=== PATIENT | female | born 1945 | race Caucasian/White ===

== ENCOUNTER 2017-05-29 13:41 | Emergency (ER) | payer MEDICARE ==
--- NOTE | 2017-05-29 13:59 | ER Document Report ---
ED Respiratory Problem - General Stated Complaint: SHORTNESS OF BREATH Time Seen by Provider: 05/29/17 13:48 Mode of Arrival: Medic Information source: Patient, Emergency Med Personnel TRAVEL OUTSIDE OF THE [place] IN LAST 30 DAYS: No - HPI Patient complains to provider of: COPD, Cough, Short of breath Onset: Last week Duration: Worse/persistent - GRADUALLY WORSENING Quality of pain: Other - SORENESS Severity: Moderate Context: Hx COPD Short of Breath: Moderate Cough: Productive Sputum amount: Moderate Sputum color: Yellow Sputum consistency: Mucoid At home treatment: Bronchodilators EMS treatments: Bronchodilators Associated symptoms: Chills, Cough, Fever Similar symptoms previously: Yes - NOT RECENT Recently seen / treated by doctor: No - Related Data Allergies/Adverse Reactions: azithromycin [Azithromycin] Allergy (Verified 05/29/17 17:11) moxifloxacin [From Avelox] Allergy (Verified 05/29/17 17:11) procaine HCl [From Novocain] Allergy (Verified 05/29/17 17:11) Home Medications: Current Home Medications Multivitamin [Multivitamins] 1 each PO DAILY 05/29/17 [History] Past Medical History - General Information source: Patient - Social History Smoking Status: Current Every Day Smoker Cigarette use (# per day): Yes Chew tobacco use (# tins/day): No Smoking Education Provided: No Frequency of alcohol use: Rare Drug Abuse: None Lives with: Alone Family History: Malignancy - Lung cancer Patient has suicidal ideation: No Patient has homicidal ideation: No - Past Medical History Cardiac Medical History: Reports: Hx Heart Attack - 2014 but cath negative, Hx Hypercholesterolemia Pulmonary Medical History: Reports: Hx COPD - 2014 fev1=43, Hx Pneumonia - 2014 EENT Medical History: Reports: None Neurological Medical History: Reports: None Endocrine Medical History: Reports: None Renal/ Medical History: Reports: None Malignancy Medical History: Reports: Hx Lung Cancer - 2006 RUL surgery chemo radiation GI Medical History: Reports: None Musculoskeltal Medical History: Reports None Psychiatric Medical History: Reports: None Denies: Hx Depression Past Surgical History: Reports: Hx Hysterectomy - Immunizations Immunizations up to date: Yes Hx Diphtheria, Pertussis, Tetanus Vaccination: Yes Hx Pneumococcal Vaccination: 07/16/15 Review of Systems - Review of Systems Constitutional: No symptoms reported EENT: No symptoms reported Cardiovascular: See HPI Respiratory: See HPI Gastrointestinal: No symptoms reported Genitourinary: Incontinence - STRESS, WORSENING Female Genitourinary: Post menopausal Musculoskeletal: No symptoms reported Skin: No symptoms reported Neurological/Psychological: No symptoms reported Physical Exam - Vital signs Vitals: Temp Resp BP Pulse Ox 97.6 F 24 H 113/70 90 L 05/29/17 13:53 05/29/17 13:53 05/29/17 13:53 05/29/17 13:53 Interpretation: Hypoxic, Tachypneic. No: Tachycardic, Febrile - General General appearance: Appears well, Alert In distress: None - HEENT Head: Normocephalic Eyes: Normal Conjunctiva: Normal Ears: Normal Nasal: Normal Mouth/Lips: Normal Mucous membranes: Normal Pharynx: Normal - Respiratory Respiratory status: No respiratory distress Chest status: Nontender Breath sounds: Decreased air movement - RIGHT UPPER, Productive cough, Wheezing - EXPIRATORY, ALL [place] - Cardiovascular Rhythm: Regular Heart sounds: Normal auscultation Murmur: No - Abdominal Inspection: Normal Distension: No distension Bowel sounds: Hypoactive - Extremities General upper extremity: Normal inspection General lower extremity: Normal inspection. No: Edema - Neurological Neuro grossly intact: Yes Cognition: Normal Orientation: AAOx4 - Psychological Associated symptoms: Normal affect, Normal mood - Skin Skin Temperature: Warm Skin Moisture: Dry Skin Color: Normal Skin Turgor: Elastic Course - Re-evaluation Re-evalutation: 05/29/17 17:27 Patient states she is much more comfortable. Lung sounds are improved. Treatment plan discussed. - Vital Signs Vital signs: Temp Pulse Resp BP Pulse Ox 97.6 F 16 119/57 L 94 05/29/17 13:53 05/29/17 17:02 05/29/17 17:02 05/29/17 17:02 - Laboratory Result Diagrams: 05/29/17 13:57 05/29/17 13:57 Laboratory results interpreted by me: 05/29/17 05/29/17 05/29/17 13:57 13:57 17:00 RDW 14.2 H Direct Bilirubin 0.5 H Urine Protein 30 H Urine Ketones TRACE H Ur Leukocyte Esterase MODERATE H - Diagnostic Test Radiology reviewed: Image reviewed, Reports reviewed - EKG Interpretation by Me EKG shows normal: Sinus rhythm, [place], Intervals, ST-T Waves. abnormal: QRS Complexes - ? OLD INF. ME Rate: Normal Rhythm: NSR P Waves: NAZIA - Consults DR. WATERS Time consulted: 16:34 Consulted provider: follow-up in office Discharge - Discharge Clinical Impression: Chronic obstructive pulmonary disease with acute exacerbation, Cough Condition: Stable Disposition: HOME, SELF-CARE Additional Instructions: STOP SMOKING!! REST, DRINK PLENTY OF FLUIDS. MEDS DIRECTED. FOLLOW UP WITH DR. WATERS IN OFFICE TOMORROW AT 2:20 PM. RETURN PROMPTLY TO E.R. IF YOU GET WORSE, ANY TIME. Prescriptions: Levofloxacin [Levaquin 500 mg Tablet] 500 mg PO DAILY #7 tablet Referrals: LENNY WATERS MD [Primary Care Provider] - Follow up tomorrow
[2017-05-29] MEDS ORDERED: METHYLPREDNISOLONE INJ 125 MG/2 ML SDV IV ONE (14:06)
[2017-05-29] MEDS ORDERED: IPRATROPIUM/ALBUTEROL 0.5-2.5 MG/3 ML AMPUL NEB ONE ×2 (14:06→16:36)
[2017-05-29 14:25] LABS: ABSOLUTE EOSINOPHILS # (AUTO) 0.2 10^3/uL (0.0-0.6); ABSOLUTE LYMPHOCYTES (AUTO) 1.3 10^3/uL (0.5-4.7); ABSOLUTE MONOCYTES (AUTO) 0.6 10^3/uL (0.1-1.4); ABSOLUTE NEUT (AUTO) 4.6 10^3/uL (1.7-8.2); BASOPHILS % (AUTO) 0.6 % (0-2); HEMATOCRIT 38.5 % (36.0-47.0); HEMOGLOBIN 12.9 g/dL (12.0-15.5); HGB HCT DIFFERENCE 0.2; LYMPHOCYTES % (AUTO) 19.9 % (13-45); MEAN CORPUSCULAR HEMOGLOBIN 29.2 pg (27.0-33.4); MEAN CORPUSCULAR HGB CONC 33.4 g/dL (32.0-36.0); MEAN CORPUSCULAR VOLUME 87 fl (80-97); RED BLOOD COUNT 4.41 10^6/uL (3.72-5.28); RED CELL DISTRIBUTION WIDTH 14.2 % (11.5-14.0); SEGMENTED NEUTROPHILS % (AUTO) 67.5 % (42-78); WHITE BLOOD COUNT 6.7 10^3/uL (4.0-10.5)
[2017-05-29 14:38] LABS: ALANINE AMINOTRANSFERASE 24 U/L (9-52); ALBUMIN 3.9 g/dL (3.5-5.0); ALKALINE PHOSPHATASE 76 U/L (38-126); ANION GAP 11 (5-19); ASPARTATE AMINO TRANSFERASE 24 U/L (14-36); BILIRUBIN,DIRECT 0.5 mg/dL (0.0-0.4); BILIRUBIN,TOTAL 0.7 mg/dL (0.2-1.3); BLOOD UREA NITROGEN 11 mg/dL (7-20); CALCIUM 9.4 mg/dL (8.4-10.2); CARBON DIOXIDE 23 mmol/L (22-30); CHLORIDE 106 mmol/L (98-107); CREATINE KINASE 56 U/L (30-135); CREATININE RESULT 0.68 mg/dL (0.52-1.25); GLUCOSE 96 mg/dL (75-110); POTASSIUM 4.3 mmol/L (3.6-5.0); SODIUM 139.7 mmol/L (137-145); TOTAL PROTEIN 6.8 g/dL (6.3-8.2)
[2017-05-29 14:44] LABS: VENOUS BLOOD BASE EXCESS 0.5 mmol/L; VENOUS BLOOD HCO3 25.7 mmol/L (20-32); VENOUS BLOOD PCO2 43.7 mmHg (35-63); VENOUS BLOOD PH 7.39 (7.30-7.42)
--- NOTE | 2017-05-29 15:08 | RADIOLOGY REPORT (SQ) ---
EXAM DESCRIPTION: CHEST SINGLE VIEW COMPLETED DATE/TIME: 05/29/2017 2:49 pm REASON FOR STUDY: COUGH, FEVER COMPARISON: 06/27/2016 EXAM PARAMETERS: NUMBER OF VIEWS: One view. TECHNIQUE: Single frontal radiographic view of the chest acquired. RADIATION DOSE: NA LIMITATIONS: None. FINDINGS: LUNGS AND PLEURA: Chronic postsurgical changes in the upper right hemithorax. COPD. Lung s appear free of active infiltrates. No effusions. MEDIASTINUM AND HILAR STRUCTURES: No masses. Contour normal. HEART AND VASCULAR STRUCTURES: Heart normal in size. Normal vasculature. BONES: No acute findings. HARDWARE: None in the chest. OTHER: No other significant finding. IMPRESSION: Chronic changes without evidence of acute cardiopulmonary disease. TECHNICAL DOCUMENTATION: JOB ID: [id number]
[2017-05-29 15:10] LABS: CREATINE KINASE MB 0.62 ng/mL (<4.55)
[2017-05-29 15:11] LABS: TROPONIN I < 0.012 ng/mL
[2017-05-29] MEDS ORDERED: LEVOFLOXACIN 750 MG TABLET PO ONE (16:36)
[2017-05-29 17:23] LABS: AMORPHOUS SEDIMENT,URINE TRACE /HPF; APPEARANCE,URINE CLOUDY; BILIRUBIN,URINE NEGATIVE (NEGATIVE); GLUCOSE, URINE NEGATIVE (NEGATIVE); KETONES,URINE TRACE mg/dL (NEGATIVE); LEUKOCYTE ESTERASE,URINE MODERATE (NEGATIVE); NITRITE,URINE NEGATIVE (NEGATIVE); PROTEIN,URINE 30 mg/dL (NEGATIVE); URINE SPECIFIC GRAVITY 1.018; UROBILINOGEN,URINE NEGATIVE mg/dL (<2.0)
[2017-05-29 18:19] VITALS: BP 132/78
--- NOTE | 2017-05-29 19:14 | EKG REPORT ---
SEVERITY:- ABNORMAL ECG - SINUS RHYTHM RIGHT ATRIAL ABNORMALITY PROBABLE INFERIOR INFARCT, OLD PROBABLE ANTEROLATERAL INFARCT, OLD : Confirmed by: Cristhian Brink MD 29-May-2017 19:12:37
== END 2017-05-29 18:19 | disposition home or self-care (01) ==
LOC: ER 13:41
DX: J44.1 Chronic obstructive pulmonary disease with (acute) exacerbation (principal); R05 Cough; R06.02 Shortness of breath; F17.210 Nicotine dependence, cigarettes, uncomplicated
CPT/HCPCS: 93005; 94640 ×2; 99285; 96374; 36415; 87040; 87070; 87086; 87205; 82553; 82550; 85025; 87088; 80053; 81001; 84484; 87186; 82803; 71010; 93010; J2930; A9270 ×2; J7620

== ENCOUNTER 2017-07-06 12:00 | Inpatient (IN) | payer MEDICARE ==
[2017-07-06 12:29] LABS: ABSOLUTE BASOPHILS # (AUTO) 0.1 10^3/uL (0.0-0.2); ABSOLUTE EOSINOPHILS # (AUTO) 0.1 10^3/uL (0.0-0.6); ABSOLUTE LYMPHOCYTES (AUTO) 1.3 10^3/uL (0.5-4.7); ABSOLUTE MONOCYTES (AUTO) 0.8 10^3/uL (0.1-1.4); ABSOLUTE NEUT (AUTO) 8.7 10^3/uL (1.7-8.2); BASOPHILS % (AUTO) 1.1 % (0-2); EOSINOPHILS % (AUTO) 0.5 % (0-6); HEMATOCRIT 39.4 % (36.0-47.0); HEMOGLOBIN 13.4 g/dL (12.0-15.5); HGB HCT DIFFERENCE 0.8; LYMPHOCYTES % (AUTO) 11.6 % (13-45); MEAN CORPUSCULAR HEMOGLOBIN 29.9 pg (27.0-33.4); MEAN CORPUSCULAR VOLUME 88 fl (80-97); MONOCYTES % (AUTO) 7.5 % (3-13); RED BLOOD COUNT 4.48 10^6/uL (3.72-5.28); RED CELL DISTRIBUTION WIDTH 14.8 % (11.5-14.0); SEGMENTED NEUTROPHILS % (AUTO) 79.3 % (42-78); WHITE BLOOD COUNT 10.9 10^3/uL (4.0-10.5)
--- NOTE | 2017-07-06 12:36 | ER Document Report ---
ED Respiratory Problem - General Information source: Patient TRAVEL OUTSIDE OF THE [place] IN LAST 30 DAYS: No <TAYLOR DELAROSA - Last Filed: 07/06/17 14:37> <JACKSON MONTGOMERY - Last Filed: 07/06/17 17:41> <FADI WANG - Last Filed: 07/06/17 22:26> - General Chief Complaint: Breathing Difficulty Stated Complaint: DIFFICULTY BREATHING Time Seen by Provider: 07/06/17 12:31 Notes: Patient is a 72-year-old female who presents to the emergency department today with complaints of a cough of one-week duration. Patient states initially the mucus she was bringing up with the cough was clear and it has transitioned to a yellow color. EMS states on arrival, the patient had an oxygen saturation of 88%, she received 2 albuterol treatments and one Atrovent in route. Patient denies any recent steroid or antibiotic usage. Patient states she uses Spiriva at home but her prescription recently ran out and she has not gotten it refilled. Patient did pick smoking back up recently. Patient states she has had associated chills, generalized weakness, and sweats. (TAYLOR DELAROSA) - HPI Notes: Staff attempting to get ABG with difficulty. (JACKSON MONTGOMERY) - Related Data Allergies/Adverse Reactions: azithromycin [Azithromycin] Allergy (Verified 05/29/17 17:11) moxifloxacin [From Avelox] Allergy (Verified 05/29/17 17:11) procaine HCl [From Novocain] Allergy (Verified 05/29/17 17:11) Past Medical History - General Information source: Patient - Social History Smoking Status: Current Every Day Smoker Cigarette use (# per day): Yes Frequency of alcohol use: None Drug Abuse: None Lives with: Family Family History: Malignancy - Lung cancer - Past Medical History Cardiac Medical History: Reports: Hx Heart Attack - 2014 but cath negative, Hx Hypercholesterolemia Pulmonary Medical History: Reports: Hx COPD - 2014 fev1=43, Hx Pneumonia - 2014 Malignancy Medical History: Reports: Hx Lung Cancer - 2006 RUL surgery chemo radiation Past Surgical History: Reports: Hx Hysterectomy - Immunizations Immunizations up to date: Yes Hx Diphtheria, Pertussis, Tetanus Vaccination: Yes Hx Pneumococcal Vaccination: 07/16/15 <TAYLOR DELAROSA - Last Filed: 07/06/17 14:37> Review of Systems - Review of Systems Constitutional: See HPI, Chills, Diaphoresis, Weakness EENT: No symptoms reported Cardiovascular: No symptoms reported Respiratory: See HPI, Cough Gastrointestinal: No symptoms reported Genitourinary: No symptoms reported Female Genitourinary: No symptoms reported Musculoskeletal: No symptoms reported Skin: No symptoms reported Hematologic/Lymphatic: No symptoms reported Neurological/Psychological: No symptoms reported -: Yes All other systems reviewed and negative <TAYLOR DELAROSA - Last Filed: 07/06/17 14:37> Physical Exam <TAYLOR DELAROSA - Last Filed: 07/06/17 14:37> <JACKSON MONTGOMERY - Last Filed: 07/06/17 17:41> <FADI WANG - Last Filed: 07/06/17 22:26> - Vital signs Vitals: Resp Pulse Ox 29 H 95 07/06/17 12:11 07/06/17 12:11 - Notes Notes: Physical Exam: General: Alert, appears in moderate distress secondary to shortness of breath. HEENT: Normocephalic. Atraumatic. PERRL. Extraocular movements intact. Oropharynx clear. Neck: Supple. Non-tender. Respiratory: Moderate respiratory distress. Diffuse rhonchi bilaterally, prolonged expiratory phase. Cardiovascular: Tachycardic, regular rhythm. Abdominal: Normal Inspection. Non-tender. No distension. Normal Bowel Sounds. Back: Non-tender. No deformity or step off. Extremities: Moves all four extremities. Upper extremities: Normal inspection. Normal ROM. Lower extremities: Trace edema bilaterally. Normal ROM. Neurological: Normal cognition. AAOx4. Normal speech. Psychological: Normal affect. Normal Mood. Skin: Warm. Dry. Normal color. (TAYLOR DELAROSA) Course - Laboratory Result Diagrams: 07/06/17 12:08 07/06/17 12:08 <TAYLOR DELAROSA - Last Filed: 07/06/17 14:37> - Laboratory Result Diagrams: 07/06/17 12:08 07/06/17 12:08 - Diagnostic Test Radiology reviewed: Image reviewed, Reports reviewed - Probable left lower lobe infiltrate - EKG Interpretation by Me Rate: Tachycardia - Sinus tachycardia rate 105. No obvious ischemia, QRS normal duration. <JACKSON MONTGOMERY - Last Filed: 07/06/17 17:41> - Laboratory Result Diagrams: 07/06/17 12:08 07/06/17 12:08 <FADI WANG - Last Filed: 07/06/17 22:26> - Re-evaluation Re-evalutation: 07/06/17 13:47 BiPAP ordered as saturations decreasing to as much as 79%. Patient does not use home oxygen. Zosyn ordered as appears to have a left basilar infiltrate. ABG previously ordered is still pending. 07/06/17 13:47 07/06/17 13:51 I discussed CODE STATUS with the patient. She does not want CPR but will be intubated if needed. She states she had not discussed this in the past. 07/06/17 16:[address] Banks for admission of the patient. ABG reviewed pH 7.31 , PO2 in the 60s with 50% oxygen. (JACKSON MONTGOMERY) - Vital Signs Vital signs: Temp Pulse Resp BP Pulse Ox 98.4 F 19 143/112 H 97 07/06/17 18:49 07/06/17 19:16 07/06/17 19:16 07/06/17 19:16 - Laboratory Laboratory results interpreted by me: 07/06/17 07/06/17 07/06/17 12:08 12:08 15:27 WBC 10.9 H RDW 14.8 H Seg Neutrophils % 79.3 H Lymphocytes % 11.6 L Absolute Neutrophils 8.7 H Carbonic Acid 1.65 H ABG pH 7.31 L ABG pCO2 54.7 H ABG pO2 62.4 L ABG HCO3 26.7 H ABG Total CO2 28.4 H ABG O2 Saturation 89.4 L Glucose 119 H Urine Protein Ur Leukocyte Esterase 07/06/17 20:15 WBC RDW Seg Neutrophils % Lymphocytes % Absolute Neutrophils Carbonic Acid ABG pH ABG pCO2 ABG pO2 ABG HCO3 ABG Total CO2 ABG O2 Saturation Glucose Urine Protein 30 H Ur Leukocyte Esterase MODERATE H Discharge <TAYLOR DELAROSA - Last Filed: 07/06/17 14:37> - Discharge Unit Admitted: [facility] <JACKSON MONTGOMERY - Last Filed: 07/06/17 17:41> - Discharge Admitting Provider: Darren Unit Admitted: [facility] <FADI WANG - Last Filed: 07/06/17 22:26> - Discharge Clinical Impression: Pneumonia, COPD with exacerbation, Acute respiratory failure Condition: Fair Disposition: ADMITTED INPATIENT Referrals: LENNY BANKS MD [Primary Care Provider] - Follow up as needed Scribe Attestation: 07/06/17 17:42 I personally performed the services described in the documentation, reviewed and edited the documentation which was dictated to the scribe in my presence, and it accurately records my words and actions. (JACKSON MONTGOMERY) Scribe Documentation - Scribe Written by Kyrie:: Kyrie Castro, 07/06/2017 1452 acting as scribe for :: Seble <TAYLOR DELAROSA - Last Filed: 07/06/17 14:37>
[2017-07-06] MEDS ORDERED: IPRATROPIUM/ALBUTEROL 0.5-2.5 MG/3 ML AMPUL NEB ONE ×2 (12:38→16:09)
--- NOTE | 2017-07-06 12:40 | EKG REPORT ---
SEVERITY:- ABNORMAL ECG - SINUS TACHYCARDIA INFERIOR INFARCT, OLD LATERAL INFARCT, OLD ANTERIOR INFARCT, AGE INDETERMINATE : Confirmed by: Cristhian Brink MD 06-Jul-2017 12:40:05
[2017-07-06 12:45] LABS: ALANINE AMINOTRANSFERASE 17 U/L (9-52); ALKALINE PHOSPHATASE 80 U/L (38-126); ANION GAP 10 (5-19); ASPARTATE AMINO TRANSFERASE 17 U/L (14-36); BILIRUBIN,DIRECT 0.4 mg/dL (0.0-0.4); BILIRUBIN,TOTAL 0.8 mg/dL (0.2-1.3); BLOOD UREA NITROGEN 9 mg/dL (7-20); CALCIUM 10.1 mg/dL (8.4-10.2); CARBON DIOXIDE 27 mmol/L (22-30); CHLORIDE 104 mmol/L (98-107); CREATININE RESULT 0.68 mg/dL (0.52-1.25); GLUCOSE 119 mg/dL (75-110); SODIUM 140.7 mmol/L (137-145)
--- NOTE | 2017-07-06 13:33 | RADIOLOGY REPORT (SQ) ---
EXAM DESCRIPTION: CHEST SINGLE VIEW COMPLETED DATE/TIME: 07/06/2017 12:47 pm REASON FOR STUDY: SOB COMPARISON: 05/29/2017 EXAM PARAMETERS: NUMBER OF VIEWS: One view. TECHNIQUE: Single frontal radiographic view of the chest acquired. RADIATION DOSE: NA LIMITATIONS: None. FINDINGS: LUNGS AND PLEURA: Surgical changes in the right upper lobe that are stable. There is slig htly increased opacification in the left base. MEDIASTINUM AND HILAR STRUCTURES: No masses. Contour normal. HEART AND VASCULAR STRUCTURES: Heart normal in size. Normal vasculature. BONES: No acute findings. HARDWARE: None in the chest. OTHER: No other significant finding. IMPRESSION: Surgical changes. A limited infiltrate cannot be ruled out in the left base. TECHNICAL DOCUMENTATION: JOB ID: [id number]
[2017-07-06] MEDS ORDERED: PIPERACILLIN/TAZOBACTAM 3.375 GM VIAL IV ONE (13:44)
[2017-07-06 14:14] LABS: PROTHROMBIN TIME 13.6 SEC (11.4-15.4)
[2017-07-06 15:51] LABS: ARTERIAL BLOOD BASE EXCESS -0.5 mmol/L; ARTERIAL BLOOD O2 SATURATION 89.4 % (94-98)
[2017-07-06 20:37] LABS: APPEARANCE,URINE CLOUDY; BILIRUBIN,URINE NEGATIVE (NEGATIVE); GLUCOSE, URINE NEGATIVE (NEGATIVE); KETONES,URINE NEGATIVE (NEGATIVE); LEUKOCYTE ESTERASE,URINE MODERATE (NEGATIVE); NITRITE,URINE NEGATIVE (NEGATIVE); PROTEIN,URINE 30 mg/dL (NEGATIVE); URINE SPECIFIC GRAVITY 1.021; UROBILINOGEN,URINE NEGATIVE mg/dL (<2.0)
--- NOTE | 2017-07-07 07:13 | PDOC H&P ---
History of Present Illness Admission Date/PCP: 07/06/17 22:32 LENNY WATERS MD Patient complains of: dyspnea History of Present Illness: SADA ROLAND is a 72 year old female with a RU lobectomy in 2006 for cancer and emphysema since then. Now she has had 6d productive cough and wheeze. She ran out of spiriva. Past Medical History Cardiac Medical History: Reports: Myocardial Infarction - 2014 but cath negative , Hyperlipidema Pulmonary Medical History: Reports: Chronic Obstructive Pulmonary Disease (COPD ) - 2014 fev1=43, Pneumonia - 2014 EENT Medical History: Reports: Nose - allergic rhinitis Neurological Medical History: Reports: None Endocrine Medical History: Reports: None Renal/ Medical History: Reports: None Malignancy Medical History: Reports: Lung Cancer - 2006 RUL surgery chemo radiation GI Medical History: Reports: None Musculoskeltal Medical History: Reports: None Skin Medical History: Reports: None Psychiatric Medical History: Reports: None Denies: Depression Traumatic Medical History: Reports: None Hematology: Reports: Anemia - b12 since 1955 Infectious Medical History: Reports: None Past Surgical History Past Surgical History: Reports: Hysterectomy, Other - RU lobectomy Social History Information Source: Dr. Castañeda Lives with: Family Smoking Status: Current Every Day Smoker Cigarettes Packs Per Day: 1 Number of Years Smokin Last Time Smoked: 07/06/17 Frequency of Alcohol Use: None Hx Recreational Drug Use: No Drugs: None Hx Prescription Drug Abuse: No - Advance Directive Resuscitation Status: Full Code Family History Family History: Malignancy - Lung cancer Parental Family History Reviewed: Yes Children Family History Reviewed: Yes Sibling(s) Family History Reviewed.: Yes Medication/Allergy Allergies/Adverse Reactions: azithromycin [Azithromycin] Allergy (Verified 05/29/17 17:11) moxifloxacin [From Avelox] Allergy (Verified 05/29/17 17:11) procaine HCl [From Novocain] Allergy (Verified 05/29/17 17:11) Review of Systems Constitutional: PRESENT: chills. ABSENT: weight loss Nose, Mouth, and Throat: PRESENT: sore throat Cardiovascular: PRESENT: chest pain - pleuritic, orthropnea Respiratory: PRESENT: cough, dyspnea, sputum Gastrointestinal: ABSENT: abdominal pain, constipation, diarrhea, hematochezia, melena, vomiting Genitourinary: ABSENT: dysuria, hematuria Physical Exam Vital Signs: Temp Pulse Resp BP Pulse Ox 97.6 F 83 24 H 125/51 L 100 07/07/17 03:09 07/07/17 03:09 07/07/17 04:06 07/07/17 03:09 07/07/17 03:09 Intake & Output 07/05/17 07/06/17 07/07/17 07:59 07:59 07:59 Intake Total 103 Balance 103 Weight 141 lb 12.116 oz General appearance: PRESENT: no acute distress Mouth exam: PRESENT: moist Neck exam: ABSENT: lymphadenopathy, tenderness, thyromegaly, tracheal deviation Respiratory exam: PRESENT: prolonged expiratory phas, wheezes Cardiovascular exam: ABSENT: diastolic murmur, irregular rhythm, systolic murmur GI/Abdominal exam: ABSENT: mass, organolmegaly, tenderness Extremities exam: ABSENT: pedal edema Neurological exam: PRESENT: oriented to situation Psychiatric exam: PRESENT: appropriate affect Results Laboratory Results: Abnormal - 24 hr 07/06/17 07/06/17 07/06/17 12:08 12:08 15:27 WBC 10.9 H RDW 14.8 H Seg Neutrophils % 79.3 H Lymphocytes % 11.6 L Absolute Neutrophils 8.7 H Carbonic Acid 1.65 H ABG pH 7.31 L ABG pCO2 54.7 H ABG pO2 62.4 L ABG HCO3 26.7 H ABG Total CO2 28.4 H ABG O2 Saturation 89.4 L Glucose 119 H Urine Protein Ur Leukocyte Esterase 07/06/17 20:15 WBC RDW Seg Neutrophils % Lymphocytes % Absolute Neutrophils Carbonic Acid ABG pH ABG pCO2 ABG pO2 ABG HCO3 ABG Total CO2 ABG O2 Saturation Glucose Urine Protein 30 H Ur Leukocyte Esterase MODERATE H Impressions: Chest X-Ray 07/06/17 12:16 IMPRESSION: Surgical changes. A limited infiltrate cannot be ruled out in the left base. Assessment & Plan - Diagnosis (1) PNA (pneumonia) Qualifiers: Pneumonia type: due to unspecified organism Laterality: left Lung location: lower lobe of lung Qualified Code(s): J18.1 - Lobar pneumonia, unspecified organism Is this a current diagnosis for this admission?: Yes Plan: unasyn (2) Acute respiratory failure Qualifiers: Respiratory failure complication: hypoxia and hypercapnia Qualified Code(s) : J96.01 - Acute respiratory failure with hypoxia; J96.02 - Acute respiratory failure with hypercapnia Is this a current diagnosis for this admission?: Yes Plan: duonebs prednisone. Wants bipap off. - Inpatient Certification Based on my medical assessment, after consideration of the patient's comorbidities, presenting symptoms, or acuity I expect that the services needed warrant INPATIENT care.: Yes Medical Necessity: Significant Comorbidiites Make Outpatient Treatment Too Risky , Need Close Monitoring Due to Risk of Patient Decompensation, Need For Continuous Telemetry Monitoring, Need for Nebulizer Therapy and Monitoring of Response, Need for IV Antibiotics, Risk of Complication if Not Cared For in Hospital, Risk of Diagnosis Which Will Require Inpatient Eval/Care/Monitoring
[2017-07-07] MEDS: IPRATROPIUM/ALBUTEROL 0.5-2.5 MG/3 ML AMPUL NEB SCH ×5 (08:33→23:49)
[2017-07-07] MEDS ORDERED: AMPICILLIN SODIUM/SULBACTAM NA 3 GM in NORMAL SALINE 100 ML IV SCH (12:00)
[2017-07-07] MEDS: ENOXAPARIN SODIUM INJ 40 MG/0.4 ML DISP.SYRIN SUBCUT SCH (12:19)
[2017-07-07] MEDS: PREDNISONE 20 MG TABLET PO SCH ×2 (12:20→21:59)
[2017-07-07] MEDS: FAMOTIDINE 20 MG TABLET PO SCH ×2 (12:20→22:00)
[2017-07-07] MEDS: AMPICILLIN SODIUM/SULBACTAM NA 3 GM in NORMAL SALINE 100 ML IV SCH ×2 (16:25→22:00)
[2017-07-08] MEDS: AMPICILLIN SODIUM/SULBACTAM NA 3 GM in NORMAL SALINE 100 ML IV SCH ×4 (02:30→21:07)
[2017-07-08] MEDS: IPRATROPIUM/ALBUTEROL 0.5-2.5 MG/3 ML AMPUL NEB SCH ×6 (03:37→23:28)
--- NOTE | 2017-07-08 06:13 | PDOC PROGRESS REPORT ---
Subjective Progress Note for:: 07/08/17 Subjective:: better. Wants home soon. Physical Exam Vital Signs: Temp Pulse Resp BP Pulse Ox 97.7 F 87 16 116/52 L 99 07/08/17 04:42 07/08/17 04:42 07/08/17 04:42 07/08/17 04:42 07/08/17 04:42 Intake & Output 07/06/17 07/07/17 07/08/17 07:59 07:59 07:59 Intake Total 103 894 Balance 103 894 Weight 141 lb 12.116 oz 141 lb 12.116 oz General appearance: PRESENT: no acute distress Respiratory exam: PRESENT: prolonged expiratory phas, rhonchi, wheezes Cardiovascular exam: ABSENT: diastolic murmur, irregular rhythm, systolic murmur GI/Abdominal exam: ABSENT: mass, organolmegaly, tenderness Extremities exam: ABSENT: pedal edema Results Impressions: Chest X-Ray 07/06/17 12:16 IMPRESSION: Surgical changes. A limited infiltrate cannot be ruled out in the left base. Assessment & Plan - Diagnosis (1) PNA (pneumonia) Qualifiers: Pneumonia type: due to unspecified organism Laterality: left Lung location: lower lobe of lung Qualified Code(s): J18.1 - Lobar pneumonia, unspecified organism Is this a current diagnosis for this admission?: Yes Plan: continue unasyn (2) Acute respiratory failure Qualifiers: Respiratory failure complication: hypoxia and hypercapnia Qualified Code(s) : J96.01 - Acute respiratory failure with hypoxia; J96.02 - Acute respiratory failure with hypercapnia Is this a current diagnosis for this admission?: Yes Plan: no bipap last night - Inpatient Certification Medical Necessity: Need Close Monitoring Due to Risk of Patient Decompensation, Need For Continuous Telemetry Monitoring, Need for IV Antibiotics, Risk of Complication if Not Cared For in Hospital, Risk of Diagnosis Which Will Require Inpatient Eval/Care/Monitoring
[2017-07-08] MEDS: PREDNISONE 20 MG TABLET PO SCH ×2 (09:34→21:06)
[2017-07-08] MEDS: FAMOTIDINE 20 MG TABLET PO SCH ×2 (09:34→21:06)
[2017-07-08] MEDS: ENOXAPARIN SODIUM INJ 40 MG/0.4 ML DISP.SYRIN SUBCUT SCH (09:34)
[2017-07-09] MEDS: AMPICILLIN SODIUM/SULBACTAM NA 3 GM in NORMAL SALINE 100 ML IV SCH ×4 (03:24→21:03)
[2017-07-09] MEDS: IPRATROPIUM/ALBUTEROL 0.5-2.5 MG/3 ML AMPUL NEB SCH ×5 (03:47→19:54)
--- NOTE | 2017-07-09 05:33 | PDOC PROGRESS REPORT ---
Subjective Progress Note for:: 07/09/17 Subjective:: better. Chokes when swallow. Physical Exam Vital Signs: Temp Pulse Resp BP Pulse Ox 97.7 F 92 16 108/49 L 100 07/09/17 04:27 07/09/17 04:27 07/09/17 04:27 07/09/17 04:27 07/09/17 04:27 Intake & Output 07/07/17 07/08/17 07/09/17 07:59 07:59 07:59 Intake Total 103 1132 2146 Balance 103 1132 2146 Weight 141 lb 12.116 oz 144 lb 6.444 oz General appearance: PRESENT: no acute distress Respiratory exam: PRESENT: rhonchi, wheezes Cardiovascular exam: ABSENT: diastolic murmur, irregular rhythm, systolic murmur GI/Abdominal exam: ABSENT: mass, organolmegaly, tenderness Extremities exam: ABSENT: pedal edema Neurological exam: PRESENT: oriented to situation Psychiatric exam: PRESENT: appropriate affect Results Impressions: Chest X-Ray 07/06/17 12:16 IMPRESSION: Surgical changes. A limited infiltrate cannot be ruled out in the left base. Assessment & Plan - Diagnosis (1) PNA (pneumonia) Qualifiers: Pneumonia type: due to unspecified organism Laterality: left Lung location: lower lobe of lung Qualified Code(s): J18.1 - Lobar pneumonia, unspecified organism Is this a current diagnosis for this admission?: Yes Plan: continue unasyn (2) Acute respiratory failure Qualifiers: Respiratory failure complication: hypoxia and hypercapnia Qualified Code(s) : J96.01 - Acute respiratory failure with hypoxia; J96.02 - Acute respiratory failure with hypercapnia Is this a current diagnosis for this admission?: Yes (3) Dysphagia Qualifiers: Dysphagia type: oropharyngeal phase Qualified Code(s): R13.12 - Dysphagia, oropharyngeal phase Is this a current diagnosis for this admission?: Yes Plan: modified barium swallow - Inpatient Certification Medical Necessity: Failure to Improve With Outpatient Therapy, Significant Comorbidiites Make Outpatient Treatment Too Risky, Need for Nebulizer Therapy and Monitoring of Response, Need for IV Antibiotics, Risk of Complication if Not Cared For in Hospital, Risk of Diagnosis Which Will Require Inpatient Eval/ Care/Monitoring
[2017-07-09] MEDS: FAMOTIDINE 20 MG TABLET PO SCH ×2 (09:02→21:02)
[2017-07-09] MEDS: PREDNISONE 20 MG TABLET PO SCH ×2 (09:02→21:02)
[2017-07-09] MEDS: ENOXAPARIN SODIUM INJ 40 MG/0.4 ML DISP.SYRIN SUBCUT SCH (09:03)
[2017-07-10] MEDS: IPRATROPIUM/ALBUTEROL 0.5-2.5 MG/3 ML AMPUL NEB SCH ×7 (01:02→23:57)
[2017-07-10] MEDS: AMPICILLIN SODIUM/SULBACTAM NA 3 GM in NORMAL SALINE 100 ML IV SCH ×4 (03:40→20:10)
--- NOTE | 2017-07-10 06:45 | PDOC PROGRESS REPORT ---
Subjective Progress Note for:: 07/10/17 Subjective:: slowly better Physical Exam Vital Signs: Temp Pulse Resp BP Pulse Ox 97.4 F 96 20 130/67 H 98 07/10/17 04:03 07/10/17 04:15 07/10/17 04:15 07/10/17 04:03 07/10/17 04:03 Intake & Output 07/08/17 07/09/17 07/10/17 07:59 07:59 07:59 Intake Total 1132 2146 1875 Balance 1132 2146 1875 Weight 144 lb 6.444 oz 148 lb 12.992 oz 153 lb 0.013 oz General appearance: PRESENT: no acute distress Respiratory exam: PRESENT: rhonchi, wheezes Cardiovascular exam: ABSENT: diastolic murmur, irregular rhythm, systolic murmur GI/Abdominal exam: ABSENT: mass, organolmegaly, tenderness Extremities exam: ABSENT: pedal edema Neurological exam: PRESENT: oriented to situation Psychiatric exam: PRESENT: appropriate affect Results Impressions: Chest X-Ray 07/06/17 12:16 IMPRESSION: Surgical changes. A limited infiltrate cannot be ruled out in the left base. Assessment & Plan - Diagnosis (1) PNA (pneumonia) Qualifiers: Pneumonia type: due to unspecified organism Laterality: left Lung location: lower lobe of lung Qualified Code(s): J18.1 - Lobar pneumonia, unspecified organism Is this a current diagnosis for this admission?: Yes Plan: gram positive in 1of2 blood culture. Had [id number] and [id number]. Follow id sensitivities (2) Acute respiratory failure Qualifiers: Respiratory failure complication: hypoxia and hypercapnia Qualified Code(s) : J96.01 - Acute respiratory failure with hypoxia; J96.02 - Acute respiratory failure with hypercapnia Is this a current diagnosis for this admission?: Yes (3) Dysphagia Qualifiers: Dysphagia type: oropharyngeal phase Qualified Code(s): R13.12 - Dysphagia, oropharyngeal phase Is this a current diagnosis for this admission?: Yes Plan: modified barium swallow
[2017-07-10] MEDS: FAMOTIDINE 20 MG TABLET PO SCH ×2 (10:29→21:25)
[2017-07-10] MEDS: PREDNISONE 20 MG TABLET PO SCH ×2 (10:29→21:25)
[2017-07-10] MEDS: ENOXAPARIN SODIUM INJ 40 MG/0.4 ML DISP.SYRIN SUBCUT SCH (10:30)
[2017-07-10 11:27] LABS: ABSOLUTE LYMPHOCYTES (AUTO) 0.5 10^3/uL (0.5-4.7); ABSOLUTE MONOCYTES (AUTO) 0.8 10^3/uL (0.1-1.4); ABSOLUTE NEUT (AUTO) 7.8 10^3/uL (1.7-8.2); BASOPHILS % (AUTO) 0.5 % (0-2); HEMATOCRIT 34.6 % (36.0-47.0); HEMOGLOBIN 11.9 g/dL (12.0-15.5); HGB HCT DIFFERENCE 1.1; LYMPHOCYTES % (AUTO) 5.4 % (13-45); MEAN CORPUSCULAR HEMOGLOBIN 30.4 pg (27.0-33.4); MEAN CORPUSCULAR HGB CONC 34.5 g/dL (32.0-36.0); MEAN CORPUSCULAR VOLUME 88 fl (80-97); MONOCYTES % (AUTO) 8.5 % (3-13); RED BLOOD COUNT 3.93 10^6/uL (3.72-5.28); RED CELL DISTRIBUTION WIDTH 14.7 % (11.5-14.0); SEGMENTED NEUTROPHILS % (AUTO) 85.6 % (42-78); WHITE BLOOD COUNT 9.1 10^3/uL (4.0-10.5)
[2017-07-11] MEDS: AMPICILLIN SODIUM/SULBACTAM NA 3 GM in NORMAL SALINE 100 ML IV SCH ×4 (02:32→21:39)
[2017-07-11] MEDS: IPRATROPIUM/ALBUTEROL 0.5-2.5 MG/3 ML AMPUL NEB SCH ×6 (03:21→23:53)
--- NOTE | 2017-07-11 06:44 | PDOC PROGRESS REPORT ---
Subjective Progress Note for:: 07/11/17 Subjective:: slowly better Physical Exam Vital Signs: Temp Pulse Resp BP Pulse Ox 98.4 F 94 18 136/61 H 98 07/11/17 03:18 07/11/17 03:21 07/11/17 03:21 07/11/17 03:18 07/11/17 03:21 Intake & Output 07/09/17 07/10/17 07/11/17 07:59 07:59 07:59 Intake Total 21455 851 Balance 2145 2074 851 Weight 148 lb 12.992 oz 153 lb 0.013 oz 156 lb 15.506 oz General appearance: PRESENT: no acute distress Respiratory exam: PRESENT: rhonchi - L>R, wheezes Cardiovascular exam: ABSENT: diastolic murmur, irregular rhythm, systolic murmur GI/Abdominal exam: ABSENT: mass, organolmegaly, tenderness Extremities exam: ABSENT: pedal edema Neurological exam: PRESENT: oriented to situation Psychiatric exam: PRESENT: appropriate affect Results Laboratory Results: 07/10/17 11:17 07/10/17 11:17 WBC 9.1 RBC 3.93 Hgb 11.9 L Hct 34.6 L MCV 88 MCH 30.4 MCHC 34.5 RDW 14.7 H Plt Count 242 Seg Neutrophils % 85.6 H Lymphocytes % 5.4 L Monocytes % 8.5 Eosinophils % 0.0 Basophils % 0.5 Absolute Neutrophils 7.8 Absolute Lymphocytes 0.5 Absolute Monocytes 0.8 Absolute Eosinophils 0.0 Absolute Basophils 0.0 Impressions: Chest X-Ray 07/06/17 12:16 IMPRESSION: Surgical changes. A limited infiltrate cannot be ruled out in the left base. Assessment & Plan - Diagnosis (1) PNA (pneumonia) Qualifiers: Pneumonia type: due to unspecified organism Laterality: left Lung location: lower lobe of lung Qualified Code(s): J18.1 - Lobar pneumonia, unspecified organism Is this a current diagnosis for this admission?: Yes Plan: Blood culture ID still pending. Continue unasyn. (2) Acute respiratory failure Qualifiers: Respiratory failure complication: hypoxia and hypercapnia Qualified Code(s) : J96.01 - Acute respiratory failure with hypoxia; J96.02 - Acute respiratory failure with hypercapnia Is this a current diagnosis for this admission?: Yes (3) Dysphagia Qualifiers: Dysphagia type: oropharyngeal phase Qualified Code(s): R13.12 - Dysphagia, oropharyngeal phase Is this a current diagnosis for this admission?: Yes Plan: Ba swallow postponed to today - Inpatient Certification Medical Necessity: Significant Comorbidiites Make Outpatient Treatment Too Risky , Need Close Monitoring Due to Risk of Patient Decompensation, Need for IV Antibiotics, Risk of Complication if Not Cared For in Hospital, Risk of Diagnosis Which Will Require Inpatient Eval/Care/Monitoring
[2017-07-11] MEDS: PREDNISONE 20 MG TABLET PO SCH ×2 (09:29→21:38)
[2017-07-11] MEDS: FAMOTIDINE 20 MG TABLET PO SCH ×2 (09:29→21:38)
[2017-07-11] MEDS: ENOXAPARIN SODIUM INJ 40 MG/0.4 ML DISP.SYRIN SUBCUT SCH (09:32)
--- NOTE | 2017-07-11 09:37 | RADIOLOGY REPORT (SQ) ---
EXAM DESCRIPTION: JENNIFERIE SWALLOW COMPLETED DATE/TIME: 07/11/2017 9:23 am REASON FOR STUDY: dysphagia COMPARISON: None. TECHNIQUE: Videofluoroscopic swallowing examination was performed in conjunction with speech patholo gy. Videofluoroscopic imaging was obtained and reviewed and these are the findings: RADIATION DOSE: Fluoro time 1.35 minutes 1 images saved to PACS. LIMITATIONS: None FINDINGS: The patient was brought into the fluoro room and placed upright on a modified barium swall ow chair. The patient was then given multiple consistencies mixed with barium to swallow under live fluoroscopic video guidance. According to the Speech Pathologist there was laryngeal penetration wit h thin barium, without aspiration identified. All other consistencies were swallowed without inciden t. Please refer to the speech pathology report for further details. IMPRESSION: LARYNGEAL PENETRATION WITHOUT ASPIRATION SEEN WITH THIN BARIUM.PLEASE SEE SPEECH PATHOLO GIST REPORT FOR OTHER FINDINGS AND RECOMMENDATIONS. COMMENT: NONE Quality ID [id number]: Final reports for procedures using fluoroscopy that document radiation exposure pavan lamonte, or exposure time and number of fluorographic images (if radiation exposure indices are not avail able) TECHNICAL DOCUMENTATION: JOB ID: [id number] [email or web address]- All Rights Reserved
--- NOTE | 2017-07-11 11:32 | ST Inp Modified Barium Swallow ---
Medical Diagnosis - Medical Diagnoses Medical Diagnosis Description & ICD-10 Code(s): pneumonia ST Inpatient [facility] [place] - General Date: 07/11/17 - History History Obtained From: Patient, Other - EMR -: Medical - per EMR: myocardial infarct, COPD, lung cancer 2007, RU lobectomy, anemia, hyperlipidemia. Medications: Medications Reviewed Allergies: Refer to medical record - Subjective Current Nutritional Means: PO Current PO Diet: Regular Current Symptoms: Coughing, Pneumonia Pain: Patient reports, 0/5 - Objective Assessment: Upright, Left Lateral - Food Trials Food Trials Used: Thin liquids, Pureed, Regular The Patient: Was Able to Self Feed - Assessment Labial Function: Within Normal Limits Lingual Function: Within Normal Limits Mandibular Function: Within Normal Limits Laryngeal Function: Volitional Cough - patient already coughing prior to assessment due to repiratory difficulties. Volitional cough triggered additional coughing. - Pharyngeal Stage Initiation of Pharyngeal Stage: Normal Decreased Laryngeal Elevation: Yes - mild Reduced Velo-Pharyngeal Closure: no Reduced Pressure Generation: No Reduced Tongue Base Retraction: No Pre-Swallowing Pooling in Valleculae: None Pre-Swallowing Pooling in Pyriforms: None Reduced Thyro-Hyiod Approximation: No Reduced Epiglottic Excursion: No Reduced Pharyngeal Peristalsis: No Multiple Swallows With: Cleared w/ Dry Swallow Post Swallow Residuals in Valleculae: Mild Post Swallow Residuals in Pyriforms: None - Impression/Summary Laryngeal Penetration: Yes, Flash, during swallow - for thin liquid trials Tracheal Aspiration: no Effective Compensatory Strategies: chin tuck Patient Presents With: Pharyngeal stage dysph., Mild-Moderate Risk of Aspiration: Mild Risk of Nutritional Compromise: WNL - Recommendations Solid Diet Recommendations: Regular Liquid Diet Recommendations: Thin Strict Aspitarion Precautions: Yes Dysphagia Therapy with INSOLVENCY CONSULTANT: No Recommended Techniques: Fully Upright During Meal, Small Bites and Sips, Chin Tuck to Swallow Other Recommendations: Recommended small straw sips of liquid rather than tilting head back to drink from cup. - Time Total Time: 20 Total Timed Minutes: 20
[2017-07-12] MEDS: AMPICILLIN SODIUM/SULBACTAM NA 3 GM in NORMAL SALINE 100 ML IV SCH (03:40)
[2017-07-12] MEDS: IPRATROPIUM/ALBUTEROL 0.5-2.5 MG/3 ML AMPUL NEB SCH ×2 (04:05→07:59)
--- NOTE | 2017-07-12 06:43 | PDOC DISCHARGE SUMMARY ---
General - Admit/Disc Date/PCP Admission Date/Primary Care Provider: 07/07/17 04:38 LENNY WATERS MD Discharge Date: 07/12/17 - Discharge Diagnosis (1) PNA (pneumonia) Is this a current diagnosis for this admission?: Yes (2) Acute respiratory failure Is this a current diagnosis for this admission?: Yes (3) Dysphagia Is this a current diagnosis for this admission?: Yes - Additional Information Resuscitation Status: Full Code Discharge Diet: As Tolerated Discharge Activity: Activity As Tolerated Home Medications: Albuterol Sulfate [Proair HFA] 2 puff IH Q4 PRN 07/07/17 Estradiol [Estrace] 1 applic TOP DAILY 07/07/17 Montelukast Sodium [Singulair 10 mg Tablet] 10 mg PO QHS 07/07/17 Tiotropium [place] [Spiriva Respimat] 2 puff IH QHS 07/07/17 Amox Tr/Potassium Clavulanate [Augmentin 875-125 mg Tablet] 1 tab PO Q12H #10 tablet 07/12/17 Prednisone [Deltasone 20 mg Tablet] 20 mg PO Q12 #4 tablet 07/12/17 History of Present Illness Patient complains of: dyspnea History of Present Illness: SADA ROLAND is a 72 year old female with a RU lobectomy in 2006 for cancer and emphysema since then. Now she has had 6d productive cough and wheeze. She ran out of spiriva. Hospital Course Hospital Course: Cough and dyspnea slowly improved on 5d prednisone and unasyn. 1of2 blood cultures grew micrococcus which I thought a contaminant. She complained of choking on food. Modified barium swallow showed flash penetration of thin liquids. ST suggested straw and chin tuck. Room air sat91. Physical Exam Vital Signs: Temp Pulse Resp BP Pulse Ox 98.2 F 85 18 136/64 H 93 07/11/17 23:34 07/12/17 04:05 07/12/17 04:05 07/11/17 23:34 07/11/17 23:34 Intake & Output 07/10/17 07/11/17 07/12/17 07:59 07:59 07:59 Intake Total 5 1061 2154 Balance 2074 1061 2154 Weight 153 lb 0.013 oz 156 lb 15.506 oz General appearance: PRESENT: no acute distress Respiratory exam: PRESENT: rhonchi, wheezes Cardiovascular exam: ABSENT: diastolic murmur, irregular rhythm, systolic murmur Extremities exam: ABSENT: pedal edema Neurological exam: PRESENT: oriented to situation Psychiatric exam: PRESENT: appropriate affect Results Laboratory Results: 07/10/17 11:17 Labs- Last Values WBC 9.1 10^3/uL (4.0-10.5) 07/10/17 11:17 RBC 3.93 10^6/uL (3.72-5.28) 07/10/17 11:17 Hgb 11.9 g/dL (12.0-15.5) L 07/10/17 11:17 Hct 34.6 % (36.0-47.0) L 07/10/17 11:17 MCV 88 fl (80-97) 07/10/17 11:17 MCH 30.4 pg (27.0-33.4) 07/10/17 11:17 MCHC 34.5 g/dL (32.0-36.0) 07/10/17 11:17 RDW 14.7 % (11.5-14.0) H 07/10/17 11:17 Plt Count 242 10^3/uL (150-450) 07/10/17 11:17 Seg Neutrophils % 85.6 % (42-78) H 07/10/17 11:17 Lymphocytes % 5.4 % (13-45) L 07/10/17 11:17 Monocytes % 8.5 % (3-13) 07/10/17 11:17 Eosinophils % 0.0 % (0-6) 07/10/17 11:17 Basophils % 0.5 % (0-2) 07/10/17 11:17 Absolute Neutrophils 7.8 10^3/uL (1.7-8.2) 07/10/17 11:17 Absolute Lymphocytes 0.5 10^3/uL (0.5-4.7) 07/10/17 11:17 Absolute Monocytes 0.8 10^3/uL (0.1-1.4) 07/10/17 11:17 Absolute Eosinophils 0.0 10^3/uL (0.0-0.6) 07/10/17 11:17 Absolute Basophils 0.0 10^3/uL (0.0-0.2) 07/10/17 11:17 PT 13.6 SEC (11.4-15.4) 07/06/17 12:08 INR 0.97 07/06/17 12:08 Carbonic Acid 1.65 mmol/L (1.05-1.35) H 07/06/17 15:27 HCO3/H2CO3 Ratio 16:1 07/06/17 15:27 ABG pH 7.31 (7.35-7.45) L 07/06/17 15:27 ABG pCO2 54.7 mmHg (35-45) H 07/06/17 15:27 ABG pO2 62.4 mmHg (80-100) L 07/06/17 15:27 ABG HCO3 26.7 mmol/L (20-26) H 07/06/17 15:27 ABG Total CO2 28.4 mmol/L (21-25) H 07/06/17 15:27 ABG O2 Saturation 89.4 % (94-98) L 07/06/17 15:27 ABG Base Excess -0.5 mmol/L 07/06/17 15:27 FiO2 50% 07/06/17 15:27 Sodium 140.7 mmol/L (137-145) 07/06/17 12:08 Potassium 4.0 mmol/L (3.6-5.0) 07/06/17 12:08 Chloride 104 mmol/L (98-107) 07/06/17 12:08 Carbon Dioxide 27 mmol/L (22-30) 07/06/17 12:08 Anion Gap 10 (5-19) 07/06/17 12:08 BUN 9 mg/dL (7-20) 07/06/17 12:08 Creatinine 0.68 mg/dL (0.52-1.25) 07/06/17 12:08 Est GFR ( Amer) > 60 (>60) 07/06/17 12:08 Est GFR (Non-Af Amer) > 60 (>60) 07/06/17 12:08 Glucose 119 mg/dL (75-110) H 07/06/17 12:08 Lactic Acid 0.9 mmol/L (0.7-2.1) 07/06/17 12:08 Calcium 10.1 mg/dL (8.4-10.2) 07/06/17 12:08 Total Bilirubin 0.8 mg/dL (0.2-1.3) 07/06/17 12:08 Direct Bilirubin 0.4 mg/dL (0.0-0.4) 07/06/17 12:08 Indirect Bilirubin Not Reportable 07/06/17 12:08 Neonat Total Bilirubin Not Reportable 07/06/17 12:08 AST 17 U/L (14-36) 07/06/17 12:08 ALT 17 U/L (9-52) 07/06/17 12:08 Alkaline Phosphatase 80 U/L (38-126) 07/06/17 12:08 Total Protein 7.0 g/dL (6.3-8.2) 07/06/17 12:08 Albumin 4.0 g/dL (3.5-5.0) 07/06/17 12:08 Urine Color YELLOW 07/06/17 20:15 Urine Appearance CLOUDY 07/06/17 20:15 Urine pH 5.0 (5.0-9.0) 07/06/17 20:15 Ur Specific [place] 1.021 07/06/17 20:15 Urine Protein 30 mg/dL (NEGATIVE) H 07/06/17 20:15 Urine Glucose (UA) NEGATIVE mg/dL (NEGATIVE) 07/06/17 20:15 Urine Ketones NEGATIVE mg/dL (NEGATIVE) 07/06/17 20:15 Urine Blood NEGATIVE (NEGATIVE) 07/06/17 20:15 Urine Nitrite NEGATIVE (NEGATIVE) 07/06/17 20:15 Urine Bilirubin NEGATIVE (NEGATIVE) 07/06/17 20:15 Urine Urobilinogen NEGATIVE mg/dL (<2.0) 07/06/17 20:15 Ur Leukocyte Esterase MODERATE (NEGATIVE) H 07/06/17 20:15 Urine WBC (Auto) 22 /HPF 07/06/17 20:15 Urine RBC (Auto) 6 /HPF 07/06/17 20:15 U Hyaline Cast (Auto) 1 /LPF 07/06/17 20:15 Urine Bacteria (Auto) TRACE /HPF 07/06/17 20:15 Squamous Epi Cells Auto 4 /HPF 07/06/17 20:15 Urine Mucus (Auto) RARE /LPF 07/06/17 20:15 Urine Ascorbic Acid NEGATIVE (NEGATIVE) 07/06/17 20:15 Impressions: Chest X-Ray 07/06/17 12:16 IMPRESSION: Surgical changes. A limited infiltrate cannot be ruled out in the left base. Modified Barium Swallow 07/11/17 00:00 IMPRESSION: LARYNGEAL PENETRATION WITHOUT ASPIRATION SEEN WITH THIN BARIUM.PLEASE SEE SPEECH PATHOLOGIST REPORT FOR OTHER FINDINGS AND RECOMMENDATIONS. Plan Discharge Plan: home. OV 8d
[2017-07-12 08:35] VITALS: BP 150/67
== END 2017-07-12 10:01 | disposition home or self-care (01) | DRG 189 ==
LOC: ER 12:00 → UNDOADMIN 22:32 → EH 22:32 → 3N 07-07 03:23 → EH 07-07 03:23 → 3N 07-07 04:38
PROVIDERS: ADMIT Family Medicine; ATTEND Family Medicine
DX: J96.01 Acute respiratory failure with hypoxia (principal); J18.9 Pneumonia, unspecified organism; J44.0 Chronic obstructive pulmonary disease with (acute) lower respiratory infection; R13.10 Dysphagia, unspecified; D51.9 Vitamin B12 deficiency anemia, unspecified; E78.5 Hyperlipidemia, unspecified; Z79.899 Other long term (current) drug therapy; I25.2 Old myocardial infarction; Z85.118 Personal history of other malignant neoplasm of bronchus and lung; Z90.2 Acquired absence of lung [part of]; Z90.710 Acquired absence of both cervix and uterus; F17.210 Nicotine dependence, cigarettes, uncomplicated; Z88.1 Allergy status to other antibiotic agents
CPT/HCPCS: 36415; 36600; 71010; 74230; 80053; 81001; 82803; 83605; 85025; 85610; 87040; 87077; 93005; 93010; 94640; 94660; 96365; 99285; G8996-GN; G8997-GN; G8998-GN; J0295; J1650; J2543; J7512; J7620

== ENCOUNTER 2017-09-09 11:30 | Emergency (ER) | payer MEDICARE ==
[2017-09-09] MEDS ORDERED: METHYLPREDNISOLONE INJ 125 MG/2 ML SDV IV ONE (12:03)
[2017-09-09] MEDS ORDERED: ALBUTEROL SULFATE 0.083% NEB 2.5 MG/3 ML AMPUL NEB ONE (12:03)
[2017-09-09] MEDS ORDERED: IPRATROPIUM/ALBUTEROL 0.5-2.5 MG/3 ML AMPUL NEB ONE (12:03)
[2017-09-09] MEDS ORDERED: NORMAL SALINE 1000 ML 1,000 ML IV ONE (12:03)
--- NOTE | 2017-09-09 12:04 | ER Document Report ---
ED Medical Screen (RME) - General Chief Complaint: Shortness Of Breath Stated Complaint: SHORTNESS OF BREATH Time Seen by Provider: 09/09/17 12:02 TRAVEL OUTSIDE OF THE [place] IN LAST 30 DAYS: No - HPI Notes: 09/09/17 12:03 History of lung CA with right upper lobe removed with cough chills last 3 days complaining of shortness of breath - Related Data Allergies/Adverse Reactions: azithromycin [Azithromycin] Allergy (Verified 09/09/17 11:37) moxifloxacin [From Avelox] Allergy (Verified 09/09/17 11:37) procaine HCl [From Novocain] Allergy (Verified 09/09/17 11:37) Past Medical History - Past Medical History Cardiac Medical History: Reports: Hx Heart Attack - 2014 but cath negative, Hx Hypercholesterolemia Pulmonary Medical History: Reports: Hx COPD - 2014 fev1=43, Hx Pneumonia - 2014 Malignancy Medical History: Reports: Hx Lung Cancer - 2006 RUL surgery chemo radiation Psychiatric Medical History: Denies: Hx Depression Past Surgical History: Reports: Hx Hysterectomy, Other - RU lobectomy - Immunizations Immunizations up to date: Yes Hx Diphtheria, Pertussis, Tetanus Vaccination: Yes History of Influenza Vaccine for 07/2017 - 12/2017 Season: No Review of Systems - Review of Systems Respiratory: Cough Physical Exam - Vital signs Vitals: Temp Pulse Resp BP Pulse Ox 97.8 F 114 H 16 104/43 L 93 09/09/17 11:32 09/09/17 11:32 09/09/17 11:32 09/09/17 11:32 09/09/17 11:32 Interpretation: Tachycardic - General General appearance: Appears well, Alert - HEENT Head: Normocephalic, Atraumatic Eyes: Normal Pupils: PERRL - Cardiovascular Rhythm: Tachycardia Heart sounds: Normal auscultation Murmur: No - Abdominal Inspection: Normal Distension: No distension Bowel sounds: Normal Tenderness: Nontender Organomegaly: No organomegaly - Back Back: Normal, Nontender - Extremities General upper extremity: Normal inspection, Nontender, Normal color, Normal ROM , Normal temperature General lower extremity: Normal inspection, Nontender, Normal color, Normal ROM , Normal temperature, Normal weight bearing. No: Shavonne's sign - Neurological Neuro grossly intact: Yes Cognition: Normal Orientation: AAOx4 [place] Coma Scale Eye Opening: Spontaneous [place] Coma Scale Verbal: Oriented [place] Coma Scale Motor: Obeys Commands [place] Coma Scale Total: 15 Speech: Normal Motor strength normal: LUE, RUE, LLE, RLE Sensory: Normal - Psychological Associated symptoms: Normal affect, Normal mood - Skin Skin Temperature: Warm Skin Moisture: Dry Skin Color: Normal Course - Vital Signs Vital signs: Temp Pulse Resp BP Pulse Ox 97.8 F 114 H 16 104/43 L 93 09/09/17 11:32 09/09/17 11:32 09/09/17 11:32 09/09/17 11:32 09/09/17 11:32
--- NOTE | 2017-09-09 13:00 | ER Document Report ---
ED Respiratory Problem - General Chief Complaint: Shortness Of Breath Stated Complaint: SHORTNESS OF BREATH Time Seen by Provider: 09/09/17 12:02 Notes: The patient is a 72-year-old female, past medical history COPD, Hx of lung cancer s/p lobectomy, presents with 3 days of cough, shortness of breath, subjective fevers and chills. She denies chest pain, leg swelling, hemoptysis, recent travel, sputum, nausea, vomiting, back pain, abdominal pain or headache. TRAVEL OUTSIDE OF THE [place] IN LAST 30 DAYS: No - Related Data Allergies/Adverse Reactions: azithromycin [Azithromycin] Allergy (Verified 09/09/17 11:37) moxifloxacin [From Avelox] Allergy (Verified 09/09/17 11:37) procaine HCl [From Novocain] Allergy (Verified 09/09/17 11:37) Past Medical History - General Information source: Patient - Social History Smoking Status: Current Every Day Smoker Chew tobacco use (# tins/day): No Frequency of alcohol use: None Drug Abuse: None Family History: Malignancy - Lung cancer Patient has suicidal ideation: No Patient has homicidal ideation: No - Past Medical History Cardiac Medical History: Reports: Hx Heart Attack - 2014 but cath negative, Hx Hypercholesterolemia Pulmonary Medical History: Reports: Hx COPD - 2014 fev1=43, Hx Pneumonia - 2014 Renal/ Medical History: Denies: Hx Peritoneal Dialysis Malignancy Medical History: Reports: Hx Lung Cancer - 2006 RUL surgery chemo radiation Psychiatric Medical History: Denies: Hx Depression Past Surgical History: Reports: Hx Hysterectomy, Other - RU lobectomy - Immunizations Immunizations up to date: Yes Hx Diphtheria, Pertussis, Tetanus Vaccination: Yes Hx Pneumococcal Vaccination: 10/16/16 Review of Systems - Review of Systems Notes: REVIEW OF SYSTEMS: CONSTITUTIONAL: +fevers, +chills EENT: -eye pain, -difficulty swallowing, -nasal congestion CARDIOVASCULAR: -chest pain, -syncope. RESPIRATORY: +cough, +SOB GASTROINTESTINAL: -abdominal pain, -nausea, -vomiting, -diarrhea GENITOURINARY: -dysuria, -hematuria MUSCULOSKELETAL: -back pain, -neck pain SKIN: -rash or skin lesions. HEMATOLOGIC: -easy bruising or bleeding. LYMPHATIC: -swollen, enlarged glands. NEUROLOGICAL: -altered mental status or loss of consciousness, -headache, - neurologic symptoms PSYCHIATRIC: -anxiety, -depression. ALL OTHER SYSTEMS REVIEWED AND NEGATIVE. Physical Exam - Vital signs Vitals: Temp Pulse Resp BP Pulse Ox 97.8 F 114 H 16 104/43 L 93 09/09/17 11:32 09/09/17 11:32 09/09/17 11:32 09/09/17 11:32 09/09/17 11:32 - Notes Notes: PHYSICAL EXAMINATION: GENERAL: Well-appearing, well-nourished and in no acute distress. HEAD: Atraumatic, normocephalic. EYES: Pupils equal round and reactive to light, extraocular movements intact, sclera anicteric, conjunctiva are normal. ENT: nares patent, oropharynx clear without exudates. Moist mucous membranes. NECK: Normal range of motion, supple without lymphadenopathy LUNGS: No respiratory distress. Speaking in full sentences. Diffuse wheezing, worse on right. HEART: Tachycardia. ABDOMEN: Soft, nontender, normoactive bowel sounds. No guarding, no rebound. No masses appreciated. EXTREMITIES: Normal range of motion, no pitting or edema. No cyanosis. NEUROLOGICAL: Cranial nerves grossly intact. Normal speech, normal gait. Normal sensory and motor exams. PSYCH: Normal mood, normal affect. SKIN: Warm, Dry, normal turgor, no rashes or lesions noted. Course - Re-evaluation Re-evalutation: Patient presents with wheezing and cough and temperature of 100.5. After duonebs and steroids, she feels much better. D-dimer sent due to the tachycardia and tachypnea, but this result was negative and pulmonary embolism is very unlikely at this time. She had no chest pain and no pneumonia present on chest x-ray. Tachycardia resolved upon discharge. Instructed patient to continue 4 more days of prednisone and use her home albuterol as needed with follow-up at her primary care physician. - Vital Signs Vital signs: Temp Pulse Resp BP Pulse Ox 97.8 F 114 H 16 104/43 L 93 09/09/17 11:32 09/09/17 11:32 09/09/17 11:32 09/09/17 11:32 09/09/17 11:32 - Laboratory Result Diagrams: 09/09/17 13:02 09/09/17 13:02 Laboratory results interpreted by me: 11/25/17 11/25/17 11/25/17 13:02 13:02 14:00 RDW 14.4 H Glucose 115 H POC Glucose 131 H Direct Bilirubin 0.5 H - Diagnostic Test Radiology reviewed: Image reviewed, Reports reviewed Radiology results interpreted by me: CXR: NAD Discharge - Discharge Clinical Impression: COPD exacerbation Condition: Stable Disposition: HOME, SELF-CARE Additional Instructions: BRONCHITIS WITH BRONCHOSPASM (WHEEZING): You have bronchitis with bronchospasm (wheezing). Sometimes people develop wheezing with a chest cold. This occurs either because of an underlying tendency toward asthma or because the virus itself irritates the bronchial tubes. This irritation causes cough, shortness of breath, and wheezing. Emergency treatment of bronchospasm may include adrenaline shots or bronchodilator aerosol. You may feel lightheaded and have a rapid pulse for an hour or two. Rest and get plenty of fluids. At home, we'll treat you with a bronchodilator inhaler. Corticosteroids may be required for some patients. Until you recover, avoid chemical fumes, dusts, pollens, and exercising in very cold or dry air. If you smoke, stop now! Most cases of bronchitis get better without antibiotics. We prescribe antibiotics when we believe bacteria are damaging your airways, or if there's high risk the bronchitis will worsen into pneumonia. Increase your fluid intake. A cool mist humidifier may make your lungs more comfortable. An expectorant (cough medicine that loosens phlegm) can help. Repeated episodes of bronchitis and bronchospasm may result in lung damage -- for example, chronic bronchitis, recurrent pneumonias, or emphysema. If you develop a fever, increased wheezing, chest pain, or severe shortness of breath, you should contact the doctor immediately. INHALED BRONCHODILATORS: You have received a treatment of and/or prescription for an inhaled bronchodilator -- a medication which stimulates the airways in the lung to dilate. This improves the flow of air in asthma, bronchitis, and emphysema. These medicines have some similarity to adrenaline, and can cause similar side effects: shakiness, racing heart, and a sense of nervousness. These side effects decrease with time. Contact your doctor if these side effects are severe. Do not over-use the medicine. Too-frequent use of the inhaler may make it ineffective. Call your doctor if the inhaler is not controlling your symptoms at the prescribed doses. STEROID MEDICATION: You have been given an injection of or oral medicine of the cortisone/ steroid class. This medication is used to control inflammation or allergy. Hank t is usually only given for a short period of time, until the acute process subsides. There are usually no side effects from short-term use of cortisone-like medications. Some persons feel an increased sense of well-being and are not sleepy at bedtime. Long-term use of cortisone medications is best avoided, unless required for a severe condition. If your condition does not remit, or relapses after the course of corticosteroid medication, you should consult your physician. USE OF ACETAMINOPHEN (Tylenol): Acetaminophen may be taken for pain relief or fever control. It's much safer than aspirin, offering a wider range of "safe" dosages. It is safe during . Some brand names are Tylenol, Panadol, Datril, Anacin 3, Tempra, and Liquiprin. Acetaminophen can be repeated every four hours. The following are maximum recommended dosages: >89 pounds or adults 650 mg to 900 mg Acetaminophen can be repeated every four hours. Maximum dose not to exceed 4000 mg a day. SMOKING: If you smoke, you should stop smoking. The tar and chemicals in cigarette smoke are harmful. Smoking has been shown to cause: emphysema chronic bronchitis lung cancer mouth and throat cancer stomach and pancreas cancer premature aging defects In addition, smoking increases ear and lung infections in children of smokers. FOLLOW-UP CARE: If you have been referred to a physician for follow-up care, call the physician s office for an appointment as you were instructed or within the next two days. If you experience worsening or a significant change in your symptoms, notify the physician immediately or return to the Emergency Department at any time for re-evaluation. Prescriptions: Prednisone [Deltasone 20 mg Tablet] 3 tab PO DAILY 4 Days tablet Referrals: LENNY WATERS MD [Primary Care Provider] - Follow up as needed
[2017-09-09 13:19] LABS: VENOUS BLOOD BASE EXCESS 1.9 mmol/L; VENOUS BLOOD PH 7.36 (7.30-7.42)
[2017-09-09 13:20] LABS: ABSOLUTE BASOPHILS # (AUTO) 0.1 10^3/uL (0.0-0.2); ABSOLUTE EOSINOPHILS # (AUTO) 0.1 10^3/uL (0.0-0.6); ABSOLUTE LYMPHOCYTES (AUTO) 1.4 10^3/uL (0.5-4.7); ABSOLUTE MONOCYTES (AUTO) 0.6 10^3/uL (0.1-1.4); ABSOLUTE NEUT (AUTO) 5.4 10^3/uL (1.7-8.2); BASOPHILS % (AUTO) 0.7 % (0-2); EOSINOPHILS % (AUTO) 1.2 % (0-6); HEMATOCRIT 37.6 % (36.0-47.0); HEMOGLOBIN 12.7 g/dL (12.0-15.5); HGB HCT DIFFERENCE 0.5; LYMPHOCYTES % (AUTO) 18.5 % (13-45); MEAN CORPUSCULAR HEMOGLOBIN 29.6 pg (27.0-33.4); MEAN CORPUSCULAR HGB CONC 33.9 g/dL (32.0-36.0); MEAN CORPUSCULAR VOLUME 87 fl (80-97); MONOCYTES % (AUTO) 8.4 % (3-13); RED CELL DISTRIBUTION WIDTH 14.4 % (11.5-14.0); SEGMENTED NEUTROPHILS % (AUTO) 71.2 % (42-78); WHITE BLOOD COUNT 7.7 10^3/uL (4.0-10.5)
[2017-09-09 13:39] LABS: ALANINE AMINOTRANSFERASE 28 U/L (9-52); ALKALINE PHOSPHATASE 87 U/L (38-126); ANION GAP 12 (5-19); ASPARTATE AMINO TRANSFERASE 18 U/L (14-36); BILIRUBIN,DIRECT 0.5 mg/dL (0.0-0.4); BLOOD UREA NITROGEN 12 mg/dL (7-20); CALCIUM 9.5 mg/dL (8.4-10.2); CARBON DIOXIDE 28 mmol/L (22-30); CHLORIDE 103 mmol/L (98-107); CREATININE RESULT 0.87 mg/dL (0.52-1.25); GLUCOSE 115 mg/dL (75-110); POTASSIUM 3.6 mmol/L (3.6-5.0); SODIUM 143.2 mmol/L (137-145); TOTAL PROTEIN 6.7 g/dL (6.3-8.2)
--- NOTE | 2017-09-09 13:45 | RADIOLOGY REPORT (SQ) ---
EXAM DESCRIPTION: CHEST PA/LAT COMPLETED DATE/TIME: 09/09/2017 1:14 pm REASON FOR STUDY: sob COMPARISON: 06/27/2016 TECHNIQUE: Frontal and lateral radiographic views of the chest acquired. NUMBER OF VIEWS: Two view. LIMITATIONS: None. FINDINGS: LUNGS AND PLEURA: Chronic post pneumonectomy changes right upper lobe with associated dist ortion and opacity which is nonprogressive. Chronic interstitial changes and hyperinflation diffusel y throughout the lungs otherwise. MEDIASTINUM AND HILAR STRUCTURES: Stable contours. HEART AND VASCULAR STRUCTURES: Normal heart size without failure. BONES: Osteopenic. HARDWARE: None in the chest. OTHER: No other significant finding. IMPRESSION: Chronic lung changes. No acute cardiopulmonary disease superimposed. Stable chest. TECHNICAL DOCUMENTATION: JOB ID: [id number] [employer]- All Rights Reserved
--- NOTE | 2017-09-09 14:04 | EKG REPORT ---
SEVERITY:- ABNORMAL ECG - SINUS RHYTHM ATRIAL PREMATURE COMPLEX RIGHT ATRIAL ABNORMALITY PROBABLE INFEROLATERAL INFARCT, AGE INDETERM : Confirmed by: Estephania Louis MD 09-Sep-2017 14:03:13
[2017-09-09 14:36] LABS: D-DIMER 0.45 ug/mL (0.00-0.50)
[2017-09-09 16:02] VITALS: BP 125/58
== END 2017-09-09 16:02 | disposition home or self-care (01) ==
LOC: ER 11:30
DX: J44.1 Chronic obstructive pulmonary disease with (acute) exacerbation (principal); R50.9 Fever, unspecified; F17.200 Nicotine dependence, unspecified, uncomplicated; Z85.118 Personal history of other malignant neoplasm of bronchus and lung; I25.2 Old myocardial infarction; Z90.710 Acquired absence of both cervix and uterus; Z88.3 Allergy status to other anti-infective agents
CPT/HCPCS: 93005; 94640 ×2; 99285; 96361; 96374; 36415; 87040; 82962; 85025; 85610; 80053; 85379; 82803; 83605; 83880; 71020; 93010; J2930; J7030; A9270 ×2; J7620

== ENCOUNTER 2018-01-07 21:23 | Inpatient (IN) | payer MEDICARE ==
[2018-01-07] MEDS ORDERED: IPRATROPIUM/ALBUTEROL 0.5-2.5 MG/3 ML AMPUL NEB ONE ×2 (23:22→23:29)
--- NOTE | 2018-01-07 23:27 | RADIOLOGY REPORT (SQ) ---
EXAM DESCRIPTION: CHEST PA/LAT COMPLETED DATE/TIME: 01/07/2018 11:16 pm REASON FOR STUDY: sob COMPARISON: 06/07/2015, 06/27/2016, 07/06/2017, 09/09/2017 chest films EXAM PARAMETERS: NUMBER OF VIEWS: two views TECHNIQUE: Digital Frontal and Lateral radiographic views of the chest acquired. RADIATION DOSE: NA LIMITATIONS: none FINDINGS: LUNGS AND PLEURA: Old right upper lobectomy. Remainder of the lungs are hyperinflated and hyperlucent but clear. No pleural effusion. No pneumothorax. MEDIASTINUM AND HILAR STRUCTURES: Postsurgical changes right hilum HEART AND VASCULAR STRUCTURES: Heart normal size. No evidence for failure. BONES: Osteoporotic without acute fracture HARDWARE: None in the chest. OTHER: No other significant finding. IMPRESSION: Old right upper lobectomy. Obstructive lung disease. No acute findings TECHNICAL DOCUMENTATION: JOB ID: [id number] [employer]- All Rights Reserved Reading location - IP/workstation name: [email or web address]
[2018-01-07] MEDS ORDERED: METHYLPREDNISOLONE INJ 125 MG/2 ML SDV IV ONE (23:29)
--- NOTE | 2018-01-07 23:32 | ER Document Report ---
ED General - General Chief Complaint: Shortness Of Breath Stated Complaint: SHORTNESS OF BREATH Time Seen by Provider: 01/07/18 23:13 Notes: Patient is a 72 year old female with past medical history of COPD, currently continuing to smoke, hypertension, a remote history of lung cancer who presents in respiratory distress. Patient reports over the past 2 days she has had progressively worsening shortness of breath that has become much more severe the last several hours. The patient reports that she has been trying her home nebulizers with minimal to no improvement of her symptoms. She states that she has had similar issues with COPD exacerbations in the past some have required hospitalization. She has not required intubation for COPD. She has not seen her primary care doctor regarding today's concerns. She notes exertion worsens her shortness of breath. She denies any fever or constitutional symptoms. She has however had a productive cough. TRAVEL OUTSIDE OF THE [place] IN LAST 30 DAYS: No - Related Data Allergies/Adverse Reactions: azithromycin [Azithromycin] Allergy (Verified 01/07/18 21:35) moxifloxacin [From Avelox] Allergy (Verified 01/07/18 21:35) procaine HCl [From Novocain] Allergy (Verified 01/07/18 21:35) Past Medical History - General Information source: Patient - Social History Smoking Status: Current Every Day Smoker Frequency of alcohol use: None Drug Abuse: None Lives with: Alone Family History: Reviewed & Not Pertinent, Malignancy - Lung cancer Patient has suicidal ideation: No Patient has homicidal ideation: No - Past Medical History Cardiac Medical History: Reports: Hx Heart Attack - 2014 but cath negative, Hx Hypercholesterolemia Pulmonary Medical History: Reports: Hx COPD - 2014 fev1=43, Hx Pneumonia - 2014 Renal/ Medical History: Denies: Hx Peritoneal Dialysis Malignancy Medical History: Reports: Hx Lung Cancer - 2006 RUL surgery chemo radiation Psychiatric Medical History: Denies: Hx Depression Past Surgical History: Reports: Hx Hysterectomy, Other - RU lobectomy - Immunizations Immunizations up to date: Yes Hx Diphtheria, Pertussis, Tetanus Vaccination: Yes Hx Pneumococcal Vaccination: 10/16/16 Review of Systems - Review of Systems Notes: Constitutional: Negative for fever. HENT: Negative for sore throat. Eyes: Negative for visual changes. Cardiovascular: Negative for chest pain. Respiratory: Positive for shortness of breath. Gastrointestinal: Negative for abdominal pain, vomiting or diarrhea. Genitourinary: Negative for dysuria. Musculoskeletal: Negative for back pain. Skin: Negative for rash. Neurological: Negative for headaches, weakness or numbness. 10 point ROS negative except as marked above and in HPI. Physical Exam - Vital signs Vitals: Temp Pulse Resp BP Pulse Ox 97.8 F 102 H 20 137/66 H 88 L 01/07/18 22:19 01/07/18 22:19 01/07/18 22:19 01/07/18 22:19 01/07/18 22:19 Interpretation: Hypoxic Notes: PHYSICAL EXAMINATION: GENERAL: In moderate respiratory distress, appears unwell HEAD: Atraumatic, normocephalic. EYES: Pupils equal round and reactive to light, extraocular movements intact, sclera anicteric, conjunctiva are normal. ENT: nares patent, oropharynx clear without exudates. Moderately dry mucous membranes. NECK: Normal range of motion, supple without lymphadenopathy LUNGS: Diminished air movement in all lung mahmood. Expiratory wheezing throughout with a prolonged expiratory phase. HEART: Regular tachycardia without murmurs ABDOMEN: Soft, nontender, normoactive bowel sounds. No guarding, no rebound. No masses appreciated. EXTREMITIES: Normal range of motion, no pitting or edema. No cyanosis. NEUROLOGICAL: No focal neurological deficits. Moves all extremities spontaneously and on command. PSYCH: Mildly anxious, pleasant on contact SKIN: Warm, Dry, normal turgor, no rashes or lesions noted. Course - Re-evaluation Re-evalutation: 01/07/18 23:30 Patient presents with respiratory distress, breathing approximately 26-30 times per minute to my initial assessment, unable to speak more than 3 words without gasping for breath. Saturating 91% on a Ventimask with a continuous nebulizer running. After 2-3 minutes on a nebulizer her saturations did improve up to 94 % with a Ventimask running at 6 L of oxygen. She has declined BiPAP. Lung examination is worrisome with diffuse wheezing in all lung mahmood, poor air movement throughout. Will place patient on continuous nebulizer therapy, obtain IV access, begin Solu-Medrol, magnesium, IV fluids, and continue to reassess frequently. The patient is in critical condition will require frequent reassessments. 01/08/18 00:06 The patient continues to deteriorate, requiring a nonrebreather at 10 L to maintain her saturations above 90%. I have again insisted with the patient to please accept BiPAP therapy. She continues to decline stating that she had a bad experience in the past and is not willing to try this therapy. I have offered to provide anxiolysis while she is on the BiPAP. She has declined. Will continue ongoing continuous nebulizers. 01/08/18 00:53 Patient continues to saturate in the low 90s on Ventimask with continuous nebulizer. I discussed this case with the hospitalist and have informed her that the patient has continued to refuse BiPAP although I continue to believe the patient needs positive pressure ventilation. The remainder of the patient' s laboratory is otherwise unremarkable. She continues to be in guarded condition as a result of her increased work of breathing and tenuous vitals as well as her refusal to tolerate BiPAP therapy. 01/08/18 01:03 I have gone to the bedside and again expressed my severe concern with the patient that she is deteriorating clinically, the BiPAP therapy is effectively mandatory at this time as the only alternative would be to proceed with intubation. I have offered to provide her anxiolysis while on BiPAP to allow her to better tolerate the therapy. After approximately 10 additional minutes the bedside the patient did agree to trial BiPAP therapy. I have ordered 3 mg of IV haloperidol and will adjust medications as necessary to allow her to tolerate the BiPAP without over sedating her. 01/08/18 01:40 Patient's work of breathing continues to deteriorate she is now breathing between 36 and 40 times a minute, become increasingly agitated and confused. She was unable to tolerate BiPAP or even 1 minute despite giving her haloperidol prior to placing the BiPAP. At this point I do not believe continuing to monitor the patient on nonrebreather is appropriate and I will proceed with intubation. The patient is in agreement with this and understands there is a very high risk that I will have difficulty weaning her off the ventilator. 01/08/18 02:10 Intubation successful on first pass. No complications. Patient has been placed on ketamine infusion for sedation and bronchodilation. I have updated the accepting hospitalist Dr. Redmond on the deterioration of this patient's condition and her change in status. - Vital Signs Vital signs: Temp Pulse Resp BP Pulse Ox 97.8 F 102 H 20 137/66 H 88 L 01/07/18 22:19 01/07/18 22:19 01/07/18 22:19 01/07/18 22:19 01/07/18 22:19 - Laboratory Result Diagrams: 01/07/18 23:00 01/07/18 23:00 Laboratory results interpreted by me: 01/07/18 01/08/18 23:00 01:30 RDW 14.7 H Seg Neutrophils % 81.5 H Lymphocytes % 9.7 L Carbonic Acid 1.57 H ABG pH 7.32 L ABG pCO2 52.0 H ABG pO2 71.6 L ABG Total CO2 27.5 H ABG O2 Saturation 92.9 L - Diagnostic Test Radiology reviewed: Image reviewed, Reports reviewed Radiology results interpreted by me: 01/08/18 00:54 Chest x-ray: No acute infiltrate or pneumothorax - EKG Interpretation by Me Additional EKG results interpreted by me: 01/08/18 02:35 Normal sinus rhythm. Rate 97. No ST elevations or depressions. First-degree AV block. QTc 432. Procedures - Intubation Orotracheal Time of Intubation: 02:00 Airway evaluation: Normal anatomy, Neck immobility Mallampati Classification: Class 2 Medications: Ketamine, Other - Rocuronium Intubation method: Orotracheal Blade type: Mary Blade size: 4 Equipment used: Glidescope ETT size: 7.0 ETT secured at: Teeth ETT secured at (cm): 21 Breath Sounds after Intubation: Equal End tidal CO2 confirmed: Yes Ventilator settings: SIMV Tidal volume: 400 FiO2: 60 Respirations: 16 PEEP: 5 Post Intubation Xray: Yes Intubation Complications: No complications Critical Care Note - Critical Care Note Total time excluding time spent on procedures (mins): 95 Comments: Critical care time spent obtaining history from patient or surrogate, discussions with consultants, development of treatment plan with patient or surrogate, evaluation of patient's response to treatment, examination of patient , ordering and performing treatments and interventions, ordering and review of laboratory studies, re-evaluation of patient's condition, ordering and review of radiographic studies and review of old charts Discharge - Discharge Clinical Impression: COPD with exacerbation, Respiratory distress, Hypoxia Acute respiratory failure Qualifiers: Respiratory failure complication: hypoxia and hypercapnia Qualified Code(s): J96.01 - Acute respiratory failure with hypoxia Condition: Critical Disposition: ADMITTED INPATIENT Admitting Provider: Hospitalist - [facility] Unit Admitted: ICU
[2018-01-07 23:46] LABS: ABSOLUTE BASOPHILS # (AUTO) 0.1 10^3/uL (0.0-0.2); ABSOLUTE EOSINOPHILS # (AUTO) 0.1 10^3/uL (0.0-0.6); ABSOLUTE MONOCYTES (AUTO) 0.6 10^3/uL (0.1-1.4); BASOPHILS % (AUTO) 0.8 % (0-2); EOSINOPHILS % (AUTO) 1.4 % (0-6); HEMATOCRIT 39.8 % (36.0-47.0); HEMOGLOBIN 13.4 g/dL (12.0-15.5); LYMPHOCYTES % (AUTO) 9.7 % (13-45); MEAN CORPUSCULAR HEMOGLOBIN 29.2 pg (27.0-33.4); MEAN CORPUSCULAR HGB CONC 33.7 g/dL (32.0-36.0); MEAN CORPUSCULAR VOLUME 87 fl (80-97); MONOCYTES % (AUTO) 6.6 % (3-13); PLATELET COUNT 256 10^3/uL (150-450); RED BLOOD COUNT 4.59 10^6/uL (3.72-5.28); RED CELL DISTRIBUTION WIDTH 14.7 % (11.5-14.0); SEGMENTED NEUTROPHILS % (AUTO) 81.5 % (42-78); TOTAL CELLS COUNTED % (AUTO) 100 %; WHITE BLOOD COUNT 9.9 10^3/uL (4.0-10.5)
[2018-01-07 23:51] LABS: ANION GAP 9 (5-19); BLOOD UREA NITROGEN 15 mg/dL (7-20); CALCIUM 10.2 mg/dL (8.4-10.2); CARBON DIOXIDE 30 mmol/L (22-30); CHLORIDE 102 mmol/L (98-107); GLUCOSE 109 mg/dL (75-110); POTASSIUM 4.1 mmol/L (3.6-5.0); SODIUM 140.7 mmol/L (137-145)
[2018-01-07] MEDS: MAGNESIUM SULFATE/D5W 1 GM/100 ML RTUPB IV SCH (23:53)
[2018-01-08 00:03] LABS: NT PRO BNP 155 pg/mL (5-900)
[2018-01-08] MEDS ORDERED: ALBUTEROL SULFATE 0.083% NEB 2.5 MG/3 ML AMPUL NEB ONE (00:09)
[2018-01-08 00:14] LABS: TROPONIN I < 0.012 ng/mL
[2018-01-08] MEDS: MAGNESIUM SULFATE/D5W 1 GM/100 ML RTUPB IV SCH (00:26)
[2018-01-08] MEDS ORDERED: CEFTRIAXONE INJ 1000 MG VIAL IV ONE (00:52)
[2018-01-08] MEDS ORDERED: HALOPERIDOL LACTATE INJ 5 MG/1 ML VIAL IV ONE (01:02)
[2018-01-08] MEDS ORDERED: PROMETHAZINE HCL INJ 25 MG/1 ML VIAL IV PRN (01:36)
[2018-01-08] MEDS ORDERED: ACETAMINOPHEN 325 MG TABLET PO PRN (01:36)
[2018-01-08] MEDS ORDERED: ALBUTEROL SULFATE 0.083% NEB 2.5 MG/3 ML AMPUL NEB PRN (01:36)
[2018-01-08] MEDS ORDERED: ROCURONIUM BROMIDE INJ 50 MG/5 ML VIAL IV ONE ×2 (01:40→10:11)
[2018-01-08] MEDS ORDERED: KETAMINE HCL INJ 500 MG/10 ML VIAL IV ONE ×2 (01:41→02:09)
[2018-01-08] MEDS ORDERED: GUAIFENESIN/D-METHORPHAN (200-20 MG) SYRUP 10 ML PO PRN (01:51)
[2018-01-08 01:52] LABS: ARTERIAL BLOOD FIO2 100%; ARTERIAL BLOOD H2CO3 1.57 mmol/L (1.05-1.35); ARTERIAL BLOOD HCO3 25.9 mmol/L (20-26); ARTERIAL BLOOD O2 SATURATION 92.9 % (94-98); ARTERIAL BLOOD PH 7.32 (7.35-7.45); ARTERIAL BLOOD PO2 71.6 mmHg (80-100); ARTERIAL BLOOD TOTAL CO2 27.5 mmol/L (21-25)
[2018-01-08] MEDS ORDERED: GUAIFENESIN 600 MG TABLET.SA PO ONE (02:00)
[2018-01-08] MEDS ORDERED: DOXYCYCLINE HYCLATE 100 MG TABLET PO ONE (02:00)
[2018-01-08] MEDS ORDERED: NICOTINE 14 MG/24 HR PATCH.TD24 TD SCH (02:00)
[2018-01-08] MEDS: IPRATROPIUM/ALBUTEROL 0.5-2.5 MG/3 ML AMPUL NEB SCH ×5 (02:31→20:44)
[2018-01-08] MEDS ORDERED: NORMAL SALINE 1000 ML 1,000 ML IV ONE (02:33)
--- NOTE | 2018-01-08 02:54 | RADIOLOGY REPORT (SQ) ---
EXAM DESCRIPTION: CHEST SINGLE VIEW CLINICAL HISTORY: post-intubation COMPARISON: 01/07/2018 FINDINGS: Single frontal view of the chest. Endotracheal tube with tip 5 cm above the kary. NG tube with tip below the diaphragm. Side-port appears to be at the level of the gastroesophageal junction. Leads overlie the chest. Heart is not enlarged. Right upper lobectomy. Hyperinflated lungs again identified. No pneumothorax or pleural effusion. No displaced rib fractures identified. Upper abdominal soft tissues are unremarkable. IMPRESSION: 1. Endotracheal tube in appropriate radiographic position. 2. NG tube with side-port at the level of gastroesophageal junction. Recommend advancing 5 to 7 cm. 3. No other significant interval change.
[2018-01-08] MEDS ORDERED: PROPOFOL 100 ML IV ONE (04:49)
--- NOTE | 2018-01-08 04:49 | PDOC H&P ---
History of Present Illness Admission Date/PCP: DENISE GARVEY MD Patient complains of: Worsening shortness of breath for one week or so. History of Present Illness: SADA ROLAND is a 72 year old female smoker with history of COPD (on 2 L home oxygen at night) and lung cancer (post right upper lobectomy/ chemoradiation in 2006) was admitted with above-mentioned complaint. the patient denied any fever or sick contact but she complained of chills and chronic cough with some yellowish sputum. She also complained of pleuritic chest pain. She said that she uses her nebulizer intermittently and she only used it once today. But since her symptoms did not improve, she decided to come to the hospital for further management and treatment. She apparntly lives by herself and able to ambulate very short distances because of her shortness of breath. She does not get flu vaccine since she is allergic to eggs. She continues to smoke. The patient also complained of lower abdominal pain but no diarrhea, constipation or any urinary symptoms except stress incontinence. In the ED, her temperature was 97.8, heart rate 102, respiratory rate 20, blood pressure 137/66 with oxygen saturation of 88% on room air. Her WBC was 9.9 and her hemoglobin was 13.4. Her troponin and DDimer were negative and her proBNP was 155. A CXR was done which showed old right upper lobectomy and COPD with no acute changes. She received 15 mg albuterol 1, 3 mg and 9 mg DuoNeb 1, 3 mg IV Haldol 1 and 1 g Rocephin x1 with minimal improvement in her symptoms. She was speaking in very short sentences. She was placed on a nonrebreather mask since she was unable to tolerate BiPAP. Past Medical History Medical History: Other - According to the patient and based on previous records. Cardiac Medical History: Reports: Myocardial Infarction - in 2014 but cath negative., Hyperlipidema Pulmonary Medical History: Reports: Chronic Obstructive Pulmonary Disease (COPD ) - 2014 fev1=43, Pneumonia - 2015 Malignancy Medical History: Reports: Lung Cancer - 2006 RUL surgery chemo radiation Psychiatric Medical History: Denies: Depression Hematology: Reports: Anemia - b12 since 89 Past Surgical History Past Surgical History: Reports: Hysterectomy, Other - RUL lobectomy; port-a-cath , lung biopsies and bronchoscopies. Social History Smoking Status: Current Every Day Smoker Cigarettes Packs Per Day: 0.5 - For more than 40 years. Frequency of Alcohol Use: None Hx Recreational Drug Use: No Drugs: None Hx Prescription Drug Abuse: No - Advance Directive Resuscitation Status: Full Code Family History Family History: Malignancy - Lung cancer Parental Family History Reviewed: Yes - No cardiac or diabetic history in the family. Children Family History Reviewed: No Sibling(s) Family History Reviewed.: Yes Medication/Allergy Home Medications: Albuterol Sulfate [Proair HFA] 2 puff IH Q4 PRN 07/07/17 Estradiol [Estrace] 1 applic TOP DAILY 07/07/17 Montelukast Sodium [Singulair 10 mg Tablet] 10 mg PO QHS 07/07/17 Tiotropium Ophelia [Spiriva Respimat] 2 puff IH QHS 07/07/17 Amox Tr/Potassium Clavulanate [Augmentin 875-125 mg Tablet] 1 tab PO Q12H #10 tablet 07/12/17 Prednisone [Deltasone 20 mg Tablet] 20 mg PO Q12 #4 tablet 07/12/17 Prednisone [Deltasone 20 mg Tablet] 3 tab PO DAILY 4 Days tablet 09/09/17 Allergies/Adverse Reactions: moxifloxacin [From Avelox] Allergy (Severe, Verified 01/08/18 04:25) Shortness of Breath procaine HCl [From Novocain] Allergy (Severe, Verified 01/08/18 04:25) Hives azithromycin [Azithromycin] Allergy (Intermediate, Verified 01/08/18 04:25) Vomiting Review of Systems ROS unobtainable: Other - Pertinent positives and negatives as detailed in the HPI. Physical Exam Vital Signs: Temp Pulse Resp BP Pulse Ox 97.8 F 102 H 20 137/66 H 88 L 01/07/18 22:19 01/07/18 22:19 01/07/18 22:19 01/07/18 22:19 01/07/18 22:19 Intake & Output 01/06/18 01/07/18 01/08/18 06:59 06:59 06:59 Weight 63.503 kg General appearance: PRESENT: well-developed, well-nourished, other - moderate respiratory distress Head exam: PRESENT: atraumatic, normocephalic Eye exam: PRESENT: conjunctiva pink, PERRLA. ABSENT: scleral icterus Mouth exam: PRESENT: neck supple. ABSENT: moist Neck exam: PRESENT: full ROM. ABSENT: JVD Respiratory exam: PRESENT: decreased breath sounds - markedly decreased., rhonchi. ABSENT: rales, wheezes Cardiovascular exam: PRESENT: +S1, +S2, tachycardia Pulses: PRESENT: normal dorsalis pedis pul GI/Abdominal exam: PRESENT: normal bowel sounds, soft. ABSENT: distended, rebound, tenderness Rectal exam: PRESENT: deferred Extremities exam: PRESENT: full ROM Musculoskeletal exam: PRESENT: full ROM Neurological exam: PRESENT: alert, altered, awake, oriented to person, oriented to place, oriented to time. ABSENT: motor sensory deficit - grossly. Skin exam: PRESENT: dry, intact, warm. ABSENT: erythema, rash Results Laboratory Results: 01/07/18 23:00 01/07/18 23:00 01/07/18 01/07/18 23:00 23:00 WBC 9.9 RBC 4.59 Hgb 13.4 Hct 39.8 MCV 87 MCH 29.2 MCHC 33.7 RDW 14.7 H Plt Count 256 Seg Neutrophils % 81.5 H Lymphocytes % 9.7 L Monocytes % 6.6 Eosinophils % 1.4 Basophils % 0.8 Absolute Neutrophils 8.0 Absolute Lymphocytes 1.0 Absolute Monocytes 0.6 Absolute Eosinophils 0.1 Absolute Basophils 0.1 Sodium 140.7 Potassium 4.1 Chloride 102 Carbon Dioxide 30 Anion Gap 9 BUN 15 Creatinine 0.66 Est GFR ( Amer) > 60 Est GFR (Non-Af Amer) > 60 Glucose 109 Calcium 10.2 01/07/18 23:00 Troponin I < 0.012 NT-Pro-B Natriuret Pep 155 EKG Comments: EKG, sinus rhythm, ventricular rate 95, axis +70, bilateral atrial enlargement, no acute changes. Similar when compared to previous twelve-lead EKG done on . Impressions: Chest X-Ray 01/07/18 00:00 IMPRESSION: Old right upper lobectomy. Obstructive lung disease. No acute findings Assessment & Plan - Diagnosis (1) Chronic respiratory failure, unspecified whether with hypoxia or hypercapnia Qualifiers: Respiratory failure complication: hypoxia and hypercapnia Qualified Code(s) : J96.11 - Chronic respiratory failure with hypoxia; J96.12 - Chronic respiratory failure with hypercapnia; J96.12 - Chronic respiratory failure with hypercapnia; J96.12 - Chronic respiratory failure with hypercapnia Is this a current diagnosis for this admission?: Yes Plan: Secondary to COPD exacerbation most likely. CXR reviewed, DDimer negative. According to the patient, she had a chest CAT scan done last month which was reportedly negative. She was due for a PET scan on 01/07/2018 but had to miss her appointment because of her breathing. Will continue scheduled duonebs, IV Solu-Medrol and doxycycline. She was strongly advised to stop smoking. (2) Lower abdominal pain Is this a current diagnosis for this admission?: Yes Plan: Will check UA and treat as indicated. (3) Smoker Is this a current diagnosis for this admission?: Yes Plan: 1/2 pack a day for many years. She seems to be motivated to quit. Nicotine patch. (4) History of lung cancer Is this a current diagnosis for this admission?: No Plan: The patient is following as outpatient. (5) History of VT (myocardial infarction) Is this a current diagnosis for this admission?: No Plan: On reviewing previous records with negative cardiac cath in 2014. The patient denies any cardiac disease. - Time Time Spent: Greater than 70 Minutes - Inpatient Certification Based on my medical assessment, after consideration of the patient's comorbidities, presenting symptoms, or acuity I expect that the services needed warrant INPATIENT care.: Yes I certify that my determination is in accordance with my understanding of Medicare's requirements for reasonable and necessary INPATIENT services [42 CFR 412.3e].: Yes
[2018-01-08 04:57] LABS: HEMATOCRIT 37.2 % (36.0-47.0); HEMOGLOBIN 12.4 g/dL (12.0-15.5); MEAN CORPUSCULAR HGB CONC 33.3 g/dL (32.0-36.0); MEAN CORPUSCULAR VOLUME 87 fl (80-97); PLATELET COUNT 259 10^3/uL (150-450); RED BLOOD COUNT 4.27 10^6/uL (3.72-5.28); RED CELL DISTRIBUTION WIDTH 14.9 % (11.5-14.0); WHITE BLOOD COUNT 12.6 10^3/uL (4.0-10.5)
[2018-01-08 05:12] LABS: ANION GAP 10 (5-19); BLOOD UREA NITROGEN 14 mg/dL (7-20); CALCIUM 8.4 mg/dL (8.4-10.2); CARBON DIOXIDE 25 mmol/L (22-30); CHLORIDE 104 mmol/L (98-107); GLUCOSE 235 mg/dL (75-110); POTASSIUM 3.7 mmol/L (3.6-5.0); SODIUM 139.2 mmol/L (137-145)
[2018-01-08 05:29] LABS: ARTERIAL BLOOD BASE EXCESS -5.8 mmol/L; ARTERIAL BLOOD H2CO3 2.01 mmol/L (1.05-1.35); ARTERIAL BLOOD HCO3 23.9 mmol/L (20-26); ARTERIAL BLOOD O2 SATURATION 99.2 % (94-98); ARTERIAL BLOOD PCO2 66.9 mmHg (35-45); ARTERIAL BLOOD PO2 225.4 mmHg (80-100); ARTERIAL BLOOD TOTAL CO2 25.9 mmol/L (21-25)
[2018-01-08 05:29] LABS: APPEARANCE,URINE CLEAR; BILIRUBIN,URINE NEGATIVE (NEGATIVE); COLOR,URINE YELLOW; GLUCOSE, URINE >=500 mg/dL (NEGATIVE); KETONES,URINE NEGATIVE (NEGATIVE); LEUKOCYTE ESTERASE,URINE NEGATIVE (NEGATIVE); NITRITE,URINE POSITIVE (NEGATIVE); PROTEIN,URINE 30 mg/dL (NEGATIVE); UROBILINOGEN,URINE NEGATIVE mg/dL (<2.0)
[2018-01-08 05:30] LABS: ARTERIAL BLOOD FIO2 60%; ARTERIAL BLOOD PH 7.17 (7.35-7.45)
[2018-01-08] MEDS: HEPARIN SOD (PORCINE) 5,000 UNIT/ML 1 ML SYRINGE SUBCUT SCH ×3 (05:41→22:30)
[2018-01-08] MEDS ORDERED: INFLUENZA ADLT QUAD (36MOS+) 2017-18 VAC 0.5 ML SYR IM PRN (06:09)
--- NOTE | 2018-01-08 07:11 | EKG REPORT ---
SEVERITY:- ABNORMAL ECG - SINUS RHYTHM FIRST DEGREE AV BLOCK RIGHT ATRIAL ABNORMALITY - HIMALYAN P WAVES, ETIOLOGY UNKNOWN PROBABLE INFERIOR INFARCT, OLD ANTEROLATERAL INFARCT, OLD : Confirmed by: Cristhian Brink MD 08-Jan-2018 07:11:20
[2018-01-08 07:14] LABS: ARTERIAL BLOOD BASE EXCESS -5.7 mmol/L; ARTERIAL BLOOD H2CO3 1.32 mmol/L (1.05-1.35); ARTERIAL BLOOD HCO3 20.6 mmol/L (20-26); ARTERIAL BLOOD O2 SATURATION 96.1 % (94-98); ARTERIAL BLOOD PH 7.29 (7.35-7.45)
[2018-01-08 07:15] LABS: ARTERIAL BLOOD FIO2 40%
[2018-01-08] MEDS: NICOTINE 14 MG/24 HR PATCH.TD24 TD SCH (09:28)
[2018-01-08] MEDS: DOXYCYCLINE HYCLATE 100 MG TABLET PO SCH ×2 (09:30→22:30)
[2018-01-08] MEDS: GUAIFENESIN 600 MG TABLET.SA PO SCH ×2 (09:56→22:32)
[2018-01-08] MEDS ORDERED: GUAIFENESIN 600 MG TABLET.SA PO SCH (10:00)
[2018-01-08] MEDS ORDERED: METHYLPREDNISOLONE INJ 40 MG/1 ML SDV IV SCH (10:00)
[2018-01-08] MEDS: LORAZEPAM 0.5 MG TABLET PO PRN (10:33)
[2018-01-08] MEDS: PROPOFOL 100 ML IV PRN ×3 (10:33→23:08)
[2018-01-08 17:20] LABS: ARTERIAL BLOOD BASE EXCESS -1.5 mmol/L; ARTERIAL BLOOD FIO2 30%; ARTERIAL BLOOD HCO3 22.7 mmol/L (20-26); ARTERIAL BLOOD O2 SATURATION 92.7 % (94-98); ARTERIAL BLOOD PCO2 36.6 mmHg (35-45); ARTERIAL BLOOD PH 7.41 (7.35-7.45); ARTERIAL BLOOD PO2 63.7 mmHg (80-100); ARTERIAL BLOOD TOTAL CO2 23.9 mmol/L (21-25)
[2018-01-08] MEDS: NORMAL SALINE 1000 ML 1,000 ML IV PRN (17:26)
[2018-01-08] MEDS: METHYLPREDNISOLONE INJ 125 MG/2 ML SDV IV SCH (17:26)
[2018-01-08 18:00] LABS: APPEARANCE,URINE CLEAR; BILIRUBIN,URINE NEGATIVE (NEGATIVE); COLOR,URINE YELLOW; GLUCOSE, URINE NEGATIVE (NEGATIVE); KETONES,URINE TRACE mg/dL (NEGATIVE); LEUKOCYTE ESTERASE,URINE NEGATIVE (NEGATIVE); NITRITE,URINE NEGATIVE (NEGATIVE); PROTEIN,URINE NEGATIVE (NEGATIVE); URINE SPECIFIC GRAVITY 1.011; UROBILINOGEN,URINE NEGATIVE mg/dL (<2.0)
[2018-01-08] MEDS ORDERED: MIDAZOLAM HCL 50 MG/100 ML RTUINJ IV ONE (18:45)
[2018-01-08] MEDS ORDERED: LEVALBUTEROL HCL NEB 1.25 MG/3 ML AMPUL NEB PRN (18:46)
[2018-01-08] MEDS ORDERED: GLUCAGON,HUMAN RECOMB 1 MG INJ IM PRN (19:21)
[2018-01-08] MEDS ORDERED: DEXTROSE 40% GEL 15 GM TUBE PO PRN (19:21)
[2018-01-08] MEDS ORDERED: DEXTROSE 40% GEL 15 GM TUBE X 2 PO PRN (19:21)
[2018-01-08] MEDS ORDERED: DEXTROSE 50%-WATER SYRINGE 25 GM/50 ML DOSE IV PRN (19:21)
[2018-01-08] MEDS ORDERED: INSULIN LISPRO 100 UNIT/ML 3 ML VIAL SUBCUT PRN (19:21)
[2018-01-08] MEDS ORDERED: DEXTROSE 50%-WATER SYRINGE 12.5 GM/25 ML DOSE IV PRN (19:21)
[2018-01-08] MEDS: CEFEPIME 1 GM/D5W RTU 1 GM/50 ML RTUPB IV SCH (22:29)
[2018-01-09] MEDS: IPRATROPIUM/ALBUTEROL 0.5-2.5 MG/3 ML AMPUL NEB SCH ×5 (01:22→19:47)
[2018-01-09] MEDS: METHYLPREDNISOLONE INJ 125 MG/2 ML SDV IV SCH ×3 (02:29→17:59)
[2018-01-09] MEDS: NORMAL SALINE 1000 ML 1,000 ML IV PRN ×3 (02:30→21:50)
[2018-01-09] MEDS: PROPOFOL 100 ML IV PRN ×4 (02:48→23:58)
[2018-01-09 04:07] LABS: HEMATOCRIT 35.3 % (36.0-47.0); HEMOGLOBIN 11.6 g/dL (12.0-15.5); MEAN CORPUSCULAR HEMOGLOBIN 28.6 pg (27.0-33.4); MEAN CORPUSCULAR HGB CONC 32.8 g/dL (32.0-36.0); MEAN CORPUSCULAR VOLUME 87 fl (80-97); PLATELET COUNT 205 10^3/uL (150-450); RED BLOOD COUNT 4.05 10^6/uL (3.72-5.28); RED CELL DISTRIBUTION WIDTH 14.9 % (11.5-14.0); WHITE BLOOD COUNT 17.8 10^3/uL (4.0-10.5)
[2018-01-09 04:27] LABS: ALANINE AMINOTRANSFERASE 22 U/L (9-52); ALBUMIN 3.4 g/dL (3.5-5.0); ALKALINE PHOSPHATASE 71 U/L (38-126); ANION GAP 9 (5-19); ASPARTATE AMINO TRANSFERASE 35 U/L (14-36); BILIRUBIN,DIRECT 0.4 mg/dL (0.0-0.4); BILIRUBIN,TOTAL 0.4 mg/dL (0.2-1.3); BLOOD UREA NITROGEN 17 mg/dL (7-20); CALCIUM 8.4 mg/dL (8.4-10.2); CARBON DIOXIDE 22 mmol/L (22-30); CHLORIDE 109 mmol/L (98-107); GLUCOSE 127 mg/dL (75-110); POTASSIUM 3.5 mmol/L (3.6-5.0); SODIUM 139.6 mmol/L (137-145); TOTAL PROTEIN 5.8 g/dL (6.3-8.2)
[2018-01-09 05:37] LABS: ARTERIAL BLOOD BASE EXCESS -3.5 mmol/L; ARTERIAL BLOOD HCO3 21.1 mmol/L (20-26); ARTERIAL BLOOD O2 SATURATION 95.3 % (94-98); ARTERIAL BLOOD PCO2 36.7 mmHg (35-45); ARTERIAL BLOOD PH 7.38 (7.35-7.45); ARTERIAL BLOOD PO2 77.7 mmHg (80-100); ARTERIAL BLOOD TOTAL CO2 22.3 mmol/L (21-25)
[2018-01-09 05:40] LABS: ARTERIAL BLOOD FIO2 30%
[2018-01-09] MEDS: HEPARIN SOD (PORCINE) 5,000 UNIT/ML 1 ML SYRINGE SUBCUT SCH ×3 (05:56→21:51)
[2018-01-09] MEDS: MIDAZOLAM HCL 50 MG/100 ML RTUINJ IV PRN (05:59)
--- NOTE | 2018-01-09 08:34 | RADIOLOGY REPORT (SQ) ---
EXAM DESCRIPTION: CHEST SINGLE VIEW COMPLETED DATE/TIME: 01/09/2018 6:45 am REASON FOR STUDY: Mechanical ventilation; respiratory failure COMPARISON: Previous day. NUMBER OF VIEWS: One view. TECHNIQUE: Single frontal radiographic image of the chest acquired. LIMITATIONS: None. FINDINGS: LUNGS AND PLEURA: Postsurgical changes right upper lung. No pneumothorax. MEDIASTINUM AND HEART: Stable heart size and mediastinal structures. SUPPORT DEVICES: Stable position of nasogastric and endotracheal tubes. There is a right subclavian central line with tip oriented cephalad overlying SVC. BONY STRUCTURES: No acute findings. HARDWARE: None. OTHER: No other significant finding. IMPRESSION: Right-sided central line tip position as described. No pneumothorax. Reading location - IP/workstation name: [email or web address]
[2018-01-09] MEDS: CEFEPIME 1 GM/D5W RTU 1 GM/50 ML RTUPB IV SCH ×2 (11:21→21:51)
[2018-01-09] MEDS: NICOTINE 14 MG/24 HR PATCH.TD24 TD SCH (11:22)
[2018-01-09] MEDS: DOXYCYCLINE HYCLATE 100 MG TABLET PO SCH ×2 (11:23→21:50)
[2018-01-09] MEDS: GUAIFENESIN 600 MG TABLET.SA PO SCH (11:25)
--- NOTE | 2018-01-09 15:08 | PDOC PROGRESS REPORT ---
Subjective Progress Note for:: 01/09/18 Subjective:: Patient admitted with difficulty breathing and shortness of breath. She was intubated in the emergency room after failing to tolerate noninvasive positive pressure ventilation. She remains intubated. Reason For Visit: ACUTE ON CHRONIC RESPIRATORY FAILURE Physical Exam Vital Signs: Temp Pulse Resp BP Pulse Ox 98.8 F 116 H 7 L 130/55 H 97 01/09/18 14:00 01/09/18 14:00 01/09/18 14:00 01/09/18 14:00 01/09/18 14:00 Intake & Output 01/08/18 01/09/18 01/10/18 06:59 06:59 06:59 Intake Total 260 2378 Output Total 285 780 707 Balance -25 1598 -707 Weight 65.1 kg 68.6 kg General appearance: PRESENT: no acute distress, other - Intubated Head exam: PRESENT: atraumatic Eye exam: PRESENT: PERRLA Ear exam: PRESENT: normal external ear exam Neck exam: ABSENT: carotid bruit, JVD, lymphadenopathy, thyromegaly Respiratory exam: PRESENT: other - On mechanical ventilation Cardiovascular exam: PRESENT: RRR. ABSENT: diastolic murmur, rubs, systolic murmur Pulses: PRESENT: normal dorsalis pedis pul GI/Abdominal exam: PRESENT: normal bowel sounds, soft. ABSENT: distended, guarding, mass, organolmegaly, rebound, tenderness Rectal exam: PRESENT: deferred Neurological exam: PRESENT: other - Sedated Results Laboratory Results: 01/09/18 03:54 01/09/18 03:54 01/08/18 01/08/18 01/09/18 17:09 17:35 03:54 WBC 17.8 H RBC 4.05 Hgb 11.6 L Hct 35.3 L MCV 87 MCH 28.6 MCHC 32.8 RDW 14.9 H Plt Count 205 Carbonic Acid 1.10 HCO3/H2CO3 Ratio 20:1 ABG pH 7.41 ABG pCO2 36.6 ABG pO2 63.7 L ABG HCO3 22.7 ABG O2 Saturation 92.7 L ABG Base Excess -1.5 FiO2 30% Sodium Potassium Chloride Carbon Dioxide Anion Gap BUN Creatinine Est GFR ( Amer) Est GFR (Non-Af Amer) Glucose Calcium Magnesium Total Bilirubin AST ALT Alkaline Phosphatase Total Protein Albumin Urine Color YELLOW Urine Appearance CLEAR Urine pH 5.0 Ur Specific [place] 1.011 Urine Protein NEGATIVE Urine Glucose (UA) NEGATIVE Urine Ketones TRACE H Urine Blood NEGATIVE Urine Nitrite NEGATIVE Ur Leukocyte Esterase NEGATIVE Urine WBC (Auto) 5 Urine RBC (Auto) 2 01/09/18 01/09/18 03:54 05:25 WBC RBC Hgb Hct MCV MCH MCHC RDW Plt Count Carbonic Acid 1.10 HCO3/H2CO3 Ratio 19:1 ABG pH 7.38 ABG pCO2 36.7 ABG pO2 77.7 L ABG HCO3 21.1 ABG O2 Saturation 95.3 ABG Base Excess -3.5 FiO2 30% Sodium 139.6 Potassium 3.5 L Chloride 109 H Carbon Dioxide 22 Anion Gap 9 BUN 17 Creatinine 0.57 Est GFR ( Amer) > 60 Est GFR (Non-Af Amer) > 60 Glucose 127 H Calcium 8.4 Magnesium 2.3 Total Bilirubin 0.4 AST 35 ALT 22 Alkaline Phosphatase 71 Total Protein 5.8 L Albumin 3.4 L Urine Color Urine Appearance Urine pH Ur Specific [place] Urine Protein Urine Glucose (UA) Urine Ketones Urine Blood Urine Nitrite Ur Leukocyte Esterase Urine WBC (Auto) Urine RBC (Auto) Impressions: Chest X-Ray 01/09/18 06:00 IMPRESSION: Right-sided central line tip position as described. No pneumothorax. Assessment & Plan - Time Time Spent with patient: 15-24 minutes Medications reviewed and adjusted accordingly: Yes Anticipated discharge: Home Within: within 72 hours - Inpatient Certification Based on my medical assessment, after consideration of the patient's comorbidities, presenting symptoms, or acuity I expect that the services needed warrant INPATIENT care.: Yes Medical Necessity: Other - Patient on mechanical ventilation - Plan Summary Plan Summary: 1. Chronic respiratory failure with superimposed acute hypoxemic and hypercapnicrespiratory failure secondary to COPD exacerbation. We will continue with mechanical ventilation. Pulmonology consult has been sought. We will continue with bronchodilators as well as steroids. 2. History of lung cancer status post lobectomy 3. Coronary artery disease with no evidence of acute coronary syndrome 4. History of tobacco abuse
[2018-01-09] MEDS: ACETYLCYSTEINE 20% SOLN 800 MG/4 ML VIAL.NEB NEB SCH (19:47)
[2018-01-10] MEDS: IPRATROPIUM/ALBUTEROL 0.5-2.5 MG/3 ML AMPUL NEB SCH ×4 (01:47→21:29)
[2018-01-10] MEDS: METHYLPREDNISOLONE INJ 125 MG/2 ML SDV IV SCH ×2 (02:26→10:51)
[2018-01-10 04:16] LABS: HEMATOCRIT 34.9 % (36.0-47.0); HEMOGLOBIN 11.5 g/dL (12.0-15.5); MEAN CORPUSCULAR HEMOGLOBIN 28.8 pg (27.0-33.4); MEAN CORPUSCULAR HGB CONC 32.9 g/dL (32.0-36.0); MEAN CORPUSCULAR VOLUME 88 fl (80-97); PLATELET COUNT 207 10^3/uL (150-450); RED BLOOD COUNT 3.98 10^6/uL (3.72-5.28); RED CELL DISTRIBUTION WIDTH 15.2 % (11.5-14.0); WHITE BLOOD COUNT 16.9 10^3/uL (4.0-10.5)
[2018-01-10] MEDS: PROPOFOL 100 ML IV PRN ×2 (04:25→21:49)
[2018-01-10 04:55] LABS: ALANINE AMINOTRANSFERASE 31 U/L (9-52); ALBUMIN 3.1 g/dL (3.5-5.0); ALKALINE PHOSPHATASE 62 U/L (38-126); ANION GAP 8 (5-19); ASPARTATE AMINO TRANSFERASE 27 U/L (14-36); BILIRUBIN,DIRECT 0.3 mg/dL (0.0-0.4); BILIRUBIN,TOTAL 0.3 mg/dL (0.2-1.3); BLOOD UREA NITROGEN 18 mg/dL (7-20); CALCIUM 8.5 mg/dL (8.4-10.2); CARBON DIOXIDE 21 mmol/L (22-30); CHLORIDE 113 mmol/L (98-107); GLUCOSE 113 mg/dL (75-110); POTASSIUM 3.1 mmol/L (3.6-5.0); SODIUM 142.3 mmol/L (137-145); TOTAL PROTEIN 5.1 g/dL (6.3-8.2)
[2018-01-10] MEDS: NORMAL SALINE 1000 ML 1,000 ML IV PRN ×2 (05:38→23:17)
[2018-01-10] MEDS: HEPARIN SOD (PORCINE) 5,000 UNIT/ML 1 ML SYRINGE SUBCUT SCH ×3 (05:38→21:24)
[2018-01-10 05:43] LABS: ARTERIAL BLOOD BASE EXCESS -4.8 mmol/L; ARTERIAL BLOOD H2CO3 0.96 mmol/L (1.05-1.35); ARTERIAL BLOOD HCO3 19.1 mmol/L (20-26); ARTERIAL BLOOD O2 SATURATION 97.3 % (94-98); ARTERIAL BLOOD PCO2 31.9 mmHg (35-45); ARTERIAL BLOOD PO2 95.4 mmHg (80-100); ARTERIAL BLOOD TOTAL CO2 20.1 mmol/L (21-25)
[2018-01-10 05:46] LABS: ARTERIAL BLOOD FIO2 30%
--- NOTE | 2018-01-10 07:45 | RADIOLOGY REPORT (SQ) ---
EXAM DESCRIPTION: CHEST SINGLE VIEW CLINICAL HISTORY: 72 years Female, Mechanical ventilation; respiratory failure COMPARISON: 01/09/18. NUMBER OF VIEWS/TECHNIQUE: 1/AP LIMITATIONS: None. FINDINGS: 40% opacification of the right upper hemithorax with sutures/clips, mild right-sided tracheal shift, adequate appearing endotracheal tube tip is 3.5 cm from the kary, likely adequate enteric tube obscured at its tip, normal cardiac silhouette. No pneumothorax. No acute bone defect. IMPRESSION: No significant change.
[2018-01-10] MEDS: ACETYLCYSTEINE 20% SOLN 800 MG/4 ML VIAL.NEB NEB SCH ×2 (08:24→21:29)
[2018-01-10] MEDS: NICOTINE 14 MG/24 HR PATCH.TD24 TD SCH (10:50)
[2018-01-10] MEDS: DOXYCYCLINE HYCLATE 100 MG TABLET PO SCH ×2 (10:51→21:22)
[2018-01-10] MEDS: CEFEPIME 1 GM/D5W RTU 1 GM/50 ML RTUPB IV SCH ×2 (10:51→21:24)
[2018-01-10] MEDS: POTASSI CL 20 MEQ/50 ML RIDER 20 MEQ/50 ML RTUPB IV SCH ×2 (10:51→12:45)
[2018-01-10] MEDS: MIDAZOLAM HCL 50 MG/100 ML RTUINJ IV PRN (12:44)
[2018-01-10] MEDS ORDERED: DIPHENHYDRAMINE HCL 25 MG CAPSULE NG PRN (14:50)
[2018-01-10] MEDS ORDERED: HYDROCORTISONE 1% CREAM 28.35 GM TP PRN (14:50)
--- NOTE | 2018-01-10 14:53 | PDOC PROGRESS REPORT ---
Subjective Progress Note for:: 01/10/18 Subjective:: Patient admitted with difficulty breathing and shortness of breath. She was intubated in the emergency room after failing to tolerate noninvasive positive pressure ventilation. She remains intubated. She however appears to be stable and hopefully she can start weaning trials soon Chest x-ray shows 40% opacification of the right upper hemithorax with mild right tracheal shift Reason For Visit: ACUTE ON CHRONIC RESPIRATORY FAILURE Physical Exam Vital Signs: Temp Pulse Resp BP Pulse Ox 97.5 F 92 17 139/59 H 99 01/10/18 14:00 01/10/18 08:24 01/10/18 14:00 01/10/18 13:31 01/10/18 14:00 Intake & Output 01/09/18 01/10/18 01/11/18 06:59 06:59 06:59 Intake Total 2378 2781 Output Total 780 1347 450 Balance 1598 1434 -450 Weight 68.6 kg 69.7 kg General appearance: PRESENT: no acute distress, other Head exam: PRESENT: atraumatic Ear exam: PRESENT: normal external ear exam Neck exam: ABSENT: carotid bruit, JVD, lymphadenopathy, thyromegaly Respiratory exam: PRESENT: decreased breath sounds, other Cardiovascular exam: PRESENT: RRR. ABSENT: diastolic murmur, rubs, systolic murmur GI/Abdominal exam: PRESENT: normal bowel sounds, soft. ABSENT: distended, guarding, mass, organolmegaly, rebound, tenderness Rectal exam: PRESENT: deferred Extremities exam: PRESENT: full ROM. ABSENT: calf tenderness, clubbing, pedal edema Neurological exam: PRESENT: other - sedated Skin exam: PRESENT: erythema, urticaria Results Laboratory Results: 01/10/18 03:49 01/10/18 03:49 01/10/18 01/10/18 01/10/18 03:49 03:49 05:25 WBC 16.9 H RBC 3.98 Hgb 11.5 L Hct 34.9 L MCV 88 MCH 28.8 MCHC 32.9 RDW 15.2 H Plt Count 207 Carbonic Acid 0.96 L HCO3/H2CO3 Ratio 19:1 ABG pH 7.40 ABG pCO2 31.9 L ABG pO2 95.4 ABG HCO3 19.1 L ABG O2 Saturation 97.3 ABG Base Excess -4.8 FiO2 30% Sodium 142.3 Potassium 3.1 L Chloride 113 H Carbon Dioxide 21 L Anion Gap 8 BUN 18 Creatinine 0.54 Est GFR ( Amer) > 60 Est GFR (Non-Af Amer) > 60 Glucose 113 H Calcium 8.5 Magnesium 2.4 H Total Bilirubin 0.3 AST 27 ALT 31 Alkaline Phosphatase 62 Total Protein 5.1 L Albumin 3.1 L 01/08/18 17:35 Valenzuela Catheter Urine Culture - Final NO GROWTH 2 DAYS 01/08/18 17:35 Tracheal Aspirate Gram Stain - Final 01/08/18 17:35 Tracheal Aspirate Sputum Culture - Final NORMAL ERIC Impressions: Chest X-Ray 01/10/18 06:00 IMPRESSION: No significant change. Assessment & Plan - Time Time Spent with patient: 15-24 minutes Medications reviewed and adjusted accordingly: Yes Anticipated discharge: Home - Plan Summary Plan Summary: 1. Acute hypoxemic and hypercapnic respiratory failure secondary to COPD exacerbation superimposed on chronic respiratory failure - continue with mechanical ventilation. Pulmonology consult appreciated. We will continue with bronchodilators as well as steroids and taper as per response. 2. History of lung cancer status post lobectomy 3. Coronary artery disease with no evidence of acute coronary syndrome 4. History of tobacco abuse 5. Hypokalemia- replace
[2018-01-10] MEDS: METHYLPREDNISOLONE INJ 40 MG/1 ML SDV IV SCH (21:22)
[2018-01-10] MEDS ORDERED: METHYLPREDNISOLONE INJ 125 MG/2 ML SDV IV SCH (22:00)
[2018-01-11] MEDS: IPRATROPIUM/ALBUTEROL 0.5-2.5 MG/3 ML AMPUL NEB SCH ×4 (02:35→20:13)
[2018-01-11 04:07] LABS: HEMATOCRIT 34.4 % (36.0-47.0); HEMOGLOBIN 11.5 g/dL (12.0-15.5); MEAN CORPUSCULAR HEMOGLOBIN 29.3 pg (27.0-33.4); MEAN CORPUSCULAR HGB CONC 33.5 g/dL (32.0-36.0); MEAN CORPUSCULAR VOLUME 88 fl (80-97); PLATELET COUNT 195 10^3/uL (150-450); RED BLOOD COUNT 3.94 10^6/uL (3.72-5.28); RED CELL DISTRIBUTION WIDTH 15.1 % (11.5-14.0)
[2018-01-11 04:26] LABS: ALANINE AMINOTRANSFERASE 28 U/L (9-52); ALBUMIN 2.9 g/dL (3.5-5.0); ALKALINE PHOSPHATASE 54 U/L (38-126); ANION GAP 7 (5-19); ASPARTATE AMINO TRANSFERASE 24 U/L (14-36); BILIRUBIN,DIRECT 0.3 mg/dL (0.0-0.4); BILIRUBIN,TOTAL 0.3 mg/dL (0.2-1.3); BLOOD UREA NITROGEN 22 mg/dL (7-20); CALCIUM 8.4 mg/dL (8.4-10.2); CARBON DIOXIDE 19 mmol/L (22-30); CHLORIDE 117 mmol/L (98-107); GLUCOSE 102 mg/dL (75-110); POTASSIUM 3.9 mmol/L (3.6-5.0); SODIUM 143.2 mmol/L (137-145); TOTAL PROTEIN 4.9 g/dL (6.3-8.2)
[2018-01-11 04:33] LABS: ARTERIAL BLOOD H2CO3 0.97 mmol/L (1.05-1.35); ARTERIAL BLOOD HCO3 19.2 mmol/L (20-26); ARTERIAL BLOOD PCO2 32.3 mmHg (35-45); ARTERIAL BLOOD PH 7.39 (7.35-7.45); ARTERIAL BLOOD PO2 81.1 mmHg (80-100); ARTERIAL BLOOD TOTAL CO2 20.1 mmol/L (21-25)
[2018-01-11 04:34] LABS: ARTERIAL BLOOD FIO2 30%
[2018-01-11] MEDS: PROPOFOL 100 ML IV PRN (05:05)
[2018-01-11] MEDS: HEPARIN SOD (PORCINE) 5,000 UNIT/ML 1 ML SYRINGE SUBCUT SCH ×3 (05:05→21:56)
[2018-01-11] MEDS: ACETYLCYSTEINE 20% SOLN 800 MG/4 ML VIAL.NEB NEB SCH ×2 (07:47→20:13)
--- NOTE | 2018-01-11 08:14 | RADIOLOGY REPORT (SQ) ---
EXAM DESCRIPTION: CHEST SINGLE VIEW COMPLETED DATE/TIME: 01/11/2018 6:37 am REASON FOR STUDY: Mechanical ventilation; respiratory failure COMPARISON: 01/10/2018 NUMBER OF VIEWS: One view. TECHNIQUE: Single frontal radiographic image of the chest acquired. LIMITATIONS: None. FINDINGS: LUNGS AND PLEURA: Subsegmental airspace disease in the left lower lobe partially silhouett ing the diaphragm. Postsurgical changes in the right lung. No pneumothorax. MEDIASTINUM AND HEART: Stable heart size and mediastinal structures. SUPPORT DEVICES: Appropriate location without change. BONY STRUCTURES: No acute findings. HARDWARE: None. OTHER: No other significant finding. IMPRESSION: Atelectasis versus developing infection or aspiration left lower lobe. No pneumothorax. Reading location - IP/workstation name: [email or web address]
[2018-01-11] MEDS: NICOTINE 14 MG/24 HR PATCH.TD24 TD SCH (10:29)
[2018-01-11] MEDS: METHYLPREDNISOLONE INJ 40 MG/1 ML SDV IV SCH ×2 (10:32→21:55)
[2018-01-11] MEDS: NORMAL SALINE 1000 ML 1,000 ML IV PRN (10:33)
[2018-01-11] MEDS: DOXYCYCLINE HYCLATE 100 MG TABLET PO SCH ×2 (10:33→21:58)
[2018-01-11] MEDS: CEFEPIME 1 GM/D5W RTU 1 GM/50 ML RTUPB IV SCH ×2 (10:33→21:55)
--- NOTE | 2018-01-11 11:02 | PDOC PROGRESS REPORT ---
Subjective Progress Note for:: 01/11/18 Subjective:: Intubated, sedation from the patient awake. Son at bedside. Patient being weaned with plan for possible extubation today and transition to BiPAP. Reason For Visit: ACUTE ON CHRONIC RESPIRATORY FAILURE Physical Exam Vital Signs: Temp Pulse Resp BP Pulse Ox 97.7 F 93 24 H 129/75 H 97 01/11/18 06:00 01/11/18 09:30 01/11/18 10:00 01/11/18 09:30 01/11/18 10:00 Intake & Output 01/10/18 01/11/18 01/12/18 06:59 06:59 06:59 Intake Total 2781 3248 Output Total 1347 1005 Balance 1434 2243 Weight 69.7 kg 72.1 kg GEN: NAD, well-developed, well-nourished CV: RRR, NL S1S2 LUNGS: Few rhonchi bilaterally ABDOMEN Soft, NT, +BS EXTERMITIES: 1+ edema NEURO: Intubated, arousable Results Laboratory Results: 01/11/18 04:00 01/11/18 04:00 01/11/18 01/11/18 01/11/18 04:00 04:00 04:08 WBC 13.0 H RBC 3.94 Hgb 11.5 L Hct 34.4 L MCV 88 MCH 29.3 MCHC 33.5 RDW 15.1 H Plt Count 195 Carbonic Acid 0.97 L HCO3/H2CO3 Ratio 19:1 ABG pH 7.39 ABG pCO2 32.3 L ABG pO2 81.1 ABG HCO3 19.2 L ABG O2 Saturation 96.0 ABG Base Excess -5.0 FiO2 30% Sodium 143.2 Potassium 3.9 Chloride 117 H Carbon Dioxide 19 L Anion Gap 7 BUN 22 H Creatinine 0.53 Est GFR ( Amer) > 60 Est GFR (Non-Af Amer) > 60 Glucose 102 Calcium 8.4 Magnesium 2.5 H Total Bilirubin 0.3 AST 24 ALT 28 Alkaline Phosphatase 54 Total Protein 4.9 L Albumin 2.9 L 01/08/18 17:35 Valenzuela Catheter Urine Culture - Final NO GROWTH 2 DAYS 01/08/18 17:35 Tracheal Aspirate Gram Stain - Final 01/08/18 17:35 Tracheal Aspirate Sputum Culture - Final NORMAL ERIC Impressions: Chest X-Ray 01/11/18 06:00 IMPRESSION: Atelectasis versus developing infection or aspiration left lower lobe. No pneumothorax. Assessment & Plan - Diagnosis (1) Acute respiratory failure Qualifiers: Respiratory failure complication: hypoxia and hypercapnia Qualified Code(s) : J96.01 - Acute respiratory failure with hypoxia; J96.02 - Acute respiratory failure with hypercapnia Plan: Likely secondary to COPD exacerbation. Wean off ventilator and extubate as tolerated. We will continue Solu-Medrol 60 mg every 6 12 for now. Concern for bacteremia and but apparently growing gram-positive cocci 1/4 bottles, which may be contaminant. We will continue empiric antibiotics with cefepime and doxycycline for now and repeat blood cultures. Continue nebulizers. Pulmonary follow-up and assistance by Dr. Junior appreciated. (2) COPD with exacerbation Is this a current diagnosis for this admission?: Yes Plan: Continue management as acute respiratory failure above. (3) History of lung cancer Is this a current diagnosis for this admission?: No (4) Tobacco use disorder Is this a current diagnosis for this admission?: Yes Plan: Continue nicotine patch. Will institute smoking cessation counseling. (5) History of HI (myocardial infarction) Is this a current diagnosis for this admission?: No Plan: Stable. Aspirin 81 mg daily.
[2018-01-11] MEDS: ASPIRIN 81 MG TABLET, ENT COATED PO SCH (12:53)
[2018-01-11] MEDS ORDERED: OLANZAPINE INJ/PF 10 MG SDV IM ONE (13:00)
[2018-01-11 15:25] LABS: ARTERIAL BLOOD FIO2 40%; ARTERIAL BLOOD H2CO3 1.07 mmol/L (1.05-1.35); ARTERIAL BLOOD HCO3 21.3 mmol/L (20-26); ARTERIAL BLOOD O2 SATURATION 87.9 % (94-98); ARTERIAL BLOOD PCO2 35.7 mmHg (35-45); ARTERIAL BLOOD PH 7.39 (7.35-7.45); ARTERIAL BLOOD PO2 53.6 mmHg (80-100); ARTERIAL BLOOD TOTAL CO2 22.4 mmol/L (21-25)
[2018-01-11] MEDS ORDERED: FUROSEMIDE INJ/PF 40 MG/4 ML SDV ONE (17:44)
[2018-01-11] MEDS ORDERED: FUROSEMIDE INJ/PF 40 MG/4 ML SDV IV ONE (18:00)
[2018-01-11] MEDS ORDERED: DEXAMETHASONE SOD PHOSPHATE INJ 4 MG/1 ML VIAL ONE (18:32)
[2018-01-11] MEDS ORDERED: DEXAMETHASONE SOD PHOS INJ 10 MG/1 ML VIAL IV ONE (19:00)
[2018-01-11] MEDS: OLANZAPINE INJ/PF 10 MG SDV IM SCH (21:56)
[2018-01-12] MEDS: IPRATROPIUM/ALBUTEROL 0.5-2.5 MG/3 ML AMPUL NEB SCH ×4 (03:14→21:23)
[2018-01-12] MEDS: NORMAL SALINE 1000 ML 1,000 ML IV PRN (03:59)
[2018-01-12 04:15] LABS: HEMATOCRIT 36.8 % (36.0-47.0); HEMOGLOBIN 12.2 g/dL (12.0-15.5); MEAN CORPUSCULAR HEMOGLOBIN 28.8 pg (27.0-33.4); MEAN CORPUSCULAR HGB CONC 33.2 g/dL (32.0-36.0); MEAN CORPUSCULAR VOLUME 87 fl (80-97); PLATELET COUNT 213 10^3/uL (150-450); RED BLOOD COUNT 4.25 10^6/uL (3.72-5.28); RED CELL DISTRIBUTION WIDTH 15.1 % (11.5-14.0); WHITE BLOOD COUNT 11.2 10^3/uL (4.0-10.5)
[2018-01-12 04:35] LABS: ALANINE AMINOTRANSFERASE 35 U/L (9-52); ALBUMIN 3.5 g/dL (3.5-5.0); ALKALINE PHOSPHATASE 63 U/L (38-126); ASPARTATE AMINO TRANSFERASE 39 U/L (14-36); BILIRUBIN,DIRECT 0.6 mg/dL (0.0-0.4); BILIRUBIN,TOTAL 0.9 mg/dL (0.2-1.3); BLOOD UREA NITROGEN 23 mg/dL (7-20); CALCIUM 8.7 mg/dL (8.4-10.2); CHLORIDE 108 mmol/L (98-107); GLUCOSE 98 mg/dL (75-110); POTASSIUM 3.6 mmol/L (3.6-5.0); SODIUM 146.7 mmol/L (137-145); TOTAL PROTEIN 5.8 g/dL (6.3-8.2)
[2018-01-12 04:45] LABS: ANION GAP 10 (5-19)
[2018-01-12 04:48] LABS: CARBON DIOXIDE 29 mmol/L (22-30)
[2018-01-12] MEDS: HEPARIN SOD (PORCINE) 5,000 UNIT/ML 1 ML SYRINGE SUBCUT SCH ×3 (05:53→22:29)
[2018-01-12 06:01] LABS: ARTERIAL BLOOD BASE EXCESS 2.8 mmol/L; ARTERIAL BLOOD H2CO3 1.08 mmol/L (1.05-1.35); ARTERIAL BLOOD HCO3 26.2 mmol/L (20-26); ARTERIAL BLOOD O2 SATURATION 95.9 % (94-98); ARTERIAL BLOOD PH 7.48 (7.35-7.45); ARTERIAL BLOOD PO2 74.1 mmHg (80-100); ARTERIAL BLOOD TOTAL CO2 27.3 mmol/L (21-25)
[2018-01-12 06:02] LABS: ARTERIAL BLOOD FIO2 3L
--- NOTE | 2018-01-12 06:57 | RADIOLOGY REPORT (SQ) ---
EXAM DESCRIPTION: CHEST SINGLE VIEW CLINICAL HISTORY: 72 years Female, resp failure COMPARISON: 3.29.18 NUMBER OF VIEWS/TECHNIQUE: 1/AP LIMITATIONS: None. FINDINGS: Interval extubation. Moderate opacity-effusion of the right upper 40% hemithorax associated with the right suprahilar clips/suture, mild dextroconvexity of the trachea, small bibasilar opacity-effusion. Normal cardiac silhouette. Atherosclerosis. No pneumothorax. No acute bone defect. IMPRESSION: Interval extubation. Else, stable.
[2018-01-12] MEDS: ACETYLCYSTEINE 20% SOLN 800 MG/4 ML VIAL.NEB NEB SCH ×2 (08:02→21:24)
[2018-01-12] MEDS: NICOTINE 14 MG/24 HR PATCH.TD24 TD SCH (11:24)
[2018-01-12] MEDS: DOXYCYCLINE HYCLATE 100 MG TABLET PO SCH ×2 (11:25→22:29)
[2018-01-12] MEDS: METHYLPREDNISOLONE INJ 40 MG/1 ML SDV IV SCH ×2 (11:25→22:29)
[2018-01-12] MEDS: CEFEPIME 1 GM/D5W RTU 1 GM/50 ML RTUPB IV SCH ×2 (11:26→22:29)
[2018-01-12] MEDS: ASPIRIN 81 MG TABLET, ENT COATED PO SCH (11:27)
[2018-01-12] MEDS: OLANZAPINE INJ/PF 10 MG SDV IM SCH (11:37)
--- NOTE | 2018-01-12 12:57 | PDOC CONSULTATION ---
Consultation Consult Date: 01/09/18 Attending physician:: AMILCAR ORTIZ Consult reason:: Acute on chronic respiratory failure History of Present Illness Admission Date/PCP: 01/08/18 02:27 DENISE GARVEY MD History of Present Illness: All information from chart as patient is currently intubated and sedated: SADA ROLAND is a 72 year old female smoker with history of COPD (on 2 L home oxygen at night) and lung cancer (post right upper lobectomy/ chemoradiation in 2006) was admitted with above-mentioned complaint. the patient denied any fever or sick contact but she complained of chills and chronic cough with some yellowish sputum. She also complained of pleuritic chest pain. She said that she uses her nebulizer intermittently and she only used it once today. But since her symptoms did not improve, she decided to come to the hospital for further management and treatment. She apparntly lives by herself and able to ambulate very short distances because of her shortness of breath. She continues to smoke. She was speaking in very short sentences.She was placed on a nonrebreather mask since she was unable to tolerate BiPAP. This did not wade her dyspnea and she was subsequently started on mechanical ventilation Past Medical History Cardiac Medical History: Reports: Myocardial Infarction - in 2014 but cath negative., Hyperlipidema Pulmonary Medical History: Reports: Chronic Obstructive Pulmonary Disease (COPD ) - 2014 fev1=43, Pneumonia - 2014 Malignancy Medical History: Reports: Lung Cancer - 2006 RUL surgery chemo radiation Psychiatric Medical History: Denies: Depression Hematology: Reports: Anemia - b12 since 1956 Past Surgical History Past Surgical History: Reports: Hysterectomy, Other - RUL lobectomy; port-a-cath , lung biopsies and bronchoscopies. Social History Lives with: Alone Smoking Status: Current Every Day Smoker Cigarettes Packs Per Day: 0.5 Number of Years Smokin Passive smoke exposure as: Both Frequency of Alcohol Use: None Hx Recreational Drug Use: No Drugs: None Hx Prescription Drug Abuse: No - Advance Directive Resuscitation Status: Full Code Family History Family History: Malignancy - Lung cancer Parental Family History Reviewed: No Children Family History Reviewed: No Sibling(s) Family History Reviewed.: No Medication/Allergy Home Medications: Ergocalciferol (Vitamin D2) [Drisdol 50,000 Unit (1.25MG) Capsule] 50,000 unit PO ASDIR PRN 01/08/18 Rosuvastatin Calcium [Crestor 10 mg Tablet] 10 mg PO DAILY 01/08/18 Tiotropium [place] [Spiriva Respimat] 2 puff IH QHS 01/08/18 Allergies/Adverse Reactions: moxifloxacin [From Avelox] Allergy (Severe, Verified 01/08/18 04:25) Shortness of Breath procaine HCl [From Novocain] Allergy (Severe, Verified 01/08/18 04:25) Hives azithromycin [Azithromycin] Allergy (Intermediate, Verified 01/08/18 04:25) Vomiting Review of Systems ROS unobtainable: Due to endotracheal tube Physical Exam Vital Signs: Temp Pulse Resp BP Pulse Ox 97.2 F 90 17 107/49 L 97 01/09/18 07:44 01/09/18 07:44 01/09/18 07:44 01/09/18 07:44 01/09/18 07:44 Intake & Output 01/08/18 01/09/18 01/10/18 06:59 06:59 06:59 Intake Total 260 2378 Output Total 285 780 42 Balance -25 1598 -42 Weight 65.1 kg 68.6 kg General appearance: PRESENT: no acute distress, well-developed. ABSENT: cooperative, disheveled Head exam: PRESENT: atraumatic, normocephalic Eye exam: PRESENT: conjunctiva pale. ABSENT: nystagmus, periorbital swelling, scleral icterus Mouth exam: PRESENT: dry mucosa, neck supple, tongue midline, other - ET tube in place Neck exam: ABSENT: carotid bruit, JVD, lymphadenopathy, thyromegaly, tracheal deviation, tracheostomy Respiratory exam: PRESENT: decreased breath sounds, prolonged expiratory phas, rales, rhonchi, symmetrical, unlabored, wheezes. ABSENT: retraction, stridor, tachypnea Cardiovascular exam: PRESENT: RRR, +S1, +S2, tachycardia Pulses: PRESENT: normal radial pulses GI/Abdominal exam: PRESENT: diminished bowel sounds, soft Extremities exam: ABSENT: clubbing, joint swelling Musculoskeletal exam: ABSENT: ambulatory, deformity, dislocation Neurological exam: ABSENT: awake, oriented to person Skin exam: PRESENT: dry, warm Results Laboratory Results: 01/09/18 03:54 01/09/18 03:54 03/01/08/18 01/09/18 17:09 17:35 03:54 WBC 17.8 H RBC 4.05 Hgb 11.6 L Hct 35.3 L MCV 87 MCH 28.6 MCHC 32.8 RDW 14.9 H Plt Count 205 Carbonic Acid 1.10 HCO3/H2CO3 Ratio 20:1 ABG pH 7.41 ABG pCO2 36.6 ABG pO2 63.7 L ABG HCO3 22.7 ABG O2 Saturation 92.7 L ABG Base Excess -1.5 FiO2 30% Sodium Potassium Chloride Carbon Dioxide Anion Gap BUN Creatinine Est GFR ( Amer) Est GFR (Non-Af Amer) Glucose Calcium Magnesium Total Bilirubin AST ALT Alkaline Phosphatase Total Protein Albumin Urine Color YELLOW Urine Appearance CLEAR Urine pH 5.0 Ur Specific [place] 1.011 Urine Protein NEGATIVE Urine Glucose (UA) NEGATIVE Urine Ketones TRACE H Urine Blood NEGATIVE Urine Nitrite NEGATIVE Ur Leukocyte Esterase NEGATIVE Urine WBC (Auto) 5 Urine RBC (Auto) 2 01/09/18 01/09/18 03:54 05:25 WBC RBC Hgb Hct MCV MCH MCHC RDW Plt Count Carbonic Acid 1.10 HCO3/H2CO3 Ratio 19:1 ABG pH 7.38 ABG pCO2 36.7 ABG pO2 77.7 L ABG HCO3 21.1 ABG O2 Saturation 95.3 ABG Base Excess -3.5 FiO2 30% Sodium 139.6 Potassium 3.5 L Chloride 109 H Carbon Dioxide 22 Anion Gap 9 BUN 17 Creatinine 0.57 Est GFR ( Amer) > 60 Est GFR (Non-Af Amer) > 60 Glucose 127 H Calcium 8.4 Magnesium 2.3 Total Bilirubin 0.4 AST 35 ALT 22 Alkaline Phosphatase 71 Total Protein 5.8 L Albumin 3.4 L Urine Color Urine Appearance Urine pH Ur Specific [place] Urine Protein Urine Glucose (UA) Urine Ketones Urine Blood Urine Nitrite Ur Leukocyte Esterase Urine WBC (Auto) Urine RBC (Auto) Assessment & Plan - Diagnosis (1) Acute respiratory failure Qualifiers: Respiratory failure complication: hypoxia and hypercapnia Qualified Code(s) : J96.01 - Acute respiratory failure with hypoxia; J96.02 - Acute respiratory failure with hypercapnia Is this a current diagnosis for this admission?: Yes Plan: Acute/chronic:Supportive care provide adequate oxygenation and ventilation (2) History of lung cancer Is this a current diagnosis for this admission?: Yes (3) Smoker Is this a current diagnosis for this admission?: Yes (4) PNA (pneumonia) Qualifiers: Pneumonia type: due to unspecified organism Laterality: left Lung location: lower lobe of lung Qualified Code(s): J18.1 - Lobar pneumonia, unspecified organism Is this a current diagnosis for this admission?: Yes Plan: Treat as community-acquired pneumonia - Time Total Critical Time (Minutes): 60
--- NOTE | 2018-01-12 13:13 | PDOC PROGRESS REPORT ---
Subjective Progress Note for:: 01/10/18 Subjective:: Intubated and sedated Reason For Visit: ACUTE ON CHRONIC RESPIRATORY FAILURE Physical Exam Vital Signs: Temp Pulse Resp BP Pulse Ox 97.0 F 90 18 134/70 H 99 01/10/18 06:15 01/10/18 01:50 01/10/18 06:15 01/10/18 05:48 01/10/18 06:15 Intake & Output 01/09/18 01/10/18 01/11/18 06:59 06:59 06:59 Intake Total 2378 2781 Output Total 780 1347 Balance 1598 1434 Weight 68.6 kg 69.7 kg General appearance: PRESENT: no acute distress, disheveled. ABSENT: cooperative Head exam: PRESENT: atraumatic, normocephalic Eye exam: PRESENT: conjunctiva pale. ABSENT: nystagmus, periorbital swelling, scleral icterus Mouth exam: PRESENT: dry mucosa, neck supple, tongue midline, other - ET tube in place Neck exam: ABSENT: carotid bruit, JVD, lymphadenopathy, thyromegaly, tracheal deviation, tracheostomy Respiratory exam: PRESENT: decreased breath sounds, prolonged expiratory phas, rales, rhonchi, symmetrical, unlabored, wheezes. ABSENT: retraction, stridor, tachypnea Cardiovascular exam: PRESENT: RRR, +S1, +S2, tachycardia Pulses: PRESENT: normal radial pulses GI/Abdominal exam: PRESENT: diminished bowel sounds, soft Extremities exam: ABSENT: clubbing, full ROM Musculoskeletal exam: ABSENT: deformity, dislocation Neurological exam: ABSENT: awake, oriented to person Skin exam: PRESENT: dry, warm Results Laboratory Results: 01/10/18 03:49 01/10/18 03:49 01/10/18 01/10/18 01/10/18 03:49 03:49 05:25 WBC 16.9 H RBC 3.98 Hgb 11.5 L Hct 34.9 L MCV 88 MCH 28.8 MCHC 32.9 RDW 15.2 H Plt Count 207 Carbonic Acid 0.96 L HCO3/H2CO3 Ratio 19:1 ABG pH 7.40 ABG pCO2 31.9 L ABG pO2 95.4 ABG HCO3 19.1 L ABG O2 Saturation 97.3 ABG Base Excess -4.8 FiO2 30% Sodium 142.3 Potassium 3.1 L Chloride 113 H Carbon Dioxide 21 L Anion Gap 8 BUN 18 Creatinine 0.54 Est GFR ( Amer) > 60 Est GFR (Non-Af Amer) > 60 Glucose 113 H Calcium 8.5 Magnesium 2.4 H Total Bilirubin 0.3 AST 27 ALT 31 Alkaline Phosphatase 62 Total Protein 5.1 L Albumin 3.1 L Impressions: Chest X-Ray 01/10/18 06:00 IMPRESSION: No significant change. Assessment & Plan - Diagnosis (1) Acute respiratory failure Qualifiers: Respiratory failure complication: hypoxia and hypercapnia Qualified Code(s) : J96.01 - Acute respiratory failure with hypoxia; J96.02 - Acute respiratory failure with hypercapnia Is this a current diagnosis for this admission?: Yes Plan: Acute/chronic:Supportive care provide adequate oxygenation and ventilation (2) History of lung cancer Is this a current diagnosis for this admission?: Yes (3) Smoker Is this a current diagnosis for this admission?: Yes (4) PNA (pneumonia) Qualifiers: Pneumonia type: due to unspecified organism Laterality: left Lung location: lower lobe of lung Qualified Code(s): J18.1 - Lobar pneumonia, unspecified organism Is this a current diagnosis for this admission?: Yes Plan: Treat as community-acquired pneumonia - Time Total Critical Time (Minutes): 35
--- NOTE | 2018-01-12 13:16 | PDOC PROGRESS REPORT ---
Subjective Progress Note for:: 01/11/18 Subjective:: Intubated Reason For Visit: ACUTE ON CHRONIC RESPIRATORY FAILURE Physical Exam Vital Signs: Temp Pulse Resp BP Pulse Ox 97.7 F 84 10 L 123/59 L 96 01/11/18 06:00 01/11/18 02:35 01/11/18 06:00 01/11/18 05:31 01/11/18 06:00 Intake & Output 01/10/18 01/11/18 01/12/18 06:59 06:59 06:59 Intake Total 2781 3248 Output Total 1347 1005 Balance 1434 2243 Weight 69.7 kg 72.1 kg General appearance: PRESENT: no acute distress, disheveled. ABSENT: cooperative Head exam: PRESENT: atraumatic, normocephalic Eye exam: PRESENT: conjunctiva pale, EOMI. ABSENT: nystagmus, periorbital swelling, scleral icterus Mouth exam: PRESENT: dry mucosa, neck supple, tongue midline, other - ET tube in place Neck exam: ABSENT: carotid bruit, JVD, lymphadenopathy, thyromegaly, tracheal deviation, tracheostomy Respiratory exam: PRESENT: decreased breath sounds, prolonged expiratory phas, rhonchi, symmetrical, unlabored. ABSENT: retraction, stridor Cardiovascular exam: PRESENT: RRR, +S1, +S2, tachycardia Pulses: PRESENT: normal radial pulses GI/Abdominal exam: PRESENT: diminished bowel sounds, soft Extremities exam: ABSENT: clubbing, joint swelling Musculoskeletal exam: ABSENT: ambulatory, deformity, dislocation Neurological exam: PRESENT: awake Skin exam: PRESENT: dry, warm Results Laboratory Results: 01/11/18 04:00 01/11/18 04:00 01/11/18 01/11/18 01/11/18 04:00 04:00 04:08 WBC 13.0 H RBC 3.94 Hgb 11.5 L Hct 34.4 L MCV 88 MCH 29.3 MCHC 33.5 RDW 15.1 H Plt Count 195 Carbonic Acid 0.97 L HCO3/H2CO3 Ratio 19:1 ABG pH 7.39 ABG pCO2 32.3 L ABG pO2 81.1 ABG HCO3 19.2 L ABG O2 Saturation 96.0 ABG Base Excess -5.0 FiO2 30% Sodium 143.2 Potassium 3.9 Chloride 117 H Carbon Dioxide 19 L Anion Gap 7 BUN 22 H Creatinine 0.53 Est GFR ( Amer) > 60 Est GFR (Non-Af Amer) > 60 Glucose 102 Calcium 8.4 Magnesium 2.5 H Total Bilirubin 0.3 AST 24 ALT 28 Alkaline Phosphatase 54 Total Protein 4.9 L Albumin 2.9 L 01/08/18 17:35 Valenzuela Catheter Urine Culture - Final NO GROWTH 2 DAYS 01/08/18 17:35 Tracheal Aspirate Gram Stain - Final 01/08/18 17:35 Tracheal Aspirate Sputum Culture - Final NORMAL ERIC Impressions: Chest X-Ray 01/11/18 06:00 IMPRESSION: Atelectasis versus developing infection or aspiration left lower lobe. No pneumothorax. Assessment & Plan - Diagnosis (2) Acute respiratory failure Qualifiers: Respiratory failure complication: hypoxia and hypercapnia Qualified Code(s) : J96.01 - Acute respiratory failure with hypoxia; J96.02 - Acute respiratory failure with hypercapnia; J96.02 - Acute respiratory failure with hypercapnia; J96.02 - Acute respiratory failure with hypercapnia Is this a current diagnosis for this admission?: Yes Plan: Respiratory rate, FiO2, minute ventilation and airway pressures as well as mental status suggest successful extubation will proceed with extubation (3) History of lung cancer Is this a current diagnosis for this admission?: Yes (4) Smoker Is this a current diagnosis for this admission?: Yes (5) PNA (pneumonia) Qualifiers: Pneumonia type: due to unspecified organism Laterality: left Lung location: lower lobe of lung Qualified Code(s): J18.1 - Lobar pneumonia, unspecified organism Plan: Improving - Time Total Critical Time (Minutes): 60
--- NOTE | 2018-01-12 13:19 | PDOC PROGRESS REPORT ---
Subjective Progress Note for:: 01/12/18 Subjective:: 24 hrs s/p extubation Reason For Visit: ACUTE ON CHRONIC RESPIRATORY FAILURE Physical Exam Vital Signs: Temp Pulse Resp BP Pulse Ox 98.4 F 91 16 121/51 L 100 01/12/18 08:00 01/12/18 08:00 01/12/18 08:00 01/12/18 08:00 01/12/18 08:00 Intake & Output 01/11/18 01/12/18 01/13/18 06:59 06:59 06:59 Intake Total 3248 1674 Output Total 1005 5705 175 Balance 2243 -4031 -175 Weight 72.1 kg 67.2 kg General appearance: PRESENT: no acute distress, cooperative, disheveled Head exam: PRESENT: atraumatic, normocephalic Eye exam: PRESENT: conjunctiva pale, EOMI. ABSENT: nystagmus, periorbital swelling, scleral icterus Mouth exam: PRESENT: dry mucosa, neck supple, tongue midline Neck exam: ABSENT: carotid bruit, JVD, lymphadenopathy, thyromegaly, tracheal deviation, tracheostomy Respiratory exam: PRESENT: decreased breath sounds, prolonged expiratory phas, rhonchi, symmetrical, unlabored. ABSENT: rales, retraction, stridor Cardiovascular exam: PRESENT: RRR, +S1, systolic murmur Pulses: PRESENT: normal radial pulses GI/Abdominal exam: PRESENT: diminished bowel sounds, soft Extremities exam: ABSENT: clubbing, joint swelling Musculoskeletal exam: ABSENT: ambulatory, deformity, dislocation Neurological exam: PRESENT: awake, oriented to person, oriented to place Skin exam: PRESENT: dry, warm Results Laboratory Results: 01/12/18 03:45 01/12/18 03:45 01/11/18 01/11/18 01/12/18 14:05 17:30 03:45 WBC 11.2 H RBC 4.25 Hgb 12.2 Hct 36.8 MCV 87 MCH 28.8 MCHC 33.2 RDW 15.1 H Plt Count 213 Carbonic Acid 1.07 HCO3/H2CO3 Ratio 19:1 ABG pH 7.39 ABG pCO2 35.7 ABG pO2 53.6 L ABG HCO3 21.3 ABG O2 Saturation 87.9 L ABG Base Excess -3.0 FiO2 40% Sodium Potassium Chloride Carbon Dioxide Anion Gap BUN Creatinine Est GFR ( Amer) Est GFR (Non-Af Amer) Glucose Calcium Magnesium Total Bilirubin AST ALT Alkaline Phosphatase Total Protein Albumin Ur Specific [place] 1.013 01/12/18 01/12/18 03:45 05:50 WBC RBC Hgb Hct MCV MCH MCHC RDW Plt Count Carbonic Acid 1.08 HCO3/H2CO3 Ratio 24:1 ABG pH 7.48 H ABG pCO2 36.0 ABG pO2 74.1 L ABG HCO3 26.2 H ABG O2 Saturation 95.9 ABG Base Excess 2.8 FiO2 3L Sodium 146.7 H Potassium 3.6 Chloride 108 H Carbon Dioxide 29 D Anion Gap 10 BUN 23 H Creatinine 0.59 Est GFR ( Amer) > 60 Est GFR (Non-Af Amer) > 60 Glucose 98 Calcium 8.7 Magnesium 2.4 H Total Bilirubin 0.9 AST 39 H ALT 35 Alkaline Phosphatase 63 Total Protein 5.8 L Albumin 3.5 Ur Specific [place] Impressions: Chest X-Ray 01/12/18 06:00 IMPRESSION: Interval extubation. Else, stable. Assessment & Plan - Diagnosis (1) Acute respiratory failure Qualifiers: Respiratory failure complication: hypoxia and hypercapnia Qualified Code(s) : J96.01 - Acute respiratory failure with hypoxia; J96.02 - Acute respiratory failure with hypercapnia; J96.02 - Acute respiratory failure with hypercapnia; J96.02 - Acute respiratory failure with hypercapnia Is this a current diagnosis for this admission?: Yes Plan: 24 hours status post extubation stable and doing well (2) History of lung cancer Is this a current diagnosis for this admission?: Yes (4) Smoker Is this a current diagnosis for this admission?: Yes (5) PNA (pneumonia) Qualifiers: Pneumonia type: due to unspecified organism Laterality: left Lung location: lower lobe of lung Qualified Code(s): J18.1 - Lobar pneumonia, unspecified organism - Time Total Critical Time (Minutes): 35
--- NOTE | 2018-01-12 15:03 | PDOC PROGRESS REPORT ---
Subjective Progress Note for:: 01/12/18 Subjective:: Status post extubation yesterday and doing better, no significant shortness of breath. Off BiPAP and tolerating O2 2 L nasal cannula. Tolerating clear liquid diet. She will like a diet advanced. No chills, no nausea vomiting, serial urinary frequency. Reason For Visit: ACUTE ON CHRONIC RESPIRATORY FAILURE Physical Exam Vital Signs: Temp Pulse Resp BP Pulse Ox 98.6 F 93 21 H 118/60 95 01/12/18 14:00 01/12/18 14:00 01/12/18 14:00 01/12/18 14:00 01/12/18 14:00 Intake & Output 01/11/18 01/12/18 01/13/18 06:59 06:59 06:59 Intake Total 3248 1674 650 Output Total 1005 5705 495 Balance 2243 -4031 155 Weight 72.1 kg 67.2 kg GEN: NAD, well-developed, well-nourished CV: RRR, NL S1S2 LUNGS: Few rhonchi bilaterally ABDOMEN Soft, NT, +BS EXTERMITIES: 1+ edema NEURO: Alert, no lateraling weakness Results Laboratory Results: 01/12/18 03:45 01/12/18 03:45 01/11/18 01/11/18 01/12/18 14:05 17:30 03:45 WBC 11.2 H RBC 4.25 Hgb 12.2 Hct 36.8 MCV 87 MCH 28.8 MCHC 33.2 RDW 15.1 H Plt Count 213 Carbonic Acid 1.07 HCO3/H2CO3 Ratio 19:1 ABG pH 7.39 ABG pCO2 35.7 ABG pO2 53.6 L ABG HCO3 21.3 ABG O2 Saturation 87.9 L ABG Base Excess -3.0 FiO2 40% Sodium Potassium Chloride Carbon Dioxide Anion Gap BUN Creatinine Est GFR ( Amer) Est GFR (Non-Af Amer) Glucose Calcium Magnesium Total Bilirubin AST ALT Alkaline Phosphatase Total Protein Albumin Ur Specific [place] 1.013 01/12/18 01/12/18 03:45 05:50 WBC RBC Hgb Hct MCV MCH MCHC RDW Plt Count Carbonic Acid 1.08 HCO3/H2CO3 Ratio 24:1 ABG pH 7.48 H ABG pCO2 36.0 ABG pO2 74.1 L ABG HCO3 26.2 H ABG O2 Saturation 95.9 ABG Base Excess 2.8 FiO2 3L Sodium 146.7 H Potassium 3.6 Chloride 108 H Carbon Dioxide 29 D Anion Gap 10 BUN 23 H Creatinine 0.59 Est GFR ( Amer) > 60 Est GFR (Non-Af Amer) > 60 Glucose 98 Calcium 8.7 Magnesium 2.4 H Total Bilirubin 0.9 AST 39 H ALT 35 Alkaline Phosphatase 63 Total Protein 5.8 L Albumin 3.5 Ur Specific [place] Impressions: Chest X-Ray 01/12/18 06:00 IMPRESSION: Interval extubation. Else, stable. Assessment & Plan - Diagnosis (1) Acute respiratory failure Qualifiers: Respiratory failure complication: hypoxia and hypercapnia Qualified Code(s) : J96.01 - Acute respiratory failure with hypoxia; J96.02 - Acute respiratory failure with hypercapnia; J96.02 - Acute respiratory failure with hypercapnia; J96.02 - Acute respiratory failure with hypercapnia Is this a current diagnosis for this admission?: Yes Plan: Likely secondary to COPD exacerbation. Improved, status post extubation on 01/11 We will continue Solu-Medrol 60 mg every12 for now. Concern for bacteremia but apparently growing gram-positive cocci 1/4 bottles, staph auricularis, which may be contaminant. We will continue empiric antibiotics with cefepime and doxycycline for now. Repeated blood cultures, will follow-up result. Continue nebulizers. Continued pulmonary follow-up and assistance by Dr. Junior appreciated. We will downgrade from ICU to IMCU. Advance diet to cardiac. (2) COPD with exacerbation Is this a current diagnosis for this admission?: Yes (3) History of lung cancer Is this a current diagnosis for this admission?: Yes (4) Tobacco use disorder Is this a current diagnosis for this admission?: Yes Plan: Continue nicotine patch. Smoking cessation counseling. (5) History of CT (myocardial infarction) Is this a current diagnosis for this admission?: No Plan: Stable. Continue aspirin 81 mg daily. - Time Time Spent with patient: 35 or more minutes
[2018-01-12] MEDS: OLANZAPINE 2.5 MG TABLET PO SCH (22:29)
[2018-01-13] MEDS: IPRATROPIUM/ALBUTEROL 0.5-2.5 MG/3 ML AMPUL NEB SCH ×4 (02:00→19:47)
[2018-01-13] MEDS: NORMAL SALINE 1000 ML 1,000 ML IV PRN (05:12)
[2018-01-13] MEDS: HEPARIN SOD (PORCINE) 5,000 UNIT/ML 1 ML SYRINGE SUBCUT SCH ×3 (05:12→22:29)
[2018-01-13 06:43] LABS: HEMATOCRIT 38.4 % (36.0-47.0); HEMOGLOBIN 12.9 g/dL (12.0-15.5); MEAN CORPUSCULAR HEMOGLOBIN 29.1 pg (27.0-33.4); MEAN CORPUSCULAR HGB CONC 33.7 g/dL (32.0-36.0); MEAN CORPUSCULAR VOLUME 87 fl (80-97); PLATELET COUNT 209 10^3/uL (150-450); RED BLOOD COUNT 4.44 10^6/uL (3.72-5.28); RED CELL DISTRIBUTION WIDTH 15.1 % (11.5-14.0); WHITE BLOOD COUNT 13.3 10^3/uL (4.0-10.5)
[2018-01-13 06:54] LABS: ABSOLUTE LYMPHOCYTES# (MANUAL) 0.3 10^3/uL (0.5-4.7); ABSOLUTE MONOCYTES # (MANUAL) 0.4 10^3/uL (0.1-1.4); ABSOLUTE NEUTROPHILS# (MANUAL) 12.6 10^3/uL (1.7-8.2); BASOPHILS % (MANUAL) 0 % (0-2); EOSINOPHILS % (MANUAL) 0 % (0-6); LYMPHOCYTES % (MANUAL) 1 % (13-45); MONOCYTES % (MANUAL) 3 % (3-13); SEGMENTED NEUTROPHILS % (MAN) 95 % (42-78); TOTAL CELLS COUNTED 100
[2018-01-13 06:55] LABS: ANISOCYTOSIS SLIGHT; POIKILOCYTOSIS SLIGHT; TOXIC GRANULATION SLIGHT; TOXIC VACUOLATION PRESENT
[2018-01-13 06:56] LABS: ACANTHOCYTES SLIGHT; OVALOCYTES SLIGHT; PLATELET COMMENT ADEQUATE
[2018-01-13 07:10] LABS: ANION GAP 5 (5-19); BLOOD UREA NITROGEN 20 mg/dL (7-20); CALCIUM 9.2 mg/dL (8.4-10.2); CARBON DIOXIDE 32 mmol/L (22-30); CHLORIDE 106 mmol/L (98-107); GLUCOSE 132 mg/dL (75-110); POTASSIUM 3.6 mmol/L (3.6-5.0); SODIUM 143.4 mmol/L (137-145)
[2018-01-13] MEDS: ACETYLCYSTEINE 20% SOLN 800 MG/4 ML VIAL.NEB NEB SCH ×2 (08:09→19:47)
[2018-01-13] MEDS: DOXYCYCLINE HYCLATE 100 MG TABLET PO SCH ×2 (10:11→22:29)
[2018-01-13] MEDS: OLANZAPINE 2.5 MG TABLET PO SCH ×2 (10:11→22:29)
[2018-01-13] MEDS: METHYLPREDNISOLONE INJ 40 MG/1 ML SDV IV SCH ×2 (10:12→22:29)
[2018-01-13] MEDS: CEFEPIME 1 GM/D5W RTU 1 GM/50 ML RTUPB IV SCH ×2 (10:12→22:29)
[2018-01-13] MEDS: NICOTINE 14 MG/24 HR PATCH.TD24 TD SCH (10:12)
[2018-01-13] MEDS: ASPIRIN 81 MG TABLET, ENT COATED PO SCH (13:24)
--- NOTE | 2018-01-13 18:48 | PDOC PROGRESS REPORT ---
Subjective Subjective:: Status post extubation 01/11/18 and doing better generally, breathing better. However she feels generally weak. Tolerating O2 2 L nasal cannula. No feveers or chills, no nausea vomiting, denies urinary frequency. Reason For Visit: ACUTE ON CHRONIC RESPIRATORY FAILURE Physical Exam Vital Signs: Temp Pulse Resp BP Pulse Ox 98.0 F 93 16 121/91 H 97 01/13/18 15:57 01/13/18 15:57 01/13/18 15:57 01/13/18 15:57 01/13/18 15:57 Intake & Output 01/12/18 01/13/18 01/14/18 06:59 06:59 06:59 Intake Total 1674 3246 1112 Output Total 5709 3695 1200 Balance -4031 -449 -88 Weight 67.2 kg 70.4 kg GEN: NAD, well-developed, well-nourished CV: RRR, NL S1S2 LUNGS: Few rhonchi bilaterally ABDOMEN Soft, NT, +BS EXTERMITIES: 1+ edema NEURO: Alert, generalized weakness but no lateraling weakness Results Laboratory Results: 01/13/18 06:24 01/13/18 06:24 01/13/18 01/13/18 06:24 06:24 WBC 13.3 H RBC 4.44 Hgb 12.9 Hct 38.4 MCV 87 MCH 29.1 MCHC 33.7 RDW 15.1 H Plt Count 209 Seg Neutrophils % Not Reportable Lymphocytes % Not Reportable Monocytes % Not Reportable Eosinophils % Not Reportable Basophils % Not Reportable Absolute Neutrophils Not Reportable Absolute Lymphocytes Not Reportable Absolute Monocytes Not Reportable Absolute Eosinophils Not Reportable Absolute Basophils Not Reportable Sodium 143.4 Potassium 3.6 Chloride 106 Carbon Dioxide 32 H Anion Gap 5 BUN 20 Creatinine 0.53 Est GFR ( Amer) > 60 Est GFR (Non-Af Amer) > 60 Glucose 132 H Calcium 9.2 Magnesium 2.1 Impressions: Chest X-Ray 01/12/18 06:00 IMPRESSION: Interval extubation. Else, stable. Assessment & Plan - Diagnosis (1) Acute respiratory failure Qualifiers: Respiratory failure complication: hypoxia and hypercapnia Qualified Code(s) : J96.01 - Acute respiratory failure with hypoxia; J96.02 - Acute respiratory failure with hypercapnia; J96.02 - Acute respiratory failure with hypercapnia; J96.02 - Acute respiratory failure with hypercapnia Is this a current diagnosis for this admission?: Yes (2) COPD with exacerbation Is this a current diagnosis for this admission?: Yes (3) History of lung cancer Is this a current diagnosis for this admission?: Yes (4) Tobacco use disorder Is this a current diagnosis for this admission?: Yes (5) History of SC (myocardial infarction) Is this a current diagnosis for this admission?: No - Plan Summary Plan Summary: (1) Acute respiratory failure Qualifiers: Respiratory failure complication: hypoxia and hypercapnia Qualified Code(s) : J96.01 - Acute respiratory failure with hypoxia; J96.02 - Acute respiratory failure with hypercapnia; J96.02 - Acute respiratory failure with hypercapnia; J96.02 - Acute respiratory failure with hypercapnia Is this a current diagnosis for this admission?: Yes Plan: Likely secondary to COPD exacerbation. Improved, status post extubation on 01/11 We will decrease Solu-Medrol 40 mg every12 for now. Concern for bacteremia but apparently growing gram-positive cocci 1/4 bottles, staph auricularis, which may be contaminant. We will continue empiric antibiotics with cefepime and doxycycline for now. Repeat blood cultures negative to date, please continue to follow. Continue nebulizers. (2) COPD with exacerbation Is this a current diagnosis for this admission?: Yes (3) History of lung cancer Is this a current diagnosis for this admission?: Yes (4) Tobacco use disorder Is this a current diagnosis for this admission?: Yes Plan: Continue nicotine patch. Smoking cessation counseling. (5) History of SC (myocardial infarction) Is this a current diagnosis for this admission?: No Plan: Stable. (6) weakness and debility -PT/OT consult
[2018-01-14] MEDS: IPRATROPIUM/ALBUTEROL 0.5-2.5 MG/3 ML AMPUL NEB SCH ×4 (01:32→19:53)
[2018-01-14] MEDS: HEPARIN SOD (PORCINE) 5,000 UNIT/ML 1 ML SYRINGE SUBCUT SCH ×3 (05:19→21:38)
[2018-01-14 07:31] LABS: HEMATOCRIT 38.4 % (36.0-47.0); HEMOGLOBIN 12.9 g/dL (12.0-15.5); MEAN CORPUSCULAR HEMOGLOBIN 29.1 pg (27.0-33.4); MEAN CORPUSCULAR HGB CONC 33.7 g/dL (32.0-36.0); MEAN CORPUSCULAR VOLUME 86 fl (80-97); PLATELET COUNT 216 10^3/uL (150-450); RED BLOOD COUNT 4.44 10^6/uL (3.72-5.28); RED CELL DISTRIBUTION WIDTH 15.2 % (11.5-14.0); WHITE BLOOD COUNT 14.8 10^3/uL (4.0-10.5)
[2018-01-14 08:07] LABS: ANION GAP 6 (5-19); BLOOD UREA NITROGEN 20 mg/dL (7-20); CALCIUM 9.2 mg/dL (8.4-10.2); CARBON DIOXIDE 33 mmol/L (22-30); CHLORIDE 101 mmol/L (98-107); GLUCOSE 106 mg/dL (75-110); POTASSIUM 3.5 mmol/L (3.6-5.0); SODIUM 140.3 mmol/L (137-145)
[2018-01-14 08:23] LABS: ABSOLUTE LYMPHOCYTES# (MANUAL) 0.6 10^3/uL (0.5-4.7); ABSOLUTE MONOCYTES # (MANUAL) 1.3 10^3/uL (0.1-1.4); ABSOLUTE NEUTROPHILS# (MANUAL) 12.9 10^3/uL (1.7-8.2); BAND NEUTROPHILS % (MANUAL) 1 % (3-5); BASOPHILS % (MANUAL) 0 % (0-2); EOSINOPHILS % (MANUAL) 0 % (0-6); LYMPHOCYTES % (MANUAL) 4 % (13-45); METAMYELOCYTES % (MANUAL) 1 % (0); MONOCYTES % (MANUAL) 9 % (3-13); SEGMENTED NEUTROPHILS % (MAN) 85 % (42-78); TOTAL CELLS COUNTED 100
[2018-01-14 08:25] LABS: ANISOCYTOSIS 1+; OVALOCYTES SLIGHT; PLATELET COMMENT ADEQUATE; POIKILOCYTOSIS SLIGHT; TOXIC GRANULATION SLIGHT
[2018-01-14] MEDS: ACETYLCYSTEINE 20% SOLN 800 MG/4 ML VIAL.NEB NEB SCH ×2 (08:46→19:53)
[2018-01-14] MEDS: OLANZAPINE 2.5 MG TABLET PO SCH ×2 (10:05→21:38)
[2018-01-14] MEDS: NICOTINE 14 MG/24 HR PATCH.TD24 TD SCH (10:05)
[2018-01-14] MEDS: CEFEPIME 1 GM/D5W RTU 1 GM/50 ML RTUPB IV SCH ×2 (10:06→21:38)
[2018-01-14] MEDS: METHYLPREDNISOLONE INJ 40 MG/1 ML SDV IV SCH (10:06)
[2018-01-14] MEDS: DOXYCYCLINE HYCLATE 100 MG TABLET PO SCH (10:06)
[2018-01-14] MEDS: ASPIRIN 81 MG TABLET, ENT COATED PO SCH (10:09)
--- NOTE | 2018-01-14 17:49 | PDOC PROGRESS REPORT ---
Subjective Progress Note for:: 01/14/18 Subjective:: Feel that is she doing much better today. Does not that after dinh was removed yesterday she has had increased dysuria. Also notes occasional chills but denies fevers, CP, abdominal pain/NV. O2 requirements trending down. No other complaints. Reason For Visit: ACUTE ON CHRONIC RESPIRATORY FAILURE Physical Exam Vital Signs: Temp Pulse Resp BP Pulse Ox 98.0 F 104 H 16 150/81 H 95 01/14/18 15:15 01/14/18 15:15 01/14/18 15:15 01/14/18 15:15 01/14/18 15:15 Intake & Output 01/13/18 01/14/18 01/15/18 06:59 06:59 06:59 Intake Total 3246 4732 425 Output Total 9071 2620 800 Balance -449 -468 -375 Weight 70.4 kg 69.9 kg General appearance: PRESENT: no acute distress, cooperative, well-developed, well-nourished Mouth exam: PRESENT: moist Respiratory exam: PRESENT: unlabored. ABSENT: wheezes Cardiovascular exam: PRESENT: +S1, +S2. ABSENT: tachycardia GI/Abdominal exam: PRESENT: soft. ABSENT: tenderness Gentrourinary exam: ABSENT: indwelling catheter Extremities exam: PRESENT: +1 edema Neurological exam: PRESENT: alert, awake, CN II-XII grossly intact Psychiatric exam: PRESENT: appropriate affect Results Laboratory Results: 01/14/18 07:01 01/14/18 07:01 01/14/18 01/14/18 07:01 07:01 WBC 14.8 H RBC 4.44 Hgb 12.9 Hct 38.4 MCV 86 MCH 29.1 MCHC 33.7 RDW 15.2 H Plt Count 216 Seg Neutrophils % Not Reportable Lymphocytes % Not Reportable Monocytes % Not Reportable Eosinophils % Not Reportable Basophils % Not Reportable Absolute Neutrophils Not Reportable Absolute Lymphocytes Not Reportable Absolute Monocytes Not Reportable Absolute Eosinophils Not Reportable Absolute Basophils Not Reportable Sodium 140.3 Potassium 3.5 L Chloride 101 Carbon Dioxide 33 H Anion Gap 6 BUN 20 Creatinine 0.56 Est GFR ( Amer) > 60 Est GFR (Non-Af Amer) > 60 Glucose 106 Calcium 9.2 Impressions: Chest X-Ray 01/12/18 06:00 IMPRESSION: Interval extubation. Else, stable. Assessment & Plan - Diagnosis (1) Acute respiratory failure Qualifiers: Respiratory failure complication: hypoxia and hypercapnia Qualified Code(s) : J96.01 - Acute respiratory failure with hypoxia; J96.02 - Acute respiratory failure with hypercapnia; J96.02 - Acute respiratory failure with hypercapnia; J96.02 - Acute respiratory failure with hypercapnia Is this a current diagnosis for this admission?: Yes Plan: Due to COPD exacerbation. Doing better clinically. - Given improvement, d/c-ed Solu-Medrol and started Prednisone 40mg daily * 3 days - Continue nebulizers, wean O2 as tolerated with goal O2 sats >88-90 (2) Dysuria Plan: New complaints as of 01/13 - Patient has been on cefepime so should be broadly covered except for MRSA - Will re-check UA just to confirm (3) COPD with exacerbation Is this a current diagnosis for this admission?: Yes Plan: Per above. (4) History of lung cancer Is this a current diagnosis for this admission?: Yes (5) Tobacco use disorder Is this a current diagnosis for this admission?: Yes - Time Time Spent with patient: Less than 15 minutes Within: within 48 hours
[2018-01-15] MEDS: LORAZEPAM 0.5 MG TABLET PO PRN (00:53)
[2018-01-15 01:28] LABS: APPEARANCE,URINE CLEAR; BILIRUBIN,URINE NEGATIVE (NEGATIVE); COLOR,URINE STRAW; GLUCOSE, URINE NEGATIVE (NEGATIVE); KETONES,URINE NEGATIVE (NEGATIVE); LEUKOCYTE ESTERASE,URINE NEGATIVE (NEGATIVE); NITRITE,URINE NEGATIVE (NEGATIVE); PROTEIN,URINE NEGATIVE (NEGATIVE); URINE SPECIFIC GRAVITY 1.011; UROBILINOGEN,URINE NEGATIVE mg/dL (<2.0)
[2018-01-15] MEDS: IPRATROPIUM/ALBUTEROL 0.5-2.5 MG/3 ML AMPUL NEB SCH ×4 (01:53→20:47)
[2018-01-15] MEDS: HEPARIN SOD (PORCINE) 5,000 UNIT/ML 1 ML SYRINGE SUBCUT SCH ×3 (06:10→22:55)
[2018-01-15 06:33] LABS: HEMATOCRIT 39.9 % (36.0-47.0); MEAN CORPUSCULAR HEMOGLOBIN 28.7 pg (27.0-33.4); MEAN CORPUSCULAR HGB CONC 32.7 g/dL (32.0-36.0); MEAN CORPUSCULAR VOLUME 88 fl (80-97); PLATELET COUNT 223 10^3/uL (150-450); RED BLOOD COUNT 4.54 10^6/uL (3.72-5.28); WHITE BLOOD COUNT 15.1 10^3/uL (4.0-10.5)
[2018-01-15 07:00] LABS: ANION GAP 6 (5-19); BLOOD UREA NITROGEN 23 mg/dL (7-20); CALCIUM 9.8 mg/dL (8.4-10.2); CARBON DIOXIDE 35 mmol/L (22-30); CHLORIDE 101 mmol/L (98-107); GLUCOSE 94 mg/dL (75-110); POTASSIUM 3.4 mmol/L (3.6-5.0); SODIUM 141.5 mmol/L (137-145)
[2018-01-15 07:39] LABS: ABSOLUTE LYMPHOCYTES# (MANUAL) 0.5 10^3/uL (0.5-4.7); ABSOLUTE MONOCYTES # (MANUAL) 1.4 10^3/uL (0.1-1.4); ABSOLUTE NEUTROPHILS# (MANUAL) 13.3 10^3/uL (1.7-8.2); ANISOCYTOSIS SLIGHT; BAND NEUTROPHILS % (MANUAL) 1 % (3-5); BASOPHILS % (MANUAL) 0 % (0-2); EOSINOPHILS % (MANUAL) 0 % (0-6); HYPOCHROMASIA SLIGHT; LYMPHOCYTES % (MANUAL) 3 % (13-45); METAMYELOCYTES % (MANUAL) 2 % (0); MONOCYTES % (MANUAL) 9 % (3-13); PLATELET COMMENT ADEQUATE; POLYCHROMASIA SLIGHT; SEGMENTED NEUTROPHILS % (MAN) 85 % (42-78); TOTAL CELLS COUNTED 100; TOXIC GRANULATION 2+
[2018-01-15] MEDS: ACETYLCYSTEINE 20% SOLN 800 MG/4 ML VIAL.NEB NEB SCH ×2 (07:53→20:47)
[2018-01-15] MEDS: CEFEPIME 1 GM/D5W RTU 1 GM/50 ML RTUPB IV SCH (09:31)
[2018-01-15] MEDS: OLANZAPINE 2.5 MG TABLET PO SCH ×2 (09:36→22:55)
[2018-01-15] MEDS: PREDNISONE 20 MG TABLET PO SCH (09:36)
[2018-01-15] MEDS: NICOTINE 14 MG/24 HR PATCH.TD24 TD SCH (09:43)
[2018-01-15] MEDS: ASPIRIN 81 MG TABLET, ENT COATED PO SCH (11:47)
--- NOTE | 2018-01-15 15:24 | PDOC PROGRESS REPORT ---
Subjective Progress Note for:: 01/15/18 Subjective:: stable Reason For Visit: ACUTE ON CHRONIC RESPIRATORY FAILURE Physical Exam Vital Signs: Temp Pulse Resp BP Pulse Ox 98.5 F 71 17 122/64 98 01/15/18 13:07 01/15/18 14:20 01/15/18 14:20 01/15/18 13:07 01/15/18 13:07 Intake & Output 01/14/18 01/15/18 01/16/18 06:59 06:59 06:59 Intake Total 1932 830 337 Output Total 2400 1450 Balance -468 -620 337 Weight 69.9 kg 69 kg General appearance: PRESENT: no acute distress, disheveled Head exam: PRESENT: atraumatic, normocephalic Eye exam: PRESENT: conjunctiva pale, EOMI. ABSENT: nystagmus, periorbital swelling, scleral icterus Mouth exam: PRESENT: dry mucosa, neck supple Neck exam: ABSENT: carotid bruit, JVD, lymphadenopathy, thyromegaly, tracheal deviation, tracheostomy Respiratory exam: PRESENT: decreased breath sounds, prolonged expiratory phas, rhonchi, symmetrical, unlabored. ABSENT: retraction, stridor, tachypnea Cardiovascular exam: PRESENT: RRR, +S1, +S2 Pulses: PRESENT: normal radial pulses GI/Abdominal exam: PRESENT: diminished bowel sounds, soft Extremities exam: ABSENT: clubbing, joint swelling Musculoskeletal exam: ABSENT: deformity, dislocation Neurological exam: PRESENT: awake Skin exam: PRESENT: dry, warm Results Laboratory Results: 01/15/18 06:15 01/15/18 06:15 01/15/18 01/15/18 01/15/18 01:05 06:15 06:15 WBC 15.1 H RBC 4.54 Hgb 13.0 Hct 39.9 MCV 88 MCH 28.7 MCHC 32.7 RDW 15.0 H Plt Count 223 Seg Neutrophils % Not Reportable Lymphocytes % Not Reportable Monocytes % Not Reportable Eosinophils % Not Reportable Basophils % Not Reportable Absolute Neutrophils Not Reportable Absolute Lymphocytes Not Reportable Absolute Monocytes Not Reportable Absolute Eosinophils Not Reportable Absolute Basophils Not Reportable Sodium 141.5 Potassium 3.4 L Chloride 101 Carbon Dioxide 35 H Anion Gap 6 BUN 23 H Creatinine 0.56 Est GFR ( Amer) > 60 Est GFR (Non-Af Amer) > 60 Glucose 94 Calcium 9.8 Urine Color STRAW Urine Appearance CLEAR Urine pH 7.0 Ur Specific [place] 1.011 Urine Protein NEGATIVE Urine Glucose (UA) NEGATIVE Urine Ketones NEGATIVE Urine Blood NEGATIVE Urine Nitrite NEGATIVE Ur Leukocyte Esterase NEGATIVE Urine WBC (Auto) 4 Urine RBC (Auto) 0 Impressions: Chest X-Ray 01/12/18 06:00 IMPRESSION: Interval extubation. Else, stable. Assessment & Plan - Diagnosis (1) Acute respiratory failure Qualifiers: Respiratory failure complication: hypoxia and hypercapnia Qualified Code(s) : J96.01 - Acute respiratory failure with hypoxia; J96.02 - Acute respiratory failure with hypercapnia; J96.02 - Acute respiratory failure with hypercapnia; J96.02 - Acute respiratory failure with hypercapnia Is this a current diagnosis for this admission?: Yes Plan: stable and doing well (2) History of lung cancer Is this a current diagnosis for this admission?: Yes (4) Smoker Is this a current diagnosis for this admission?: Yes (5) PNA (pneumonia) Qualifiers: Pneumonia type: due to unspecified organism Laterality: left Lung location: lower lobe of lung Qualified Code(s): J18.1 - Lobar pneumonia, unspecified organism Is this a current diagnosis for this admission?: Yes Plan: Improving
--- NOTE | 2018-01-15 17:36 | PDOC PROGRESS REPORT ---
Subjective Progress Note for:: 01/15/18 Reason For Visit: ACUTE ON CHRONIC RESPIRATORY FAILURE Physical Exam Vital Signs: Temp Pulse Resp BP Pulse Ox 97.7 F 114 H 24 H 136/64 H 95 01/15/18 03:05 01/15/18 03:05 01/15/18 03:05 01/15/18 03:05 01/15/18 03:05 Intake & Output 01/14/18 01/15/18 01/16/18 06:59 06:59 06:59 Intake Total 1932 830 Output Total 2400 1450 Balance -468 -620 Weight 69.9 kg 69 kg Results Laboratory Results: 01/15/18 06:15 01/15/18 06:15 01/14/18 01/14/18 01/15/18 07:01 07:01 01:05 WBC 14.8 H RBC 4.44 Hgb 12.9 Hct 38.4 MCV 86 MCH 29.1 MCHC 33.7 RDW 15.2 H Plt Count 216 Seg Neutrophils % Not Reportable Lymphocytes % Not Reportable Monocytes % Not Reportable Eosinophils % Not Reportable Basophils % Not Reportable Absolute Neutrophils Not Reportable Absolute Lymphocytes Not Reportable Absolute Monocytes Not Reportable Absolute Eosinophils Not Reportable Absolute Basophils Not Reportable Sodium 140.3 Potassium 3.5 L Chloride 101 Carbon Dioxide 33 H Anion Gap 6 BUN 20 Creatinine 0.56 Est GFR ( Amer) > 60 Est GFR (Non-Af Amer) > 60 Glucose 106 Calcium 9.2 Urine Color STRAW Urine Appearance CLEAR Urine pH 7.0 Ur Specific [place] 1.011 Urine Protein NEGATIVE Urine Glucose (UA) NEGATIVE Urine Ketones NEGATIVE Urine Blood NEGATIVE Urine Nitrite NEGATIVE Ur Leukocyte Esterase NEGATIVE Urine WBC (Auto) 4 Urine RBC (Auto) 0 01/15/18 01/15/18 06:15 06:15 WBC 15.1 H RBC 4.54 Hgb 13.0 Hct 39.9 MCV 88 MCH 28.7 MCHC 32.7 RDW 15.0 H Plt Count 223 Seg Neutrophils % Not Reportable Lymphocytes % Not Reportable Monocytes % Not Reportable Eosinophils % Not Reportable Basophils % Not Reportable Absolute Neutrophils Not Reportable Absolute Lymphocytes Not Reportable Absolute Monocytes Not Reportable Absolute Eosinophils Not Reportable Absolute Basophils Not Reportable Sodium 141.5 Potassium 3.4 L Chloride 101 Carbon Dioxide 35 H Anion Gap 6 BUN 23 H Creatinine 0.56 Est GFR ( Amer) > 60 Est GFR (Non-Af Amer) > 60 Glucose 94 Calcium 9.8 Urine Color Urine Appearance Urine pH Ur Specific [place] Urine Protein Urine Glucose (UA) Urine Ketones Urine Blood Urine Nitrite Ur Leukocyte Esterase Urine WBC (Auto) Urine RBC (Auto) Impressions: Chest X-Ray 01/12/18 06:00 IMPRESSION: Interval extubation. Else, stable. Assessment & Plan - Diagnosis (1) Acute respiratory failure Qualifiers: Respiratory failure complication: hypoxia and hypercapnia Qualified Code(s) : J96.01 - Acute respiratory failure with hypoxia; J96.02 - Acute respiratory failure with hypercapnia; J96.02 - Acute respiratory failure with hypercapnia; J96.02 - Acute respiratory failure with hypercapnia Is this a current diagnosis for this admission?: Yes Plan: Continue oxygen supplementation and will wean off as tolerated. Order echocardiogram to evaluate for pulmonary hypertension (2) COPD with exacerbation Is this a current diagnosis for this admission?: Yes Plan: Will add Mucinex, scopolamine, Daliresp, Advair and Singulair (3) Tobacco use disorder Is this a current diagnosis for this admission?: Yes Plan: Educated about quitting (4) PNA (pneumonia) Qualifiers: Pneumonia type: due to unspecified organism Laterality: left Lung location: lower lobe of lung Qualified Code(s): J18.1 - Lobar pneumonia, unspecified organism Is this a current diagnosis for this admission?: Yes Plan: Continue current management - Time Time Spent with patient: 15-24 minutes Medications reviewed and adjusted accordingly: Yes Anticipated discharge: Acute Rehab Within: within 72 hours - Inpatient Certification Based on my medical assessment, after consideration of the patient's comorbidities, presenting symptoms, or acuity I expect that the services needed warrant INPATIENT care.: Yes I certify that my determination is in accordance with my understanding of Medicare's requirements for reasonable and necessary INPATIENT services [42 CFR 412.3e].: Yes Medical Necessity: Need Close Monitoring Due to Risk of Patient Decompensation, Need for Nebulizer Therapy and Monitoring of Response, Need for IV Antibiotics
[2018-01-15] MEDS ORDERED: SCOPOLAMINE HYDROBROMIDE 1.5 MG PATCH.TD72 TD ONE (18:30)
[2018-01-15] MEDS: FLUTICASONE/SALMETEROL DISKUS 500-50 MCG/DOSE IH SCH (22:55)
[2018-01-15] MEDS: MONTELUKAST SODIUM 10 MG TABLET PO SCH (22:55)
[2018-01-15] MEDS: GUAIFENESIN 600 MG TABLET.SA PO SCH (22:56)
[2018-01-16] MEDS: IPRATROPIUM/ALBUTEROL 0.5-2.5 MG/3 ML AMPUL NEB SCH ×4 (02:19→20:08)
[2018-01-16] MEDS: HEPARIN SOD (PORCINE) 5,000 UNIT/ML 1 ML SYRINGE SUBCUT SCH ×3 (06:04→21:22)
[2018-01-16] MEDS: ACETYLCYSTEINE 20% SOLN 800 MG/4 ML VIAL.NEB NEB SCH ×2 (08:26→20:07)
[2018-01-16] MEDS: NICOTINE 14 MG/24 HR PATCH.TD24 TD SCH (11:05)
[2018-01-16] MEDS: PREDNISONE 20 MG TABLET PO SCH (11:05)
[2018-01-16] MEDS: OLANZAPINE 2.5 MG TABLET PO SCH ×2 (11:06→21:22)
[2018-01-16] MEDS: ROFLUMILAST 500 MCG TABLET PO SCH (11:07)
[2018-01-16] MEDS: GUAIFENESIN 600 MG TABLET.SA PO SCH ×2 (11:08→21:22)
[2018-01-16] MEDS: FLUTICASONE/SALMETEROL DISKUS 500-50 MCG/DOSE IH SCH ×2 (11:09→21:22)
[2018-01-16] MEDS: ASPIRIN 81 MG TABLET, ENT COATED PO SCH (11:14)
--- NOTE | 2018-01-16 13:54 | XCELERA REPORT ---
[address] [address] Transthoracic Echocardiogram Report Name: SADA ROLAND Age: 72 yrs Gender: Female : 1945 Patient Status: Inpatient Patient Location: [address] [place] [address] Study Date: 01/16/2018 09:46 AM Height: 63 in Weight: 152 lb BSA: 1.7 m2 Procedure: A complete two-dimensional transthoracic echocardiogram was performed (2D, M-mode, spectral and color flow Doppler). The study was technically limited with all images being suboptimal in quality. Reason For Study: respiratory failure Ordering Physician: DULCE LAIRD Performed By: Jessica Johnston Interpretation Summary The left ventricular ejection fraction is preserved. The left ventricle is grossly normal size. Consider additional methods to assess LVEF such as MUGA scan, CTA heart, cardiac MRI, CORRIE, etc. if clinically indicated. LV diastolic function not assessed. The right ventricle is mild to moderately dilated. The right ventricular systolic function is normal. Rec CORRIE, Cardiac MRI, MUGA The study was technically limited with all images being suboptimal in quality. Doppler Measurements & Calculations MV E max franklin: MV P1/2t max franklin: Ao V2 max: LV V1 max P.3 cm/sec 95.3 cm/sec 164.2 cm/sec 5.3 mmHg MV A max franklin: MV P1/2t: 75.2 msec Ao max PG: LV V1 max: 89.8 cm/sec 10.8 mmHg 115.0 cm/sec MV E/A: 1.0 MVA(P1/2t): 2.9 cm2 MV dec slope: 371.2 cm/sec2 Left Ventricle The left ventricle is grossly normal size. The left ventricular ejection fraction is preserved. Consider additional methods to assess LVEF such as MUGA scan, CTA heart, cardiac MRI, CORRIE, etc. if clinically indicated. LV diastolic function not assessed. Regional wall motion abnormalities cannot be excluded due to limited visualization. Right Ventricle The right ventricle is mild to moderately dilated. The right ventricular systolic function is normal. Atria Not well visualised. Not well visualised. Mitral Valve Not well visualised. There is a trace amount of mitral regurgitation. Aortic Valve Not well visualised. Tricuspid Valve Not well visualised. Tricuspid regurgitation jet envelope not well defined to measure RV systolic pressure accurately. There is a trace or physiologic amount of tricuspid regurgitation. Great Vessels Not well visualised. The inferior vena cava was not well visualized. Effusions Minimal pericardial effusion. Incidental Findings Rec CORRIE, Cardiac MRI, MUGA. : DULCE LAIRD > Jonh Win
--- NOTE | 2018-01-16 14:38 | PDOC PROGRESS REPORT ---
Subjective Progress Note for:: 01/16/18 Subjective:: stable Reason For Visit: ACUTE ON CHRONIC RESPIRATORY FAILURE Physical Exam Vital Signs: Temp Pulse Resp BP Pulse Ox 98.6 F 91 18 120/49 L 95 01/16/18 11:43 01/16/18 13:58 01/16/18 13:58 01/16/18 11:43 01/16/18 13:58 Intake & Output 01/15/18 01/16/18 01/17/18 06:59 06:59 06:59 Intake Total 830 763 237 Output Total 1450 200 Balance -620 563 237 Weight 69 kg 69.1 kg General appearance: PRESENT: no acute distress, cooperative, disheveled Head exam: PRESENT: atraumatic, normocephalic Eye exam: PRESENT: conjunctiva pale, EOMI. ABSENT: nystagmus, periorbital swelling, scleral icterus Mouth exam: PRESENT: moist, neck supple, tongue midline Neck exam: ABSENT: carotid bruit, JVD, lymphadenopathy, thyromegaly, tracheal deviation, tracheostomy Respiratory exam: PRESENT: decreased breath sounds, prolonged expiratory phas, rhonchi, symmetrical, unlabored. ABSENT: retraction, stridor, tachypnea Cardiovascular exam: PRESENT: RRR, +S1, +S2 Pulses: PRESENT: normal radial pulses GI/Abdominal exam: PRESENT: diminished bowel sounds, soft Extremities exam: ABSENT: calf tenderness, clubbing, joint swelling Musculoskeletal exam: ABSENT: deformity, dislocation Neurological exam: PRESENT: awake Skin exam: PRESENT: dry, warm Results Laboratory Results: 01/15/18 06:15 01/15/18 06:15 01/11/18 12:33 Blood Blood Culture - Final NO GROWTH IN 5 DAYS 01/11/18 11:25 Blood Blood Culture - Final NO GROWTH IN 5 DAYS Impressions: Chest X-Ray 01/12/18 06:00 IMPRESSION: Interval extubation. Else, stable. Assessment & Plan - Diagnosis (1) Acute respiratory failure Qualifiers: Respiratory failure complication: hypoxia and hypercapnia Qualified Code(s) : J96.01 - Acute respiratory failure with hypoxia; J96.02 - Acute respiratory failure with hypercapnia; J96.02 - Acute respiratory failure with hypercapnia; J96.02 - Acute respiratory failure with hypercapnia Is this a current diagnosis for this admission?: Yes Plan: stable and doing well (2) History of lung cancer Is this a current diagnosis for this admission?: Yes (4) Smoker Is this a current diagnosis for this admission?: Yes (5) PNA (pneumonia) Qualifiers: Pneumonia type: due to unspecified organism Laterality: left Lung location: lower lobe of lung Qualified Code(s): J18.1 - Lobar pneumonia, unspecified organism Is this a current diagnosis for this admission?: Yes Plan: Improving
[2018-01-16] MEDS: MONTELUKAST SODIUM 10 MG TABLET PO SCH (21:22)
--- NOTE | 2018-01-17 01:55 | PDOC PROGRESS REPORT ---
Subjective Progress Note for:: 01/16/18 Subjective:: Patient complains of constipation. Relates that her breathing is better Reason For Visit: ACUTE ON CHRONIC RESPIRATORY FAILURE Physical Exam Vital Signs: Temp Pulse Resp BP Pulse Ox 98.6 F 102 H 18 147/56 H 97 01/16/18 04:20 01/16/18 04:20 01/16/18 04:20 01/16/18 04:20 01/16/18 04:20 Intake & Output 01/14/18 01/15/18 01/16/18 06:59 06:59 06:59 Intake Total 1932 830 763 Output Total 2400 1450 200 Balance -468 -620 563 Weight 69.9 kg 69 kg General appearance: PRESENT: cooperative, thin Head exam: PRESENT: atraumatic, normocephalic Eye exam: PRESENT: conjunctiva pink, EOMI, PERRLA Mouth exam: PRESENT: neck supple Neck exam: PRESENT: full ROM. ABSENT: JVD, lymphadenopathy, tenderness Respiratory exam: PRESENT: clear to auscultation mikey Cardiovascular exam: PRESENT: RRR. ABSENT: diastolic murmur, systolic murmur GI/Abdominal exam: PRESENT: normal bowel sounds, soft. ABSENT: tenderness Extremities exam: PRESENT: full ROM. ABSENT: pedal edema Musculoskeletal exam: ABSENT: ambulatory Neurological exam: PRESENT: alert, awake, oriented to person, oriented to place , oriented to time, CN II-XII grossly intact Psychiatric exam: PRESENT: appropriate affect, normal mood Skin exam: PRESENT: intact, normal color Results Laboratory Results: 01/15/18 06:15 01/15/18 06:15 01/15/18 01/15/18 06:15 06:15 WBC 15.1 H RBC 4.54 Hgb 13.0 Hct 39.9 MCV 88 MCH 28.7 MCHC 32.7 RDW 15.0 H Plt Count 223 Seg Neutrophils % Not Reportable Lymphocytes % Not Reportable Monocytes % Not Reportable Eosinophils % Not Reportable Basophils % Not Reportable Absolute Neutrophils Not Reportable Absolute Lymphocytes Not Reportable Absolute Monocytes Not Reportable Absolute Eosinophils Not Reportable Absolute Basophils Not Reportable Sodium 141.5 Potassium 3.4 L Chloride 101 Carbon Dioxide 35 H Anion Gap 6 BUN 23 H Creatinine 0.56 Est GFR ( Amer) > 60 Est GFR (Non-Af Amer) > 60 Glucose 94 Calcium 9.8 Impressions: Chest X-Ray 01/12/18 06:00 IMPRESSION: Interval extubation. Else, stable. Assessment & Plan - Diagnosis (1) Acute respiratory failure Qualifiers: Respiratory failure complication: hypoxia and hypercapnia Qualified Code(s) : J96.01 - Acute respiratory failure with hypoxia; J96.02 - Acute respiratory failure with hypercapnia; J96.02 - Acute respiratory failure with hypercapnia; J96.02 - Acute respiratory failure with hypercapnia Is this a current diagnosis for this admission?: Yes Plan: Continue oxygen supplementation and will wean off as tolerated. Echocardiogram limited for evaluation of pulmonary hypertension (2) COPD with exacerbation Is this a current diagnosis for this admission?: Yes Plan: Continue Mucinex, scopolamine, Daliresp, Advair and Singulair. Decrease prednisone dose (3) Tobacco use disorder Is this a current diagnosis for this admission?: Yes Plan: Educated about quitting (4) PNA (pneumonia) Qualifiers: Pneumonia type: due to unspecified organism Laterality: left Lung location: lower lobe of lung Qualified Code(s): J18.1 - Lobar pneumonia, unspecified organism Is this a current diagnosis for this admission?: Yes Plan: Off antibiotic. Order follow up cxr (5) HTN (hypertension) Qualifiers: Hypertension type: essential hypertension Qualified Code(s): I10 - Essential (primary) hypertension Is this a current diagnosis for this admission?: Yes Plan: Add norvasc and toprol xl (6) Positive blood culture Is this a current diagnosis for this admission?: Yes Plan: Deemed to be contaminant since in one bottle (7) Constipation Qualifiers: Constipation type: unspecified constipation type Qualified Code(s): K59.00 - Constipation, unspecified Is this a current diagnosis for this admission?: Yes Plan: Bowel regimen - Time Time Spent with patient: 15-24 minutes Medications reviewed and adjusted accordingly: Yes Anticipated discharge: Acute Rehab Within: when bed available - Inpatient Certification Based on my medical assessment, after consideration of the patient's comorbidities, presenting symptoms, or acuity I expect that the services needed warrant INPATIENT care.: Yes I certify that my determination is in accordance with my understanding of Medicare's requirements for reasonable and necessary INPATIENT services [42 CFR 412.3e].: Yes Medical Necessity: Need Close Monitoring Due to Risk of Patient Decompensation, Need For Continuous Telemetry Monitoring, Need for Nebulizer Therapy and Monitoring of Response
[2018-01-17] MEDS: IPRATROPIUM/ALBUTEROL 0.5-2.5 MG/3 ML AMPUL NEB SCH ×3 (02:18→14:07)
[2018-01-17] MEDS: HEPARIN SOD (PORCINE) 5,000 UNIT/ML 1 ML SYRINGE SUBCUT SCH ×3 (06:17→22:12)
[2018-01-17] MEDS: ACETYLCYSTEINE 20% SOLN 800 MG/4 ML VIAL.NEB NEB SCH ×2 (08:27→19:59)
--- NOTE | 2018-01-17 09:48 | RADIOLOGY REPORT (SQ) ---
EXAM DESCRIPTION: CHEST SINGLE VIEW COMPLETED DATE/TIME: 01/17/2018 8:48 am REASON FOR STUDY: follow up COMPARISON: Chest films 04/23/2011, 06/03/2015, 06/27/2016, 01/09/2018, 01/12/2018 EXAM PARAMETERS: NUMBER OF VIEWS: One view. TECHNIQUE: Single frontal radiographic view of the chest acquired. RADIATION DOSE: NA LIMITATIONS: None. FINDINGS: LUNGS AND PLEURA: Trace fluid in the right lateral costophrenic sulcus. Remainder of the lungs are hyperlucent and hyperinflated from obstructive disease, with old post righ t upper lobectomy change stable compared to studies dating back to 2010. No pneumothorax. No left p leural effusion MEDIASTINUM AND HILAR STRUCTURES: No masses. Contour normal. HEART AND VASCULAR STRUCTURES: Heart normal in size. Normal vasculature. BONES: No acute findings. HARDWARE: None in the chest. OTHER: No other significant finding. IMPRESSION: Trace fluid in the right lateral costophrenic sulcus. Otherwise stable exam. TECHNICAL DOCUMENTATION: JOB ID: [id number] [employer]- All Rights Reserved Reading location - IP/workstation name: [email or web address]
[2018-01-17] MEDS ORDERED: PREDNISONE 20 MG TABLET PO SCH (10:00)
[2018-01-17] MEDS: METOPROLOL SUCCINATE 25 MG TAB.SR.24H PO SCH (10:14)
[2018-01-17] MEDS: ROFLUMILAST 500 MCG TABLET PO SCH (10:14)
[2018-01-17] MEDS: GUAIFENESIN 600 MG TABLET.SA PO SCH ×2 (10:15→22:13)
[2018-01-17] MEDS: FLUTICASONE/SALMETEROL DISKUS 500-50 MCG/DOSE IH SCH ×2 (10:15→22:13)
[2018-01-17] MEDS: NICOTINE 14 MG/24 HR PATCH.TD24 TD SCH (10:15)
[2018-01-17] MEDS: AMLODIPINE BESYLATE 2.5 MG TABLET PO SCH (10:15)
[2018-01-17] MEDS: ASPIRIN 81 MG TABLET, ENT COATED PO SCH (11:19)
[2018-01-17] MEDS ORDERED: POLYETHYLENE GLYCOL 3350 POWDER 17 GM/1 PACKET PO ONE (11:30)
--- NOTE | 2018-01-17 16:34 | PDOC PROGRESS REPORT ---
Subjective Progress Note for:: 01/17/18 Subjective:: Patient complains of constipation. Relates that her breathing is better Review of system All organ systems evaluated and negative except as in subjective All significant diagnostics and laboratories have been reviewed Reason For Visit: ACUTE ON CHRONIC RESPIRATORY FAILURE Physical Exam Vital Signs: Temp Pulse Resp BP Pulse Ox 98.1 F 93 17 109/48 L 94 01/17/18 11:41 01/17/18 14:07 01/17/18 14:07 01/17/18 11:41 01/17/18 14:07 Intake & Output 01/16/18 01/17/18 01/18/18 06:59 06:59 06:59 Intake Total 763 724 Output Total 200 100 Balance 563 624 Weight 69.1 kg 65.5 kg General appearance: PRESENT: cooperative, thin Head exam: PRESENT: atraumatic, normocephalic Eye exam: PRESENT: conjunctiva pink, EOMI, PERRLA Ear exam: PRESENT: normal external ear exam Mouth exam: PRESENT: moist Neck exam: PRESENT: full ROM. ABSENT: JVD, lymphadenopathy, tenderness Respiratory exam: PRESENT: other - Improvement of movement of air with some rhonchi in the upper airways Cardiovascular exam: PRESENT: RRR. ABSENT: diastolic murmur, systolic murmur Vascular exam: PRESENT: normal capillary refill GI/Abdominal exam: PRESENT: normal bowel sounds, soft. ABSENT: tenderness Extremities exam: PRESENT: full ROM, pedal edema Musculoskeletal exam: PRESENT: ambulatory Neurological exam: PRESENT: alert, awake, oriented to person, oriented to place , oriented to time, oriented to situation, CN II-XII grossly intact Psychiatric exam: PRESENT: appropriate affect, normal mood Skin exam: PRESENT: intact, normal color Results Laboratory Results: 01/15/18 06:15 01/15/18 06:15 01/11/18 12:33 Blood Blood Culture - Final NO GROWTH IN 5 DAYS Impressions: Chest X-Ray 01/17/18 00:00 IMPRESSION: Trace fluid in the right lateral costophrenic sulcus. Otherwise stable exam. Assessment & Plan - Diagnosis (1) Acute respiratory failure Qualifiers: Respiratory failure complication: hypoxia and hypercapnia Qualified Code(s) : J96.01 - Acute respiratory failure with hypoxia; J96.02 - Acute respiratory failure with hypercapnia; J96.02 - Acute respiratory failure with hypercapnia; J96.02 - Acute respiratory failure with hypercapnia Is this a current diagnosis for this admission?: Yes Plan: Continue oxygen supplementation and will wean off as tolerated. Echocardiogram limited for evaluation of pulmonary hypertension (2) COPD with exacerbation Is this a current diagnosis for this admission?: Yes Plan: Continue Mucinex, scopolamine, Daliresp, Advair, Singulair and prednisone dose. Add Spiriva. Change Duonebs to as needed (3) Tobacco use disorder Is this a current diagnosis for this admission?: Yes Plan: Educated about quitting (4) PNA (pneumonia) Qualifiers: Pneumonia type: due to unspecified organism Laterality: left Lung location: lower lobe of lung Qualified Code(s): J18.1 - Lobar pneumonia, unspecified organism Is this a current diagnosis for this admission?: Yes Plan: Off antibiotic. Repeat chest x-ray noted. No active infiltrate (5) HTN (hypertension) Qualifiers: Hypertension type: essential hypertension Qualified Code(s): I10 - Essential (primary) hypertension Is this a current diagnosis for this admission?: Yes Plan: Continue norvasc and toprol xl (6) Positive blood culture Is this a current diagnosis for this admission?: Yes Plan: Deemed to be contaminant since in one bottle (7) Constipation Qualifiers: Constipation type: unspecified constipation type Qualified Code(s): K59.00 - Constipation, unspecified Is this a current diagnosis for this admission?: Yes Plan: Add lactulose - Time Time Spent with patient: 15-24 minutes Medications reviewed and adjusted accordingly: Yes Anticipated discharge: Acute Rehab Within: within 48 hours - Inpatient Certification Based on my medical assessment, after consideration of the patient's comorbidities, presenting symptoms, or acuity I expect that the services needed warrant INPATIENT care.: Yes I certify that my determination is in accordance with my understanding of Medicare's requirements for reasonable and necessary INPATIENT services [42 CFR 412.3e].: Yes Medical Necessity: Need Close Monitoring Due to Risk of Patient Decompensation, Need for Nebulizer Therapy and Monitoring of Response
[2018-01-17] MEDS ORDERED: LACTULOSE SYRUP 20 GM/30 ML UDCUP PO ONE (17:30)
[2018-01-17] MEDS: POLYETHYLENE GLYCOL 3350 POWDER 17 GM/1 PACKET PO SCH (18:37)
[2018-01-17] MEDS: IPRATROPIUM/ALBUTEROL 0.5-2.5 MG/3 ML AMPUL NEB PRN (19:59)
[2018-01-17] MEDS: MONTELUKAST SODIUM 10 MG TABLET PO SCH (22:13)
[2018-01-18] MEDS: HEPARIN SOD (PORCINE) 5,000 UNIT/ML 1 ML SYRINGE SUBCUT SCH ×3 (06:48→23:36)
[2018-01-18] MEDS: ACETYLCYSTEINE 20% SOLN 800 MG/4 ML VIAL.NEB NEB SCH ×2 (08:37→20:25)
[2018-01-18] MEDS: IPRATROPIUM/ALBUTEROL 0.5-2.5 MG/3 ML AMPUL NEB PRN (08:54)
[2018-01-18] MEDS: ROFLUMILAST 500 MCG TABLET PO SCH (10:06)
[2018-01-18] MEDS: TIOTROPIUM BROMIDE DPI 5 CAP/KIT (18 MCG/CAP) IH SCH (10:06)
[2018-01-18] MEDS: NICOTINE 14 MG/24 HR PATCH.TD24 TD SCH (10:06)
[2018-01-18] MEDS: LACTULOSE SYRUP 20 GM/30 ML UDCUP PO SCH ×2 (10:06→17:41)
[2018-01-18] MEDS: AMLODIPINE BESYLATE 2.5 MG TABLET PO SCH (10:06)
[2018-01-18] MEDS: FLUTICASONE/SALMETEROL DISKUS 500-50 MCG/DOSE IH SCH ×2 (10:06→23:35)
[2018-01-18] MEDS: METOPROLOL SUCCINATE 25 MG TAB.SR.24H PO SCH (10:06)
[2018-01-18] MEDS: GUAIFENESIN 600 MG TABLET.SA PO SCH ×2 (10:06→23:31)
[2018-01-18] MEDS: SCOPOLAMINE HYDROBROMIDE 1.5 MG PATCH.TD72 TD SCH (10:07)
[2018-01-18] MEDS: POLYETHYLENE GLYCOL 3350 POWDER 17 GM/1 PACKET PO SCH ×2 (10:08→17:40)
[2018-01-18] MEDS ORDERED: BENZOCAINE/MENTHOL SORE THROAT LOZENGE BUCCAL PRN (10:11)
[2018-01-18] MEDS ORDERED: AMLODIPINE BESYLATE 2.5 MG TABLET PO SCH (10:12)
[2018-01-18] MEDS ORDERED: PHENOL/SODIUM PHENOLATE 100 SPRAY/177 ML BOTTLE PO PRN (10:27)
[2018-01-18] MEDS: PROMETHAZINE HCL INJ 25 MG/1 ML VIAL IV PRN ×3 (10:28→23:27)
[2018-01-18] MEDS ORDERED: AMLODIPINE BESYLATE 2.5 MG TABLET PO ONE (11:00)
[2018-01-18] MEDS: ASPIRIN 81 MG TABLET, ENT COATED PO SCH (12:01)
--- NOTE | 2018-01-18 14:13 | PDOC PROGRESS REPORT ---
Subjective Progress Note for:: 01/17/18 Subjective:: stable Reason For Visit: ACUTE ON CHRONIC RESPIRATORY FAILURE Physical Exam Vital Signs: Temp Pulse Resp BP Pulse Ox 98.3 F 76 16 130/59 H 97 01/18/18 08:25 01/18/18 08:55 01/18/18 08:55 01/18/18 08:25 01/18/18 08:55 Intake & Output 01/17/18 01/18/18 01/19/18 06:59 06:59 06:59 Intake Total 724 1252 Output Total 100 Balance 624 1252 Weight 65.5 kg 66.2 kg General appearance: PRESENT: no acute distress, cooperative, disheveled Head exam: PRESENT: atraumatic, normocephalic Eye exam: PRESENT: conjunctiva pale, EOMI. ABSENT: nystagmus, periorbital swelling, scleral icterus Mouth exam: PRESENT: moist, neck supple, tongue midline Neck exam: ABSENT: carotid bruit, JVD, lymphadenopathy, thyromegaly, tracheal deviation, tracheostomy Respiratory exam: PRESENT: decreased breath sounds, prolonged expiratory phas, rhonchi, symmetrical, unlabored, wheezes. ABSENT: retraction, stridor, tachypnea Cardiovascular exam: PRESENT: RRR, +S1, +S2. ABSENT: tachycardia Pulses: PRESENT: normal radial pulses GI/Abdominal exam: PRESENT: diminished bowel sounds, soft Extremities exam: ABSENT: calf tenderness, clubbing, joint swelling Musculoskeletal exam: ABSENT: deformity, dislocation Neurological exam: PRESENT: awake, oriented to person, oriented to place, oriented to time, oriented to situation Psychiatric exam: PRESENT: flat affect Skin exam: PRESENT: dry, warm Results Laboratory Results: 01/15/18 06:15 01/15/18 06:15 Impressions: Chest X-Ray 01/17/18 00:00 IMPRESSION: Trace fluid in the right lateral costophrenic sulcus. Otherwise stable exam. Assessment & Plan - Diagnosis (1) Acute respiratory failure Qualifiers: Respiratory failure complication: hypoxia and hypercapnia Qualified Code(s) : J96.01 - Acute respiratory failure with hypoxia; J96.02 - Acute respiratory failure with hypercapnia; J96.02 - Acute respiratory failure with hypercapnia; J96.02 - Acute respiratory failure with hypercapnia Is this a current diagnosis for this admission?: Yes Plan: Resolved (2) History of lung cancer Is this a current diagnosis for this admission?: Yes (4) Smoker Is this a current diagnosis for this admission?: Yes (5) PNA (pneumonia) Qualifiers: Pneumonia type: due to unspecified organism Laterality: left Lung location: lower lobe of lung Qualified Code(s): J18.1 - Lobar pneumonia, unspecified organism Is this a current diagnosis for this admission?: Yes Plan: Improving
[2018-01-18] MEDS: NYSTATIN 500000 UNIT/5 ML UDCUP PO SCH ×3 (15:51→23:30)
--- NOTE | 2018-01-18 18:17 | PDOC PROGRESS REPORT ---
Subjective Progress Note for:: 01/18/18 Subjective:: Patient complains of some sore throat. Relates that his breathing is better. Has been able to move her bowels Review of system All organ systems evaluated and negative except as in subjective All significant diagnostics and laboratories have been reviewed Reason For Visit: ACUTE ON CHRONIC RESPIRATORY FAILURE Physical Exam Vital Signs: Temp Pulse Resp BP Pulse Ox 98.3 F 76 16 130/59 H 97 01/18/18 08:25 01/18/18 08:55 01/18/18 08:55 01/18/18 08:25 01/18/18 08:55 Intake & Output 01/17/18 01/18/18 01/19/18 06:59 06:59 06:59 Intake Total 724 1252 Output Total 100 Balance 624 1252 Weight 65.5 kg 66.2 kg General appearance: PRESENT: no acute distress, cooperative, thin Head exam: PRESENT: atraumatic, normocephalic Eye exam: PRESENT: conjunctiva pink, EOMI, PERRLA Ear exam: PRESENT: normal external ear exam Neck exam: PRESENT: full ROM. ABSENT: JVD, lymphadenopathy, tenderness Respiratory exam: PRESENT: rhonchi. ABSENT: tachypnea, unlabored Cardiovascular exam: PRESENT: RRR. ABSENT: diastolic murmur, systolic murmur Vascular exam: PRESENT: normal capillary refill GI/Abdominal exam: PRESENT: normal bowel sounds, soft. ABSENT: tenderness Extremities exam: PRESENT: full ROM, pedal edema Musculoskeletal exam: PRESENT: ambulatory Neurological exam: PRESENT: alert, awake, oriented to person, oriented to place , oriented to time, oriented to situation, CN II-XII grossly intact Psychiatric exam: PRESENT: appropriate affect, normal mood Skin exam: PRESENT: intact, normal color Results Laboratory Results: 01/15/18 06:15 01/15/18 06:15 Impressions: Chest X-Ray 01/17/18 00:00 IMPRESSION: Trace fluid in the right lateral costophrenic sulcus. Otherwise stable exam. Assessment & Plan - Diagnosis (1) Acute respiratory failure Qualifiers: Respiratory failure complication: hypoxia and hypercapnia Qualified Code(s) : J96.01 - Acute respiratory failure with hypoxia; J96.02 - Acute respiratory failure with hypercapnia; J96.02 - Acute respiratory failure with hypercapnia; J96.02 - Acute respiratory failure with hypercapnia Is this a current diagnosis for this admission?: Yes Plan: Continue oxygen supplementation. Echocardiogram limited for evaluation of pulmonary hypertension (2) COPD with exacerbation Is this a current diagnosis for this admission?: Yes Plan: Continue Mucinex, scopolamine, Daliresp, Advair, Singulair and Spiriva. Continue Duonebs to as needed (3) Tobacco use disorder Is this a current diagnosis for this admission?: Yes Plan: Educated about quitting (4) PNA (pneumonia) Qualifiers: Pneumonia type: due to unspecified organism Laterality: left Lung location: lower lobe of lung Qualified Code(s): J18.1 - Lobar pneumonia, unspecified organism Is this a current diagnosis for this admission?: Yes Plan: Off antibiotic. Repeat chest x-ray noted. No active infiltrate (5) HTN (hypertension) Qualifiers: Hypertension type: essential hypertension Qualified Code(s): I10 - Essential (primary) hypertension Is this a current diagnosis for this admission?: Yes Plan: Continue norvasc and toprol xl (6) Positive blood culture Is this a current diagnosis for this admission?: Yes Plan: Deemed to be contaminant since in one bottle (7) Constipation Qualifiers: Constipation type: unspecified constipation type Qualified Code(s): K59.00 - Constipation, unspecified Is this a current diagnosis for this admission?: Yes Plan: Continue lactulose (8) Sore throat Is this a current diagnosis for this admission?: Yes Plan: May relate to fungal infection due to Advair. To place on nystatin - Time Time Spent with patient: 15-24 minutes Medications reviewed and adjusted accordingly: Yes Anticipated discharge: Acute Rehab Within: when bed available - Inpatient Certification Based on my medical assessment, after consideration of the patient's comorbidities, presenting symptoms, or acuity I expect that the services needed warrant INPATIENT care.: Yes I certify that my determination is in accordance with my understanding of Medicare's requirements for reasonable and necessary INPATIENT services [42 CFR 412.3e].: Yes Medical Necessity: Need Close Monitoring Due to Risk of Patient Decompensation
[2018-01-18] MEDS: MONTELUKAST SODIUM 10 MG TABLET PO SCH (23:32)
[2018-01-19 05:03] LABS: ABSOLUTE BASOPHILS # (AUTO) 0.1 10^3/uL (0.0-0.2); ABSOLUTE EOSINOPHILS # (AUTO) 0.3 10^3/uL (0.0-0.6); ABSOLUTE LYMPHOCYTES (AUTO) 0.7 10^3/uL (0.5-4.7); ABSOLUTE MONOCYTES (AUTO) 0.7 10^3/uL (0.1-1.4); ABSOLUTE NEUT (AUTO) 7.3 10^3/uL (1.7-8.2); BASOPHILS % (AUTO) 0.8 % (0-2); EOSINOPHILS % (AUTO) 3.1 % (0-6); HEMATOCRIT 35.2 % (36.0-47.0); HEMOGLOBIN 11.8 g/dL (12.0-15.5); LYMPHOCYTES % (AUTO) 7.9 % (13-45); MEAN CORPUSCULAR HEMOGLOBIN 29.5 pg (27.0-33.4); MEAN CORPUSCULAR HGB CONC 33.4 g/dL (32.0-36.0); MEAN CORPUSCULAR VOLUME 88 fl (80-97); MONOCYTES % (AUTO) 7.9 % (3-13); PLATELET COUNT 207 10^3/uL (150-450); RED BLOOD COUNT 3.99 10^6/uL (3.72-5.28); RED CELL DISTRIBUTION WIDTH 14.9 % (11.5-14.0); SEGMENTED NEUTROPHILS % (AUTO) 80.3 % (42-78); TOTAL CELLS COUNTED % (AUTO) 100 %; WHITE BLOOD COUNT 9.1 10^3/uL (4.0-10.5)
[2018-01-19 05:25] LABS: ANION GAP 5 (5-19); BLOOD UREA NITROGEN 11 mg/dL (7-20); CALCIUM 9.1 mg/dL (8.4-10.2); CARBON DIOXIDE 35 mmol/L (22-30); CHLORIDE 98 mmol/L (98-107); GLUCOSE 85 mg/dL (75-110); POTASSIUM 3.4 mmol/L (3.6-5.0); SODIUM 137.6 mmol/L (137-145)
[2018-01-19] MEDS: HEPARIN SOD (PORCINE) 5,000 UNIT/ML 1 ML SYRINGE SUBCUT SCH ×3 (06:36→21:53)
[2018-01-19] MEDS: ACETYLCYSTEINE 20% SOLN 800 MG/4 ML VIAL.NEB NEB SCH ×2 (08:37→20:21)
[2018-01-19] MEDS: FLUTICASONE NASAL SPRAY 50 MCG/SPRY 120 SPRAY/16 GM NASL SCH (11:09)
[2018-01-19] MEDS: FLUTICASONE/SALMETEROL DISKUS 500-50 MCG/DOSE IH SCH ×2 (11:10→21:54)
[2018-01-19] MEDS: TIOTROPIUM BROMIDE DPI 5 CAP/KIT (18 MCG/CAP) IH SCH (11:10)
[2018-01-19] MEDS: GUAIFENESIN 600 MG TABLET.SA PO SCH ×2 (11:11→21:54)
[2018-01-19] MEDS: AMLODIPINE BESYLATE 5 MG TABLET PO SCH (11:11)
[2018-01-19] MEDS: NYSTATIN 500000 UNIT/5 ML UDCUP PO SCH ×4 (11:11→21:54)
[2018-01-19] MEDS: FUROSEMIDE 20 MG TABLET PO SCH (11:12)
[2018-01-19] MEDS: LORATADINE 10 MG TABLET PO SCH (11:13)
[2018-01-19] MEDS: METOPROLOL SUCCINATE 25 MG TAB.SR.24H PO SCH (11:14)
[2018-01-19] MEDS: NICOTINE 14 MG/24 HR PATCH.TD24 TD SCH (11:14)
[2018-01-19] MEDS: ASPIRIN 81 MG TABLET, ENT COATED PO SCH (11:14)
[2018-01-19] MEDS: POLYETHYLENE GLYCOL 3350 POWDER 17 GM/1 PACKET PO SCH ×2 (11:23→17:04)
[2018-01-19] MEDS: ROFLUMILAST 500 MCG TABLET PO SCH (11:23)
[2018-01-19] MEDS: LACTULOSE SYRUP 20 GM/30 ML UDCUP PO SCH ×2 (11:23→17:04)
--- NOTE | 2018-01-19 12:43 | PDOC PROGRESS REPORT ---
Subjective Progress Note for:: 01/19/18 Subjective:: Patient refers that her sore throat is better and I was able to move her bowels. Bleeding remains the same. Has been able to participate in physical therapy Review of system All organ systems evaluated and negative except as in subjective All significant diagnostics and laboratories have been reviewed Reason For Visit: ACUTE ON CHRONIC RESPIRATORY FAILURE Physical Exam Vital Signs: Temp Pulse Resp BP Pulse Ox 98.7 F 93 17 130/50 H 93 01/19/18 03:15 01/19/18 03:15 01/19/18 03:15 01/19/18 03:15 01/19/18 03:15 Intake & Output 01/17/18 01/18/18 01/19/18 06:59 06:59 06:59 Intake Total 724 1252 1189 Output Total 100 200 Balance 624 1252 989 Weight 65.5 kg 66.2 kg 65.3 kg General appearance: PRESENT: no acute distress, cooperative, thin Head exam: PRESENT: atraumatic, normocephalic Eye exam: PRESENT: conjunctiva pink, EOMI, PERRLA Ear exam: PRESENT: normal external ear exam Mouth exam: PRESENT: moist Neck exam: PRESENT: full ROM. ABSENT: JVD, lymphadenopathy, tenderness, thyromegaly Respiratory exam: PRESENT: crackles Cardiovascular exam: PRESENT: RRR. ABSENT: diastolic murmur, systolic murmur GI/Abdominal exam: PRESENT: normal bowel sounds, soft. ABSENT: tenderness Extremities exam: PRESENT: full ROM Musculoskeletal exam: PRESENT: ambulatory Neurological exam: PRESENT: alert, awake, oriented to person, oriented to place , oriented to time, oriented to situation, CN II-XII grossly intact Psychiatric exam: PRESENT: appropriate affect, normal mood Skin exam: PRESENT: intact, normal color Results Laboratory Results: 01/19/18 04:10 01/19/18 04:10 01/19/18 01/19/18 04:10 04:10 WBC 9.1 RBC 3.99 Hgb 11.8 L Hct 35.2 L MCV 88 MCH 29.5 MCHC 33.4 RDW 14.9 H Plt Count 207 Seg Neutrophils % 80.3 H Lymphocytes % 7.9 L Monocytes % 7.9 Eosinophils % 3.1 Basophils % 0.8 Absolute Neutrophils 7.3 Absolute Lymphocytes 0.7 Absolute Monocytes 0.7 Absolute Eosinophils 0.3 Absolute Basophils 0.1 Sodium 137.6 Potassium 3.4 L Chloride 98 Carbon Dioxide 35 H Anion Gap 5 BUN 11 Creatinine 0.55 Est GFR ( Amer) > 60 Est GFR (Non-Af Amer) > 60 Glucose 85 Calcium 9.1 Impressions: Chest X-Ray 01/17/18 00:00 IMPRESSION: Trace fluid in the right lateral costophrenic sulcus. Otherwise stable exam. Assessment & Plan - Diagnosis (1) Acute respiratory failure Qualifiers: Respiratory failure complication: hypoxia and hypercapnia Qualified Code(s) : J96.01 - Acute respiratory failure with hypoxia; J96.02 - Acute respiratory failure with hypercapnia; J96.02 - Acute respiratory failure with hypercapnia; J96.02 - Acute respiratory failure with hypercapnia Is this a current diagnosis for this admission?: Yes Plan: Continue oxygen supplementation. Echocardiogram limited for evaluation of pulmonary hypertension (2) COPD with exacerbation Is this a current diagnosis for this admission?: Yes Plan: Continue Mucinex, scopolamine, Daliresp, Advair, Singulair and Spiriva. Continue Duonebs to as needed (3) Tobacco use disorder Is this a current diagnosis for this admission?: Yes Plan: Educated about quitting (4) PNA (pneumonia) Qualifiers: Pneumonia type: due to unspecified organism Laterality: left Lung location: lower lobe of lung Qualified Code(s): J18.1 - Lobar pneumonia, unspecified organism Is this a current diagnosis for this admission?: Yes Plan: Off antibiotic. Repeat chest x-ray noted. No active infiltrate (5) HTN (hypertension) Qualifiers: Hypertension type: essential hypertension Qualified Code(s): I10 - Essential (primary) hypertension Is this a current diagnosis for this admission?: Yes Plan: Continue norvasc and toprol xl. Add low-dose Lasix (6) Positive blood culture Is this a current diagnosis for this admission?: Yes Plan: Deemed to be contaminant since in one bottle (7) Constipation Qualifiers: Constipation type: unspecified constipation type Qualified Code(s): K59.00 - Constipation, unspecified Is this a current diagnosis for this admission?: Yes Plan: Continue current regimen (8) Sore throat Is this a current diagnosis for this admission?: Yes Plan: May relate to fungal infection due to Advair. Continue nystatin (9) Post-nasal discharge Is this a current diagnosis for this admission?: Yes Plan: Likely due to use of oxygen. Add claritin and flonase - Time Time Spent with patient: 15-24 minutes Medications reviewed and adjusted accordingly: Yes Anticipated discharge: Acute Rehab Within: when bed available - Inpatient Certification Based on my medical assessment, after consideration of the patient's comorbidities, presenting symptoms, or acuity I expect that the services needed warrant INPATIENT care.: Yes I certify that my determination is in accordance with my understanding of Medicare's requirements for reasonable and necessary INPATIENT services [42 CFR 412.3e].: Yes Medical Necessity: Need Close Monitoring Due to Risk of Patient Decompensation
[2018-01-19] MEDS: MONTELUKAST SODIUM 10 MG TABLET PO SCH (21:54)
[2018-01-20] MEDS: HEPARIN SOD (PORCINE) 5,000 UNIT/ML 1 ML SYRINGE SUBCUT SCH ×3 (06:21→21:33)
[2018-01-20] MEDS: ACETYLCYSTEINE 20% SOLN 800 MG/4 ML VIAL.NEB NEB SCH ×2 (08:29→19:53)
[2018-01-20] MEDS: IPRATROPIUM/ALBUTEROL 0.5-2.5 MG/3 ML AMPUL NEB PRN ×2 (08:33→19:53)
[2018-01-20] MEDS: FLUTICASONE/SALMETEROL DISKUS 500-50 MCG/DOSE IH SCH ×2 (09:50→21:33)
[2018-01-20] MEDS: NYSTATIN 500000 UNIT/5 ML UDCUP PO SCH ×4 (09:51→21:25)
[2018-01-20] MEDS: TIOTROPIUM BROMIDE DPI 5 CAP/KIT (18 MCG/CAP) IH SCH (09:51)
[2018-01-20] MEDS: FLUTICASONE NASAL SPRAY 50 MCG/SPRY 120 SPRAY/16 GM NASL SCH (09:51)
[2018-01-20] MEDS: ROFLUMILAST 500 MCG TABLET PO SCH (09:52)
[2018-01-20] MEDS: NICOTINE 14 MG/24 HR PATCH.TD24 TD SCH (09:52)
[2018-01-20] MEDS: LACTULOSE SYRUP 20 GM/30 ML UDCUP PO SCH ×2 (09:52→17:49)
[2018-01-20] MEDS: AMLODIPINE BESYLATE 5 MG TABLET PO SCH (09:52)
[2018-01-20] MEDS: LORATADINE 10 MG TABLET PO SCH (09:52)
[2018-01-20] MEDS: GUAIFENESIN 600 MG TABLET.SA PO SCH ×2 (09:52→21:33)
[2018-01-20] MEDS: POLYETHYLENE GLYCOL 3350 POWDER 17 GM/1 PACKET PO SCH ×2 (09:53→17:49)
[2018-01-20] MEDS: FUROSEMIDE 20 MG TABLET PO SCH (09:53)
[2018-01-20] MEDS: METOPROLOL SUCCINATE 25 MG TAB.SR.24H PO SCH (09:53)
[2018-01-20] MEDS: ASPIRIN 81 MG TABLET, ENT COATED PO SCH (11:48)
--- NOTE | 2018-01-20 16:40 | PDOC PROGRESS REPORT ---
Subjective Progress Note for:: 01/20/18 Subjective:: No complaints. Patient states and that postnasal discharge is improving and not having sore throat. She continues moving her bowels Review of system All organ systems evaluated and negative except as in subjective All significant diagnostics and laboratories have been reviewed Reason For Visit: ACUTE ON CHRONIC RESPIRATORY FAILURE Physical Exam Vital Signs: Temp Pulse Resp BP Pulse Ox 98.1 F 92 21 H 121/54 L 95 01/20/18 03:10 01/20/18 06:50 01/20/18 03:10 01/20/18 03:10 01/20/18 03:10 Intake & Output 01/19/18 01/20/18 01/21/18 06:59 06:59 06:59 Intake Total 1189 1124 Output Total 200 Balance 989 1124 Weight 65.3 kg 65.8 kg General appearance: PRESENT: no acute distress, cooperative, thin Head exam: PRESENT: atraumatic, normocephalic Eye exam: PRESENT: conjunctiva pink, EOMI, PERRLA Neck exam: PRESENT: full ROM. ABSENT: JVD, lymphadenopathy, tenderness Respiratory exam: PRESENT: other - Adequate movement of air with scattered rhonchi Cardiovascular exam: PRESENT: RRR. ABSENT: diastolic murmur, systolic murmur Vascular exam: PRESENT: normal capillary refill GI/Abdominal exam: PRESENT: normal bowel sounds, soft. ABSENT: tenderness Extremities exam: PRESENT: full ROM. ABSENT: pedal edema Musculoskeletal exam: PRESENT: ambulatory Neurological exam: PRESENT: alert, awake, oriented to person, oriented to place , oriented to time, oriented to situation, CN II-XII grossly intact Psychiatric exam: PRESENT: appropriate affect, normal mood Skin exam: PRESENT: intact, normal color Results Laboratory Results: 01/19/18 04:10 01/19/18 04:10 Impressions: Chest X-Ray 01/17/18 00:00 IMPRESSION: Trace fluid in the right lateral costophrenic sulcus. Otherwise stable exam. Assessment & Plan - Diagnosis (1) Acute respiratory failure Qualifiers: Respiratory failure complication: hypoxia and hypercapnia Qualified Code(s) : J96.01 - Acute respiratory failure with hypoxia; J96.02 - Acute respiratory failure with hypercapnia; J96.02 - Acute respiratory failure with hypercapnia; J96.02 - Acute respiratory failure with hypercapnia Is this a current diagnosis for this admission?: Yes Plan: Continue oxygen supplementation. Echocardiogram limited for evaluation of pulmonary hypertension (2) COPD with exacerbation Is this a current diagnosis for this admission?: Yes Plan: Continue Mucinex, scopolamine, Daliresp, Advair, Singulair and Spiriva. Continue Duonebs to as needed (3) Tobacco use disorder Is this a current diagnosis for this admission?: Yes Plan: Educated about quitting (4) PNA (pneumonia) Qualifiers: Pneumonia type: due to unspecified organism Laterality: left Lung location: lower lobe of lung Qualified Code(s): J18.1 - Lobar pneumonia, unspecified organism Is this a current diagnosis for this admission?: Yes Plan: Off antibiotic. Repeat chest x-ray noted. No active infiltrate (5) HTN (hypertension) Qualifiers: Hypertension type: essential hypertension Qualified Code(s): I10 - Essential (primary) hypertension Is this a current diagnosis for this admission?: Yes Plan: Continue norvasc, toprol xl and low-dose Lasix (6) Positive blood culture Is this a current diagnosis for this admission?: Yes Plan: Deemed to be contaminant since in one bottle (7) Constipation Qualifiers: Constipation type: unspecified constipation type Qualified Code(s): K59.00 - Constipation, unspecified Is this a current diagnosis for this admission?: Yes Plan: Continue current regimen (8) Sore throat Is this a current diagnosis for this admission?: Yes Plan: May relate to fungal infection due to Advair. Continue nystatin (9) Post-nasal discharge Is this a current diagnosis for this admission?: Yes Plan: Likely due to use of oxygen. Continue claritin and flonase - Time Time Spent with patient: Less than 15 minutes Medications reviewed and adjusted accordingly: Yes Anticipated discharge: Acute Rehab Within: when bed available - Inpatient Certification Based on my medical assessment, after consideration of the patient's comorbidities, presenting symptoms, or acuity I expect that the services needed warrant INPATIENT care.: Yes I certify that my determination is in accordance with my understanding of Medicare's requirements for reasonable and necessary INPATIENT services [42 CFR 412.3e].: Yes Medical Necessity: Need Close Monitoring Due to Risk of Patient Decompensation - needs placement
[2018-01-20] MEDS: MONTELUKAST SODIUM 10 MG TABLET PO SCH (21:33)
[2018-01-21] MEDS: HEPARIN SOD (PORCINE) 5,000 UNIT/ML 1 ML SYRINGE SUBCUT SCH ×3 (06:16→22:15)
[2018-01-21] MEDS: ACETYLCYSTEINE 20% SOLN 800 MG/4 ML VIAL.NEB NEB SCH ×2 (08:37→19:51)
[2018-01-21] MEDS: IPRATROPIUM/ALBUTEROL 0.5-2.5 MG/3 ML AMPUL NEB PRN ×3 (08:38→19:51)
[2018-01-21] MEDS: NYSTATIN 500000 UNIT/5 ML UDCUP PO SCH ×4 (10:22→22:23)
[2018-01-21] MEDS: POLYETHYLENE GLYCOL 3350 POWDER 17 GM/1 PACKET PO SCH ×2 (10:22→17:16)
[2018-01-21] MEDS: LACTULOSE SYRUP 20 GM/30 ML UDCUP PO SCH ×2 (10:22→17:16)
[2018-01-21] MEDS: LORATADINE 10 MG TABLET PO SCH (10:30)
[2018-01-21] MEDS: FLUTICASONE/SALMETEROL DISKUS 500-50 MCG/DOSE IH SCH ×2 (10:30→22:16)
[2018-01-21] MEDS: AMLODIPINE BESYLATE 5 MG TABLET PO SCH (10:30)
[2018-01-21] MEDS: NICOTINE 14 MG/24 HR PATCH.TD24 TD SCH (10:30)
[2018-01-21] MEDS: ROFLUMILAST 500 MCG TABLET PO SCH (10:31)
[2018-01-21] MEDS: GUAIFENESIN 600 MG TABLET.SA PO SCH ×2 (10:31→22:16)
[2018-01-21] MEDS: TIOTROPIUM BROMIDE DPI 5 CAP/KIT (18 MCG/CAP) IH SCH (10:31)
[2018-01-21] MEDS: FLUTICASONE NASAL SPRAY 50 MCG/SPRY 120 SPRAY/16 GM NASL SCH (10:31)
[2018-01-21] MEDS: SCOPOLAMINE HYDROBROMIDE 1.5 MG PATCH.TD72 TD SCH (10:32)
[2018-01-21] MEDS: FUROSEMIDE 20 MG TABLET PO SCH (10:32)
[2018-01-21] MEDS: METOPROLOL SUCCINATE 25 MG TAB.SR.24H PO SCH (10:32)
--- NOTE | 2018-01-21 11:20 | RADIOLOGY REPORT (SQ) ---
EXAM DESCRIPTION: CHEST 2 VIEWS COMPLETED DATE/TIME: 01/21/2018 9:52 am REASON FOR STUDY: follow up/chest congestion COMPARISON: 01/17/2018. NUMBER OF VIEWS: Two view TECHNIQUE: Frontal and lateral radiographic images of the chest acquired. LIMITATIONS: None. FINDINGS: LUNGS AND PLEURA: Subsegmental airspace disease posterior left lower lobe. Old right part ial pneumonectomy. No large effusions. MEDIASTINUM AND HILAR STRUCTURES: Stable heart size and mediastinal structures. HEART AND VASCULAR STRUCTURES: Stable appearance. BONES: No acute findings. HARDWARE: None in the chest. OTHER: No other significant finding. IMPRESSION: Left lower lobe pneumonia. TECHNICAL DOCUMENTATION: JOB ID: [id number] [employer]- All Rights Reserved Reading location - IP/workstation name: [email or web address]
[2018-01-21] MEDS: ASPIRIN 81 MG TABLET, ENT COATED PO SCH (12:40)
--- NOTE | 2018-01-21 14:53 | PDOC PROGRESS REPORT ---
Subjective Progress Note for:: 01/21/18 Subjective:: No complaints. Patient states and that postnasal discharge is improving and not having sore throat. She continues moving her bowels Review of system All organ systems evaluated and negative except as in subjective All significant diagnostics and laboratories have been reviewed Reason For Visit: ACUTE ON CHRONIC RESPIRATORY FAILURE Physical Exam Vital Signs: Temp Pulse Resp BP Pulse Ox 98.5 F 91 18 110/49 L 92 01/20/18 23:46 01/21/18 02:00 01/20/18 23:46 01/20/18 23:46 01/21/18 01:04 Intake & Output 01/19/18 01/20/18 01/21/18 06:59 06:59 06:59 Intake Total 1189 1124 504 Output Total 200 Balance 989 1124 504 Weight 65.3 kg 65.8 kg General appearance: PRESENT: cooperative, thin Head exam: PRESENT: atraumatic, normocephalic Eye exam: PRESENT: conjunctiva pink, EOMI, PERRLA Mouth exam: PRESENT: moist Neck exam: PRESENT: full ROM. ABSENT: JVD, lymphadenopathy, tenderness Respiratory exam: PRESENT: other - Adequate movement of air with scattered rhonchi Cardiovascular exam: PRESENT: RRR. ABSENT: diastolic murmur, systolic murmur GI/Abdominal exam: PRESENT: normal bowel sounds, soft. ABSENT: tenderness Extremities exam: PRESENT: full ROM. ABSENT: pedal edema Musculoskeletal exam: PRESENT: ambulatory Neurological exam: PRESENT: alert, awake, oriented to person, oriented to place , oriented to time, CN II-XII grossly intact Psychiatric exam: PRESENT: appropriate affect, normal mood Skin exam: PRESENT: intact, normal color Results Laboratory Results: 01/19/18 04:10 01/19/18 04:10 Impressions: Chest X-Ray 01/17/18 00:00 IMPRESSION: Trace fluid in the right lateral costophrenic sulcus. Otherwise stable exam. Assessment & Plan - Diagnosis (1) Acute respiratory failure Qualifiers: Respiratory failure complication: hypoxia and hypercapnia Qualified Code(s) : J96.01 - Acute respiratory failure with hypoxia; J96.02 - Acute respiratory failure with hypercapnia; J96.02 - Acute respiratory failure with hypercapnia; J96.02 - Acute respiratory failure with hypercapnia Is this a current diagnosis for this admission?: Yes Plan: Continue oxygen supplementation. Echocardiogram limited for evaluation of pulmonary hypertension (2) COPD with exacerbation Is this a current diagnosis for this admission?: Yes Plan: Continue Mucinex, scopolamine, Daliresp, Advair, Singulair and Spiriva. Continue Duonebs to as needed (3) Tobacco use disorder Is this a current diagnosis for this admission?: Yes Plan: Educated about quitting (4) PNA (pneumonia) Qualifiers: Pneumonia type: due to unspecified organism Laterality: left Lung location: lower lobe of lung Qualified Code(s): J18.1 - Lobar pneumonia, unspecified organism Is this a current diagnosis for this admission?: Yes Plan: Repeat chest x-ray prior to discharge shows left lower lobe pneumonia. Unfortunately we do not have procalcitonin test available in-house. Will place patient on Augmentin however patient clinically stable (5) HTN (hypertension) Qualifiers: Hypertension type: essential hypertension Qualified Code(s): I10 - Essential (primary) hypertension Is this a current diagnosis for this admission?: Yes Plan: Patient has a major right-sided component and her blood pressure may be a little bit erratic. Will decrease Norvasc dose and continue with low-dose Lasix and Toprol-XL (6) Positive blood culture Is this a current diagnosis for this admission?: Yes Plan: Deemed to be contaminant since in one bottle (7) Constipation Qualifiers: Constipation type: unspecified constipation type Qualified Code(s): K59.00 - Constipation, unspecified Is this a current diagnosis for this admission?: Yes Plan: Continue current regimen (8) Sore throat Is this a current diagnosis for this admission?: Yes Plan: May relate to fungal infection due to Advair. Continue nystatin (9) Post-nasal discharge Is this a current diagnosis for this admission?: Yes Plan: Likely due to use of oxygen. Continue claritin and flonase - Time Time Spent with patient: 15-24 minutes Medications reviewed and adjusted accordingly: Yes Anticipated discharge: Acute Rehab Within: within 24 hours - Inpatient Certification Based on my medical assessment, after consideration of the patient's comorbidities, presenting symptoms, or acuity I expect that the services needed warrant INPATIENT care.: Yes I certify that my determination is in accordance with my understanding of Medicare's requirements for reasonable and necessary INPATIENT services [42 CFR 412.3e].: Yes Medical Necessity: Need Close Monitoring Due to Risk of Patient Decompensation, Need for Nebulizer Therapy and Monitoring of Response
--- NOTE | 2018-01-21 16:54 | PDOC PROGRESS REPORT ---
Subjective Progress Note for:: 01/18/18 Subjective:: stable Reason For Visit: ACUTE ON CHRONIC RESPIRATORY FAILURE Physical Exam Vital Signs: Temp Pulse Resp BP Pulse Ox 98.3 F 76 16 130/59 H 97 01/18/18 08:25 01/18/18 08:55 01/18/18 08:55 01/18/18 08:25 01/18/18 08:55 Intake & Output 01/17/18 01/18/18 01/19/18 06:59 06:59 06:59 Intake Total 724 1252 Output Total 100 Balance 624 1252 Weight 65.5 kg 66.2 kg General appearance: PRESENT: no acute distress, cooperative, disheveled, well- developed Head exam: PRESENT: atraumatic, normocephalic Eye exam: PRESENT: conjunctiva pale, EOMI. ABSENT: nystagmus, periorbital swelling, scleral icterus Mouth exam: PRESENT: moist, neck supple, tongue midline Respiratory exam: PRESENT: decreased breath sounds, prolonged expiratory phas, rhonchi, symmetrical, unlabored. ABSENT: rales, stridor, tachypnea Cardiovascular exam: PRESENT: irregular rhythm Pulses: PRESENT: normal radial pulses GI/Abdominal exam: PRESENT: distended, soft Neurological exam: PRESENT: awake Skin exam: PRESENT: dry, warm Results Laboratory Results: 01/15/18 06:15 01/15/18 06:15 Impressions: Chest X-Ray 01/17/18 00:00 IMPRESSION: Trace fluid in the right lateral costophrenic sulcus. Otherwise stable exam. Assessment & Plan - Diagnosis (1) Acute respiratory failure Qualifiers: Respiratory failure complication: hypoxia and hypercapnia Qualified Code(s) : J96.01 - Acute respiratory failure with hypoxia; J96.02 - Acute respiratory failure with hypercapnia; J96.02 - Acute respiratory failure with hypercapnia; J96.02 - Acute respiratory failure with hypercapnia Is this a current diagnosis for this admission?: Yes Plan: Resolved (2) History of lung cancer Is this a current diagnosis for this admission?: Yes (4) Smoker Is this a current diagnosis for this admission?: Yes (5) PNA (pneumonia) Qualifiers: Pneumonia type: due to unspecified organism Laterality: left Lung location: lower lobe of lung Qualified Code(s): J18.1 - Lobar pneumonia, unspecified organism Is this a current diagnosis for this admission?: Yes Plan: Improving
--- NOTE | 2018-01-21 16:56 | PDOC PROGRESS REPORT ---
Subjective Progress Note for:: 01/21/18 Subjective:: stable Reason For Visit: ACUTE ON CHRONIC RESPIRATORY FAILURE Physical Exam Vital Signs: Temp Pulse Resp BP Pulse Ox 99.0 F 97 16 111/44 L 98 01/21/18 16:07 01/21/18 16:07 01/21/18 16:07 01/21/18 16:07 01/21/18 16:07 Intake & Output 01/20/18 01/21/18 01/22/18 06:59 06:59 06:59 Intake Total 1124 859 Balance 1124 859 Weight 65.8 kg 65.6 kg General appearance: PRESENT: no acute distress, cooperative, disheveled Head exam: PRESENT: atraumatic, normocephalic Eye exam: PRESENT: conjunctiva pale, EOMI. ABSENT: nystagmus, periorbital swelling, scleral icterus Mouth exam: PRESENT: moist, tongue midline Neck exam: ABSENT: carotid bruit, JVD, lymphadenopathy, thyromegaly, tracheal deviation, tracheostomy Respiratory exam: PRESENT: decreased breath sounds, prolonged expiratory phas, rhonchi, symmetrical, unlabored. ABSENT: retraction, stridor, tachypnea Cardiovascular exam: PRESENT: +S1, +S2 Pulses: PRESENT: normal radial pulses GI/Abdominal exam: PRESENT: diminished bowel sounds, soft Extremities exam: ABSENT: clubbing, joint swelling Musculoskeletal exam: ABSENT: deformity, dislocation Neurological exam: PRESENT: awake Skin exam: PRESENT: dry, warm Results Laboratory Results: 01/19/18 04:10 01/19/18 04:10 Impressions: Chest X-Ray 01/21/18 00:00 IMPRESSION: Left lower lobe pneumonia. Assessment & Plan - Diagnosis (1) Acute respiratory failure Qualifiers: Respiratory failure complication: hypoxia and hypercapnia Qualified Code(s) : J96.01 - Acute respiratory failure with hypoxia; J96.02 - Acute respiratory failure with hypercapnia; J96.02 - Acute respiratory failure with hypercapnia; J96.02 - Acute respiratory failure with hypercapnia Is this a current diagnosis for this admission?: Yes Plan: Resolved (2) History of lung cancer Is this a current diagnosis for this admission?: Yes (4) Smoker Is this a current diagnosis for this admission?: Yes (5) PNA (pneumonia) Qualifiers: Pneumonia type: due to unspecified organism Laterality: left Lung location: lower lobe of lung Qualified Code(s): J18.1 - Lobar pneumonia, unspecified organism Is this a current diagnosis for this admission?: Yes Plan: Improving
[2018-01-21] MEDS ORDERED: AMLODIPINE BESYLATE 5 MG TABLET PO ONE (17:00)
[2018-01-21] MEDS: AMOXICILLIN TR/POT CLAVULANATE 500-125 MG TAB PO SCH (22:15)
[2018-01-21] MEDS: MONTELUKAST SODIUM 10 MG TABLET PO SCH (22:15)
[2018-01-22] MEDS: HEPARIN SOD (PORCINE) 5,000 UNIT/ML 1 ML SYRINGE SUBCUT SCH ×2 (05:47→13:49)
[2018-01-22] MEDS: AMOXICILLIN TR/POT CLAVULANATE 500-125 MG TAB PO SCH ×2 (05:47→13:48)
[2018-01-22 06:25] LABS: ABSOLUTE BASOPHILS # (AUTO) 0.1 10^3/uL (0.0-0.2); ABSOLUTE EOSINOPHILS # (AUTO) 0.1 10^3/uL (0.0-0.6); ABSOLUTE LYMPHOCYTES (AUTO) 0.6 10^3/uL (0.5-4.7); ABSOLUTE MONOCYTES (AUTO) 0.8 10^3/uL (0.1-1.4); ABSOLUTE NEUT (AUTO) 8.4 10^3/uL (1.7-8.2); BASOPHILS % (AUTO) 0.6 % (0-2); EOSINOPHILS % (AUTO) 1.1 % (0-6); HEMATOCRIT 31.1 % (36.0-47.0); HEMOGLOBIN 10.5 g/dL (12.0-15.5); LYMPHOCYTES % (AUTO) 5.8 % (13-45); MEAN CORPUSCULAR HEMOGLOBIN 29.7 pg (27.0-33.4); MEAN CORPUSCULAR HGB CONC 33.8 g/dL (32.0-36.0); MEAN CORPUSCULAR VOLUME 88 fl (80-97); MONOCYTES % (AUTO) 8.5 % (3-13); PLATELET COUNT 203 10^3/uL (150-450); RED BLOOD COUNT 3.55 10^6/uL (3.72-5.28); RED CELL DISTRIBUTION WIDTH 14.4 % (11.5-14.0); TOTAL CELLS COUNTED % (AUTO) 100 %
[2018-01-22 06:39] LABS: ALANINE AMINOTRANSFERASE 75 U/L (9-52); ALBUMIN 2.9 g/dL (3.5-5.0); ALKALINE PHOSPHATASE 127 U/L (38-126); ANION GAP 7 (5-19); ASPARTATE AMINO TRANSFERASE 32 U/L (14-36); BILIRUBIN,DIRECT 0.9 mg/dL (0.0-0.4); BILIRUBIN,TOTAL 1.4 mg/dL (0.2-1.3); BLOOD UREA NITROGEN 8 mg/dL (7-20); CALCIUM 9.2 mg/dL (8.4-10.2); CARBON DIOXIDE 30 mmol/L (22-30); CHLORIDE 100 mmol/L (98-107); GLUCOSE 94 mg/dL (75-110); POTASSIUM 3.2 mmol/L (3.6-5.0); SODIUM 136.7 mmol/L (137-145); TOTAL PROTEIN 5.3 g/dL (6.3-8.2)
[2018-01-22] MEDS: IPRATROPIUM/ALBUTEROL 0.5-2.5 MG/3 ML AMPUL NEB PRN (08:57)
[2018-01-22] MEDS: ACETYLCYSTEINE 20% SOLN 800 MG/4 ML VIAL.NEB NEB SCH (08:59)
[2018-01-22] MEDS ORDERED: AMLODIPINE BESYLATE 2.5 MG TABLET PO SCH (10:00)
[2018-01-22] MEDS ORDERED: AMLODIPINE BESYLATE 5 MG TABLET PO SCH (10:00)
[2018-01-22] MEDS: LORATADINE 10 MG TABLET PO SCH (10:02)
[2018-01-22] MEDS: NICOTINE 14 MG/24 HR PATCH.TD24 TD SCH (10:02)
[2018-01-22] MEDS: FUROSEMIDE 20 MG TABLET PO SCH (10:03)
[2018-01-22] MEDS: METOPROLOL SUCCINATE 25 MG TAB.SR.24H PO SCH (10:04)
[2018-01-22] MEDS: GUAIFENESIN 600 MG TABLET.SA PO SCH (10:04)
[2018-01-22] MEDS: TIOTROPIUM BROMIDE DPI 5 CAP/KIT (18 MCG/CAP) IH SCH (10:07)
[2018-01-22] MEDS: FLUTICASONE NASAL SPRAY 50 MCG/SPRY 120 SPRAY/16 GM NASL SCH (10:09)
[2018-01-22] MEDS: ROFLUMILAST 500 MCG TABLET PO SCH (10:10)
[2018-01-22] MEDS ORDERED: POTASSIUM CHLORIDE 20 MEQ/15 ML UDCUP PO ONE (10:15)
[2018-01-22] MEDS: NYSTATIN 500000 UNIT/5 ML UDCUP PO SCH ×2 (10:17→13:52)
[2018-01-22] MEDS: FLUTICASONE/SALMETEROL DISKUS 500-50 MCG/DOSE IH SCH (10:17)
[2018-01-22] MEDS: LACTULOSE SYRUP 20 GM/30 ML UDCUP PO SCH (10:17)
[2018-01-22] MEDS: POLYETHYLENE GLYCOL 3350 POWDER 17 GM/1 PACKET PO SCH (10:17)
[2018-01-22] MEDS: ASPIRIN 81 MG TABLET, ENT COATED PO SCH (11:40)
[2018-01-22 13:19] VITALS: BP 112/50
[2018-01-22] MEDS: PROMETHAZINE HCL INJ 25 MG/1 ML VIAL IV PRN (13:49)
--- NOTE | 2018-01-22 13:51 | PDOC PROGRESS REPORT ---
Subjective Progress Note for:: 01/22/18 Subjective:: Patient without complaints awaiting transfer and placement Reason For Visit: ACUTE ON CHRONIC RESPIRATORY FAILURE Physical Exam Vital Signs: Temp Pulse Resp BP Pulse Ox 98.8 F 98 18 112/50 L 94 01/22/18 12:20 01/22/18 12:20 01/22/18 12:20 01/22/18 12:20 01/22/18 12:20 Intake & Output 01/21/18 01/22/18 01/23/18 06:59 06:59 06:59 Intake Total 859 1736 Balance 859 1736 Weight 65.6 kg 64.1 kg General appearance: PRESENT: no acute distress, cooperative, disheveled, well- developed, well-nourished Head exam: PRESENT: atraumatic, normocephalic Eye exam: PRESENT: conjunctiva pale, EOMI. ABSENT: nystagmus, periorbital swelling, scleral icterus Mouth exam: PRESENT: moist, neck supple, tongue midline Neck exam: ABSENT: carotid bruit, JVD, lymphadenopathy, thyromegaly, tracheal deviation, tracheostomy Respiratory exam: PRESENT: decreased breath sounds, prolonged expiratory phas, rhonchi, symmetrical, unlabored, wheezes. ABSENT: rales, retraction, stridor, tachypnea Cardiovascular exam: PRESENT: RRR, +S1, +S2 Pulses: PRESENT: normal radial pulses GI/Abdominal exam: PRESENT: diminished bowel sounds, soft Extremities exam: ABSENT: clubbing, joint swelling Musculoskeletal exam: ABSENT: deformity, dislocation Neurological exam: PRESENT: alert, awake Psychiatric exam: PRESENT: normal mood Skin exam: PRESENT: dry, warm Results Laboratory Results: 01/22/18 05:51 01/22/18 05:51 01/22/18 01/22/18 05:51 05:51 WBC 10.0 RBC 3.55 L Hgb 10.5 L Hct 31.1 L MCV 88 MCH 29.7 MCHC 33.8 RDW 14.4 H Plt Count 203 Seg Neutrophils % 84.0 H Lymphocytes % 5.8 L Monocytes % 8.5 Eosinophils % 1.1 Basophils % 0.6 Absolute Neutrophils 8.4 H Absolute Lymphocytes 0.6 Absolute Monocytes 0.8 Absolute Eosinophils 0.1 Absolute Basophils 0.1 Sodium 136.7 L Potassium 3.2 L Chloride 100 Carbon Dioxide 30 Anion Gap 7 BUN 8 Creatinine 0.64 Est GFR ( Amer) > 60 Est GFR (Non-Af Amer) > 60 Glucose 94 Calcium 9.2 Magnesium 2.2 Total Bilirubin 1.4 H AST 32 ALT 75 H Alkaline Phosphatase 127 H Total Protein 5.3 L Albumin 2.9 L Impressions: Chest X-Ray 01/21/18 00:00 IMPRESSION: Left lower lobe pneumonia. Assessment & Plan - Diagnosis (1) Acute respiratory failure Qualifiers: Respiratory failure complication: hypoxia and hypercapnia Qualified Code(s) : J96.01 - Acute respiratory failure with hypoxia; J96.02 - Acute respiratory failure with hypercapnia; J96.02 - Acute respiratory failure with hypercapnia; J96.02 - Acute respiratory failure with hypercapnia Is this a current diagnosis for this admission?: Yes Plan: Resolved (2) History of lung cancer Is this a current diagnosis for this admission?: Yes (3) Hypoxia Is this a current diagnosis for this admission?: No (4) Smoker Is this a current diagnosis for this admission?: Yes (5) PNA (pneumonia) Qualifiers: Pneumonia type: due to unspecified organism Laterality: left Lung location: lower lobe of lung Qualified Code(s): J18.1 - Lobar pneumonia, unspecified organism Is this a current diagnosis for this admission?: Yes Plan: Improving
--- NOTE | 2018-01-22 14:30 | PDOC TRANSFER SUMMARY ---
General - Admit/Disc Date/PCP Admission Date/Primary Care Provider: 01/08/18 02:27 DENISE GARVEY MD Discharge Date: 01/22/18 - Discharge Diagnosis (1) Acute and chronic respiratory failure Is this a current diagnosis for this admission?: Yes (2) PNA (pneumonia) Is this a current diagnosis for this admission?: Yes (3) COPD with exacerbation Is this a current diagnosis for this admission?: Yes (4) Tobacco use disorder Is this a current diagnosis for this admission?: Yes (5) HTN (hypertension) Is this a current diagnosis for this admission?: Yes (6) Positive blood culture Is this a current diagnosis for this admission?: Yes (7) Constipation Is this a current diagnosis for this admission?: Yes (8) Sore throat Is this a current diagnosis for this admission?: Yes (9) Post-nasal discharge Is this a current diagnosis for this admission?: Yes (10) Debility Is this a current diagnosis for this admission?: Yes (11) Pulmonary hypertension Is this a current diagnosis for this admission?: Yes - Additional Information Resuscitation Status: Full Code Discharge Diet: Cardiac Discharge Activity: Activity As Tolerated Home Medications: Ergocalciferol (Vitamin D2) [Drisdol 50,000 unit (1.25MG) Capsule] 50,000 unit PO ASDIR PRN 01/08/18 Rosuvastatin Calcium [Crestor 10 mg Tablet] 10 mg PO DAILY 01/08/18 Tiotropium Freedom [Spiriva Respimat] 2 puff IH QHS 01/08/18 Amox Tr/Potassium Clavulanate [Augmentin "500" Tablet] 1 tab PO Q8 #0 tablet Aspirin [Ecotrin 81 mg EC Tablet] 81 mg PO DAILY@1200 tabec 01/22/18 Fluticasone Propionate [Flonase Nasal Douglas 50 Mcg/Douglas 16 gm] 2 spray NASL DAILY spray.pump 01/22/18 Fluticasone/Salmeterol [Advair 500-50 Diskus 14 Dose/Diskus] 1 inh IH Q12 inhaler 01/22/18 Furosemide [Lasix 20 mg Tablet] 10 mg PO DAILY tablet 01/22/18 Guaifenesin [Mucinex Sr 600 mg Tablet.sa] 1,200 mg PO Q12 tablet.sa 01/22/18 Ipratropium/Albuterol Sulfate [Duoneb 3 ml Ampul] 3 ml NEB RTQ6HP PRN vial.neb 01/22/18 Lactulose [Cephulac Syrup 20 gm/30 ml Udcup] 20 gm PO BID udc 01/22/18 Loratadine [Claritin 10 mg Tablet] 10 mg PO DAILY tablet 01/22/18 Metoprolol Succinate [Toprol Xl 25 mg Tab.sr] 25 mg PO DAILY tab.sr.24h Montelukast Sodium [Singulair 10 mg Tablet] 10 mg PO QHS tablet 01/22/18 Nicotine [Nicoderm 14 mg/24 Hr Transdermal Patch] 1 each TD DAILY patch.td24 Polyethylene Glycol 3350 [Miralax Powder 17 gm/Packet] 17 gm PO BID powd.pack 01/22/18 Potassium Chloride [Klor-Con 10 Meq Tablet.sa] 20 meq PO DAILY tablet.sa Roflumilast [Daliresp 500 Mcg Tablet] 500 mcg PO DAILY tablet 01/22/18 Scopolamine Hydrobromide [Transderm-Scop 1.5 mg Patch] 1 each TD Q3DAYS patch.td72 01/22/18 History of Present Illness Admission Date/PCP: 01/08/18 02:27 DENISE GARVEY MD History of Present Illness: SADA ROLAND is a 72 year old female smoker with history of COPD (on 2 L home oxygen at night) and lung cancer (post right upper lobectomy/ chemoradiation in 2006) was admitted with complainst of shortness of breath. The patient denied any fever or sick contact but she complained of chills and chronic cough with some yellowish sputum. She also complained of pleuritic chest pain. She said that she uses her nebulizer intermittently and she only used it once on the day of admission. But since her symptoms did not improve, she decided to come to the hospital for further management and treatment. She apparently lives by herself and able to ambulate very short distances because of her shortness of breath. She does not get flu vaccine since she is allergic to eggs. She continues to smoke. The patient also complained of lower abdominal pain but no diarrhea, constipation or any urinary symptoms except stress incontinence. In the ED, her temperature was 97.8, heart rate 102, respiratory rate 20, blood pressure 137/66 with oxygen saturation of 88% on room air. Her WBC was 9.9 and her hemoglobin was 13.4. Her troponin and DDimer were negative and her proBNP was 155. A CXR was done which showed old right upper lobectomy and COPD with no acute changes. She received 15 mg albuterol 1, 3 mg and 9 mg DuoNeb 1, 3 mg IV Haldol 1 and 1 g Rocephin x1 with minimal improvement in her symptoms. She was speaking in very short sentences. She was placed on a nonrebreather mask since she was unable to tolerate BiPAP. Patient was admitted under the hospitalist service Hospital Course Hospital Course: Patient failed BiPAP trial and require intubation. Respiratory status improve and she was extubated on January 11. Patient tolerated extubation and she was transitioned to BiPAP.COPD was aggressively treated my placing patient on IV steroids, nebulizer treatment, mucolytic and antibiotic treatment. On presentation there was a pneumonic process localized to the left lower infiltrate. Patient improved and follow-up chest x-ray still demonstrated a left lower lobe infiltrate. We opted to place patient on Augmentin 500 mg p.o. 3 times daily for 7 days. Last dose will be on January 27. Due to concerns of the possibility of pulmonary hypertension an echocardiogram was requested however was nondiagnostic due to poor chest windows. Patient also was treated empirically with diuresis for this possibility purpose and chest condition improved remarkably. We discharged patient on low-dose Lasix. Consequently due to diuresis we had been having to replace potassium including the day of discharge. Potassium supplementation had been prescribed on discharge. Recommend incoming facility to check potassium level within the next 24-48 hours. Patient is back to 2 L by nasal cannula and she had been able to participate in physical therapy. Due to debility, recommended acute rehab and she was amenable to this avenue. Patient has been strongly educated about quitting smoking and appears to be motivated to quit. Nevertheless a nicotine patch is included as part of her medication list. I would like also to add that because of patient pulmonary involvement and possibly pulmonary hypertension she may experience episodes of transient low blood pressure which are mostly asymptomatic. Patient had remained stable and improved and prompted to discharge to rehab facility Physical Exam Vital Signs: Temp Pulse Resp BP Pulse Ox 98.8 F 98 18 112/50 L 94 01/22/18 12:20 01/22/18 12:20 01/22/18 12:20 01/22/18 12:20 01/22/18 12:20 Intake & Output 01/21/18 01/22/18 01/23/18 06:59 06:59 06:59 Intake Total 859 1736 Balance 859 1736 Weight 65.6 kg 64.1 kg Results Laboratory Results: 01/22/18 05:51 01/22/18 05:51 01/22/18 01/22/18 05:51 05:51 WBC 10.0 RBC 3.55 L Hgb 10.5 L Hct 31.1 L MCV 88 MCH 29.7 MCHC 33.8 RDW 14.4 H Plt Count 203 Seg Neutrophils % 84.0 H Lymphocytes % 5.8 L Monocytes % 8.5 Eosinophils % 1.1 Basophils % 0.6 Absolute Neutrophils 8.4 H Absolute Lymphocytes 0.6 Absolute Monocytes 0.8 Absolute Eosinophils 0.1 Absolute Basophils 0.1 Sodium 136.7 L Potassium 3.2 L Chloride 100 Carbon Dioxide 30 Anion Gap 7 BUN 8 Creatinine 0.64 Est GFR ( Amer) > 60 Est GFR (Non-Af Amer) > 60 Glucose 94 Calcium 9.2 Magnesium 2.2 Total Bilirubin 1.4 H AST 32 ALT 75 H Alkaline Phosphatase 127 H Total Protein 5.3 L Albumin 2.9 L Impressions: Chest X-Ray 01/21/18 00:00 IMPRESSION: Left lower lobe pneumonia. Transfer Plan - Disposition Transfer Plan: Transferred to acute rehab - Time Spent with Patient Time spent with patient: Greater than 30 Minutes Qualifiers - * PATEINT BEING DISCHARGED WITH ANY OF THE FOLLOWING DIAGNOSIS?: No
[2018-01-22] MEDS ORDERED: GUAIFENESIN 600 MG TABLET.SA PO SCH (22:00)
[2018-01-23] MEDS ORDERED: POTASSIUM CHLORIDE 10 MEQ TABLET.SA PO SCH (10:00)
== END 2018-01-22 17:16 | DRG 208 ==
LOC: ER 21:23 → EH 01-08 02:27 → ICU 01-08 04:24 → 3S 01-12 21:17
PROVIDERS: ADMIT Internal Medicine Geriatric Medicine; ATTEND Internal Medicine Geriatric Medicine
PROC: 5A1945Z Respiratory Ventilation, 24-96 Consecutive Hours (ICD-10-PCS; principal; 2018-01-08)
PROC: 0BH17EZ Insertion of Endotracheal Airway into Trachea, Via Natural or Artificial Opening (ICD-10-PCS; 2018-01-08)
DX: J96.21 Acute and chronic respiratory failure with hypoxia (principal); J18.9 Pneumonia, unspecified organism; J44.1 Chronic obstructive pulmonary disease with (acute) exacerbation; J44.0 Chronic obstructive pulmonary disease with (acute) lower respiratory infection; K59.00 Constipation, unspecified; I10 Essential (primary) hypertension; I27.20 Pulmonary hypertension, unspecified; E78.5 Hyperlipidemia, unspecified; F17.210 Nicotine dependence, cigarettes, uncomplicated; D51.9 Vitamin B12 deficiency anemia, unspecified; J96.22 Acute and chronic respiratory failure with hypercapnia; I25.10 Atherosclerotic heart disease of native coronary artery without angina pectoris; E87.6 Hypokalemia; R09.82 Postnasal drip; Z99.81 Dependence on supplemental oxygen; Z85.118 Personal history of other malignant neoplasm of bronchus and lung; Z90.2 Acquired absence of lung [part of]; Z92.21 Personal history of antineoplastic chemotherapy; Z91.012 Allergy to eggs; I25.2 Old myocardial infarction; Z80.1 Family history of malignant neoplasm of trachea, bronchus and lung; Z79.51 Long term (current) use of inhaled steroids; Z88.1 Allergy status to other antibiotic agents; Z88.8 Allergy status to other drugs, medicaments and biological substances; Z78.1 Physical restraint status
CPT/HCPCS: 36415; 36600; 71045; 71046; 80048; 80053; 81001; 81002; 82803; 83735; 83880; 84484; 85025; 85027; 85379; 87040; 87070; 87077; 87086; 87186; 87205; 93005; 93010; 93306; 94002; 94003; 94640; 94660; 94667; 94668; 94799; 96365; 96366; 96367; 96375; 99291; 99292; G8978-GP; G8979-GP; J0692; J0696; J1100; J1630; J1644; J1940; J2250; J2550; J2704; J2920; J2930; J3475; J3480; J3490; J7030; J7512; J7620

== ENCOUNTER → 2018-03-06 | Outpatient (CLI) | payer MEDICARE ==
--- NOTE | 2018-03-07 10:06 | RADIOLOGY REPORT (SQ) ---
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 TECHNIQUE: Blood glucose level was verified. Above dose of FDG was injected intravenously. 2-D seg mented attenuation correction images were obtained from the base of the skull to the midthighs. Nonc ontrast CT images were obtained for attenuation correction and fusion with emission images. CT image s were performed without oral or intravenous contrast and are not sensitive for parenchymal lesions. A series of overlapping emission PET images were obtained. Images reviewed and manipulated at [facility] work station by the radiologist. Images stored on PACS. LIMITATIONS: None. FINDINGS: HEAD AND NECK: No areas of abnormal metabolic activity in the soft tissues of the head and neck. CHEST: Post old right upper lobectomy with fluid-filled right apical post lobectomy space in the apex right hemithorax unchanged from 02/17/2010. Obstructive lung disease. No hypermetabolic lung or medi astinal lesions. ABDOMEN AND PELVIS: No areas of abnormal metabolic activity in the abdomen or pelvis. Expected physi ologic activity is present in the genitourinary system and bowel. PROXIMAL LOWER EXTREMITIES: No areas of abnormal metabolic activity in the soft tissues of the lower extremities. BONES: No abnormal metabolic activity in the visualized skeleton. ADDITIONAL CT FINDINGS: 2 cm right upper pole renal cortical cyst. Post hysterectomy. OTHER: Liver background activity 2.1 SUV. Blood pool background activity 1.5 SUV IMPRESSION: Old post right upper lobectomy change. No PET-CT evidence of recurrent or metastatic di sease given history of lung cancer TECHNICAL DOCUMENTATION: JOB ID: [id number]- All Rights Reserved Reading location - IP/workstation name: [email or web address]
== END ==
LOC: RAD 16:48
PROVIDERS: ATTEND Internal Medicine Medical Oncology
DX: Z85.118 Personal history of other malignant neoplasm of bronchus and lung (principal)
CPT/HCPCS: 78815; A9552

== ENCOUNTER 2018-09-10 11:31 | Inpatient (IN) | payer MEDICARE, OTHER ==
[2018-09-10] MEDS ORDERED: NORMAL SALINE 500 ML IV ONE (11:43)
--- NOTE | 2018-09-10 11:49 | ER Document Report ---
ED General - General Stated Complaint: DIFFICULTY BREATHING Time Seen by Provider: 09/10/18 11:41 Mode of Arrival: Medic TRAVEL OUTSIDE OF THE [place] IN LAST 30 DAYS: No - HPI Patient complains to provider of: short of breath Onset: Other - 73-year-old female with a history of asthma in the past and recurrent pneumonia requiring ventilation in January of this year that presents for evaluation of 3 days of productive cough shortness of breath and some tightness in the chest which is continued to worsen today however her cough became less productive and her breathing became much worse despite using her home inhaler. Upon arrival EMS noted that her saturation was in the low 80s she was given a nebulization treatment and placed on 6 L to maintain a saturation in the mid 90s. She refused BiPAP at that time. - Related Data Allergies/Adverse Reactions: moxifloxacin [From Avelox] Allergy (Severe, Verified 09/10/18 11:57) Shortness of Breath procaine HCl [From Novocain] Allergy (Severe, Verified 09/10/18 11:57) Hives azithromycin [Azithromycin] Allergy (Intermediate, Verified 09/10/18 11:57) Vomiting Past Medical History - General Information source: Patient, Emergency Med Personnel - Social History Smoking Status: Current Every Day Smoker Smoking Education Provided: Yes Frequency of alcohol use: None Drug Abuse: None Lives with: Alone Family History: None, Malignancy - Lung cancer - Past Medical History Cardiac Medical History: Reports: Hx Heart Attack - in 2014 but cath negative., Hx Hypercholesterolemia Pulmonary Medical History: Reports: Hx COPD - 2014 fev1=43, Hx Pneumonia - 2014 Renal/ Medical History: Denies: Hx Peritoneal Dialysis Malignancy Medical History: Reports: Hx Lung Cancer - 2006 RUL surgery chemo radiation Psychiatric Medical History: Denies: Hx Depression Past Surgical History: Reports: Hx Hysterectomy, Other - RUL lobectomy; port-a- cath, lung biopsies and bronchoscopies. - Immunizations Immunizations up to date: Yes Hx Diphtheria, Pertussis, Tetanus Vaccination: Yes Hx Pneumococcal Vaccination: 10/16/16 Review of Systems - Review of Systems -: Yes All other systems reviewed and negative Physical Exam - Vital signs Vitals: Pulse Ox 73 L 09/10/18 11:35 - General General appearance: Alert, Anxious In distress: Moderate - HEENT Head: Normocephalic, Atraumatic Eyes: Normal Pupils: PERRL - Respiratory Respiratory status: Tachypnea, Tripod position Chest status: Nontender Breath sounds: Rhonchi, Wheezing Chest palpation: Normal - Cardiovascular Rhythm: Tachycardia Heart sounds: Normal auscultation Murmur: No - Abdominal Inspection: Normal Distension: No distension Bowel sounds: Normal Tenderness: Nontender Organomegaly: No organomegaly - Back Back: Normal, Nontender - Extremities General upper extremity: Normal inspection, Nontender, Normal color, Normal ROM , Normal temperature General lower extremity: Normal inspection, Nontender, Normal color, Normal ROM , Normal temperature, Normal weight bearing. No: Shavonne's sign - Neurological Neuro grossly intact: Yes Cognition: Normal Orientation: AAOx4 [place]re Coma Scale Eye Opening: Spontaneous [place] Coma Scale Verbal: Oriented Lanre Coma Scale Motor: Obeys Commands Lanre Coma Scale Total: 15 Speech: Normal Motor strength normal: LUE, RUE, LLE, RLE Sensory: Normal - Psychological Associated symptoms: Normal affect, Normal mood Course - Re-evaluation Re-evalutation: 09/10/18 11:48 There is a 73-year-old female with a history of multiple respiratory complaints and a previous episode requiring ventilation that presents for productive cough shortness of breath and fever. She is in obvious distress on examination placed on 6 L nasal cannula to maintain a normal saturation. We did speak about her end-of-life goals she does note that she would be a full code at this time. We will defer initiation of BiPAP at this time she does that she is starting to feel better. On reassessment following administration of nebulizations in the emergency department as well as steroids this patient has improved and her work of breathing substantially, she is currently on 6 L by nasal cannula breathing much more comfortably and able to speak in 5 word and 6 word sentences as opposed to the 1 and 2 words upon arrival. Her chest x-ray shows chronic infiltrates, her systemic markers for infection are unremarkable at this time I do not believe this represents a pneumonia or more serious insidious underlying process. Have contacted the on-call hospitalist for admission of this patient as her oxygen requirement is elevated in comparison to her previous. We will plan for continued treatment of what is presumed to be a COPD exacerbation. Notable that this patient continue to smoke cigarettes daily despite having had a previous pneumonectomy in the past. Likely has an underlying cause of her underlying shortness of breath. - Vital Signs Vital signs: Temp Pulse Resp BP Pulse Ox 98.3 F 92 22 H 104/75 97 09/11/18 11:41 09/11/18 11:41 09/11/18 11:41 09/11/18 11:41 09/11/18 12:00 - Laboratory Result Diagrams: 09/11/18 06:07 09/11/18 06:07 Laboratory results interpreted by me: 09/10/18 09/11/18 09/11/18 11:05 06:07 06:07 WBC 15.1 H D Hgb 11.5 L Hct 34.8 L RDW 14.8 H 14.7 H Glucose 111 H Total Protein 6.2 L Discharge - Discharge Clinical Impression: Smoker, COPD with exacerbation, Cough, Respiratory distress Chronic respiratory failure, unspecified whether with hypoxia or hypercapnia Qualifiers: Respiratory failure complication: unspecified whether with hypoxia or hypercapnia Qualified Code(s): J96.10 - Chronic respiratory failure, unspecified whether with hypoxia or hypercapnia Condition: Stable Disposition: ADMITTED INPATIENT Admitting Provider: Hospitalist Unit Admitted: Medical Floor
[2018-09-10 11:57] LABS: ABSOLUTE BASOPHILS # (AUTO) 0.1 10^3/uL (0.0-0.2); ABSOLUTE EOSINOPHILS # (AUTO) 0.2 10^3/uL (0.0-0.6); ABSOLUTE LYMPHOCYTES (AUTO) 1.3 10^3/uL (0.5-4.7); ABSOLUTE MONOCYTES (AUTO) 0.5 10^3/uL (0.1-1.4); ABSOLUTE NEUT (AUTO) 3.7 10^3/uL (1.7-8.2); EOSINOPHILS % (AUTO) 2.8 % (0-6); HEMATOCRIT 39.8 % (36.0-47.0); HEMOGLOBIN 13.5 g/dL (12.0-15.5); LYMPHOCYTES % (AUTO) 23.4 % (13-45); MEAN CORPUSCULAR HEMOGLOBIN 29.2 pg (27.0-33.4); MEAN CORPUSCULAR HGB CONC 33.9 g/dL (32.0-36.0); MEAN CORPUSCULAR VOLUME 86 fl (80-97); PLATELET COUNT 291 10^3/uL (150-450); RED BLOOD COUNT 4.62 10^6/uL (3.72-5.28); RED CELL DISTRIBUTION WIDTH 14.8 % (11.5-14.0); SEGMENTED NEUTROPHILS % (AUTO) 63.8 % (42-78); TOTAL CELLS COUNTED % (AUTO) 100 %; WHITE BLOOD COUNT 5.7 10^3/uL (4.0-10.5)
[2018-09-10 12:12] LABS: VENOUS BLOOD BASE EXCESS 0.8 mmol/L; VENOUS BLOOD HCO3 28.4 mmol/L (20-32); VENOUS BLOOD PCO2 57.5 mmHg (35-63); VENOUS BLOOD PH 7.31 (7.30-7.42)
[2018-09-10 12:14] LABS: ALANINE AMINOTRANSFERASE 17 U/L (9-52); ALBUMIN 4.2 g/dL (3.5-5.0); ALKALINE PHOSPHATASE 89 U/L (38-126); ANION GAP 11 (5-19); ASPARTATE AMINO TRANSFERASE 24 U/L (14-36); BILIRUBIN,DIRECT 0.3 mg/dL (0.0-0.4); BILIRUBIN,TOTAL 0.7 mg/dL (0.2-1.3); BLOOD UREA NITROGEN 16 mg/dL (7-20); CALCIUM 10.2 mg/dL (8.4-10.2); CARBON DIOXIDE 27 mmol/L (22-30); CHLORIDE 101 mmol/L (98-107); GLUCOSE 104 mg/dL (75-110); POTASSIUM 4.6 mmol/L (3.6-5.0); SODIUM 138.8 mmol/L (137-145); TOTAL PROTEIN 7.1 g/dL (6.3-8.2)
--- NOTE | 2018-09-10 12:21 | RADIOLOGY REPORT (SQ) ---
EXAM DESCRIPTION: CHEST SINGLE VIEW COMPLETED DATE/TIME: 09/10/2018 12:05 pm REASON FOR STUDY: bed 2 db COMPARISON: 01/21/2018 EXAM PARAMETERS: NUMBER OF VIEWS: One view. TECHNIQUE: Single frontal radiographic view of the chest acquired. RADIATION DOSE: NA LIMITATIONS: None. FINDINGS: LUNGS AND PLEURA: Post surgical changes from previous right pneumonectomy. Hyperinflatio n of the lungs and stable chronic interstitial changes in the left lower lobe. No pneumothorax. MEDIASTINUM AND HILAR STRUCTURES: No masses. Contour normal. HEART AND VASCULAR STRUCTURES: Heart normal in size. Normal vasculature. BONES: No acute findings. HARDWARE: None in the chest. OTHER: No other significant finding. IMPRESSION: 1. Stable post surgical changes from previous right pneumonectomy since examination filiberto ed 01/21/2018. Chronic stable interstitial changes in the left lung. TECHNICAL DOCUMENTATION: JOB ID: [id number] [employer]- All Rights Reserved Reading location - IP/workstation name: [email or web address]
--- NOTE | 2018-09-10 12:47 | EKG REPORT ---
SEVERITY:- ABNORMAL ECG - SINUS TACHYCARDIA RIGHT ATRIAL ABNORMALITY PROBABLE INFERIOR INFARCT, OLD PROBABLE ANTEROLATERAL INFARCT, OLD : Confirmed by: Cristhian Brink MD 10-Sep-2018 12:47:22
[2018-09-10] MEDS ORDERED: ACETAMINOPHEN 325 MG TABLET PO PRN (16:40)
--- NOTE | 2018-09-10 17:08 | PDOC H&P ---
History of Present Illness Admission Date/PCP: 09/10/18 13:52 DENISE GARVEY MD History of Present Illness: SADA ROLAND is a 73 year old female past medical history of lung cancer status post right upper lobe pneumonectomy and chemoradiation times 10 years ago, COPD on home oxygen 2 L as needed presenting to ED complaining of worsening shortness of breath on exertion, productive greenish cough, chest congestion, chills and left-sided pleuritic chest pain. She denies any sign of night sweats, weight changes. In ED she was found to be hypoxic with an SPO2 of 72%. CBC,CMP, troponins normal limits. Chest x-ray negative for pneumonia. Past Medical History Cardiac Medical History: Reports: Myocardial Infarction - in 2014 but cath negative., Hyperlipidema Pulmonary Medical History: Reports: Chronic Obstructive Pulmonary Disease (COPD ) - 2014 fev1=43, Pneumonia - 2014 Malignancy Medical History: Reports: Lung Cancer - 2006 RUL surgery chemo radiation Psychiatric Medical History: Denies: Depression Hematology: Reports: Anemia - b12 since 1955 Past Surgical History Past Surgical History: Reports: Hysterectomy, Other - RUL lobectomy; port-a-cath , lung biopsies and bronchoscopies. Social History Smoking Status: Current Every Day Smoker Frequency of Alcohol Use: None Hx Recreational Drug Use: No Drugs: None Hx Prescription Drug Abuse: No Family History Family History: Malignancy - Lung cancer Parental Family History Reviewed: Yes Children Family History Reviewed: Yes Sibling(s) Family History Reviewed.: Yes Medication/Allergy Home Medications: Tiotropium [place] [Spiriva Respimat] 2 puff IH QHS 01/08/18 Nicotine [Nicoderm 14 mg/24 Hr Transdermal Patch] 1 each TD DAILY patch.td24 Ipratropium/Albuterol Sulfate [Duoneb 3 ml Ampul] 3 ml NEB RTQ6HP PRN 09/10/18 Allergies/Adverse Reactions: moxifloxacin [From Avelox] Allergy (Severe, Verified 09/10/18 11:57) Shortness of Breath procaine HCl [From Novocain] Allergy (Severe, Verified 09/10/18 11:57) Hives azithromycin [Azithromycin] Allergy (Intermediate, Verified 09/10/18 11:57) Vomiting Review of Systems Constitutional: ABSENT: chills, fever(s), headache(s), weight gain, weight loss Cardiovascular: ABSENT: chest pain, dyspnea on exertion, edema, orthropnea, palpitations Gastrointestinal: ABSENT: abdominal pain, constipation, diarrhea, hematemesis, hematochezia, nausea, vomiting Genitourinary: ABSENT: dysuria, hematuria Musculoskeletal: ABSENT: joint swelling Neurological: ABSENT: abnormal gait, abnormal speech, confusion, dizziness, focal weakness, syncope Physical Exam Vital Signs: Temp Pulse Resp BP Pulse Ox 98.3 F 21 H 145/81 H 97 09/10/18 11:38 09/10/18 15:33 09/10/18 15:33 09/10/18 15:33 Results Impressions: Chest X-Ray 09/10/18 11:32 IMPRESSION: 1. Stable post surgical changes from previous right pneumonectomy since examination dated 01/21/2018. Chronic stable interstitial changes in the left lung. Assessment & Plan - Diagnosis (1) COPD with exacerbation Is this a current diagnosis for this admission?: Yes Plan: Restarted on DuoNeb, BiPAP, steroids, empiric antibiotics, long-acting beta agonist and long-acting antimuscarinic's. (2) Respiratory failure Qualifiers: Respiratory failure complication: hypoxia Is this a current diagnosis for this admission?: Yes Plan: Due to problem #1. Patient had O2 sat of 72% on on bedside pulse ox. VBG in ED within normal limits. Will order an ABG. Treat underlying disease. (3) Tobacco abuse Is this a current diagnosis for this admission?: Yes Plan: Counseled on quitting. Nicotine patch. (4) History of lung cancer Is this a current diagnosis for this admission?: No Plan: Status post right upper lobe lobectomy and chemo and radiation. Outpatient oncology follow-up.
[2018-09-10] MEDS ORDERED: CEFTRIAXONE 1 GM/D5W RTU 1 GM/50 ML RTUPB IV SCH (18:00)
[2018-09-10] MEDS: IPRATROPIUM/ALBUTEROL 0.5-2.5 MG/3 ML AMPUL NEB SCH (20:08)
[2018-09-10] MEDS: GUAIFENESIN 600 MG TABLET.SA PO SCH (21:27)
[2018-09-10] MEDS: FAMOTIDINE 20 MG TABLET PO SCH (21:27)
[2018-09-10] MEDS: CEFTRIAXONE SODIUM 1,000 MG in DEXTROSE 5%-WATER 50 ML IV SCH (22:04)
[2018-09-11] MEDS: IPRATROPIUM/ALBUTEROL 0.5-2.5 MG/3 ML AMPUL NEB SCH ×3 (02:42→13:51)
[2018-09-11 06:55] LABS: HEMATOCRIT 34.8 % (36.0-47.0); HEMOGLOBIN 11.5 g/dL (12.0-15.5); MEAN CORPUSCULAR HEMOGLOBIN 28.6 pg (27.0-33.4); MEAN CORPUSCULAR HGB CONC 33.1 g/dL (32.0-36.0); MEAN CORPUSCULAR VOLUME 86 fl (80-97); PLATELET COUNT 221 10^3/uL (150-450); RED BLOOD COUNT 4.02 10^6/uL (3.72-5.28); RED CELL DISTRIBUTION WIDTH 14.7 % (11.5-14.0)
[2018-09-11 06:59] LABS: WHITE BLOOD COUNT 15.1 10^3/uL (4.0-10.5)
[2018-09-11 07:16] LABS: ALBUMIN 3.6 g/dL (3.5-5.0); ANION GAP 11 (5-19); ASPARTATE AMINO TRANSFERASE 18 U/L (14-36); BLOOD UREA NITROGEN 16 mg/dL (7-20); CALCIUM 9.6 mg/dL (8.4-10.2); CARBON DIOXIDE 28 mmol/L (22-30); CHLORIDE 101 mmol/L (98-107); GLUCOSE 111 mg/dL (75-110); POTASSIUM 4.7 mmol/L (3.6-5.0); SODIUM 139.5 mmol/L (137-145)
[2018-09-11 07:17] LABS: ALANINE AMINOTRANSFERASE 18 U/L (9-52); ALKALINE PHOSPHATASE 66 U/L (38-126); BILIRUBIN,DIRECT 0.3 mg/dL (0.0-0.4); BILIRUBIN,TOTAL 0.8 mg/dL (0.2-1.3); TOTAL PROTEIN 6.2 g/dL (6.3-8.2)
[2018-09-11] MEDS ORDERED: PREDNISONE 20 MG TABLET PO SCH (10:00)
[2018-09-11] MEDS ORDERED: CEFTRIAXONE 1 GM/D5W RTU 50 ML IV SCH (10:00)
[2018-09-11] MEDS: FAMOTIDINE 20 MG TABLET PO SCH ×2 (11:17→21:28)
[2018-09-11] MEDS: GUAIFENESIN 600 MG TABLET.SA PO SCH ×2 (11:17→21:28)
[2018-09-11] MEDS: ENOXAPARIN SODIUM INJ 40 MG/0.4 ML DISP.SYRIN SUBCUT SCH (11:18)
[2018-09-11] MEDS: TIOTROPIUM BROMIDE DPI 5 CAP/KIT (18 MCG/CAP) IH SCH (11:22)
[2018-09-11] MEDS ORDERED: IPRATROPIUM/ALBUTEROL 0.5-2.5 MG/3 ML AMPUL NEB PRN (16:52)
[2018-09-11] MEDS ORDERED: NICOTINE 14 MG/24 HR PATCH.TD24 TD PRN (16:59)
--- NOTE | 2018-09-11 16:59 | PDOC PROGRESS REPORT ---
Subjective Progress Note for:: 09/11/18 Subjective:: 09/11/2018 3-year-old female with past medical history of lung cancer status post right upper lobe pneumonectomy and chemoradiation 10 years ago she is also history of COPD on home oxygen 2 L came to the emergency room with complaints of worsening of shortness of breath and exercise productive greenish sputum chest congestion and left-sided chest pain she was on IV Solu-Medrol IV antibiotics DuoNeb nebulizations patient says she is getting much better she wants to go home today denies any complaints. Reason For Visit: COPD EXACERBATION Physical Exam Vital Signs: Temp Pulse Resp BP Pulse Ox 98.9 F 97 20 105/51 L 97 09/11/18 15:24 09/11/18 15:24 09/11/18 15:24 09/11/18 15:24 09/11/18 16:33 Pulse Oximeter Continuous Start: 09/10/18 16: 46 Freq: RTQ4 Status: Active Document 09/11/18 16:33 HCR (Rec: 09/11/18 16:34 HCR [id number]) Pulse Oximetry Assessment Oxygen Saturation (92-100) 97 Oxygen Flow Rate (L/min) 2 Oxygen Delivery Method Nasal Cannula Equipment Usage Equipment in Use Continuous SpO2 Machine # 11 Intake & Output 09/10/18 09/11/18 09/12/18 06:59 06:59 06:59 Intake Total 1010 Balance 1010 General appearance: PRESENT: mild distress Head exam: PRESENT: atraumatic Eye exam: PRESENT: PERRLA Neck exam: ABSENT: carotid bruit, JVD, lymphadenopathy, thyromegaly Respiratory exam: PRESENT: rhonchi, tachypnea, wheezes Cardiovascular exam: PRESENT: RRR. ABSENT: diastolic murmur, rubs, systolic murmur GI/Abdominal exam: PRESENT: normal bowel sounds, soft. ABSENT: distended, guarding, mass, organolmegaly, rebound, tenderness Neurological exam: PRESENT: alert, awake, oriented to person, oriented to place , oriented to time, oriented to situation, CN II-XII grossly intact. ABSENT: motor sensory deficit Psychiatric exam: PRESENT: appropriate affect, normal mood. ABSENT: homicidal ideation, suicidal ideation Results Impressions: Chest X-Ray 09/10/18 11:32 IMPRESSION: 1. Stable post surgical changes from previous right pneumonectomy since examination dated 01/21/2018. Chronic stable interstitial changes in the left lung. Assessment & Plan - Diagnosis (1) COPD with exacerbation Is this a current diagnosis for this admission?: Yes Plan: 11/11/2017 getting DuoNeb nebulizations every 6 hours on IV steroids she is getting empiric antibiotics her pulse ox are improved patient is expressing desire to go home but on chest examination bilateral wheezing and rhonchi are present and requested to patient to stay at least another day she reluctantly agreed. I increased her nebulizations to every 4 hours as needed. (2) Respiratory failure Qualifiers: Respiratory failure complication: hypoxia Is this a current diagnosis for this admission?: Yes Plan: 09/11/2018. Respiratory Failure is resolving. on admission pulse ox are 72% pulse ox today is 97% on 2 L nasal cannula. (3) Smoker Is this a current diagnosis for this admission?: Yes Plan: 09/11/2018 patient is a chronic smoker requesting nicotine patch smoking counseling was provided. (4) History of lung cancer Is this a current diagnosis for this admission?: Yes Plan: 11/11/2017 patient has history of lung cancer status post right upper lobe lobectomy along with chemotherapy and radiation 10 years ago. She is following oncologist as an outpatient. - Time Time Spent with patient: 15-24 minutes Medications reviewed and adjusted accordingly: Yes
[2018-09-11] MEDS: PREDNISONE 10 MG TABLET PO SCH (17:51)
[2018-09-11] MEDS: CEFTRIAXONE SODIUM 1,000 MG in DEXTROSE 5%-WATER 50 ML IV SCH (21:29)
[2018-09-12 05:08] LABS: HEMATOCRIT 32.1 % (36.0-47.0); HEMOGLOBIN 10.9 g/dL (12.0-15.5); MEAN CORPUSCULAR HEMOGLOBIN 29.2 pg (27.0-33.4); MEAN CORPUSCULAR VOLUME 86 fl (80-97); PLATELET COUNT 223 10^3/uL (150-450); RED BLOOD COUNT 3.75 10^6/uL (3.72-5.28); RED CELL DISTRIBUTION WIDTH 14.4 % (11.5-14.0); WHITE BLOOD COUNT 10.3 10^3/uL (4.0-10.5)
[2018-09-12 05:25] LABS: ALANINE AMINOTRANSFERASE 20 U/L (9-52); ALBUMIN 3.5 g/dL (3.5-5.0); ALKALINE PHOSPHATASE 75 U/L (38-126); ANION GAP 11 (5-19); ASPARTATE AMINO TRANSFERASE 25 U/L (14-36); BILIRUBIN,DIRECT 0.2 mg/dL (0.0-0.4); BILIRUBIN,TOTAL 0.3 mg/dL (0.2-1.3); BLOOD UREA NITROGEN 17 mg/dL (7-20); CALCIUM 9.6 mg/dL (8.4-10.2); CARBON DIOXIDE 27 mmol/L (22-30); CHLORIDE 103 mmol/L (98-107); GLUCOSE 107 mg/dL (75-110); POTASSIUM 4.8 mmol/L (3.6-5.0); TOTAL PROTEIN 6.1 g/dL (6.3-8.2)
[2018-09-12 05:30] LABS: ABSOLUTE LYMPHOCYTES# (MANUAL) 0.1 10^3/uL (0.5-4.7); ABSOLUTE MONOCYTES # (MANUAL) 0.2 10^3/uL (0.1-1.4); BASOPHILS % (MANUAL) 0 % (0-2); EOSINOPHILS % (MANUAL) 0 % (0-6); LYMPHOCYTES % (MANUAL) 1 % (13-45); MONOCYTES % (MANUAL) 2 % (3-13); SEGMENTED NEUTROPHILS % (MAN) 97 % (42-78); TOTAL CELLS COUNTED 100
[2018-09-12 05:31] LABS: ANISOCYTOSIS SLIGHT; OVALOCYTES SLIGHT; PLATELET COMMENT ADEQUATE; POIKILOCYTOSIS SLIGHT
[2018-09-12] MEDS: FAMOTIDINE 20 MG TABLET PO SCH (11:21)
[2018-09-12] MEDS: PREDNISONE 10 MG TABLET PO SCH (11:21)
[2018-09-12] MEDS: ENOXAPARIN SODIUM INJ 40 MG/0.4 ML DISP.SYRIN SUBCUT SCH (11:21)
[2018-09-12] MEDS: GUAIFENESIN 600 MG TABLET.SA PO SCH (11:21)
[2018-09-12] MEDS: TIOTROPIUM BROMIDE DPI 5 CAP/KIT (18 MCG/CAP) IH SCH (11:29)
--- NOTE | 2018-09-12 14:14 | PDOC DISCHARGE SUMMARY ---
General - Admit/Disc Date/PCP Admission Date/Primary Care Provider: 09/11/18 10:44 DENISE GARVEY MD Discharge Date: 09/12/18 - Discharge Diagnosis (1) COPD with exacerbation Is this a current diagnosis for this admission?: Yes Summary: 09/12/2018 elderly patient admitted for COPD exacerbation she was started on DuoNeb nebulizations initially she was on BiPAP also on IV steroids later on it was switched to p.o. prednisone she was also on empiric antibiotic therapy in association with long-acting beta agonist and long-acting antimuscarinic agents today patient is comfortable in the bed denies any complaints chest bilateral entry was severely decreased but no wheezing and no crepitations in my opinion COPD exacerbation is resolved. (2) Respiratory failure Is this a current diagnosis for this admission?: Yes Summary: 09/12/2018-11 the patient came seen pulse ox is 72% at bedside. His pulse ox on 2 L is 95%. He is not using oxygen 2 L nasal cannula at home. (3) Smoker Is this a current diagnosis for this admission?: Yes Summary: 09/12/2018 again counseling was provided and she was provided with a nicotine patch while she was here in the hospital. (4) History of lung cancer Is this a current diagnosis for this admission?: Yes Summary: 09/12/2018 has a history of lung cancer status post right upper lobe lobectomy in association with chemo and radiation therapy advised her to follow-up with the oncologist as an outpatient. - Additional Information Discharge Diet: Cardiac Discharge Activity: Activity As Tolerated Prescriptions: Famotidine [Pepcid 20 mg Tablet] 20 mg PO Q12 30 Days tablet Guaifenesin [Mucinex Sr 600 mg Tablet.sa] 600 mg PO Q12 7 Days tablet.sa Prednisone [Deltasone 10 mg Tablet] 5 mg PO BID 7 Days tablet Home Medications: Tiotropium [place] [Spiriva Respimat] 2 puff IH QHS 01/08/18 Ipratropium/Albuterol Sulfate [Duoneb 3 ml Ampul] 3 ml NEB RTQ6HP PRN 09/10/18 Famotidine [Pepcid 20 mg Tablet] 20 mg PO Q12 30 Days tablet 09/12/18 Guaifenesin [Mucinex Sr 600 mg Tablet.sa] 600 mg PO Q12 7 Days tablet.sa Prednisone [Deltasone 10 mg Tablet] 5 mg PO BID 7 Days tablet 09/12/18 History of Present Illness History of Present Illness: SADA ROLAND is a 73 year old female Hospital Course Hospital Course: 09/12/2018 83-year-old female with history of lung cancer status post right upper lobe pneumonectomy and chemo/radiation therapy 10 years ago she has also history of COPD on home oxygen 2 L as needed came to the emergency room with complaints of shortness of breath on exertion in association with productive cough and chest congestion, chills and left-sided pleuritic chest pain denies any night sweats weight changes at that time the pulse ox is in the ED is 92%. CBC CMP troponins at the time of admission are normal. Chest x-ray negative for pneumonia at the time of admission. Physical Exam Vital Signs: Temp Pulse Resp BP Pulse Ox 98.3 F 93 16 124/50 L 95 09/12/18 11:18 09/12/18 11:18 09/12/18 11:18 09/12/18 11:18 09/12/18 11:51 Pulse Oximeter Continuous Start: 09/10/18 16: 46 Freq: RTQ4 Status: Active Document 09/12/18 11:51 [facility] (Rec: 09/12/18 11:51 [facility] [id number]) Pulse Oximetry Assessment Oxygen Saturation (92-100) 95 Oxygen Flow Rate (L/min) 2 Oxygen Delivery Method Nasal Cannula Equipment Usage Equipment in Use Continuous SpO2 Machine # 6 Intake & Output 09/11/18 09/12/18 09/13/18 06:59 06:59 06:59 Intake Total 1652 Balance 1652 Weight 58.3 kg General appearance: PRESENT: no acute distress Head exam: PRESENT: atraumatic Eye exam: PRESENT: PERRLA Mouth exam: PRESENT: moist, tongue midline Respiratory exam: PRESENT: unlabored Cardiovascular exam: PRESENT: RRR. ABSENT: diastolic murmur, rubs, systolic murmur GI/Abdominal exam: PRESENT: normal bowel sounds, soft. ABSENT: distended, guarding, mass, organolmegaly, rebound, tenderness Neurological exam: PRESENT: alert, awake, oriented to person, oriented to place , oriented to time, oriented to situation, CN II-XII grossly intact. ABSENT: motor sensory deficit Psychiatric exam: PRESENT: appropriate affect, normal mood. ABSENT: homicidal ideation, suicidal ideation Results Laboratory Results: 09/12/18 03:45 09/12/18 03:45 09/12/18 09/12/18 03:45 03:45 WBC 10.3 RBC 3.75 Hgb 10.9 L Hct 32.1 L MCV 86 MCH 29.2 MCHC 34.0 RDW 14.4 H Plt Count 223 Seg Neutrophils % Not Reportable Lymphocytes % Not Reportable Monocytes % Not Reportable Eosinophils % Not Reportable Basophils % Not Reportable Absolute Neutrophils Not Reportable Absolute Lymphocytes Not Reportable Absolute Monocytes Not Reportable Absolute Eosinophils Not Reportable Absolute Basophils Not Reportable Sodium 141.0 Potassium 4.8 Chloride 103 Carbon Dioxide 27 Anion Gap 11 BUN 17 Creatinine 0.70 Est GFR ( Amer) > 60 Est GFR (Non-Af Amer) > 60 Glucose 107 Calcium 9.6 Magnesium 2.4 H Total Bilirubin 0.3 AST 25 ALT 20 Alkaline Phosphatase 75 Total Protein 6.1 L Albumin 3.5 Impressions: Chest X-Ray 09/10/18 11:32 IMPRESSION: 1. Stable post surgical changes from previous right pneumonectomy since examination dated 01/21/2018. Chronic stable interstitial changes in the left lung. Qualifiers - * PATIENT BEING DISCHARGED WITH ANY OF THE FOLLOWING DIAGNOSIS: No VTE patient discharged on overlapping Therapy?: No Plan Time Spent: Less than 30 Minutes
[2018-09-12 14:47] VITALS: BP 138/68
== END 2018-09-12 14:05 | disposition home or self-care (01) | DRG 191 ==
LOC: ER 11:31 → EH 13:52 → INTOOBSV 13:52 → 4N 17:59 → OBSVTOIN 09-11 10:44
PROVIDERS: ADMIT Internal Medicine; ATTEND Internal Medicine
DX: J44.1 Chronic obstructive pulmonary disease with (acute) exacerbation (principal); J96.11 Chronic respiratory failure with hypoxia; Z88.1 Allergy status to other antibiotic agents; Z88.8 Allergy status to other drugs, medicaments and biological substances; I25.2 Old myocardial infarction; E78.5 Hyperlipidemia, unspecified; Z85.118 Personal history of other malignant neoplasm of bronchus and lung; Z92.3 Personal history of irradiation; Z87.01 Personal history of pneumonia (recurrent); Z99.81 Dependence on supplemental oxygen; Z90.2 Acquired absence of lung [part of]; Z90.710 Acquired absence of both cervix and uterus; Z92.21 Personal history of antineoplastic chemotherapy
CPT/HCPCS: 36415; 71045; 80053; 82803; 83605; 83735; 84484; 85025; 85027; 87040; 93005; 93010; 94640; 94762; 96360; 99285; G0378; G8978-GP; G8979-GP; J0696; J1650; J3490; J7040; J7512; J7620

== ENCOUNTER 2018-09-14 19:52 | Inpatient (IN) | payer MEDICARE ==
[2018-09-14] MEDS ORDERED: ALBUTEROL SULFATE 0.083% NEB 2.5 MG/3 ML AMPUL NEB ONE ×3 (20:00→21:54)
--- NOTE | 2018-09-14 20:14 | ER Document Report ---
ED General - General Chief Complaint: Breathing Difficulty Stated Complaint: RESPIRATORY DISTRESS Time Seen by Provider: 09/14/18 20:09 Cannot obtain history due to: Unstable vital signs Notes: Patient is a 73-year-old female with a past medical history of lung cancer, COPD with baseline oxygen dependence of 2 L by nasal cannula, continues to smoke , who presents in respiratory distress. Initial history is limited secondary to the patient's degree of distress. She was discharged from the hospital 48 hours ago after being admitted for a COPD exacerbation. Per EMS the patient was initially saturating 78% on 2 L by nasal cannula. She did have some improvement of her symptoms after receiving [id number] nebulizers. Patient states that she has been taking prednisone and doxycycline at home. History is otherwise limited secondary to the patient's initial degree of illness at time of presentation. TRAVEL OUTSIDE OF THE [place] IN LAST 30 DAYS: No - Related Data Allergies/Adverse Reactions: moxifloxacin [From Avelox] Allergy (Severe, Verified 09/10/18 11:57) Shortness of Breath procaine HCl [From Novocain] Allergy (Severe, Verified 09/10/18 11:57) Hives azithromycin [Azithromycin] Allergy (Intermediate, Verified 09/10/18 11:57) Vomiting Past Medical History - General Information source: Patient - Social History Smoking Status: Current Every Day Smoker Frequency of alcohol use: None Drug Abuse: None Lives with: Alone Family History: Reviewed & Not Pertinent, Malignancy - Lung cancer Patient has suicidal ideation: No Patient has homicidal ideation: No - Past Medical History Cardiac Medical History: Reports: Hx Heart Attack - in 2014 but cath negative., Hx Hypercholesterolemia Pulmonary Medical History: Reports: Hx COPD - 2014 fev1=43, Hx Pneumonia - 2014 Renal/ Medical History: Denies: Hx Peritoneal Dialysis Malignancy Medical History: Reports: Hx Lung Cancer - 2006 RUL surgery chemo radiation Musculoskeletal Medical History: Reports Hx Arthritis Psychiatric Medical History: Denies: Hx Depression Past Surgical History: Reports: Hx Hysterectomy, Other - RUL lobectomy; port-a- cath, lung biopsies and bronchoscopies. - Immunizations Immunizations up to date: Yes Hx Diphtheria, Pertussis, Tetanus Vaccination: Yes Hx Pneumococcal Vaccination: 10/16/16 Review of Systems - Review of Systems Notes: Constitutional: Negative for fever. HENT: Negative for sore throat. Eyes: Negative for visual changes. Cardiovascular: Negative for chest pain. Respiratory: Positive for shortness of breath. Gastrointestinal: Negative for abdominal pain, vomiting or diarrhea. Genitourinary: Negative for dysuria. Musculoskeletal: Negative for back pain. Skin: Negative for rash. Neurological: Negative for headaches, weakness or numbness. 10 point ROS negative except as marked above and in HPI. Physical Exam - Vital signs Vitals: Pulse Ox 68 L 09/14/18 19:56 Interpretation: Tachycardic, Hypoxic, Tachypneic Notes: PHYSICAL EXAMINATION: GENERAL: Ill in appearance, in moderate respiratory distress HEAD: Atraumatic, normocephalic. EYES: Pupils equal round and reactive to light, extraocular movements intact, sclera anicteric, conjunctiva are normal. ENT: nares patent, oropharynx clear without exudates. Moist mucous membranes. NECK: Normal range of motion, supple without lymphadenopathy LUNGS: Poor air movement in all lung mahmood. Coarse wheezing and rhonchi throughout. Moderate respiratory distress with tachypnea approximately 30 breaths/min. HEART: Regular tachycardia without murmurs ABDOMEN: Soft, nontender, normoactive bowel sounds. No guarding, no rebound. No masses appreciated. EXTREMITIES: Normal range of motion, no pitting or edema. No cyanosis. NEUROLOGICAL: No focal neurological deficits. Moves all extremities spontaneously and on command. PSYCH: Moderately anxious SKIN: Warm, Dry, normal turgor, no rashes or lesions noted. Course - Re-evaluation Re-evalutation: 09/14/18 20:13 Initial documentation is delayed as I have been at this patient's bedside and she arrived by EMS. In summary the patient arrives in moderate respiratory distress breathing approximately 32 times per minute, saturating 82% on 2 L by nasal cannula which is her normal home oxygen level. The patient is unable to speak in full sentences, speaking in 2-3 word sentences. Patient has received 125 mill grams of Solu-Medrol prior to arrival as well as 2 duo nebulizers. She was immediately placed on continuous albuterol nebulizers. 2 g of magnesium will also be infused. I advised BiPAP which the patient has refused. I do recall this patient quite well from December at which time she also refused BiPAP and had deterioration of her respiratory condition requiring intubation. I again advised the patient that there is significant risk that her respiratory status could deteriorate so much when I saw her in December mandating intubation. She states that she understands this risk and still refuses BiPAP. The patient also has a known history of lung cancer. Her lung examination is consistent with diffuse wheezes and rales, no real clinical concern for acute PE at this time. She is already on doxycycline and prednisone as an outpatient. She was just discharged on 09/12. She will undergo a chest x-ray, labs and will be monitored very closely. She is in very guarded condition. 09/14/18 20:44 Patient is having significant work of breathing improvement. She is now moving air in a much improved fashion, able to speak in nearly complete sentence. Will continue to monitor closely and reassess at regular intervals. 09/14/18 22:15 Patient's work of breathing is overall much improved, does still require 5 L of nasal cannula to maintain saturations above 92%. Continues to have coarse wheezing in all lung mahmood. Additional albuterol has been ordered. I discussed with the hospitalist Dr. Diaz who has accepted the patient for admission. - Vital Signs Vital signs: Temp Pulse Resp BP Pulse Ox 116 H 24 H 121/87 H 93 09/14/18 20:04 09/14/18 23:01 09/14/18 23:01 09/14/18 23:01 - Laboratory Result Diagrams: 09/14/18 20:00 09/14/18 20:00 Laboratory results interpreted by me: 09/14/18 09/14/18 20:00 20:00 RDW 14.3 H Seg Neutrophils % 80.5 H Lymphocytes % 10.6 L Glucose 146 H - Diagnostic Test Radiology reviewed: Image reviewed, Reports reviewed Radiology results interpreted by me: 09/14/18 22:15 Chest x-ray: No acute infiltrate. Critical Care Note - Critical Care Note Total time excluding time spent on procedures (mins): 38 Comments: Critical care time spent obtaining history from patient or surrogate, discussions with consultants, development of treatment plan with patient or surrogate, evaluation of patient's response to treatment, examination of patient , ordering and performing treatments and interventions, ordering and review of laboratory studies, re-evaluation of patient's condition, ordering and review of radiographic studies and review of old charts Discharge - Discharge Clinical Impression: Respiratory distress, COPD exacerbation Respiratory failure Qualifiers: Chronicity: acute Respiratory failure complication: hypoxia Qualified Code(s): J96.01 - Acute respiratory failure with hypoxia Condition: Fair Disposition: ADMITTED INPATIENT Admitting Provider: Hospitalist Unit Admitted: Telemetry
[2018-09-14] MEDS: MAGNESIUM SULFATE/D5W 1 GM/100 ML RTUPB IV SCH ×2 (20:33→21:10)
[2018-09-14 20:36] LABS: ABSOLUTE MONOCYTES (AUTO) 0.8 10^3/uL (0.1-1.4); ABSOLUTE NEUT (AUTO) 7.6 10^3/uL (1.7-8.2); BASOPHILS % (AUTO) 0.4 % (0-2); EOSINOPHILS % (AUTO) 0.2 % (0-6); HEMATOCRIT 36.3 % (36.0-47.0); HEMOGLOBIN 12.4 g/dL (12.0-15.5); LYMPHOCYTES % (AUTO) 10.6 % (13-45); MEAN CORPUSCULAR HEMOGLOBIN 29.3 pg (27.0-33.4); MEAN CORPUSCULAR HGB CONC 34.1 g/dL (32.0-36.0); MEAN CORPUSCULAR VOLUME 86 fl (80-97); MONOCYTES % (AUTO) 8.3 % (3-13); PLATELET COUNT 323 10^3/uL (150-450); RED BLOOD COUNT 4.21 10^6/uL (3.72-5.28); RED CELL DISTRIBUTION WIDTH 14.3 % (11.5-14.0); SEGMENTED NEUTROPHILS % (AUTO) 80.5 % (42-78); TOTAL CELLS COUNTED % (AUTO) 100 %; WHITE BLOOD COUNT 9.5 10^3/uL (4.0-10.5)
[2018-09-14 20:49] LABS: ANION GAP 13 (5-19); BLOOD UREA NITROGEN 17 mg/dL (7-20); CALCIUM 9.6 mg/dL (8.4-10.2); CARBON DIOXIDE 26 mmol/L (22-30); CHLORIDE 101 mmol/L (98-107); GLUCOSE 146 mg/dL (75-110); POTASSIUM 4.2 mmol/L (3.6-5.0); SODIUM 139.6 mmol/L (137-145)
--- NOTE | 2018-09-14 21:41 | RADIOLOGY REPORT (SQ) ---
EXAM DESCRIPTION: XR CHEST 1 VIEW COMPLETED DATE/TME: 09/14/2018 20:12 CLINICAL HISTORY: 73 years, Female, sob, copd Compared to 09/10/2018. Findings: Heart is not enlarged. Right upper chest consolidation/pleural thickening is noted. This is similar to the prior study. No acute consolidation. No pneumothorax. No pleural effusions. IMPRESSION: Stable findings. No acute disease.
[2018-09-14] MEDS ORDERED: NORMAL SALINE 1000 ML 1,000 ML IV ONE (22:02)
[2018-09-15] MEDS ORDERED: LEVALBUTEROL HCL NEB 1.25 MG/3 ML AMPUL NEB PRN (00:06)
[2018-09-15] MEDS ORDERED: PROMETHAZINE HCL INJ 25 MG/1 ML VIAL IV PRN (00:06)
[2018-09-15] MEDS ORDERED: ACETAMINOPHEN 325 MG TABLET PO PRN (00:06)
[2018-09-15] MEDS ORDERED: PROMETHAZINE HCL 25 MG TABLET PO PRN (00:06)
[2018-09-15] MEDS ORDERED: MAG HYDROX/AL HYDROX/SIMETH SUSP 30 ML UDCUP PO PRN (00:06)
[2018-09-15] MEDS ORDERED: TEMAZEPAM 7.5 MG CAPSULE PO PRN (00:06)
[2018-09-15] MEDS ORDERED: DOXYCYCLINE HYCLATE INJ 100 MG VIAL IV PRN (00:26)
[2018-09-15] MEDS ORDERED: DOXYCYCLINE HYCLATE 100 MG in DEXTROSE 5%-WATER 250 ML IV ONE (00:30)
[2018-09-15] MEDS ORDERED: DOXYCYCLINE HYCLATE INJ 100 MG VIAL IV SCH (00:30)
--- NOTE | 2018-09-15 01:33 | PDOC H&P ---
History of Present Illness Admission Date/PCP: 09/14/18 22:23 DENISE GARVEY MD Patient complains of: Shortness of breath History of Present Illness: SADA ROLAND is a 73 year old female with a past medical history of lung cancer, COPD with baseline oxygen dependence of 2 L by nasal cannula, continues to smoke 1-2 cigarettes a day, who presents in respiratory distress. Patient has been discharged from our facility 2 days ago after being admitted for a COPD exacerbation. Per EMS the patient was initially saturating 78% on 2 L by nasal cannula. Complains of progressive shortness of breath, cough with greenish sputum, wheezing and persistent cough, she smoked 1 cigarettes a day, she did have some improvement of her symptoms after receiving [id number] nebulizers. Patient states that she has been taking prednisone and doxycycline at home. Initially was on nonrebreather and she refused to have BiPAP secondary to claustrophobia but agrees to intubation if necessary. After treatment in the emergency department she was saturating 91% on 5 L via nasal cannula. Chest x-ray in the emergency department negative. By the time I went to see her she was a still unable to speak in full sentences and was desaturating upon talking to me. Past Medical History Cardiac Medical History: Reports: Myocardial Infarction - in 2014 but cath negative., Hyperlipidema Pulmonary Medical History: Reports: Chronic Obstructive Pulmonary Disease (COPD ) - 2014 fev1=43, Pneumonia - 2014 Malignancy Medical History: Reports: Lung Cancer - 2006 RUL surgery chemo radiation Musculoskeltal Medical History: Reports: Arthritis Psychiatric Medical History: Denies: Depression Hematology: Reports: Anemia - b12 since 1956 Past Surgical History Past Surgical History: Reports: Hysterectomy, Other - RUL lobectomy; port-a-cath , lung biopsies and bronchoscopies. Social History Lives with: Alone Smoking Status: Current Every Day Smoker - 1-2 cigarettes a day Frequency of Alcohol Use: None Hx Recreational Drug Use: No Drugs: None Hx Prescription Drug Abuse: No Past Social History Note: Lives alone and her family is in [facility]. Family History Family History: Reviewed & Not Pertinent, Malignancy - Lung cancer Parental Family History Reviewed: Yes Children Family History Reviewed: Yes Sibling(s) Family History Reviewed.: Yes Medication/Allergy Home Medications: Tiotropium Aurora [Spiriva Respimat] 2 puff [facility] 01/08/18 Ipratropium/Albuterol Sulfate [Duoneb 3 ml Ampul] 3 ml NEB [id number] PRN 09/10/18 Famotidine [Pepcid 20 mg Tablet] 20 mg PO Q12 30 Days tablet 09/12/18 Guaifenesin [Mucinex Sr 600 mg Tablet.sa] 600 mg PO Q12 7 Days tablet.sa Prednisone [Deltasone 10 mg Tablet] 5 mg PO BID 7 Days tablet 09/12/18 Sulfamethoxazole/Trimethoprim [Bactrim Ds Tablet] 1 each PO BID #14 tablet 09/12 Allergies/Adverse Reactions: moxifloxacin [From Avelox] Allergy (Severe, Verified 09/10/18 11:57) Shortness of Breath procaine HCl [From Novocain] Allergy (Severe, Verified 09/10/18 11:57) Hives azithromycin [Azithromycin] Allergy (Intermediate, Verified 09/10/18 11:57) Vomiting Review of Systems Review of Systems: As outlined in the HPI, all others negative Physical Exam Vital Signs: Temp Pulse Resp BP Pulse Ox 98 F 102 H 21 H 125/53 L 89 L 09/15/18 00:06 09/15/18 00:06 09/15/18 00:06 09/15/18 00:06 09/15/18 00:06 Intake & Output 09/13/18 09/14/18 09/15/18 06:59 06:59 06:59 Intake Total 1100 Balance 1100 Additional comments: General appearance: Elderly, chronically ill, alert and cooperative, and appears to be in moderate acute distress secondary to respiratory distress, unable to speak in full sentences. Head: Normocephalic Eyes: PEERL, EOMI, vision is grossly intact. Ears: External auditory canal and tympanic membranes clear, hearing grossly intact. Nose: No nasal discharge. Throat: Oral cavity and pharynx normal. No inflammation, swelling, exudate or lesions. Neck: Neck supple, nontender without lymphadenopathy, masses or thyromegaly. Cardiac: Normal S1 and S2. No S3, S4 or murmurs. Rhythm is regular and tachycardic. There is no cyanosis or pallor. Extremities are warm and well perfused. Capillary refill is less than 2 seconds. No carotid bruits. Lungs: Severe bilateral decreased breath sounds with bibasilar crackles, moderate expiratory wheezing, mild rhonchi, audible wheezing without a stethoscope. Not using accessory muscles. Abdomen: Positive bowel sounds. Soft. Nondistended, nontender. No guarding or rebound. No masses. No hepatosplenomegaly Extremities: No significant deformity or joint abnormality. Mild ankle edema. Peripheral pulses intact. Neurological: Cranial nerves II through XII grossly intact. Moves all extremities Skin: Skin mild pallor, normal texture and turgor, warm and dry Psychiatric: examination revealed the patient was oriented to person, place, and time. The patient was able to demonstrate good judgment on recent, without hallucinations, abnormal affect or abnormal behaviors. Results Laboratory Results: 09/14/18 09/14/18 09/14/18 20:00 20:00 20:00 WBC 9.5 RBC 4.21 Hgb 12.4 Hct 36.3 MCV 86 MCH 29.3 MCHC 34.1 RDW 14.3 H Plt Count 323 Seg Neutrophils % 80.5 H Lymphocytes % 10.6 L Monocytes % 8.3 Eosinophils % 0.2 Basophils % 0.4 Absolute Neutrophils 7.6 Absolute Lymphocytes 1.0 Absolute Monocytes 0.8 Absolute Eosinophils 0.0 Absolute Basophils 0.0 Sodium 139.6 Potassium 4.2 Chloride 101 Carbon Dioxide 26 Anion Gap 13 BUN 17 Creatinine 0.69 Est GFR ( Amer) > 60 Est GFR (Non-Af Amer) > 60 Glucose 146 H Calcium 9.6 Troponin I < 0.012 Impressions: Chest X-Ray 09/14/18 20:12 IMPRESSION: Stable findings. No acute disease. Assessment & Plan - Diagnosis (1) Acute and chronic respiratory failure with hypoxia Is this a current diagnosis for this admission?: Yes Plan: Patient came initially with an oxygen saturation of 78% on 2 L nasal cannula, initially placed on nonrebreather, subsequently on 5 L oxygen saturating 91%, is still mild distress unable to speak in full sentences. (2) COPD exacerbation Is this a current diagnosis for this admission?: Yes Plan: Telemetry monitoring. Nebulizer treatments as needed and as scheduled. Solu- Medrol IV every 8 hours. Incentive spirometry. We will continue with IV doxycycline. (3) HTN (hypertension) Qualifiers: Hypertension type: essential hypertension Qualified Code(s): I10 - Essential (primary) hypertension Is this a current diagnosis for this admission?: Yes Plan: Continue home antihypertensive medications. (4) History of lung cancer Is this a current diagnosis for this admission?: Yes Plan: Status post right upper lobe lobectomy and chemo radiation therapy. (5) Tobacco use disorder Is this a current diagnosis for this admission?: Yes Plan: Nicotine patch. (6) DVT prophylaxis Is this a current diagnosis for this admission?: Yes Plan: Lovenox - Time Time Spent: 50 to 70 Minutes - Inpatient Certification Based on my medical assessment, after consideration of the patient's comorbidities, presenting symptoms, or acuity I expect that the services needed warrant INPATIENT care.: Yes Medical Necessity: Risk of Complication if Not Cared For in Hospital - Acute hypoxic respiratory failure with respiratory arrest - Plan Summary Plan Summary: Case discussed with patient, agree with plan.
[2018-09-15] MEDS: IPRATROPIUM/ALBUTEROL 0.5-2.5 MG/3 ML AMPUL NEB SCH ×4 (02:47→11:40)
[2018-09-15] MEDS: METHYLPREDNISOLONE INJ 125 MG/2 ML SDV IV SCH ×3 (05:10→22:56)
[2018-09-15 05:58] LABS: HEMATOCRIT 35.4 % (36.0-47.0); HEMOGLOBIN 12.1 g/dL (12.0-15.5); MEAN CORPUSCULAR HEMOGLOBIN 29.1 pg (27.0-33.4); MEAN CORPUSCULAR HGB CONC 34.1 g/dL (32.0-36.0); MEAN CORPUSCULAR VOLUME 86 fl (80-97); PLATELET COUNT 277 10^3/uL (150-450); RED BLOOD COUNT 4.14 10^6/uL (3.72-5.28); RED CELL DISTRIBUTION WIDTH 14.5 % (11.5-14.0); WHITE BLOOD COUNT 8.5 10^3/uL (4.0-10.5)
[2018-09-15 05:59] LABS: ARTERIAL BLOOD BASE EXCESS 0.9 mmol/L; ARTERIAL BLOOD H2CO3 1.66 mmol/L (1.05-1.35); ARTERIAL BLOOD O2 SATURATION 84.9 % (94-98); ARTERIAL BLOOD PH 7.32 (7.35-7.45); ARTERIAL BLOOD PO2 53.8 mmHg (80-100); ARTERIAL BLOOD TOTAL CO2 29.6 mmol/L (21-25)
[2018-09-15 06:01] LABS: ARTERIAL BLOOD FIO2 5 L
[2018-09-15 06:30] LABS: ANION GAP 14 (5-19); BLOOD UREA NITROGEN 17 mg/dL (7-20); CALCIUM 9.6 mg/dL (8.4-10.2); CARBON DIOXIDE 25 mmol/L (22-30); CHLORIDE 100 mmol/L (98-107); GLUCOSE 197 mg/dL (75-110); POTASSIUM 4.2 mmol/L (3.6-5.0); SODIUM 139.3 mmol/L (137-145)
[2018-09-15 06:42] LABS: ABSOLUTE LYMPHOCYTES# (MANUAL) 0.2 10^3/uL (0.5-4.7); ABSOLUTE MONOCYTES # (MANUAL) 0.2 10^3/uL (0.1-1.4); ABSOLUTE NEUTROPHILS# (MANUAL) 8.2 10^3/uL (1.7-8.2); BASOPHILS % (MANUAL) 0 % (0-2); EOSINOPHILS % (MANUAL) 0 % (0-6); LYMPHOCYTES % (MANUAL) 2 % (13-45); MONOCYTES % (MANUAL) 2 % (3-13); SEGMENTED NEUTROPHILS % (MAN) 96 % (42-78); TOTAL CELLS COUNTED 100
[2018-09-15 06:43] LABS: PLATELET COMMENT ADEQUATE; RBC MORPHOLOGY COMMENT NORMO-CYTIC/CHROMIC
--- NOTE | 2018-09-15 07:51 | EKG REPORT ---
SEVERITY:- ABNORMAL ECG - SINUS TACHYCARDIA RIGHT ATRIAL ABNORMALITY PROBABLE INFERIOR INFARCT, OLD ANTEROLATERAL INFARCT, OLD : Confirmed by: Cristhian Brink MD 15-Sep-2018 07:50:46
[2018-09-15] MEDS: ENOXAPARIN SODIUM INJ 40 MG/0.4 ML DISP.SYRIN SUBCUT SCH (10:15)
[2018-09-15] MEDS: DOXYCYCLINE HYCLATE 100 MG in DEXTROSE 5%-WATER 250 ML IV SCH ×2 (10:16→22:57)
--- NOTE | 2018-09-15 11:07 | PDOC PROGRESS REPORT ---
Subjective Progress Note for:: 09/15/18 Subjective:: 09/15/2018 69-year-old female with history of COPD, lung cancer, on home oxygen 2 L, chronic smoker, admitted for respiratory distress. Patient states she is feeling little bit better this morning. Chest x-ray in the emergency room negative for pneumonia. Patient is still having to struggle in completing sentences. Reason For Visit: ACUTE HYPOXIC RESPIR FAILURE, COPD EXACERBATION Physical Exam Vital Signs: Temp Pulse Resp BP Pulse Ox 98.0 F 100 20 135/80 H 95 09/15/18 08:01 09/15/18 08:37 09/15/18 08:37 09/15/18 08:01 09/15/18 08:37 Intake & Output 09/14/18 09/15/18 09/16/18 06:59 06:59 06:59 Intake Total 1350 Balance 1350 Weight 53.5 kg General appearance: PRESENT: no acute distress Head exam: PRESENT: atraumatic Eye exam: PRESENT: PERRLA Neck exam: ABSENT: carotid bruit, JVD, lymphadenopathy, thyromegaly Respiratory exam: PRESENT: other - Bilateral air entry was severely decreased with extensive wheezing and rhonchi. Cardiovascular exam: PRESENT: tachycardia GI/Abdominal exam: PRESENT: normal bowel sounds, soft. ABSENT: distended, guarding, mass, organolmegaly, rebound, tenderness Neurological exam: PRESENT: alert, awake, oriented to person, oriented to place , oriented to time, oriented to situation, CN II-XII grossly intact. ABSENT: motor sensory deficit Psychiatric exam: PRESENT: appropriate affect, normal mood. ABSENT: homicidal ideation, suicidal ideation Results Laboratory Results: 09/15/18 05:43 09/15/18 05:43 09/15/18 09/15/18 09/15/18 05:30 05:43 05:43 WBC 8.5 RBC 4.14 Hgb 12.1 Hct 35.4 L MCV 86 MCH 29.1 MCHC 34.1 RDW 14.5 H Plt Count 277 Seg Neutrophils % Not Reportable Lymphocytes % Not Reportable Monocytes % Not Reportable Eosinophils % Not Reportable Basophils % Not Reportable Absolute Neutrophils Not Reportable Absolute Lymphocytes Not Reportable Absolute Monocytes Not Reportable Absolute Eosinophils Not Reportable Absolute Basophils Not Reportable Carbonic Acid 1.66 H HCO3/H2CO3 Ratio 16:1 ABG pH 7.32 L ABG pCO2 55.0 H ABG pO2 53.8 L ABG HCO3 28.0 H ABG O2 Saturation 84.9 L ABG Base Excess 0.9 FiO2 5 L Sodium 139.3 Potassium 4.2 Chloride 100 Carbon Dioxide 25 Anion Gap 14 BUN 17 Creatinine 0.64 Est GFR ( Amer) > 60 Est GFR (Non-Af Amer) > 60 Glucose 197 H Calcium 9.6 Impressions: Chest X-Ray 09/14/18 20:12 IMPRESSION: Stable findings. No acute disease. Assessment & Plan - Diagnosis (1) Acute and chronic respiratory failure with hypoxia Is this a current diagnosis for this admission?: Yes Plan: 09/15/2018 at the time of admission pulse ox was 78% on 2 L nasal cannula initially she was placed on nonrebreather right now is on 5 L oxygen saturating at 92%. ABG done this morning pH is 7.3/PCO2 55/PO2 53 bicarb is 28. We will continue the nebulizer treatments, IV Solu-Medrol, and to do the daily ABGs. And is also on incentive spirometry. (2) COPD exacerbation Is this a current diagnosis for this admission?: Yes Plan: Patient has chronic history of COPD and she had COPD exacerbation. She is on IV doxycycline, IV Solu-Medrol, incentive spirometry, and nebulizer treatments. Will continue the present management. (3) HTN (hypertension) Qualifiers: Hypertension type: essential hypertension Qualified Code(s): I10 - Essential (primary) hypertension Is this a current diagnosis for this admission?: Yes Plan: 09/15/2018 patient blood pressure is 135/80. Pulse rate is 98. Presently she is not on any antihypertensive medications. (4) History of lung cancer Is this a current diagnosis for this admission?: Yes Plan: 09/15/2018 patient has a history of lung cancer status post right upper lobe lobectomy, radiation therapy. (5) Tobacco use disorder Is this a current diagnosis for this admission?: Yes Plan: 09/15/2018 patient says she smokes less than half a pack per day and smoking counseling was provided for more than 10 minutes going to put her on nicotine patch. - Time Time Spent with patient: 15-24 minutes Medications reviewed and adjusted accordingly: Yes Anticipated discharge: Home
[2018-09-15] MEDS: NICOTINE 14 MG/24 HR PATCH.TD24 TD PRN (12:58)
[2018-09-15] MEDS: IPRATROPIUM/ALBUTEROL 0.5-2.5 MG/3 ML AMPUL NEB PRN ×2 (15:55→20:08)
[2018-09-16] MEDS: METHYLPREDNISOLONE INJ 125 MG/2 ML SDV IV SCH ×3 (05:11→21:28)
[2018-09-16 05:36] LABS: HEMATOCRIT 34.8 % (36.0-47.0); HEMOGLOBIN 11.6 g/dL (12.0-15.5); MEAN CORPUSCULAR HEMOGLOBIN 28.3 pg (27.0-33.4); MEAN CORPUSCULAR HGB CONC 33.2 g/dL (32.0-36.0); MEAN CORPUSCULAR VOLUME 85 fl (80-97); PLATELET COUNT 274 10^3/uL (150-450); RED BLOOD COUNT 4.08 10^6/uL (3.72-5.28); RED CELL DISTRIBUTION WIDTH 14.6 % (11.5-14.0); WHITE BLOOD COUNT 12.8 10^3/uL (4.0-10.5)
[2018-09-16 06:07] LABS: ARTERIAL BLOOD BASE EXCESS 2.8 mmol/L; ARTERIAL BLOOD H2CO3 1.31 mmol/L (1.05-1.35); ARTERIAL BLOOD HCO3 27.6 mmol/L (20-24); ARTERIAL BLOOD O2 SATURATION 97.3 % (94-98); ARTERIAL BLOOD PCO2 43.4 mmHg (35-45); ARTERIAL BLOOD PH 7.42 (7.35-7.45); ARTERIAL BLOOD PO2 93.4 mmHg (80-100)
[2018-09-16 06:10] LABS: ARTERIAL BLOOD FIO2 36%
[2018-09-16 06:31] LABS: ABSOLUTE LYMPHOCYTES# (MANUAL) 0.4 10^3/uL (0.5-4.7); ABSOLUTE MONOCYTES # (MANUAL) 0.1 10^3/uL (0.1-1.4); ABSOLUTE NEUTROPHILS# (MANUAL) 12.3 10^3/uL (1.7-8.2); ANISOCYTOSIS SLIGHT; BASOPHILS % (MANUAL) 0 % (0-2); EOSINOPHILS % (MANUAL) 0 % (0-6); LYMPHOCYTES % (MANUAL) 3 % (13-45); MONOCYTES % (MANUAL) 1 % (3-13); PAPPENHEIMER BODIES PRESENT; PLATELET COMMENT ADEQUATE; PLATELET LARGE PRESENT; SCHISTOCYTES SLIGHT; SEGMENTED NEUTROPHILS % (MAN) 96 % (42-78); TOTAL CELLS COUNTED 100; TOXIC GRANULATION 1+
[2018-09-16] MEDS: IPRATROPIUM/ALBUTEROL 0.5-2.5 MG/3 ML AMPUL NEB PRN ×5 (08:46→23:42)
[2018-09-16] MEDS: DOXYCYCLINE HYCLATE 100 MG in DEXTROSE 5%-WATER 250 ML IV SCH ×2 (09:53→21:27)
[2018-09-16] MEDS: ENOXAPARIN SODIUM INJ 40 MG/0.4 ML DISP.SYRIN SUBCUT SCH (09:53)
--- NOTE | 2018-09-16 11:27 | PDOC PROGRESS REPORT ---
Subjective Progress Note for:: 09/16/18 Subjective:: 09/15/2018 69-year-old female with history of COPD, lung cancer, on home oxygen 2 L, chronic smoker, admitted for respiratory distress. Patient states she is feeling little bit better this morning. Chest x-ray in the emergency room negative for pneumonia. Patient is still having to struggle in completing sentences. 09/16/2018 patient is still in mild shortness of breath on , oxygen via nasal cannula. Acute events in the last 24 hours. He is afebrile. Reason For Visit: ACUTE HYPOXIC RESPIR FAILURE, COPD EXACERBATION Physical Exam Vital Signs: Temp Pulse Resp BP Pulse Ox 98.1 F 75 19 133/55 H 97 09/16/18 08:00 09/16/18 08:46 09/16/18 08:46 09/16/18 08:00 09/16/18 08:46 Intake & Output 09/15/18 09/16/18 09/17/18 06:59 06:59 06:59 Intake Total 1350 618 Balance 1350 618 Weight 53.5 kg 55.7 kg General appearance: PRESENT: mild distress Head exam: PRESENT: atraumatic Eye exam: PRESENT: PERRLA Neck exam: ABSENT: carotid bruit, JVD, lymphadenopathy, thyromegaly Respiratory exam: PRESENT: accessory muscle use, decreased breath sounds, prolonged expiratory phas, wheezes Cardiovascular exam: PRESENT: tachycardia GI/Abdominal exam: PRESENT: normal bowel sounds, soft. ABSENT: distended, guarding, mass, organolmegaly, rebound, tenderness Neurological exam: PRESENT: alert, awake, oriented to person, oriented to place , oriented to time, oriented to situation, CN II-XII grossly intact. ABSENT: motor sensory deficit Psychiatric exam: PRESENT: appropriate affect, normal mood. ABSENT: homicidal ideation, suicidal ideation Results Laboratory Results: 09/16/18 05:20 09/15/18 05:43 09/16/18 09/16/18 09/16/18 05:20 05:20 05:58 WBC 12.8 H RBC 4.08 Hgb 11.6 L Hct 34.8 L MCV 85 MCH 28.3 MCHC 33.2 RDW 14.6 H Plt Count 274 Seg Neutrophils % Not Reportable Lymphocytes % Not Reportable Monocytes % Not Reportable Eosinophils % Not Reportable Basophils % Not Reportable Absolute Neutrophils Not Reportable Absolute Lymphocytes Not Reportable Absolute Monocytes Not Reportable Absolute Eosinophils Not Reportable Absolute Basophils Not Reportable Carbonic Acid 1.31 HCO3/H2CO3 Ratio 21:1 ABG pH 7.42 ABG pCO2 43.4 ABG pO2 93.4 ABG HCO3 27.6 H ABG O2 Saturation 97.3 ABG Base Excess 2.8 FiO2 36% Phosphorus 3.0 Impressions: Chest X-Ray 09/14/18 20:12 IMPRESSION: Stable findings. No acute disease. Assessment & Plan - Diagnosis (1) Acute and chronic respiratory failure with hypoxia Is this a current diagnosis for this admission?: Yes Plan: 09/15/2018 at the time of admission pulse ox was 72% on 2 L nasal cannula initially she was placed on nonrebreather right now is on 5 L oxygen saturating at 92%. ABG done this morning pH is 7.3/PCO2 55/PO2 53 bicarb is 28. We will continue the nebulizer treatments, IV Solu-Medrol, and to do the daily ABGs. And is also on incentive spirometry. 09/16/2018 she came in with acute on chronic respiratory failure, initially she is requiring 6 L of oxygen, baseline requirement is 2 L/min. Pulse ox today is 97% on 4 L. Patient is still in shortness of breath. She is on IV antibiotic therapy, IV Solu-Medrol, getting as needed DuoNeb nebulizations. She is also on incentive spirometry. (2) COPD exacerbation Is this a current diagnosis for this admission?: Yes Plan: Patient has chronic history of COPD and she had COPD exacerbation. She is on IV doxycycline, IV Solu-Medrol, incentive spirometry, and nebulizer treatments. Will continue the present management. 09/16/2018 and is on IV doxycycline, IV Solu-Medrol, getting nebulizer treatment , incentive spirometry, she is showing slow recovery I think we need to continue the present management for at least another 2 days. (3) HTN (hypertension) Qualifiers: Hypertension type: essential hypertension Qualified Code(s): I10 - Essential (primary) hypertension Is this a current diagnosis for this admission?: Yes Plan: 09/15/2018 patient blood pressure is 135/80. Pulse rate is 98. Presently she is not on any antihypertensive medications. 09/16/2018 patient's blood pressure is 135/55. Will continue the present management. (4) History of lung cancer Is this a current diagnosis for this admission?: Yes Plan: 09/15/2018 patient has a history of lung cancer status post right upper lobe lobectomy, radiation therapy. 09/16/2018 plan is to continue the current management. (5) Tobacco use disorder Is this a current diagnosis for this admission?: Yes Plan: 09/15/2018 patient says she smokes less than half a pack per day and smoking counseling was provided for more than 10 minutes going to put her on nicotine patch. 09/16/2018. Patient has a chronic history of smoking smoking counseling was provided for more than 10 minutes. - Time Time Spent with patient: 15-24 minutes Medications reviewed and adjusted accordingly: Yes Anticipated discharge: Home
[2018-09-16] MEDS ORDERED: GUAIFENESIN 600 MG TABLET.SA PO ONE (15:30)
[2018-09-16] MEDS ORDERED: IPRATROPIUM/ALBUTEROL 0.5-2.5 MG/3 ML AMPUL NEB ONE (16:09)
[2018-09-16] MEDS: NICOTINE 14 MG/24 HR PATCH.TD24 TD PRN (21:27)
[2018-09-16] MEDS: GUAIFENESIN 600 MG TABLET.SA PO SCH (21:36)
[2018-09-17] MEDS: IPRATROPIUM/ALBUTEROL 0.5-2.5 MG/3 ML AMPUL NEB PRN ×5 (02:29→23:55)
[2018-09-17] MEDS: METHYLPREDNISOLONE INJ 125 MG/2 ML SDV IV SCH ×2 (05:16→22:58)
[2018-09-17 06:27] LABS: HEMATOCRIT 35.1 % (36.0-47.0); HEMOGLOBIN 11.7 g/dL (12.0-15.5); MEAN CORPUSCULAR HEMOGLOBIN 28.5 pg (27.0-33.4); MEAN CORPUSCULAR HGB CONC 33.4 g/dL (32.0-36.0); MEAN CORPUSCULAR VOLUME 85 fl (80-97); PLATELET COUNT 325 10^3/uL (150-450); RED BLOOD COUNT 4.11 10^6/uL (3.72-5.28); RED CELL DISTRIBUTION WIDTH 14.7 % (11.5-14.0)
[2018-09-17 06:45] LABS: ALANINE AMINOTRANSFERASE 20 U/L (9-52); ALBUMIN 3.6 g/dL (3.5-5.0); ALKALINE PHOSPHATASE 70 U/L (38-126); ANION GAP 10 (5-19); ASPARTATE AMINO TRANSFERASE 15 U/L (14-36); BILIRUBIN,DIRECT 0.4 mg/dL (0.0-0.4); BILIRUBIN,TOTAL 0.4 mg/dL (0.2-1.3); BLOOD UREA NITROGEN 18 mg/dL (7-20); CALCIUM 9.8 mg/dL (8.4-10.2); CARBON DIOXIDE 30 mmol/L (22-30); CHLORIDE 101 mmol/L (98-107); GLUCOSE 128 mg/dL (75-110); POTASSIUM 4.4 mmol/L (3.6-5.0); SODIUM 140.9 mmol/L (137-145)
[2018-09-17 07:09] LABS: ABSOLUTE LYMPHOCYTES# (MANUAL) 0.5 10^3/uL (0.5-4.7); ABSOLUTE NEUTROPHILS# (MANUAL) 14.6 10^3/uL (1.7-8.2); BAND NEUTROPHILS % (MANUAL) 1 % (3-5); BASOPHILS % (MANUAL) 0 % (0-2); EOSINOPHILS % (MANUAL) 0 % (0-6); LYMPHOCYTES % (MANUAL) 3 % (13-45); MONOCYTES % (MANUAL) 6 % (3-13); SEGMENTED NEUTROPHILS % (MAN) 90 % (42-78); TOTAL CELLS COUNTED 100
[2018-09-17 07:12] LABS: OVALOCYTES 2+; PLATELET COMMENT ADEQUATE; TEAR DROP CELLS SLIGHT; TOXIC GRANULATION 2+
[2018-09-17] MEDS: ENOXAPARIN SODIUM INJ 40 MG/0.4 ML DISP.SYRIN SUBCUT SCH (09:15)
[2018-09-17] MEDS: DOXYCYCLINE HYCLATE 100 MG in DEXTROSE 5%-WATER 250 ML IV SCH ×2 (09:16→22:58)
[2018-09-17] MEDS: GUAIFENESIN 600 MG TABLET.SA PO SCH ×2 (09:16→22:58)
--- NOTE | 2018-09-17 10:01 | PDOC PROGRESS REPORT ---
Subjective Progress Note for:: 09/17/18 Subjective:: 09/15/2018 69-year-old female with history of COPD, lung cancer, on home oxygen 2 L, chronic smoker, admitted for respiratory distress. Patient states she is feeling little bit better this morning. Chest x-ray in the emergency room negative for pneumonia. Patient is still having to struggle in completing sentences. 09/16/2018 patient is still in mild shortness of breath on , oxygen via nasal cannula. Acute events in the last 24 hours. He is afebrile. 09/17/2018-no acute events in the last 24 hours. Patient is afebrile. Patient says she is feeling much better today. Reason For Visit: ACUTE HYPOXIC RESPIR FAILURE, COPD EXACERBATION Physical Exam Vital Signs: Temp Pulse Resp BP Pulse Ox 98.5 F 101 H 18 127/55 H 96 09/17/18 08:30 09/17/18 09:19 09/17/18 09:19 09/17/18 08:30 09/17/18 09:19 Intake & Output 09/16/18 09/17/18 09/18/18 06:59 06:59 06:59 Intake Total 618 1118 Balance 618 1118 Weight 55.7 kg 57.5 kg General appearance: PRESENT: mild distress Head exam: PRESENT: atraumatic Eye exam: PRESENT: PERRLA Teeth exam: PRESENT: poor dentation Neck exam: ABSENT: carotid bruit, JVD, lymphadenopathy, thyromegaly Respiratory exam: PRESENT: rhonchi, wheezes, other - Bilateral wheezing is present especially at the bases. Associated with rhonchi. Compared to the examination yesterday much improved lung mahmood. Cardiovascular exam: PRESENT: tachycardia GI/Abdominal exam: PRESENT: normal bowel sounds, soft. ABSENT: ascites, distended, guarding, mass, organolmegaly, rebound, tenderness Neurological exam: PRESENT: alert, awake, oriented to person, oriented to place , oriented to time, oriented to situation, CN II-XII grossly intact. ABSENT: motor sensory deficit Psychiatric exam: PRESENT: appropriate affect, normal mood. ABSENT: homicidal ideation, suicidal ideation Results Laboratory Results: 09/17/18 05:30 09/17/18 05:30 09/17/18 09/17/18 05:30 05:30 WBC 16.0 H RBC 4.11 Hgb 11.7 L Hct 35.1 L MCV 85 MCH 28.5 MCHC 33.4 RDW 14.7 H Plt Count 325 Seg Neutrophils % Not Reportable Lymphocytes % Not Reportable Monocytes % Not Reportable Eosinophils % Not Reportable Basophils % Not Reportable Absolute Neutrophils Not Reportable Absolute Lymphocytes Not Reportable Absolute Monocytes Not Reportable Absolute Eosinophils Not Reportable Absolute Basophils Not Reportable Sodium 140.9 Potassium 4.4 Chloride 101 Carbon Dioxide 30 Anion Gap 10 BUN 18 Creatinine 0.65 Est GFR ( Amer) > 60 Est GFR (Non-Af Amer) > 60 Glucose 128 H Calcium 9.8 Magnesium 2.3 Total Bilirubin 0.4 AST 15 ALT 20 Alkaline Phosphatase 70 Total Protein 6.0 L Albumin 3.6 Impressions: Chest X-Ray 09/14/18 20:12 IMPRESSION: Stable findings. No acute disease. Assessment & Plan - Diagnosis (1) Acute and chronic respiratory failure with hypoxia Is this a current diagnosis for this admission?: Yes Plan: 09/15/2018 at the time of admission pulse ox was 72% on 2 L nasal cannula initially she was placed on nonrebreather right now is on 5 L oxygen saturating at 92%. ABG done this morning pH is 7.3/PCO2 55/PO2 53 bicarb is 28. We will continue the nebulizer treatments, IV Solu-Medrol, and to do the daily ABGs. And is also on incentive spirometry. 09/16/2018 she came in with acute on chronic respiratory failure, initially she is requiring 6 L of oxygen, baseline requirement is 2 L/min. Pulse ox today is 97% on 4 L. Patient is still in shortness of breath. She is on IV antibiotic therapy, IV Solu-Medrol, getting as needed DuoNeb nebulizations. She is also on incentive spirometry. 09/17/2018 patient has a chronic history of COPD came in with acute on respiratory failure, initially on 6 L of oxygen, patient's baseline oxygen requirement at home is 2 L/min. The pulse ox today on 5 L is 96%. She is presently on IV Solu-Medrol 60 mg every 8 hours, DuoNeb nebulizations every 4 as needed, incentive spirometry, she is also getting IV antibiotic therapy doxycycline 100 mg every 12 hours. (2) COPD exacerbation Is this a current diagnosis for this admission?: Yes Plan: Patient has chronic history of COPD and she had COPD exacerbation. She is on IV doxycycline, IV Solu-Medrol, incentive spirometry, and nebulizer treatments. Will continue the present management. 09/16/2018 and is on IV doxycycline, IV Solu-Medrol, getting nebulizer treatment , incentive spirometry, she is showing slow recovery I think we need to continue the present management for at least another 2 days. 09/17/2018 COPD is improving but still patient requiring 4 L of oxygen. Pulse ox is 96%. We will continue the antibiotic therapy, nebulizations, steroid therapy. (3) HTN (hypertension) Qualifiers: Hypertension type: essential hypertension Qualified Code(s): I10 - Essential (primary) hypertension Is this a current diagnosis for this admission?: Yes Plan: 09/15/2018 patient blood pressure is 135/80. Pulse rate is 98. Presently she is not on any antihypertensive medications. 09/16/2018 patient's blood pressure is 135/55. Will continue the present management. Blood pressure today is 127/55. Not on antihypertensives. (4) History of lung cancer Is this a current diagnosis for this admission?: Yes Plan: 09/15/2018 patient has a history of lung cancer status post right upper lobe lobectomy, radiation therapy. 09/16/2018 plan is to continue the current management. 09/17/2018 patient has history of lung cancer status post right upper lobe lobectomy, status post radiation. (5) Tobacco use disorder Is this a current diagnosis for this admission?: Yes Plan: 09/15/2018 patient says she smokes less than half a pack per day and smoking counseling was provided for more than 10 minutes going to put her on nicotine patch. 09/16/2018. Patient has a chronic history of smoking smoking counseling was provided for more than 10 minutes. 09/17/2018 patient has history of chronic smoking, counseling was provided for more than 10 minutes. - Time Time Spent with patient: 15-24 minutes Medications reviewed and adjusted accordingly: Yes Anticipated discharge: Home
[2018-09-18 06:58] LABS: HEMATOCRIT 36.3 % (36.0-47.0); HEMOGLOBIN 12.3 g/dL (12.0-15.5); MEAN CORPUSCULAR HGB CONC 33.9 g/dL (32.0-36.0); MEAN CORPUSCULAR VOLUME 86 fl (80-97); PLATELET COUNT 313 10^3/uL (150-450); RED BLOOD COUNT 4.23 10^6/uL (3.72-5.28); WHITE BLOOD COUNT 13.4 10^3/uL (4.0-10.5)
[2018-09-18 07:10] LABS: ALANINE AMINOTRANSFERASE 27 U/L (9-52); ALBUMIN 3.5 g/dL (3.5-5.0); ALKALINE PHOSPHATASE 70 U/L (38-126); ANION GAP 9 (5-19); ASPARTATE AMINO TRANSFERASE 23 U/L (14-36); BILIRUBIN,DIRECT 0.4 mg/dL (0.0-0.4); BILIRUBIN,TOTAL 0.5 mg/dL (0.2-1.3); BLOOD UREA NITROGEN 19 mg/dL (7-20); CALCIUM 9.5 mg/dL (8.4-10.2); CARBON DIOXIDE 31 mmol/L (22-30); CHLORIDE 100 mmol/L (98-107); GLUCOSE 137 mg/dL (75-110); POTASSIUM 4.8 mmol/L (3.6-5.0); SODIUM 139.8 mmol/L (137-145); TOTAL PROTEIN 6.1 g/dL (6.3-8.2)
[2018-09-18] MEDS: IPRATROPIUM/ALBUTEROL 0.5-2.5 MG/3 ML AMPUL NEB PRN (08:01)
[2018-09-18 08:10] LABS: ABSOLUTE LYMPHOCYTES# (MANUAL) 0.4 10^3/uL (0.5-4.7); ABSOLUTE MONOCYTES # (MANUAL) 0.1 10^3/uL (0.1-1.4); ABSOLUTE NEUTROPHILS# (MANUAL) 12.9 10^3/uL (1.7-8.2); ANISOCYTOSIS SLIGHT; BASOPHILS % (MANUAL) 0 % (0-2); EOSINOPHILS % (MANUAL) 0 % (0-6); LYMPHOCYTES % (MANUAL) 3 % (13-45); MONOCYTES % (MANUAL) 1 % (3-13); OVALOCYTES SLIGHT; PLATELET COMMENT ADEQUATE; POIKILOCYTOSIS SLIGHT; SEGMENTED NEUTROPHILS % (MAN) 96 % (42-78); TOTAL CELLS COUNTED 100
[2018-09-18] MEDS: ENOXAPARIN SODIUM INJ 40 MG/0.4 ML DISP.SYRIN SUBCUT SCH (10:06)
[2018-09-18] MEDS: METHYLPREDNISOLONE INJ 125 MG/2 ML SDV IV SCH (10:06)
[2018-09-18] MEDS: GUAIFENESIN 600 MG TABLET.SA PO SCH ×2 (10:07→21:35)
[2018-09-18] MEDS: DOXYCYCLINE HYCLATE 100 MG TABLET PO SCH ×2 (10:09→21:35)
[2018-09-18] MEDS: METHYLPREDNISOLONE INJ 40 MG/1 ML SDV IV SCH ×2 (13:50→21:35)
--- NOTE | 2018-09-18 15:05 | PDOC PROGRESS REPORT ---
Subjective Progress Note for:: 09/18/18 Subjective:: The patient is a 73-year-old female with a past medical history of lung cancer ( currently followed by Dr. May), COPD with home O2 dependence, continuous tobacco dependence, [place], arthritis, and anemia who was admitted 09/14/2018 for COPD exacerbation. The patient was seen on morning rounds. She was found resting comfortably in bed supplemental oxygen at 4 L/min. Initially the patient was sleeping, but did wake easily when I set her name. She reports that she is feeling slightly better today; however, continues to complain of a productive cough and dyspnea on exertion. The patient reports that she utilizes 2 L/min while at rest and frequently has to increase her oxygen to 3 L/min when ambulatory. She was recently seen by her creamery worker, Dr. Taveras, with medication adjustments made. She does admit to continued tobacco dependence of 1 pack/day; stating that she intends to quit following this admission. She denies fever, chills, chest pain, palpitations, orthopnea, abdominal pain, nausea vomiting and diarrhea. She has no new questions or concerns. No concerns per nursing. Reason For Visit: ACUTE HYPOXIC RESPIR FAILURE, COPD EXACERBATION Physical Exam Vital Signs: Temp Pulse Resp BP Pulse Ox 98.0 F 98 16 120/59 L 97 09/18/18 08:12 09/18/18 08:12 09/18/18 08:12 09/18/18 08:12 09/18/18 08:12 Intake & Output 09/17/18 09/18/18 09/19/18 06:59 06:59 06:59 Intake Total 1118 2596 Output Total 350 Balance 1118 2246 Weight 57.5 kg 56 kg General appearance: PRESENT: no acute distress, cooperative, thin, well- developed, other Head exam: PRESENT: atraumatic, normocephalic Eye exam: PRESENT: conjunctiva pink, EOMI, PERRLA. ABSENT: scleral icterus Ear exam: PRESENT: normal external ear exam Mouth exam: PRESENT: moist, tongue midline Neck exam: ABSENT: carotid bruit, JVD, lymphadenopathy, thyromegaly Respiratory exam: PRESENT: prolonged expiratory phas, rhonchi, symmetrical, wheezes, other - Supplemental oxygen via nasal cannula. ABSENT: rales Cardiovascular exam: PRESENT: RRR, +S1, +S2. ABSENT: diastolic murmur, rubs, systolic murmur Pulses: PRESENT: normal dorsalis pedis pul Vascular exam: PRESENT: normal capillary refill GI/Abdominal exam: PRESENT: normal bowel sounds, soft. ABSENT: distended, guarding, mass, organolmegaly, rebound, tenderness Rectal exam: PRESENT: deferred Extremities exam: PRESENT: full ROM. ABSENT: calf tenderness, clubbing, pedal edema Neurological exam: PRESENT: alert, awake, oriented to person, oriented to place , oriented to time, oriented to situation, CN II-XII grossly intact. ABSENT: motor sensory deficit Psychiatric exam: PRESENT: anxious, appropriate affect, normal mood. ABSENT: homicidal ideation, suicidal ideation Skin exam: PRESENT: dry, intact, warm. ABSENT: cyanosis, rash Results Laboratory Results: 09/18/18 05:54 09/18/18 05:54 09/18/18 09/18/18 05:54 05:54 WBC 13.4 H RBC 4.23 Hgb 12.3 Hct 36.3 MCV 86 MCH 29.0 MCHC 33.9 RDW 15.0 H Plt Count 313 Seg Neutrophils % Not Reportable Lymphocytes % Not Reportable Monocytes % Not Reportable Eosinophils % Not Reportable Basophils % Not Reportable Absolute Neutrophils Not Reportable Absolute Lymphocytes Not Reportable Absolute Monocytes Not Reportable Absolute Eosinophils Not Reportable Absolute Basophils Not Reportable Sodium 139.8 Potassium 4.8 Chloride 100 Carbon Dioxide 31 H Anion Gap 9 BUN 19 Creatinine 0.67 Est GFR ( Amer) > 60 Est GFR (Non-Af Amer) > 60 Glucose 137 H Calcium 9.5 Magnesium 2.1 Total Bilirubin 0.5 AST 23 ALT 27 Alkaline Phosphatase 70 Total Protein 6.1 L Albumin 3.5 Impressions: Chest X-Ray 09/14/18 20:12 IMPRESSION: Stable findings. No acute disease. Assessment & Plan - Diagnosis (1) Acute and chronic respiratory failure with hypoxia Is this a current diagnosis for this admission?: Yes Plan: Gradual improvement; the patient has been weaned to supplemental oxygen via nasal cannula liters per minute (did require 6 L on admission). She is no longer tachypneic, tachycardia has improved, and she declines dyspnea while at rest. She does continue to have significant dyspnea with mild exertion and a productive cough. Overall, she reports that she is feeling much better. The patient declines CPAP and BiPAP; she states a previous poor experience while wearing a BiPAP device. She is encouraged to discuss her creamery worker recommendations for CPAP at her follow-up appointment as an alternate mask may be more comfortable. We will continue supplemental oxygen as needed to maintain oxygen saturations of 89-92%. Continue Solu-Medrol; have begun weaning today. She is provided scheduled and as needed nebulizer treatments. She was empirically placed on doxycycline 100 mg p.o. twice daily for bronchitis in a patient with COPD as she has a purulent productive cough. Encourage incentive spirometer and flutter valve. Mucinex twice daily. (2) COPD exacerbation Is this a current diagnosis for this admission?: Yes Plan: Continues to improve; plan as above. (3) HTN (hypertension) Qualifiers: Hypertension type: essential hypertension Qualified Code(s): I10 - Essential (primary) hypertension Is this a current diagnosis for this admission?: Yes Plan: The patient endorses a history of hypertension; she is not on home antihypertensive medications. Blood pressures are acceptable today. (4) History of lung cancer Is this a current diagnosis for this admission?: Yes Plan: The patient endorses a history of lung cancer status post right upper lobe lobectomy and radiation treatments. She is followed by Dr. May. (5) Debility Is this a current diagnosis for this admission?: Yes Plan: The patient is an elderly, frail-appearing woman with a past medical history of chronic COPD and lung cancer. Her baseline respiratory status has limited her functional mobility. Physical therapy evaluations were ordered; recommend rehab upon discharge. (6) Tobacco abuse Is this a current diagnosis for this admission?: Yes Plan: The patient endorses 1 pack/day tobacco use. Smoking cessation is encouraged. Nicotine replacement therapies have been provided. - Time Time Spent with patient: 15-24 minutes Smoking Cessation Education: 3 to 10 minutes Anticipated discharge: SNF Within: within 48 hours
[2018-09-18] MEDS: IPRATROPIUM/ALBUTEROL 0.5-2.5 MG/3 ML AMPUL NEB SCH (17:02)
[2018-09-19] MEDS: IPRATROPIUM/ALBUTEROL 0.5-2.5 MG/3 ML AMPUL NEB SCH ×3 (00:19→16:08)
[2018-09-19] MEDS: LEVALBUTEROL HCL NEB 1.25 MG/3 ML AMPUL NEB PRN (04:20)
[2018-09-19] MEDS: METHYLPREDNISOLONE INJ 40 MG/1 ML SDV IV SCH ×4 (05:41→23:05)
[2018-09-19 05:47] LABS: HEMATOCRIT 36.5 % (36.0-47.0); HEMOGLOBIN 12.4 g/dL (12.0-15.5); MEAN CORPUSCULAR HEMOGLOBIN 28.9 pg (27.0-33.4); MEAN CORPUSCULAR HGB CONC 33.9 g/dL (32.0-36.0); MEAN CORPUSCULAR VOLUME 85 fl (80-97); PLATELET COUNT 312 10^3/uL (150-450); RED BLOOD COUNT 4.28 10^6/uL (3.72-5.28); RED CELL DISTRIBUTION WIDTH 14.8 % (11.5-14.0); WHITE BLOOD COUNT 15.3 10^3/uL (4.0-10.5)
[2018-09-19 06:09] LABS: ANION GAP 10 (5-19); BLOOD UREA NITROGEN 18 mg/dL (7-20); CALCIUM 9.5 mg/dL (8.4-10.2); CARBON DIOXIDE 31 mmol/L (22-30); CHLORIDE 98 mmol/L (98-107); GLUCOSE 134 mg/dL (75-110); POTASSIUM 4.4 mmol/L (3.6-5.0); SODIUM 139.4 mmol/L (137-145)
[2018-09-19] MEDS: GUAIFENESIN 600 MG TABLET.SA PO SCH ×2 (09:17→21:54)
[2018-09-19] MEDS: NICOTINE 14 MG/24 HR PATCH.TD24 TD PRN (09:17)
[2018-09-19] MEDS: DOXYCYCLINE HYCLATE 100 MG TABLET PO SCH ×2 (09:17→21:54)
[2018-09-19] MEDS: ENOXAPARIN SODIUM INJ 40 MG/0.4 ML DISP.SYRIN SUBCUT SCH (09:22)
--- NOTE | 2018-09-19 14:02 | PDOC PROGRESS REPORT ---
Subjective Progress Note for:: 09/19/18 Subjective:: The patient is a 73-year-old female with a past medical history of lung cancer ( currently followed by Dr. May), COPD with home O2 dependence, continuous tobacco dependence, [place], arthritis, and anemia who was admitted 09/14/2018 for COPD exacerbation. The patient was seen on afternoon rounds. She was found resting comfortably in bed supplemental oxygen at 6 L/min; her oxygen was decreased while I was in the room to 3 L/min. She maintained oxygen saturations greater than 92% without tachypnea, tachycardia, or increased work of breathing. The patient's primary complaint today continues to be her nasal congestion and productive cough. She states that she is having difficulty expectorating her sputum and requests deep suctioning or chest physiotherapy. She reports that she has had chest physiotherapy in the past and felt that it was much more effective than use of flutter valve. She continues to feel fatigued and is frustrated by her perceived lack of improvement; she is encouraged that I am and seeing improvement and hope that she will be ready for discharge to home within the next day or 2. She has no other questions or concerns today. She denies fever, chills, chest pain, palpitations, orthopnea, abdominal pain, nausea vomiting and diarrhea. No concerns per nursing. Reason For Visit: ACUTE HYPOXIC RESPIR FAILURE, COPD EXACERBATION Physical Exam Vital Signs: Temp Pulse Resp BP Pulse Ox 98.3 F 113 H 28 H 141/52 H 91 L 09/19/18 08:01 09/19/18 09:28 09/19/18 08:01 09/19/18 09:28 09/19/18 09:28 Intake & Output 09/18/18 09/19/18 09/20/18 06:59 06:59 06:59 Intake Total 2596 422 480 Output Total 350 0 Balance 2246 422 480 Weight 56 kg 54.9 kg General appearance: PRESENT: no acute distress, thin, well-developed, well- nourished Head exam: PRESENT: atraumatic, normocephalic Eye exam: PRESENT: conjunctiva pink, EOMI, PERRLA. ABSENT: scleral icterus Ear exam: PRESENT: normal external ear exam Mouth exam: PRESENT: moist, tongue midline Neck exam: ABSENT: carotid bruit, JVD, lymphadenopathy, thyromegaly Respiratory exam: PRESENT: decreased breath sounds, prolonged expiratory phas, rhonchi, symmetrical, unlabored, other - Supplemental oxygen by nasal cannula. ABSENT: rales, wheezes Cardiovascular exam: PRESENT: RRR. ABSENT: diastolic murmur, rubs, systolic murmur Pulses: PRESENT: normal dorsalis pedis pul Vascular exam: PRESENT: normal capillary refill GI/Abdominal exam: PRESENT: normal bowel sounds, soft. ABSENT: distended, guarding, mass, organolmegaly, rebound, tenderness Rectal exam: PRESENT: deferred Extremities exam: PRESENT: full ROM. ABSENT: calf tenderness, clubbing, pedal edema Neurological exam: PRESENT: alert, awake, oriented to person, oriented to place , oriented to time, oriented to situation, CN II-XII grossly intact. ABSENT: motor sensory deficit Psychiatric exam: PRESENT: anxious, appropriate affect, normal mood. ABSENT: homicidal ideation, suicidal ideation Skin exam: PRESENT: dry, intact, warm. ABSENT: cyanosis, rash Results Laboratory Results: 09/19/18 05:07 09/19/18 05:07 09/19/18 09/19/18 05:07 05:07 WBC 15.3 H RBC 4.28 Hgb 12.4 Hct 36.5 MCV 85 MCH 28.9 MCHC 33.9 RDW 14.8 H Plt Count 312 Sodium 139.4 Potassium 4.4 Chloride 98 Carbon Dioxide 31 H Anion Gap 10 BUN 18 Creatinine 0.56 Est GFR ( Amer) > 60 Est GFR (Non-Af Amer) > 60 Glucose 134 H Calcium 9.5 Impressions: Chest X-Ray 09/14/18 20:12 IMPRESSION: Stable findings. No acute disease. Assessment & Plan - Diagnosis (1) Acute and chronic respiratory failure with hypoxia Is this a current diagnosis for this admission?: Yes Plan: Gradual improvement; the patient has been weaned to 3.5 lpm via nasal cannula ( did require 6 L on admission). She reports she uses 3-4 lpm at home. She is no longer tachypneic, tachycardia has improved, and she declines dyspnea while at rest. She does continue to have dyspnea with mild exertion and a productive cough. Overall, she reports that she is feeling better. The patient declines CPAP and BiPAP; she states a previous poor experience while wearing a BiPAP device. She is encouraged to discuss her transport engineer recommendations for CPAP at her follow-up appointment as an alternate mask may be more comfortable. We will continue supplemental oxygen as needed to maintain oxygen saturations of 89-92%. Continue Solu-Medrol; continue weaning. She is provided scheduled and as needed nebulizer treatments. She was empirically placed on doxycycline 100 mg p.o. twice daily for bronchitis in a patient with COPD as she has a purulent productive cough. Day # 4 Encourage incentive spirometer and flutter valve. Patient requesting chest physiotherapy. Discussed with RT; will provide twice daily. Patient is continued encouraged to continue flutter valve. Mucinex twice daily. (2) COPD exacerbation Is this a current diagnosis for this admission?: Yes Plan: Continues to improve; plan as above. (3) HTN (hypertension) Qualifiers: Hypertension type: essential hypertension Qualified Code(s): I10 - Essential (primary) hypertension Is this a current diagnosis for this admission?: Yes Plan: The patient endorses a history of hypertension; she is not on home antihypertensive medications. Blood pressures are acceptable today. (4) History of lung cancer Is this a current diagnosis for this admission?: Yes Plan: The patient endorses a history of lung cancer status post right upper lobe lobectomy and radiation treatments. She is followed by Dr. May. (5) Debility Is this a current diagnosis for this admission?: Yes Plan: The patient is an elderly, frail-appearing woman with a past medical history of chronic COPD and lung cancer. Her baseline respiratory status has limited her functional mobility. Physical therapy evaluations were ordered; recommend rehab upon discharge. Discharge planning is consulted. (6) Tobacco abuse Is this a current diagnosis for this admission?: Yes Plan: The patient endorses 1 pack/day tobacco use. Smoking cessation is encouraged. Nicotine replacement therapies have been provided. - Time Time Spent with patient: 15-24 minutes Medications reviewed and adjusted accordingly: Yes Anticipated discharge: SNF - Short term rehab vs home with home health Within: within 24 hours
--- NOTE | 2018-09-19 14:35 | RADIOLOGY REPORT (SQ) ---
EXAM DESCRIPTION: CHEST SINGLE VIEW COMPLETED DATE/TIME: 09/19/2018 2:23 pm REASON FOR STUDY: dyspnea, productive cough COMPARISON: PET-CT 03/06/2018 Chest films 09/14/2018, 09/10/2018, 01/21/2018 EXAM PARAMETERS: NUMBER OF VIEWS: One view. TECHNIQUE: Single frontal radiographic view of the chest acquired. RADIATION DOSE: NA LIMITATIONS: None. FINDINGS: LUNGS AND PLEURA: Post therapeutic changes right upper hemithorax, post right upper lobect [place]. Remainder of the lungs are hyperinflated and hyperlucent from obstructive disease. No acute infiltra [place]. No pleural effusion. No pneumothorax. MEDIASTINUM AND HILAR STRUCTURES: No masses. Contour normal. HEART AND VASCULAR STRUCTURES: Heart normal in size. Normal vasculature. BONES: No acute findings. HARDWARE: None in the chest. OTHER: No other significant finding. IMPRESSION: No acute findings. TECHNICAL DOCUMENTATION: JOB ID: [id number] [employer]- All Rights Reserved Reading location - IP/workstation name: [email or web address]
[2018-09-19] MEDS: FLUTICASONE NASAL SPRAY 50 MCG/SPRY 120 SPRAY/16 GM NASL SCH (16:24)
[2018-09-19] MEDS: SODIUM CHLORIDE NASAL SPRAY 44 ML NASL PRN ×2 (16:27→20:15)
[2018-09-19] MEDS ORDERED: BUSPIRONE HCL 10 MG TABLET PO SCH (22:00)
[2018-09-20] MEDS: IPRATROPIUM/ALBUTEROL 0.5-2.5 MG/3 ML AMPUL NEB SCH ×2 (00:06→07:54)
[2018-09-20] MEDS: LEVALBUTEROL HCL NEB 1.25 MG/3 ML AMPUL NEB PRN ×2 (04:33→12:22)
[2018-09-20] MEDS: METHYLPREDNISOLONE INJ 40 MG/1 ML SDV IV SCH (05:30)
[2018-09-20 05:54] LABS: HEMATOCRIT 35.7 % (36.0-47.0); HEMOGLOBIN 12.1 g/dL (12.0-15.5); MEAN CORPUSCULAR HEMOGLOBIN 28.8 pg (27.0-33.4); MEAN CORPUSCULAR HGB CONC 33.8 g/dL (32.0-36.0); MEAN CORPUSCULAR VOLUME 85 fl (80-97); PLATELET COUNT 330 10^3/uL (150-450); RED BLOOD COUNT 4.19 10^6/uL (3.72-5.28); RED CELL DISTRIBUTION WIDTH 14.3 % (11.5-14.0); WHITE BLOOD COUNT 15.9 10^3/uL (4.0-10.5)
[2018-09-20] MEDS ORDERED: BUSPIRONE HCL 10 MG TABLET PO SCH (08:00)
[2018-09-20] MEDS: GUAIFENESIN 600 MG TABLET.SA PO SCH (09:37)
[2018-09-20] MEDS: FLUTICASONE NASAL SPRAY 50 MCG/SPRY 120 SPRAY/16 GM NASL SCH (09:38)
[2018-09-20] MEDS: DOXYCYCLINE HYCLATE 100 MG TABLET PO SCH (09:38)
[2018-09-20] MEDS: NICOTINE 14 MG/24 HR PATCH.TD24 TD PRN (09:41)
[2018-09-20] MEDS: ENOXAPARIN SODIUM INJ 40 MG/0.4 ML DISP.SYRIN SUBCUT SCH (09:43)
[2018-09-20 14:46] VITALS: BP 125/53
--- NOTE | 2018-09-22 14:40 | PDOC DISCHARGE SUMMARY ---
General - Admit/Disc Date/PCP Admission Date/Primary Care Provider: 09/14/18 22:23 DENISE GARVEY MD Discharge Date: 09/20/18 - Discharge Diagnosis (1) Acute and chronic respiratory failure with hypoxia Is this a current diagnosis for this admission?: Yes Summary: Acute phase has resolved; patient has been weaned to 3.5 LPM supplemental oxygen via nasal cannula (chronically utilizes 3-4 LPM at home). She is no longer tachypneic, tachycardia has improved significantly, she declines dyspnea while at rest, and she maintain oxygen saturations on her baseline oxygen requirement while ambulatory personally 80 feet today. The patient was admitted to [facility] on continuous cardiac telemetry. She was encouraged to trial BiPAP; fortunately she has had a poor expense with this in the past and is unable to tolerate due to severe anxiety. She was provided supplemental oxygen, scheduled and as needed nebulizer treatments, steroid therapy, Mucinex, incentive spirometry, flutter valve, and chest physiotherapy. She was empirically placed on IV doxycycline for treatment of chronic bronchitis in patient with acute exacerbation. She demonstrated gradual improvement at at time of discharge was ambulatory without difficulty on her baseline oxygen requirement, had been afebrile >48 hours, and with a downward trend in leukcytosis. The patient was agreeable to a home health nurse and lean coach. She was discharged to home with prescriptions for a prednisone taper and doxycycline. She was encouraged to follow-up with her primary care provider within 1 week, with her inorganic chemistry teacher as scheduled. And to return to the emergency department as needed for any concerning symptoms. (2) COPD exacerbation Is this a current diagnosis for this admission?: Yes Summary: Significantly improved; hospital management and outpatient follow up recommendations as described above. (3) HTN (hypertension) Is this a current diagnosis for this admission?: Yes Summary: Patient endorses a history of hypertension; she is not on home antihypertensive medications. Blood pressures remained acceptable throughout admission. She did not require treatment. (4) History of lung cancer Is this a current diagnosis for this admission?: Yes Summary: Patient is encouraged to follow up with Dr. May as scheduled. (5) Debility Is this a current diagnosis for this admission?: Yes Summary: The patient is an elderly, frail-appearing woman with a past medical history of chronic COPD and lung cancer. Her baseline respiratory status has limited her functional mobility. Physical therapy evaluations were ordered; recommend rehab upon discharge. The patient did was ~80 feet with minimal assistance and a front wheeled walker. The patient declined SNF and Home Health Physical Therapy. She was agreeable to a Home Health nurse. (6) Tobacco abuse Is this a current diagnosis for this admission?: Yes Summary: Smoking cessation is encouraged; a prescription for Nicoderm patches was provided at discharge. - Additional Information Resuscitation Status: Full Code Discharge Diet: Regular Discharge Activity: Activity As Tolerated, Balance Activity w/Rest, Slowly Increase Activity Home Medications: No Home Medications 09/21/18 History of Present Illness History of Present Illness: Per H&P by Dr. Dodge: SADA ROLAND is a 73 year old female with a past medical history of lung cancer, COPD with baseline oxygen dependence of 2 L by nasal cannula, continues to smoke 1-2 cigarettes a day, who presents in respiratory distress. Patient has been discharged from our facility 2 days ago after being admitted for a COPD exacerbation. Per EMS the patient was initially saturating 78% on 2 L by nasal cannula. Complains of progressive shortness of breath, cough with greenish sputum, wheezing and persistent cough, she smoked 1 cigarettes a day, she did have some improvement of her symptoms after receiving [id number] nebulizers. Patient states that she has been taking prednisone and doxycycline at home. Initially was on nonrebreather and she refused to have BiPAP secondary to claustrophobia but agrees to intubation if necessary. After treatment in the emergency department she was saturating 91% on 5 L via nasal cannula. Chest x-ray in the emergency department negative. By the time I went to see her she was a still unable to speak in full sentences and was desaturating upon talking to me. Physical Exam Vital Signs: Temp Pulse Resp BP Pulse Ox 98.1 F 108 H 18 125/53 L 93 09/20/18 14:43 09/20/18 14:43 09/20/18 14:43 09/20/18 14:43 09/20/18 14:43 Intake & Output 09/21/18 09/22/18 09/23/18 06:59 06:59 06:59 Intake Total 237 Balance 237 General appearance: PRESENT: no acute distress, thin, well-developed, well- nourished Head exam: PRESENT: atraumatic, normocephalic Eye exam: PRESENT: conjunctiva pink, EOMI, PERRLA. ABSENT: scleral icterus Ear exam: PRESENT: normal external ear exam Mouth exam: PRESENT: moist, tongue midline Neck exam: ABSENT: carotid bruit, JVD, lymphadenopathy, thyromegaly Respiratory exam: PRESENT: decreased breath sounds, prolonged expiratory phas, rhonchi - Throughout, symmetrical, tachypnea, other - Supplemental oxygen by nasal cannula. ABSENT: rales, wheezes Cardiovascular exam: PRESENT: +S1, +S2, tachycardia - HR<110. ABSENT: diastolic murmur, rubs, systolic murmur Pulses: PRESENT: normal dorsalis pedis pul Vascular exam: PRESENT: normal capillary refill GI/Abdominal exam: PRESENT: normal bowel sounds, soft. ABSENT: distended, guarding, mass, organolmegaly, rebound, tenderness Rectal exam: PRESENT: deferred Extremities exam: PRESENT: full ROM. ABSENT: calf tenderness, clubbing, pedal edema Neurological exam: PRESENT: alert, awake, oriented to person, oriented to place , oriented to time, oriented to situation, CN II-XII grossly intact. ABSENT: motor sensory deficit Psychiatric exam: PRESENT: appropriate affect, normal mood. ABSENT: homicidal ideation, suicidal ideation Skin exam: PRESENT: dry, intact, warm. ABSENT: cyanosis, rash Results Laboratory Results: 09/20/18 05:26 09/19/18 05:07 Impressions: Chest X-Ray 09/19/18 00:00 IMPRESSION: No acute findings. Qualifiers - * PATIENT BEING DISCHARGED WITH ANY OF THE FOLLOWING DIAGNOSIS: No Plan Discharge Plan: Discharge to home with [facility]. Follow-up with primary care provider within 1 week. Follow-up with inorganic chemistry teacher as scheduled. Return to the emergency department as needed for any concerning symptoms. Time Spent: Less than 30 Minutes
== END 2018-09-20 15:54 | disposition home health service (06) | DRG 189 ==
LOC: ER 19:52 → EH 22:23 → 3W 09-15 01:55
PROVIDERS: ADMIT Internal Medicine; ATTEND Internal Medicine
PROC: 3E0F73Z Introduction of Anti-inflammatory into Respiratory Tract, Via Natural or Artificial Opening (ICD-10-PCS; principal; 2018-09-15)
DX: J96.21 Acute and chronic respiratory failure with hypoxia (principal); J44.1 Chronic obstructive pulmonary disease with (acute) exacerbation; I10 Essential (primary) hypertension; E78.00 Pure hypercholesterolemia, unspecified; M19.90 Unspecified osteoarthritis, unspecified site; D51.9 Vitamin B12 deficiency anemia, unspecified; F40.240 Claustrophobia; F17.210 Nicotine dependence, cigarettes, uncomplicated; Z60.2 Problems related to living alone; Z53.29 Procedure and treatment not carried out because of patient's decision for other reasons; I25.2 Old myocardial infarction; Z85.118 Personal history of other malignant neoplasm of bronchus and lung; Z99.81 Dependence on supplemental oxygen; Z92.3 Personal history of irradiation; Z90.710 Acquired absence of both cervix and uterus; Z90.2 Acquired absence of lung [part of]; Z80.1 Family history of malignant neoplasm of trachea, bronchus and lung; Z79.899 Other long term (current) drug therapy; Z88.4 Allergy status to anesthetic agent; Z88.3 Allergy status to other anti-infective agents
CPT/HCPCS: 36415; 36600; 71045; 80048; 80053; 82803; 83735; 84100; 84484; 85025; 85027; 93005; 93010; 94640; 94667; 94668; 94799; 96365; 96366; 99291; G8978-GP; G8979-GP; J1650; J2920; J2930; J3475; J3490; J7030; J7060; J7620

== ENCOUNTER 2018-09-21 00:09 | Inpatient (IN) | payer MEDICARE ==
[2018-09-21] MEDS ORDERED: IPRATROPIUM/ALBUTEROL 0.5-2.5 MG/3 ML AMPUL NEB ONE ×2 (00:16→00:20)
--- NOTE | 2018-09-21 00:26 | ER Document Report ---
ED General - General Stated Complaint: RESPIRATORY DISTRESS Time Seen by Provider: 09/21/18 00:16 Notes: Patient is a 73-year-old female who presents with complaint of cold to breathing. She was discharged yesterday after being admitted for COPD exacerbation. She says that since she got home she ran worsening difficulty breathing. She says she did not smoke when she got home. She said the last time she was smoke was before her most recent admission. She denies any fevers. No vomiting. Impairments arrived she was very hypoxic even on her nasal cannula. Immediately placed on a DuoNeb treatment give her serum nodule and brought her here. With her ongoing breathing treatment here she was 84%. Patient refuses BiPAP. She says she had to be intubated then have BiPAP performed. Denies chest pain other than some pain of her right lower ribs that occurs when she coughs. TRAVEL OUTSIDE OF THE [place] IN LAST 30 DAYS: No - Related Data Allergies/Adverse Reactions: moxifloxacin [From Avelox] Allergy (Severe, Verified 09/10/18 11:57) Shortness of Breath procaine HCl [From Novocain] Allergy (Severe, Verified 09/10/18 11:57) Hives azithromycin [Azithromycin] Allergy (Intermediate, Verified 09/10/18 11:57) Vomiting Influenza Virus Vaccines Allergy (Verified 09/15/18 03:53) Past Medical History - Social History Smoking Status: Current Every Day Smoker Frequency of alcohol use: None Drug Abuse: None Family History: Reviewed & Not Pertinent, Malignancy - Lung cancer - Past Medical History Cardiac Medical History: Reports: Hx Heart Attack - in 2014 but cath negative., Hx Hypercholesterolemia Pulmonary Medical History: Reports: Hx COPD - 2014 fev1=43, Hx Pneumonia - 2014 Renal/ Medical History: Denies: Hx Peritoneal Dialysis Malignancy Medical History: Reports: Hx Lung Cancer - 2006 RUL surgery chemo radiation Musculoskeletal Medical History: Reports Hx Arthritis Psychiatric Medical History: Denies: Hx Depression Past Surgical History: Reports: Hx Hysterectomy, Other - RUL lobectomy; port-a- cath, lung biopsies and bronchoscopies. - Immunizations Immunizations up to date: Yes Hx Diphtheria, Pertussis, Tetanus Vaccination: Yes Hx Pneumococcal Vaccination: 10/16/16 Review of Systems - Review of Systems Notes: My Normal Review Basic REVIEW OF SYSTEMS: CONSTITUTIONAL : Denies fever, chills, or sweats. Denies recent illness. EENT: Denies eye, ear, throat, or mouth pain or symptoms. Denies nasal or sinus congestion. CARDIOVASCULAR: Denies chest pain. RESPIRATORY: Difficulty breathing. GASTROINTESTINAL: Denies abdominal pain. Denies nausea, vomiting, or diarrhea. GENITOURINARY: Denies difficulty urinating, painful urination, burning, frequency, or blood in urine. MUSCULOSKELETAL: Denies neck or back pain or joint pain or swelling. SKIN: Denies rash or skin lesions. NEUROLOGICAL: Denies altered mental status or loss of consciousness. Denies headache. Denies weakness or paralysis or loss of use of either side. Denies problems with gait or speech. Denies sensory or motor loss. ALL OTHER SYSTEMS REVIEWED AND NEGATIVE. Physical Exam - Vital signs Vitals: BP 185/118 H 09/21/18 00:14 - Notes Notes: General Appearance: Well nourished, alert, cooperative, moderate acute distress , no obvious discomfort. Vitals: reviewed, See vital signs table. Head: no swelling or tenderness to the head Eyes: PERRL, EOMI, Conjuctiva clear Mouth: No decreasd moisture Neck: Supple, no neck tenderness, No thyromegaly Lungs: Rhonchus breath sounds. Fair air movement. Moderate acute distress Heart: Normal rate, Regular rythm, No murmur, no rub Abdomen: Normal BS, soft, No rigidity, No abdominal tenderness, No guarding, no rebound Extremities: good pulses in all extremities, no swelling or tenderness in the extremities, no edema. Skin: warm, dry, appropriate color, no rash Neuro: speech clear, oriented x 3, normal affect, responds appropriately to questions. Course - Re-evaluation Re-evalutation: 09/21/18 05:42 Patient has hypoxemia with a lot of mucus plugging throughout her lungs. Due to her hypoxemia even on her home O2 feel that she has been admitted to hospice. I did talk patient like her BiPAP informed her that she will probably get worse if she is not placed on BiPAP. Patient adamantly refuses BiPAP and says that she would rather be placed on a ventilator then placed on BiPAP. I did inform her that being placed on ventilator is a bad thing and that sometimes is very hard to get weaned off the ventilator and therefore I would strongly recommend BiPAP. Patient continues to refuse BiPAP. I did speak with the hospitalist, Dr. Chavez, about admission and he agrees to evaluate the patient for admission. Dictation of this chart was performed using voice recognition software; therefore, there may be some unintended grammatical errors. - Vital Signs Vital signs: Temp Pulse Resp BP Pulse Ox 23 H 98/64 L 94 09/21/18 05:35 09/21/18 05:35 09/21/18 05:35 - Laboratory Result Diagrams: 09/21/18 00:40 09/21/18 00:40 Laboratory results interpreted by me: 09/21/18 09/21/18 09/21/18 00:40 00:40 00:40 WBC 25.2 H RDW 15.3 H Seg Neuts % (Manual) 90 H Lymphocytes % (Manual) 6 L Abs Neuts (Manual) 22.7 H VBG pCO2 71.0 H* VBG HCO3 35.6 H Carbon Dioxide 34 H BUN 28 H Glucose 111 H Direct Bilirubin 0.6 H - EKG Interpretation by Me Additional EKG results interpreted by me: 09/21/18 02:13 EKG is reviewed and interpreted by me. EKG shows sinus tachycardia with occasional PAC and PVC. ND interval, QRS duration, QT intervals are within normal range. No ST segment elevation. Old EKG for comparison is from September 14, 2018. Discharge - Discharge Clinical Impression: Hypercapnia, Hypoxemia, Difficulty breathing, Acute and chronic respiratory failure with hypoxia Condition: Stable Disposition: ADMITTED OBSERVATION Admitting Provider: Hospitalist Unit Admitted: Telemetry
--- NOTE | 2018-09-21 01:01 | RADIOLOGY REPORT (SQ) ---
EXAM DESCRIPTION: XR CHEST 1 VIEW COMPLETED DATE/TME: 09/21/2018 00:19 CLINICAL HISTORY: 73 years Female, difficulty breathing COMPARISON: 2 days prior. NUMBER OF VIEWS/TECHNIQUE: 1/AP FINDINGS: Moderate opacification/fibrosis with retraction of the right upper hemithorax increased lung volume, right suprahilar clips, prominent interstitium, small blunting-fusion of the right costophrenic angle, small left basilar atelectasis or scar. Normal cardiac silhouette size. No pneumothorax. Stable bony thorax. IMPRESSION: No significant change.
[2018-09-21 01:19] LABS: VENOUS BLOOD BASE EXCESS 6.2 mmol/L; VENOUS BLOOD HCO3 35.6 mmol/L (20-32); VENOUS BLOOD PH 7.32 (7.30-7.42)
[2018-09-21 01:33] LABS: BLOOD UREA NITROGEN 28 mg/dL (7-20); CALCIUM 9.8 mg/dL (8.4-10.2); GLUCOSE 111 mg/dL (75-110)
[2018-09-21 01:34] LABS: ALANINE AMINOTRANSFERASE 35 U/L (9-52); ALBUMIN 3.7 g/dL (3.5-5.0); ALKALINE PHOSPHATASE 89 U/L (38-126); ANION GAP 10 (5-19); ASPARTATE AMINO TRANSFERASE 27 U/L (14-36); BILIRUBIN,DIRECT 0.6 mg/dL (0.0-0.4); BILIRUBIN,TOTAL 0.8 mg/dL (0.2-1.3); CARBON DIOXIDE 34 mmol/L (22-30); CHLORIDE 99 mmol/L (98-107); SODIUM 142.7 mmol/L (137-145); TOTAL PROTEIN 6.7 g/dL (6.3-8.2)
[2018-09-21 01:40] LABS: HEMATOCRIT 41.9 % (36.0-47.0); MEAN CORPUSCULAR HEMOGLOBIN 29.2 pg (27.0-33.4); MEAN CORPUSCULAR VOLUME 86 fl (80-97); PLATELET COUNT 441 10^3/uL (150-450); RED BLOOD COUNT 4.87 10^6/uL (3.72-5.28); RED CELL DISTRIBUTION WIDTH 15.3 % (11.5-14.0); WHITE BLOOD COUNT 25.2 10^3/uL (4.0-10.5)
[2018-09-21 01:42] LABS: HEMOGLOBIN 14.2 g/dL (12.0-15.5)
[2018-09-21 02:07] LABS: ABSOLUTE LYMPHOCYTES# (MANUAL) 1.5 10^3/uL (0.5-4.7); ABSOLUTE NEUTROPHILS# (MANUAL) 22.7 10^3/uL (1.7-8.2); BASOPHILS % (MANUAL) 0 % (0-2); EOSINOPHILS % (MANUAL) 0 % (0-6); LYMPHOCYTES % (MANUAL) 6 % (13-45); MONOCYTES % (MANUAL) 4 % (3-13); SEGMENTED NEUTROPHILS % (MAN) 90 % (42-78); TOTAL CELLS COUNTED 100
[2018-09-21 02:08] LABS: PLATELET COMMENT INCREASED
[2018-09-21 02:09] LABS: RBC MORPHOLOGY COMMENT NORMO-CYTIC/CHROMIC
[2018-09-21] MEDS ORDERED: ALBUTEROL SULFATE 0.083% NEB 2.5 MG/3 ML AMPUL NEB ONE (02:21)
[2018-09-21] MEDS ORDERED: DOXYCYCLINE HYCLATE 100 MG TABLET PO ONE (02:21)
[2018-09-21] MEDS ORDERED: ACETAMINOPHEN 325 MG TABLET PO PRN (02:54)
[2018-09-21] MEDS ORDERED: HYDRALAZINE HCL INJ/PF 20 MG/1 ML SDV IV PRN (02:54)
[2018-09-21] MEDS ORDERED: SODIUM CHLORIDE NASAL SPRAY 44 ML NASL PRN (02:57)
[2018-09-21] MEDS ORDERED: VANCOMYCIN HCL 0 MG in DEXTROSE 5%-WATER 250 ML IV NR (03:00)
[2018-09-21] MEDS ORDERED: VANCOMYCIN HCL INJ 1000 MG VIAL IV PRN (03:07)
[2018-09-21] MEDS ORDERED: CHLORPHENIRAMINE MALEATE 4 MG TABLET PO ONE ×2 (03:10→09:00)
[2018-09-21] MEDS ORDERED: VANCOMYCIN HCL 1,000 MG in DEXTROSE 5%-WATER 250 ML IV ONE (04:00)
[2018-09-21 04:37] LABS: ARTERIAL BLOOD BASE EXCESS 5.4 mmol/L; ARTERIAL BLOOD H2CO3 1.45 mmol/L (1.05-1.35); ARTERIAL BLOOD HCO3 30.9 mmol/L (20-24); ARTERIAL BLOOD O2 SATURATION 88.3 % (94-98); ARTERIAL BLOOD PCO2 48.3 mmHg (35-45); ARTERIAL BLOOD PH 7.42 (7.35-7.45); ARTERIAL BLOOD PO2 53.8 mmHg (80-100); ARTERIAL BLOOD TOTAL CO2 32.4 mmol/L (21-25)
[2018-09-21 04:42] LABS: ARTERIAL BLOOD FIO2 5L
[2018-09-21] MEDS: NORMAL SALINE 1000 ML 1,000 ML IV PRN ×2 (05:06→10:10)
--- NOTE | 2018-09-21 05:26 | PDOC H&P ---
History of Present Illness Admission Date/PCP: 09/21/18 02:49 DENISE GARVEY MD Patient complains of: Shortness of breath and nonproductive cough History of Present Illness: SADA ROLAND is a 73 year old female with a past medical history of lung cancer status post right upper lobectomy, COPD with oxygen dependence, chronic bronchitis with recurrent acute flare. Patient discharged 24 hours prior following COPD exacerbation secondary to acute on chronic bronchitis. She returns hypoxic with oxygen saturations in the 80s and bilateral rhonchi. Chest x-ray shows no acute changes, CBC reveals leukocytosis of 25,000 on prednisone. She started on empiric antibiotics and supplemental oxygen at 5 L. And referred to the hospitalist for admission. She has persistent symptomatic hypoxia, oxygen saturations in the 80s patient refusing BiPAP ABG reveals a PO2 of 53. She started on high flow nasal cannula. Past Medical History Cardiac Medical History: Reports: Myocardial Infarction - in 2014 but cath negative., Hyperlipidema Pulmonary Medical History: Reports: Chronic Obstructive Pulmonary Disease (COPD ) - 2014 fev1=43, Pneumonia - 2014 Malignancy Medical History: Reports: Lung Cancer - 2006 RUL surgery chemo radiation Musculoskeltal Medical History: Reports: Arthritis Psychiatric Medical History: Denies: Depression Hematology: Reports: Anemia - b12 since 1955 Past Surgical History Past Surgical History: Reports: Hysterectomy, Other - RUL lobectomy; port-a-cath , lung biopsies and bronchoscopies. Social History Information Source: Patient, [facility] Records Lives with: Alone Smoking Status: Current Every Day Smoker Frequency of Alcohol Use: None Hx Recreational Drug Use: No Drugs: None Hx Prescription Drug Abuse: No - Advance Directive Resuscitation Status: Full Code Family History Family History: COPD, Malignancy - Lung cancer Parental Family History Reviewed: Yes Children Family History Reviewed: Yes Sibling(s) Family History Reviewed.: Yes Medication/Allergy Home Medications: Tiotropium [place] [Spiriva Respimat] 2 puff IH QHS 01/08/18 Ipratropium/Albuterol Sulfate [Duoneb 3 ml Ampul] 3 ml NEB RTQ6HP PRN 09/10/18 Acetaminophen [Tylenol 325 mg Tablet] 650 mg PO Q4HP PRN tablet 09/20/18 Doxycycline Hyclate [Vibramycin 100 mg Tablet] 100 mg PO Q12 #12 tablet Fluticasone Propionate [Flonase Nasal S [place] 50 Mcg/S [place] 16 gm] 2 spray NASL DAILY #1 spray.pump 09/20/18 Guaifenesin [Mucinex Sr 600 mg Tablet.sa] 1,200 mg PO Q12 #28 tablet.sa Nicotine [Nicoderm 14 mg/24 Hr Transdermal Patch] 1 each TD DAILYP PRN #30 patch.td24 09/20/18 Prednisone [Deltasone] 60 mg PO DAILY #15 tablet 09/20/18 Sodium Chloride [Venturia Nasal S [place] 44 ml Bottle] 1 spray NASL Q2HP PRN #1 bottle 09/20/18 Allergies/Adverse Reactions: moxifloxacin [From Avelox] Allergy (Severe, Verified 09/10/18 11:57) Shortness of Breath procaine HCl [From Novocain] Allergy (Severe, Verified 09/10/18 11:57) Hives azithromycin [Azithromycin] Allergy (Intermediate, Verified 09/10/18 11:57) Vomiting Influenza Virus Vaccines Allergy (Verified 09/15/18 03:53) Review of Systems Constitutional: PRESENT: as per HPI, fatigue, weakness. ABSENT: fever(s) Eyes: ABSENT: visual disturbances Ears: ABSENT: hearing changes Cardiovascular: PRESENT: as per HPI, dyspnea on exertion, orthropnea. ABSENT: chest pain, edema, palpitations Respiratory: PRESENT: as per HPI, cough, dyspnea. ABSENT: hemoptysis, sputum Gastrointestinal: ABSENT: abdominal pain, constipation, diarrhea, hematemesis, hematochezia, nausea, vomiting Genitourinary: ABSENT: dysuria, hematuria Musculoskeletal: ABSENT: joint swelling Integumentary: ABSENT: rash, wounds Neurological: ABSENT: abnormal gait, abnormal speech, confusion, dizziness, focal weakness, syncope Psychiatric: ABSENT: anxiety, depression, homidical ideation, suicidal ideation Endocrine: ABSENT: cold intolerance, heat intolerance, polydipsia, polyuria Hematologic/Lymphatic: ABSENT: easy bleeding, easy bruising Physical Exam Vital Signs: Temp Pulse Resp BP Pulse Ox 22 H 166/90 H 96 09/21/18 04:28 09/21/18 00:21 09/21/18 04:28 General appearance: PRESENT: cooperative, severe distress, thin. ABSENT: disheveled Head exam: PRESENT: atraumatic, normocephalic Eye exam: PRESENT: conjunctiva pink, EOMI, PERRLA. ABSENT: scleral icterus Ear exam: PRESENT: normal external ear exam Mouth exam: PRESENT: moist, tongue midline Neck exam: ABSENT: carotid bruit, JVD, lymphadenopathy, thyromegaly Respiratory exam: PRESENT: accessory muscle use, crackles, decreased breath sounds, rales, retraction, rhonchi. ABSENT: stridor Cardiovascular exam: PRESENT: RRR, tachycardia. ABSENT: diastolic murmur, rubs , systolic murmur Pulses: PRESENT: normal dorsalis pedis pul Vascular exam: PRESENT: normal capillary refill GI/Abdominal exam: PRESENT: normal bowel sounds, soft. ABSENT: distended, guarding, mass, organolmegaly, rebound, tenderness Rectal exam: PRESENT: deferred Extremities exam: PRESENT: full ROM. ABSENT: calf tenderness, clubbing, pedal edema Neurological exam: PRESENT: alert, awake, oriented to person, oriented to place , oriented to time, oriented to situation, CN II-XII grossly intact. ABSENT: motor sensory deficit Psychiatric exam: PRESENT: appropriate affect, normal mood. ABSENT: homicidal ideation, suicidal ideation Skin exam: PRESENT: dry, intact, warm. ABSENT: cyanosis, rash Results Laboratory Results: 09/21/18 04:20 Carbonic Acid 1.45 H HCO3/H2CO3 Ratio 21:1 ABG pH 7.42 ABG pCO2 48.3 H ABG pO2 53.8 L ABG HCO3 30.9 H ABG O2 Saturation 88.3 L ABG Base Excess 5.4 FiO2 5L Impressions: Chest X-Ray 09/21/18 00:19 IMPRESSION: No significant change. Assessment & Plan - Diagnosis (1) Acute and chronic respiratory failure with hypoxia Is this a current diagnosis for this admission?: Yes Plan: High flow nasal cannula supplemental oxygen trial, follow-up ABG in 1 hour for consideration of intubation, pneumonia care set, incentive spirometry, flutter valve, chest PT (2) Hypoxemia Is this a current diagnosis for this admission?: Yes Plan: Secondary to #1 (3) Acute and chronic respiratory failure Is this a current diagnosis for this admission?: Yes Plan: Likely flare of chronic bronchitis versus healthcare associated pneumonia given recent hospitalization, vancomycin and cefepime initiated. (4) PNA (pneumonia) Qualifiers: Pneumonia type: due to unspecified organism Laterality: left Lung location: lower lobe of lung Qualified Code(s): J18.1 - Lobar pneumonia, unspecified organism Is this a current diagnosis for this admission?: Yes Plan: Pneumonia care set, cefepime and vancomycin, follow-up blood culture - Time Time Spent: 50 to 70 Minutes - Inpatient Certification Medical Necessity: Need Close Monitoring Due to Risk of Patient Decompensation
[2018-09-21] MEDS ORDERED: CEFEPIME 2 GM/D5W RTU 2 GM/50 ML RTUPB IV SCH (06:00)
[2018-09-21] MEDS: HEPARIN SOD (PORCINE) 5,000 UNIT/ML 1 ML SYRINGE SUBCUT SCH ×3 (06:24→22:06)
[2018-09-21] MEDS: IPRATROPIUM/ALBUTEROL 0.5-2.5 MG/3 ML AMPUL NEB SCH ×3 (08:24→20:18)
--- NOTE | 2018-09-21 09:37 | EKG REPORT ---
SEVERITY:- ABNORMAL ECG - SINUS TACHYCARDIA RAA, CONSIDER BIATRIAL ABNORMALITIES PROBABLE INFEROLATERAL INFARCT, AGE INDETERM CONSIDER ANTERIOR INFARCT : Confirmed by: Jonh Win 21-Sep-2018 09:36:44
[2018-09-21] MEDS ORDERED: PREDNISONE 20 MG TABLET PO SCH (10:00)
[2018-09-21] MEDS: GUAIFENESIN 600 MG TABLET.SA PO SCH ×2 (10:13→22:06)
[2018-09-21] MEDS: FLUTICASONE NASAL SPRAY 50 MCG/SPRY 120 SPRAY/16 GM NASL SCH ×2 (10:14→22:06)
[2018-09-21] MEDS ORDERED: PIPERACILLIN/TAZOBACTAM 3.375 GM VIAL IV SCH (11:00)
[2018-09-21] MEDS: ACETYLCYSTEINE 20% SOLN 800 MG/4 ML VIAL.NEB NEB SCH ×2 (11:24→20:18)
[2018-09-21] MEDS: FLUTICASONE/SALMETEROL DISKUS 500-50 MCG/DOSE IH SCH ×2 (11:32→22:06)
[2018-09-21] MEDS: TIOTROPIUM BROMIDE DPI 5 CAP/KIT (18 MCG/CAP) IH SCH (11:33)
[2018-09-21] MEDS: PIPERACILLIN SODIUM/TAZOBACTAM 3.375 GM in NORMAL SALINE 100 ML IV SCH ×2 (11:34→18:29)
[2018-09-21] MEDS: NICOTINE 14 MG/24 HR PATCH.TD24 TD SCH (15:34)
--- NOTE | 2018-09-21 18:07 | Progress Note ---
Provider Note Provider Note: The patient is a 73-year-old female with past medical history of lung cancer, status post right upper lobectomy followed by Dr. May, COPD with oxygen dependence, chronic bronchitis, [place], arthritis, and anemia who was readmitted for acute on chronic respiratory failure after less than 12 hours since time of her discharge. Labs, imaging, overnight evens reviewed. Agreed with the plan of care as established by the Top Precipitator Operator Helper. (1) Acute and chronic respiratory failure with hypoxia Patient is placed on supplemental oxygen as needed to maintain oxygen saturations greater than 89%. She is encouraged to attempt BiPAP; short of that we will utilize high flow nasal cannula. She is placed on scheduled and as needed nebulizer treatments. IV Solu-Medrol. Mucinex twice daily. Incentive spirometry, flutter valve, chest physiotherapy. Pulmonology is consulted; appreciate Dr. Morrissey's evaluation and recommendations. To things now and then a few things now and then (2) Hypoxemia Secondary to #1; plan as above. (3) Acute and chronic respiratory failure Secondary to COPD exacerbation and left lower lobe healthcare associated pneumonia. Plan as outlined elsewhere. (4) PNA (pneumonia) Blood cultures are pending. Sputum culture is ordered. During the patient's previous admission, she was treated with IV clindamycin and provided a prescription at discharge. Upon return, antibiotics were escalated to IV vancomycin and Zosyn. Remaining plan as above. (5) COPD exacerbation Advair and Spiriva. P.o. prednisone. Mucomyst nebulizer treatments. Mucinex p.o. twice daily. Remaining plan as above.
[2018-09-21] MEDS: VANCOMYCIN HCL 500 MG in DEXTROSE 5%-WATER 100 ML IV SCH (20:18)
[2018-09-22] MEDS: IPRATROPIUM/ALBUTEROL 0.5-2.5 MG/3 ML AMPUL NEB SCH ×4 (01:59→19:51)
[2018-09-22] MEDS: PIPERACILLIN SODIUM/TAZOBACTAM 3.375 GM in NORMAL SALINE 100 ML IV SCH ×3 (02:24→19:20)
[2018-09-22] MEDS: VANCOMYCIN HCL 500 MG in DEXTROSE 5%-WATER 100 ML IV SCH ×2 (05:47→17:20)
[2018-09-22] MEDS: HEPARIN SOD (PORCINE) 5,000 UNIT/ML 1 ML SYRINGE SUBCUT SCH ×3 (05:48→21:51)
[2018-09-22 07:05] LABS: ANION GAP 9 (5-19); BLOOD UREA NITROGEN 17 mg/dL (7-20); CALCIUM 8.5 mg/dL (8.4-10.2); CARBON DIOXIDE 29 mmol/L (22-30); CHLORIDE 102 mmol/L (98-107); GLUCOSE 100 mg/dL (75-110); HEMATOCRIT 33.7 % (36.0-47.0); MEAN CORPUSCULAR HEMOGLOBIN 28.4 pg (27.0-33.4); MEAN CORPUSCULAR HGB CONC 33.2 g/dL (32.0-36.0); MEAN CORPUSCULAR VOLUME 86 fl (80-97); PLATELET COUNT 196 10^3/uL (150-450); POTASSIUM 3.6 mmol/L (3.6-5.0); RED BLOOD COUNT 3.93 10^6/uL (3.72-5.28); SODIUM 140.4 mmol/L (137-145); WHITE BLOOD COUNT 17.6 10^3/uL (4.0-10.5)
[2018-09-22 07:17] LABS: HEMOGLOBIN 11.2 g/dL (12.0-15.5)
[2018-09-22 07:21] LABS: ABSOLUTE LYMPHOCYTES# (MANUAL) 0.5 10^3/uL (0.5-4.7); ABSOLUTE MONOCYTES # (MANUAL) 0.5 10^3/uL (0.1-1.4); ABSOLUTE NEUTROPHILS# (MANUAL) 16.5 10^3/uL (1.7-8.2); BASOPHILS % (MANUAL) 0 % (0-2); EOSINOPHILS % (MANUAL) 0 % (0-6); LYMPHOCYTES % (MANUAL) 3 % (13-45); MONOCYTES % (MANUAL) 3 % (3-13); SEGMENTED NEUTROPHILS % (MAN) 94 % (42-78); TOTAL CELLS COUNTED 100
[2018-09-22 07:24] LABS: HELMET CELLS SLIGHT; OVALOCYTES SLIGHT; PLATELET COMMENT ADEQUATE; POIKILOCYTOSIS 1+; TEAR DROP CELLS 1+; TOXIC GRANULATION 2+; TOXIC VACUOLATION PRESENT
[2018-09-22] MEDS: ACETYLCYSTEINE 20% SOLN 800 MG/4 ML VIAL.NEB NEB SCH ×2 (08:07→19:51)
[2018-09-22] MEDS: FLUTICASONE/SALMETEROL DISKUS 500-50 MCG/DOSE IH SCH ×2 (10:31→21:50)
[2018-09-22] MEDS: FLUTICASONE NASAL SPRAY 50 MCG/SPRY 120 SPRAY/16 GM NASL SCH ×2 (10:31→21:51)
[2018-09-22] MEDS: GUAIFENESIN 600 MG TABLET.SA PO SCH ×2 (10:32→21:51)
[2018-09-22] MEDS: PREDNISONE 20 MG TABLET PO SCH (10:32)
[2018-09-22] MEDS: NICOTINE 14 MG/24 HR PATCH.TD24 TD SCH (10:32)
[2018-09-22] MEDS: TIOTROPIUM BROMIDE DPI 5 CAP/KIT (18 MCG/CAP) IH SCH (10:32)
--- NOTE | 2018-09-22 13:03 | PDOC PROGRESS REPORT ---
Subjective Progress Note for:: 09/22/18 Subjective:: The patient is a 73-year-old female with past medical history of lung cancer, status post right upper lobectomy followed by Dr. May, COPD with oxygen dependence, chronic bronchitis, [place], arthritis, and anemia who was readmitted for acute on chronic respiratory failure after less than 12 hours since time of her discharge. The patient was seen on morning rounds. She was found resting in bed comfortably on high flow nasal cannula. The patient states that she is feeling much better than the time of her admission, and even slightly improved as compared to the time of her discharge earlier that same day. She does endorse continued dyspnea and productive cough; denies fever, chills, chest pain, orthopnea, abdominal pain, nausea vomiting and diarrhea. She expresses frustration that her prolonged course and tells me that she does not understand why her respiratory status is so poor. We did discuss that her previous lung cancer, lobectomy, continued tobacco dependence, and COPD are all contributing to her chronic respiratory failure. We had a prolonged discussion regarding COPD being a progressive illness and that while hopeful that she will recover to her baseline respiratory status, it is just as likely that her COPD has progressed and she is now more medically dependent than previously. I introduced the concept of palliative care and SNF for short-term versus long- term care. The patient seemed to understand and follow the conversation. All of her questions were answered to the best of my ability. No concerns per nursing. Reason For Visit: COPD EXACERBATION,PNEUMONIA Physical Exam Vital Signs: Temp Pulse Resp BP Pulse Ox 98.1 F 87 20 100/43 L 96 09/22/18 11:19 09/22/18 11:19 09/22/18 11:19 09/22/18 11:19 09/22/18 11:19 Intake & Output 09/21/18 09/22/18 09/23/18 06:59 06:59 06:59 Intake Total 3090 200 Balance 3090 200 Weight 53.2 kg General appearance: PRESENT: no acute distress, cooperative, thin, well- developed, well-nourished Head exam: PRESENT: atraumatic, normocephalic Eye exam: PRESENT: conjunctiva pink, EOMI, PERRLA. ABSENT: scleral icterus Ear exam: PRESENT: normal external ear exam Mouth exam: PRESENT: moist, tongue midline Neck exam: ABSENT: carotid bruit, JVD, lymphadenopathy, thyromegaly Respiratory exam: PRESENT: decreased breath sounds, prolonged expiratory phas, rhonchi, symmetrical, tachypnea. ABSENT: rales, wheezes Cardiovascular exam: PRESENT: RRR, +S1, +S2. ABSENT: diastolic murmur, rubs, systolic murmur Pulses: PRESENT: normal dorsalis pedis pul Vascular exam: PRESENT: normal capillary refill GI/Abdominal exam: PRESENT: normal bowel sounds, soft. ABSENT: distended, guarding, mass, organolmegaly, rebound, tenderness Rectal exam: PRESENT: deferred Extremities exam: PRESENT: full ROM. ABSENT: calf tenderness, clubbing, pedal edema Neurological exam: PRESENT: alert, awake, oriented to person, oriented to place , oriented to time, oriented to situation, CN II-XII grossly intact. ABSENT: motor sensory deficit Psychiatric exam: PRESENT: appropriate affect, normal mood. ABSENT: homicidal ideation, suicidal ideation Skin exam: PRESENT: dry, intact, warm. ABSENT: cyanosis, rash Results Laboratory Results: 09/22/18 05:35 09/22/18 05:35 09/22/18 09/22/18 05:35 05:35 WBC 17.6 H RBC 3.93 Hgb 11.2 L D Hct 33.7 L MCV 86 MCH 28.4 MCHC 33.2 RDW 15.0 H Plt Count 196 Seg Neutrophils % Not Reportable Lymphocytes % Not Reportable Monocytes % Not Reportable Eosinophils % Not Reportable Basophils % Not Reportable Absolute Neutrophils Not Reportable Absolute Lymphocytes Not Reportable Absolute Monocytes Not Reportable Absolute Eosinophils Not Reportable Absolute Basophils Not Reportable Sodium 140.4 Potassium 3.6 Chloride 102 Carbon Dioxide 29 Anion Gap 9 BUN 17 Creatinine 0.55 Est GFR ( Amer) > 60 Est GFR (Non-Af Amer) > 60 Glucose 100 Calcium 8.5 Impressions: Chest X-Ray 09/21/18 00:19 IMPRESSION: No significant change. Assessment & Plan - Diagnosis (1) Acute on chronic respiratory failure with hypoxia and hypercapnia Is this a current diagnosis for this admission?: Yes Plan: Improved. Patient is admitted to medical floor on continuous cardiac telemetry. She is encouraged to attempt BiPAP; unfortunately, she is unable to tolerate device due to severe anxiety. Currently utilizing high flow nasal cannula with good effect. She is placed on scheduled and as needed nebulizer treatments. Advair and Spiriva. Mucomyst nebulizer treatments. P.o. prednisone. Mucinex twice daily. Incentive spirometer, flutter valve, and chest physiotherapy. Pulmonology is consulted; appreciate Dr. Morrissey's assistance. Palliative Care and Discharge Planning are consulted. (2) COPD with exacerbation Is this a current diagnosis for this admission?: Yes Plan: Plan as above. (3) PNA (pneumonia) Qualifiers: Pneumonia type: due to unspecified organism Laterality: right Lung location: lower lobe of lung Qualified Code(s): J18.1 - Lobar pneumonia, unspecified organism Is this a current diagnosis for this admission?: Yes Plan: Blood cultures have no growth at 24 hours. Sputum cultures are pending. During the patient's previous admission, she was treated with IV clindamycin ( receiving a 5 day course of therapy). Upon readmission, antibiotics were escalated to IV vancomycin and Zosyn. Remaining plan as above. (4) Tobacco abuse Is this a current diagnosis for this admission?: Yes Plan: Smoking cessation is encouraged; nicotine replacement therapies are provided. (5) Hx of cancer of lung Is this a current diagnosis for this admission?: Yes - Time Time Spent with patient: 15-24 minutes Medications reviewed and adjusted accordingly: Yes Anticipated discharge: SNF
[2018-09-22] MEDS: IPRATROPIUM/ALBUTEROL 0.5-2.5 MG/3 ML AMPUL NEB PRN (18:24)
[2018-09-22] MEDS ORDERED: LACTULOSE SYRUP 20 GM/30 ML UDCUP PO ONE (21:00)
[2018-09-23] MEDS: PIPERACILLIN SODIUM/TAZOBACTAM 3.375 GM in NORMAL SALINE 100 ML IV SCH ×3 (01:02→18:56)
[2018-09-23] MEDS: IPRATROPIUM/ALBUTEROL 0.5-2.5 MG/3 ML AMPUL NEB SCH ×4 (02:40→19:52)
[2018-09-23 05:58] LABS: HEMATOCRIT 31.5 % (36.0-47.0); HEMOGLOBIN 10.6 g/dL (12.0-15.5); MEAN CORPUSCULAR HEMOGLOBIN 28.5 pg (27.0-33.4); MEAN CORPUSCULAR HGB CONC 33.7 g/dL (32.0-36.0); MEAN CORPUSCULAR VOLUME 85 fl (80-97); PLATELET COUNT 235 10^3/uL (150-450); RED BLOOD COUNT 3.72 10^6/uL (3.72-5.28); RED CELL DISTRIBUTION WIDTH 14.9 % (11.5-14.0); WHITE BLOOD COUNT 13.9 10^3/uL (4.0-10.5)
[2018-09-23] MEDS: VANCOMYCIN HCL 500 MG in DEXTROSE 5%-WATER 100 ML IV SCH (06:23)
[2018-09-23] MEDS: HEPARIN SOD (PORCINE) 5,000 UNIT/ML 1 ML SYRINGE SUBCUT SCH ×3 (06:25→23:23)
[2018-09-23 06:36] LABS: VANCOMYCIN,TROUGH 8.3 ug/mL (5.0-20.0)
[2018-09-23] MEDS: ACETYLCYSTEINE 20% SOLN 800 MG/4 ML VIAL.NEB NEB SCH ×2 (08:21→19:51)
[2018-09-23] MEDS: FLUTICASONE/SALMETEROL DISKUS 500-50 MCG/DOSE IH SCH ×2 (09:16→23:26)
[2018-09-23] MEDS: PREDNISONE 20 MG TABLET PO SCH (09:17)
[2018-09-23] MEDS: TIOTROPIUM BROMIDE DPI 5 CAP/KIT (18 MCG/CAP) IH SCH (09:17)
[2018-09-23] MEDS: FLUTICASONE NASAL SPRAY 50 MCG/SPRY 120 SPRAY/16 GM NASL SCH ×2 (09:17→23:27)
[2018-09-23] MEDS: NICOTINE 14 MG/24 HR PATCH.TD24 TD SCH (09:18)
[2018-09-23] MEDS: POLYETHYLENE GLYCOL 3350 POWDER 17 GM/1 PACKET PO SCH (09:18)
[2018-09-23] MEDS: GUAIFENESIN 600 MG TABLET.SA PO SCH ×2 (09:18→23:24)
[2018-09-23 13:14] LABS: APPEARANCE,URINE CLEAR; BILIRUBIN,URINE NEGATIVE (NEGATIVE); COLOR,URINE COLORLESS; GLUCOSE, URINE NEGATIVE (NEGATIVE); KETONES,URINE NEGATIVE (NEGATIVE); LEUKOCYTE ESTERASE,URINE NEGATIVE (NEGATIVE); NITRITE,URINE NEGATIVE (NEGATIVE); PROTEIN,URINE NEGATIVE (NEGATIVE); URINE SPECIFIC GRAVITY 1.005; UROBILINOGEN,URINE NEGATIVE mg/dL (<2.0)
--- NOTE | 2018-09-23 15:58 | PDOC PROGRESS REPORT ---
Subjective Progress Note for:: 09/23/18 Subjective:: The patient is a 73-year-old female with past medical history of lung cancer, status post right upper lobectomy followed by Dr. May, COPD with oxygen dependence, chronic bronchitis, [place], arthritis, and anemia who was readmitted for acute on chronic respiratory failure after less than 12 hours since time of her discharge. The patient was seen on afternoon rounds. She was found resting in the recliner on supplemental oxygen via nasal cannula at 1-2 L/min and maintaining her oxygen saturations in the high 90s while at rest. She states that she is feeling much better today; no dyspnea while at rest, does continue to have a slightly productive cough though her sputum production and thickness has decreased significantly in the last 24 hours. She denies fever, chills, chest pain, orthopnea, abdominal pain, nausea vomiting and diarrhea. She has no new questions or concerns. No concerns per nursing. Reason For Visit: COPD EXACERBATION,PNEUMONIA Physical Exam Vital Signs: Temp Pulse Resp BP Pulse Ox 98.6 F 93 16 113/44 L 94 09/23/18 11:36 09/23/18 13:44 09/23/18 13:44 09/23/18 11:36 09/23/18 13:44 Intake & Output 09/22/18 09/23/18 09/24/18 06:59 06:59 06:59 Intake Total 3090 750 200 Balance 3090 750 200 Weight 53.2 kg 52.6 kg General appearance: PRESENT: no acute distress, cooperative, thin, well- developed Head exam: PRESENT: atraumatic, normocephalic Eye exam: PRESENT: conjunctiva pink, EOMI, PERRLA. ABSENT: scleral icterus Ear exam: PRESENT: normal external ear exam Mouth exam: PRESENT: moist, tongue midline Neck exam: ABSENT: carotid bruit, JVD, lymphadenopathy, thyromegaly Respiratory exam: PRESENT: decreased breath sounds - Bibasilar, rhonchi, symmetrical, unlabored. ABSENT: rales, wheezes Cardiovascular exam: PRESENT: RRR, +S1, +S2. ABSENT: diastolic murmur, rubs, systolic murmur Pulses: PRESENT: normal dorsalis pedis pul Vascular exam: PRESENT: normal capillary refill GI/Abdominal exam: PRESENT: normal bowel sounds, soft. ABSENT: distended, guarding, mass, organolmegaly, rebound, tenderness Rectal exam: PRESENT: deferred Extremities exam: PRESENT: full ROM. ABSENT: calf tenderness, clubbing, pedal edema Neurological exam: PRESENT: alert, awake, oriented to person, oriented to place , oriented to time, oriented to situation, CN II-XII grossly intact. ABSENT: motor sensory deficit Psychiatric exam: PRESENT: appropriate affect, normal mood. ABSENT: homicidal ideation, suicidal ideation Skin exam: PRESENT: dry, intact, warm. ABSENT: cyanosis, rash Results Laboratory Results: 09/23/18 05:45 09/23/18 05:45 09/23/18 09/23/18 09/23/18 05:45 05:45 12:35 WBC 13.9 H RBC 3.72 Hgb 10.6 L Hct 31.5 L MCV 85 MCH 28.5 MCHC 33.7 RDW 14.9 H Plt Count 235 Creatinine 0.62 Est GFR ( Amer) > 60 Est GFR (Non-Af Amer) > 60 Urine Color COLORLESS Urine Appearance CLEAR Urine pH 6.0 Ur Specific [place] 1.005 Urine Protein NEGATIVE Urine Glucose (UA) NEGATIVE Urine Ketones NEGATIVE Urine Blood NEGATIVE Urine Nitrite NEGATIVE Ur Leukocyte Esterase NEGATIVE Urine WBC (Auto) 0 Urine RBC (Auto) 0 09/21/18 18:35 Sputum Sputum Culture - Final Pseudomonas Aeruginosa Normal Monica Absent Impressions: Chest X-Ray 09/21/18 00:19 IMPRESSION: No significant change. Assessment & Plan - Diagnosis (1) Acute on chronic respiratory failure with hypoxia and hypercapnia Is this a current diagnosis for this admission?: Yes Plan: Acute phase has resolved; now maintaining oxygen saturations on NC at 2lpm while at rest. Patient is admitted to medical floor on continuous cardiac telemetry. Supplemental oxygen as needed to maintain oxygen saturations greater than 89%. She is placed on scheduled and as needed nebulizer treatments. Advair and Spiriva. Mucomyst nebulizer treatments. P.o. prednisone. Mucinex twice daily. Incentive spirometer, flutter valve, and chest physiotherapy. Pulmonology is consulted; appreciate Dr. Morrissey's assistance. Palliative Care and Discharge Planning are consulted. (2) COPD with exacerbation Is this a current diagnosis for this admission?: Yes Plan: Plan as above. (3) PNA (pneumonia) Qualifiers: Pneumonia type: due to unspecified organism Laterality: right Lung location: lower lobe of lung Qualified Code(s): J18.1 - Lobar pneumonia, unspecified organism Is this a current diagnosis for this admission?: Yes Plan: Blood cultures have no growth at 48 hours. Sputum cultures grew pansensitive Pseudomonas aeruginosa. During the patient's previous admission, she was treated with IV clindamycin ( receiving a 5 day course of therapy). Upon readmission, antibiotics were escalated to IV vancomycin and Zosyn. Patient has remained afebrile throughout admission, leukocytosis trending down. Will continue antibiotics; if patient remains afebrile, WBC stable, and patient clinically improved; will d/c Vancomycin at 72 hours of negative cultures and transition Zosyn to p.o. Augmentin. Remaining plan as above. (4) Tobacco abuse Is this a current diagnosis for this admission?: Yes Plan: Smoking cessation is encouraged; nicotine replacement therapies are provided. (5) Hx of cancer of lung Is this a current diagnosis for this admission?: Yes - Time Time Spent with patient: 15-24 minutes Smoking Cessation Education: 3 to 10 minutes Medications reviewed and adjusted accordingly: Yes Anticipated discharge: Home with Homehealth - vs SNF for short term rehab Within: within 48 hours
[2018-09-23] MEDS: VANCOMYCIN HCL 750 MG in DEXTROSE 5%-WATER 250 ML IV SCH (18:57)
[2018-09-24] MEDS: IPRATROPIUM/ALBUTEROL 0.5-2.5 MG/3 ML AMPUL NEB SCH ×3 (01:41→14:00)
[2018-09-24] MEDS: PIPERACILLIN SODIUM/TAZOBACTAM 3.375 GM in NORMAL SALINE 100 ML IV SCH (02:45)
[2018-09-24 05:14] LABS: HEMATOCRIT 30.9 % (36.0-47.0); HEMOGLOBIN 10.5 g/dL (12.0-15.5); MEAN CORPUSCULAR HEMOGLOBIN 28.9 pg (27.0-33.4); MEAN CORPUSCULAR HGB CONC 33.9 g/dL (32.0-36.0); MEAN CORPUSCULAR VOLUME 85 fl (80-97); PLATELET COUNT 223 10^3/uL (150-450); RED BLOOD COUNT 3.62 10^6/uL (3.72-5.28); WHITE BLOOD COUNT 9.3 10^3/uL (4.0-10.5)
[2018-09-24] MEDS: VANCOMYCIN HCL 750 MG in DEXTROSE 5%-WATER 250 ML IV SCH (05:51)
[2018-09-24] MEDS: HEPARIN SOD (PORCINE) 5,000 UNIT/ML 1 ML SYRINGE SUBCUT SCH ×3 (05:51→21:24)
[2018-09-24] MEDS: ACETYLCYSTEINE 20% SOLN 800 MG/4 ML VIAL.NEB NEB SCH (07:52)
[2018-09-24] MEDS: TIOTROPIUM BROMIDE DPI 5 CAP/KIT (18 MCG/CAP) IH SCH (10:56)
[2018-09-24] MEDS: GUAIFENESIN 600 MG TABLET.SA PO SCH ×2 (10:56→21:23)
[2018-09-24] MEDS: FLUTICASONE/SALMETEROL DISKUS 500-50 MCG/DOSE IH SCH ×2 (10:56→21:23)
[2018-09-24] MEDS: NICOTINE 14 MG/24 HR PATCH.TD24 TD SCH (10:57)
[2018-09-24] MEDS: POLYETHYLENE GLYCOL 3350 POWDER 17 GM/1 PACKET PO SCH (11:01)
[2018-09-24] MEDS: FLUTICASONE NASAL SPRAY 50 MCG/SPRY 120 SPRAY/16 GM NASL SCH ×2 (11:01→21:24)
[2018-09-24] MEDS: PREDNISONE 20 MG TABLET PO SCH (11:06)
[2018-09-24] MEDS: AMOXICILLIN TR/POT CLAVULANATE 500-125 MG TAB PO SCH ×2 (16:40→21:23)
--- NOTE | 2018-09-24 16:44 | PDOC PROGRESS REPORT ---
Subjective Progress Note for:: 09/24/18 Subjective:: The patient is a 73-year-old female with past medical history of lung cancer, status post right upper lobectomy followed by Dr. May, COPD with oxygen dependence, chronic bronchitis, [place], arthritis, and anemia who was readmitted for acute on chronic respiratory failure after less than 12 hours since time of her discharge. The patient was seen on afternoon rounds. She was found resting in the recliner on supplemental oxygen via nasal cannula at 1-2 L/min and maintaining her oxygen saturations in the high 90s while at rest. She states that she is feeling much better today; no dyspnea while at rest, and her cough has resolved. She is asking to decrease the frequency of some of her nebulizer treatments; especially the Mucomyst that she does not like the way it smells. She has not yet been ambulatory but notes that she will be walking with physical therapy shortly; she is requested to finish her lunch first. She was initially hesitant with regard to SNF short-term rehab; stating that she wanted to be discharged home and asked my advice on how to return to the emergency department if she shortly became distressed. She was advised that if she was already having reservations about being discharged to home and likelihood of readmission that that was an indication that she needed to reconsider SNF. The patient stated that she would think about it. A few hours later, I did receive a phone call from physical therapy and nursing saying that the patient was now interested in being discharged to a skilled facility and then transition to home with home health services. No concerns per nursing. Reason For Visit: COPD EXACERBATION,PNEUMONIA Physical Exam Vital Signs: Temp Pulse Resp BP Pulse Ox 98.2 F 95 18 118/45 L 93 09/24/18 11:53 09/24/18 14:00 09/24/18 14:00 09/24/18 11:53 09/24/18 14:00 Intake & Output 09/23/18 09/24/18 09/25/18 06:59 06:59 06:59 Intake Total 750 1030 250 Balance 750 1030 250 Weight 52.6 kg 53.9 kg General appearance: PRESENT: no acute distress, thin, well-developed, well- nourished Head exam: PRESENT: atraumatic, normocephalic Eye exam: PRESENT: conjunctiva pink, EOMI, PERRLA. ABSENT: scleral icterus Ear exam: PRESENT: normal external ear exam Mouth exam: PRESENT: moist, tongue midline Neck exam: ABSENT: carotid bruit, JVD, lymphadenopathy, thyromegaly Respiratory exam: PRESENT: clear to auscultation mikey, decreased breath sounds - Bibasilar, prolonged expiratory phas, symmetrical, unlabored, other - Supplemental oxygen by nasal cannula. ABSENT: rales, rhonchi, wheezes Cardiovascular exam: PRESENT: RRR, +S1, +S2. ABSENT: diastolic murmur, rubs, systolic murmur Pulses: PRESENT: normal dorsalis pedis pul Vascular exam: PRESENT: normal capillary refill GI/Abdominal exam: PRESENT: normal bowel sounds, soft. ABSENT: distended, guarding, mass, organolmegaly, rebound, tenderness Rectal exam: PRESENT: deferred Extremities exam: PRESENT: full ROM. ABSENT: calf tenderness, clubbing, pedal edema Neurological exam: PRESENT: alert, awake, oriented to person, oriented to place , oriented to time, oriented to situation, CN II-XII grossly intact. ABSENT: motor sensory deficit Psychiatric exam: PRESENT: appropriate affect, normal mood. ABSENT: homicidal ideation, suicidal ideation Skin exam: PRESENT: dry, intact, warm. ABSENT: cyanosis, rash Results Laboratory Results: 09/24/18 03:48 09/23/18 05:45 09/24/18 03:48 WBC 9.3 RBC 3.62 L Hgb 10.5 L Hct 30.9 L MCV 85 MCH 28.9 MCHC 33.9 RDW 15.0 H Plt Count 223 09/21/18 18:35 Sputum Gram Stain - Final 09/21/18 18:35 Sputum Sputum Culture - Final Pseudomonas Aeruginosa Normal Monica Absent Impressions: Chest X-Ray 09/21/18 00:19 IMPRESSION: No significant change. Assessment & Plan - Diagnosis (1) Acute on chronic respiratory failure with hypoxia and hypercapnia Is this a current diagnosis for this admission?: Yes Plan: Acute phase has resolved; now maintaining oxygen saturations on NC at 2lpm while at rest. Patient is admitted to medical floor on continuous cardiac telemetry. Supplemental oxygen as needed to maintain oxygen saturations greater than 89%. She is placed on scheduled (decreased from every 8 hours to every 6) and as needed nebulizer treatments. Advair and Spiriva. We will discontinue Mucomyst P.o. prednisone. Mucinex twice daily. Incentive spirometer, flutter valve, and chest physiotherapy. Pulmonology is consulted; appreciate Dr. Morrissey's assistance. Palliative Care and Discharge Planning are consulted. Patient is now agreeable to SNF for short-term rehab; appreciate discharge planning's assistance in making these arrangements. (2) COPD with exacerbation Is this a current diagnosis for this admission?: Yes Plan: Plan as above. (3) PNA (pneumonia) Qualifiers: Pneumonia type: due to unspecified organism Laterality: right Lung location: lower lobe of lung Qualified Code(s): J18.1 - Lobar pneumonia, unspecified organism Is this a current diagnosis for this admission?: Yes Plan: Blood cultures have no growth at 48 hours. Sputum cultures grew pansensitive Pseudomonas aeruginosa. During the patient's previous admission, she was treated with IV clindamycin ( receiving a 5 day course of therapy). Upon readmission, antibiotics were escalated to IV vancomycin and Zosyn. Patient has remained afebrile throughout admission, leukocytosis is resolved, and blood cultures are negative at 72 hours. Therefore will discontinue IV antibiotics and transition to p.o. Augmentin. Remaining plan as above. (4) Tobacco abuse Is this a current diagnosis for this admission?: Yes Plan: Smoking cessation is encouraged; nicotine replacement therapies are provided. (5) Hx of cancer of lung Is this a current diagnosis for this admission?: Yes - Time Time Spent with patient: 25-34 minutes Anticipated discharge: SNF Within: when bed available
[2018-09-24] MEDS: IPRATROPIUM/ALBUTEROL 0.5-2.5 MG/3 ML AMPUL NEB PRN (20:11)
[2018-09-24] MEDS: TOBRAMYCIN SULFATE NEB 40 MG/ML 30 ML NEB SCH (20:11)
[2018-09-25] MEDS: IPRATROPIUM/ALBUTEROL 0.5-2.5 MG/3 ML AMPUL NEB SCH ×2 (00:12→07:55)
[2018-09-25] MEDS: HEPARIN SOD (PORCINE) 5,000 UNIT/ML 1 ML SYRINGE SUBCUT SCH ×2 (06:21→13:54)
[2018-09-25] MEDS: AMOXICILLIN TR/POT CLAVULANATE 500-125 MG TAB PO SCH ×2 (06:21→13:52)
[2018-09-25] MEDS: TOBRAMYCIN SULFATE NEB 40 MG/ML 30 ML NEB SCH (07:55)
[2018-09-25] MEDS: GUAIFENESIN 600 MG TABLET.SA PO SCH (09:13)
[2018-09-25] MEDS: PREDNISONE 20 MG TABLET PO SCH (09:14)
[2018-09-25] MEDS: FLUTICASONE NASAL SPRAY 50 MCG/SPRY 120 SPRAY/16 GM NASL SCH (09:15)
[2018-09-25] MEDS: POLYETHYLENE GLYCOL 3350 POWDER 17 GM/1 PACKET PO SCH (09:15)
[2018-09-25] MEDS: TIOTROPIUM BROMIDE DPI 5 CAP/KIT (18 MCG/CAP) IH SCH (09:16)
[2018-09-25] MEDS: FLUTICASONE/SALMETEROL DISKUS 500-50 MCG/DOSE IH SCH (09:17)
[2018-09-25] MEDS: NICOTINE 14 MG/24 HR PATCH.TD24 TD SCH (09:17)
[2018-09-25 12:10] VITALS: BP 129/53
--- NOTE | 2018-09-25 13:01 | PDOC TRANSFER SUMMARY ---
General - Admit/Disc Date/PCP Admission Date/Primary Care Provider: 09/21/18 02:49 DENISE GARVEY MD Discharge Date: 09/25/18 - Discharge Diagnosis (1) Acute on chronic respiratory failure with hypoxia and hypercapnia Is this a current diagnosis for this admission?: Yes (2) COPD with exacerbation Is this a current diagnosis for this admission?: Yes (3) PNA (pneumonia) Is this a current diagnosis for this admission?: Yes (4) Tobacco abuse Is this a current diagnosis for this admission?: Yes (5) Hx of cancer of lung Is this a current diagnosis for this admission?: Yes - Additional Information Resuscitation Status: Full Code Discharge Diet: Cardiac Discharge Activity: Activity As Tolerated, Balance Activity w/Rest Prescriptions: Amox Tr/Potassium Clavulanate [Augmentin "500" Tablet] 1 tab PO Q8 #24 tablet Fluticasone Propionate [Flonase Nasal [place] 50 Mcg/[place] 16 gm] 2 spray NASL Q12 #1 spray.pump Fluticasone/Salmeterol [Advair 500-50 Diskus 14 Dose/Diskus] 1 inh IH Q12 #1 inhaler Guaifenesin [Mucinex Sr 600 mg Tablet.sa] 600 mg PO Q12 #28 tablet.sa Prednisone [Deltasone 20 mg Tablet] 20 mg PO ASDIR PRN #10 tablet PRN Reason: Tiotropium [place] [Spiriva [place] 5 Cap/Kit (18 Mcg/Cap)] 1 cap IH DAILY # 1 kit Home Medications: Acetaminophen [Tylenol 325 mg Tablet] 650 mg PO Q4HP PRN tablet 09/24/18 Amox Tr/Potassium Clavulanate [Augmentin "500" Tablet] 1 tab PO Q8 #24 tablet 09/24/18 Fluticasone Propionate [Flonase Nasal [place] 50 Mcg/[place] 16 gm] 2 spray NASL Q12 #1 spray.pump 09/24/18 Fluticasone/Salmeterol [Advair 500-50 Diskus 14 Dose/Diskus] 1 inh IH Q12 #1 inhaler 09/24/18 Guaifenesin [Mucinex Sr 600 mg Tablet.sa] 600 mg PO Q12 #28 tablet.sa 09/24/18 Nicotine [Nicoderm 14 mg/24 Hr Transdermal Patch] 1 each TD DAILY patch.td24 Prednisone [Deltasone 20 mg Tablet] 20 mg PO ASDIR PRN #10 tablet 09/24/18 Sodium Chloride [[place] Nasal [place] 44 ml Bottle] 1 spray NASL Q2HP PRN bottle 09/24/18 Tiotropium [place] [Spiriva [place] 5 Cap/Kit (18 Mcg/Cap)] 1 cap IH DAILY # 1 kit 09/24/18 History of Present Illness Admission Date/PCP: 09/21/18 02:49 DENISE GARVEY MD History of Present Illness: Per H&P by Dr. Chavez: SADA ROLADN is a 73 year old female with a past medical history of lung cancer status post right upper lobectomy, COPD with oxygen dependence, chronic bronchitis with recurrent acute flare. Patient discharged 24 hours prior following COPD exacerbation secondary to acute on chronic bronchitis. She returns hypoxic with oxygen saturations in the 80s and bilateral rhonchi. Chest x-ray shows no acute changes, CBC reveals leukocytosis of 25,000 on prednisone. She started on empiric antibiotics and supplemental oxygen at 5 L. And referred to the hospitalist for admission. She has persistent symptomatic hypoxia, oxygen saturations in the 80s patient refusing BiPAP ABG reveals a PO2 of 53. She started on high flow nasal cannula. Hospital Course Hospital Course: Acute phase has resolved; she is now maintaining oxygen saturations while ambulatory on her baseline oxygen requirement of 2 L/min. The patient was admitted to the medical floor on continuous cardiac telemetry. She was provided supplemental oxygen as needed to maintain oxygen saturations greater than 89% and initially benefited from high flow nasal cannula. Her oxygen requirement has been weaned to her baseline requirement of 2 L/min. She was further supported with scheduled and as needed nebulizer treatments, Mucomyst nebulizer treatments, Advair and Spiriva, p.o. prednisone, Mucinex, incentive spirometry, flutter valve, and chest physiotherapy. Initial chest x-ray revealed a right lower lobe infiltrate concerning for pneumonia. During the patient's previous admission, she had been treated with IV clindamycin (receiving a total 5-day course of therapy with a prescription to continue at time of discharge). Upon readmission, antibiotic's were escalated to IV vancomycin and Zosyn. The patient has remained afebrile throughout her admission, leukocytosis has resolved, blood cultures are negative at 4 days, and sputum culture revealed Pseudomonas aeruginosa sensitive to Augmentin. The patient was transitioned to p.o. Augmentin this morning to complete a 10-day course of therapy. Physical therapy again met with the patient and recommended SNF upon discharge. Fortunately the patient is now agreeable to transition to SNF for short-term rehab. At time of discharge, the patient is in stable condition, maintaining oxygen saturations on her baseline oxygen requirement with resolution of her acute symptoms. She has been offered a bed at [facility]. She is discharged with prescriptions for Augmentin, Flonase, Advair, Mucinex, NicoDerm patches, prednisone, and Spiriva. She is recommended follow-up with her primary care provider as scheduled on 09/27/2018, and with Dr. Morrissey as scheduled on December 04, 2018. Physical Exam Vital Signs: Temp Pulse Resp BP Pulse Ox 97.8 F 97 17 129/53 H 90 L 09/25/18 11:46 09/25/18 11:46 09/25/18 11:46 09/25/18 11:46 09/25/18 11:46 Intake & Output 09/24/18 09/25/18 09/26/18 06:59 06:59 06:59 Intake Total 1030 570 Balance 1030 570 Weight 53.9 kg 53.1 kg General appearance: PRESENT: no acute distress, thin, well-developed, well- nourished Head exam: PRESENT: atraumatic, normocephalic Eye exam: PRESENT: conjunctiva pink, EOMI, PERRLA. ABSENT: scleral icterus Ear exam: PRESENT: normal external ear exam Mouth exam: PRESENT: moist, tongue midline Neck exam: ABSENT: carotid bruit, JVD, lymphadenopathy, thyromegaly Respiratory exam: PRESENT: decreased breath sounds - Bibasilar, prolonged expiratory phas, symmetrical, unlabored, other - Supplemental oxygen by nasal cannula. ABSENT: rales, rhonchi, wheezes Cardiovascular exam: PRESENT: RRR. ABSENT: diastolic murmur, rubs, systolic murmur Pulses: PRESENT: normal dorsalis pedis pul Vascular exam: PRESENT: normal capillary refill GI/Abdominal exam: PRESENT: normal bowel sounds, soft. ABSENT: distended, guarding, mass, organolmegaly, rebound, tenderness Rectal exam: PRESENT: deferred Extremities exam: PRESENT: full ROM. ABSENT: calf tenderness, clubbing, pedal edema Neurological exam: PRESENT: alert, awake, oriented to person, oriented to place , oriented to time, oriented to situation, CN II-XII grossly intact. ABSENT: motor sensory deficit Psychiatric exam: PRESENT: anxious, appropriate affect, normal mood. ABSENT: homicidal ideation, suicidal ideation Skin exam: PRESENT: dry, intact, warm. ABSENT: cyanosis, rash Results Laboratory Results: 09/24/18 03:48 09/23/18 05:45 09/21/18 18:35 Sputum Gram Stain - Final 09/21/18 18:35 Sputum Sputum Culture - Final Pseudomonas Aeruginosa Normal Monica Absent Impressions: Chest X-Ray 09/21/18 00:19 IMPRESSION: No significant change. Transfer Plan - Time Spent with Patient Time spent with patient: Less than 30 Minutes Qualifiers - * PATIENT BEING DISCHARGED WITH ANY OF THE FOLLOWING DIAGNOSIS: No Plan Discharge Plan: Discharge to [facility] for short-term rehab. Time Spent: Less than 30 Minutes
--- NOTE | 2018-09-25 13:56 | PDOC PROGRESS REPORT ---
Subjective Progress Note for:: 09/25/18 Subjective:: feeling much better Reason For Visit: COPD EXACERBATION,PNEUMONIA Physical Exam Vital Signs: Temp Pulse Resp BP Pulse Ox 98.2 F 84 18 128/53 H 91 L 09/25/18 07:29 09/25/18 07:57 09/25/18 07:57 09/25/18 07:29 09/25/18 07:57 Intake & Output 09/24/18 09/25/18 09/26/18 06:59 06:59 06:59 Intake Total 1030 570 Balance 1030 570 Weight 53.9 kg 53.1 kg General appearance: PRESENT: no acute distress, cooperative, disheveled, thin Head exam: PRESENT: atraumatic, normocephalic Eye exam: PRESENT: conjunctiva pale, EOMI. ABSENT: nystagmus, periorbital swelling Mouth exam: PRESENT: dry mucosa, neck supple, tongue midline Neck exam: ABSENT: carotid bruit, JVD, lymphadenopathy, thyromegaly, tracheal deviation, tracheostomy Respiratory exam: PRESENT: decreased breath sounds, prolonged expiratory phas, rhonchi, unlabored, wheezes. ABSENT: retraction, stridor, tachypnea Cardiovascular exam: PRESENT: RRR, +S1, +S2 Pulses: PRESENT: normal radial pulses GI/Abdominal exam: PRESENT: soft. ABSENT: tenderness Extremities exam: ABSENT: calf tenderness, clubbing, joint swelling, pedal edema Musculoskeletal exam: ABSENT: deformity, dislocation Neurological exam: PRESENT: alert, awake Psychiatric exam: PRESENT: appropriate affect Skin exam: PRESENT: dry, warm Results Laboratory Results: 09/24/18 03:48 09/23/18 05:45 09/21/18 18:35 Sputum Gram Stain - Final 09/21/18 18:35 Sputum Sputum Culture - Final Pseudomonas Aeruginosa Normal Monica Absent Impressions: Chest X-Ray 09/21/18 00:19 IMPRESSION: No significant change. Assessment & Plan - Diagnosis (1) Acute on chronic respiratory failure with hypoxia and hypercapnia Is this a current diagnosis for this admission?: Yes Plan: improving (2) Hx of cancer of lung Is this a current diagnosis for this admission?: Yes Plan: stable at this time (3) Tobacco abuse Is this a current diagnosis for this admission?: Yes Plan: continue to abstain from tobacco use
--- NOTE | 2018-09-28 13:24 | PDOC CONSULTATION ---
Consultation Consult Date: 09/21/18 Attending physician:: OLGA CALDERON Consult reason:: acute/chronic resp failure History of Present Illness Admission Date/PCP: 09/21/18 02:49 DENISE GARVEY MD History of Present Illness: SADA ROLAND is a 73 year old female with a discharge return short of breath admits to cough that is nonproductive no hemoptysis PPD status unknown no history chronic lung disease as a child or adolescent. Patient has had multiple admissions in the past denies any recent sick contacts nausea vomiting fevers chills diarrhea sore throat chest pain edema Past Medical History Cardiac Medical History: Reports: Myocardial Infarction - in 2014 but cath negative., Hyperlipidema Pulmonary Medical History: Reports: Chronic Obstructive Pulmonary Disease (COPD ) - 2014 [id number], Pneumonia - 2014 Malignancy Medical History: Reports: Lung Cancer - 2006 RUL surgery chemo radiation Musculoskeltal Medical History: Reports: Arthritis Skin Medical History: Denies: Psoriasis Psychiatric Medical History: Denies: Depression Traumatic Medical History: Denies: Traumatic Brain Injury Hematology: Reports: Anemia - b12 since 1955 Past Surgical History Past Surgical History: Reports: Hysterectomy, Other - RUL lobectomy; port-a-cath , lung biopsies and bronchoscopies. Social History Lives with: Alone Smoking Status: Current Every Day Smoker Passive smoke exposure as: Both Frequency of Alcohol Use: None Hx Recreational Drug Use: No Drugs: None Hx Prescription Drug Abuse: No Do you have pets?: Yes Have you had any respiratory illnesses as a child?: No Have you been exposed to any sick contacts recently?: Yes Have you had any recent respiratory illnesses?: Yes Have you travelled outside of [place] in the past 12 months?: No - Advance Directive Resuscitation Status: Full Code Family History Family History: Malignancy - Lung cancer Parental Family History Reviewed: Yes Children Family History Reviewed: Yes Sibling(s) Family History Reviewed.: Yes Medication/Allergy Home Medications: Acetaminophen [Tylenol 325 mg Tablet] 650 mg PO Q4HP PRN tablet 09/24/18 Amox Tr/Potassium Clavulanate [Augmentin "500" Tablet] 1 tab PO Q8 #24 tablet 09/24/18 Fluticasone Propionate [Flonase Nasal [place] 50 Mcg/[place] 16 gm] 2 spray NASL Q12 #1 spray.pump 09/24/18 Fluticasone/Salmeterol [Advair 500-50 Diskus 14 Dose/Diskus] 1 inh IH Q12 #1 inhaler 09/24/18 Guaifenesin [Mucinex Sr 600 mg Tablet.sa] 600 mg PO Q12 #28 tablet.sa 09/24/18 Nicotine [Nicoderm 14 mg/24 Hr Transdermal Patch] 1 each TD DAILY patch.td24 Prednisone [Deltasone 20 mg Tablet] 20 mg PO ASDIR PRN #10 tablet 09/24/18 Sodium Chloride [[place] Nasal [place] 44 ml Bottle] 1 spray NASL Q2HP PRN bottle 09/24/18 Tiotropium [place] [Spiriva Handihaler 5 Cap/Kit (18 Mcg/Cap)] 1 cap IH DAILY # 1 kit 09/24/18 Allergies/Adverse Reactions: moxifloxacin [From Avelox] Allergy (Severe, Verified 09/10/18 11:57) Shortness of Breath procaine HCl [From Novocain] Allergy (Severe, Verified 09/10/18 11:57) Hives azithromycin [Azithromycin] Allergy (Intermediate, Verified 09/10/18 11:57) Vomiting Influenza Virus Vaccines Allergy (Verified 09/15/18 03:53) Review of Systems Constitutional: ABSENT: fatigue, night sweats, weakness Eyes: ABSENT: visual disturbances Ears: ABSENT: hearing changes Nose, Mouth, and Throat: ABSENT: mouth pain Cardiovascular: PRESENT: dyspnea on exertion. ABSENT: orthropnea, palpitations Respiratory: PRESENT: cough, dyspnea. ABSENT: hemoptysis Gastrointestinal: ABSENT: abdominal pain, coffee ground emesis, diarrhea, heartburn, hematemesis, hematochezia, melena Genitourinary: ABSENT: dysuria, hematuria Musculoskeletal: ABSENT: deformity Integumentary: ABSENT: pruritus, rash Neurological: ABSENT: abnormal gait, abnormal movements, abnormal speech, confusion, focal weakness, frequent falls, lack of coordination, memory loss Psychiatric: ABSENT: hallucinations, homidical ideation, suicidal ideation Endocrine: ABSENT: cold intolerance, heat intolerance, polydipsia, polyuria Hematologic/Lymphatic: PRESENT: easy bruising Allergic/Immunologic: ABSENT: seasonal rhinorrhea Physical Exam Vital Signs: Temp Pulse Resp BP Pulse Ox 105 H 22 H 98/64 L 99 09/21/18 08:24 09/21/18 08:24 09/21/18 05:35 09/21/18 08:24 Intake & Output 09/20/18 09/21/18 09/22/18 06:59 06:59 06:59 Intake Total 1000 Balance 1000 General appearance: PRESENT: no acute distress, cooperative, disheveled, thin Head exam: PRESENT: atraumatic, normocephalic Eye exam: PRESENT: conjunctiva pale, EOMI. ABSENT: nystagmus, scleral icterus Mouth exam: PRESENT: dry mucosa, neck supple, tongue midline Neck exam: ABSENT: carotid bruit, JVD, lymphadenopathy, thyromegaly, tracheal deviation, tracheostomy Respiratory exam: PRESENT: decreased breath sounds, prolonged expiratory phas, rales, rhonchi, unlabored. ABSENT: retraction, stridor, tachypnea Cardiovascular exam: PRESENT: RRR, +S1, +S2 Pulses: PRESENT: normal radial pulses GI/Abdominal exam: PRESENT: soft. ABSENT: tenderness Extremities exam: ABSENT: calf tenderness, clubbing, joint swelling, tenderness Musculoskeletal exam: ABSENT: deformity, dislocation Neurological exam: PRESENT: alert, awake Psychiatric exam: PRESENT: appropriate affect Skin exam: PRESENT: dry, warm Results Laboratory Results: 09/21/18 04:20 Carbonic Acid 1.45 H HCO3/H2CO3 Ratio 21:1 ABG pH 7.42 ABG pCO2 48.3 H ABG pO2 53.8 L ABG HCO3 30.9 H ABG O2 Saturation 88.3 L ABG Base Excess 5.4 FiO2 5L Impressions: Chest X-Ray 09/21/18 00:19 IMPRESSION: No significant change. Assessment & Plan - Diagnosis (1) Acute on chronic respiratory failure with hypoxia and hypercapnia Is this a current diagnosis for this admission?: Yes Plan: improving (2) COPD exacerbation Is this a current diagnosis for this admission?: Yes Plan: You current bronchodilator therapy (4) Tobacco abuse Is this a current diagnosis for this admission?: Yes Plan: Stop smoking (5) Tobacco use disorder Is this a current diagnosis for this admission?: Yes Plan: Spoke at length risk and dangers associated with continued tobacco use
--- NOTE | 2018-09-28 13:27 | PDOC PROGRESS REPORT ---
Subjective Progress Note for:: 09/24/18 Subjective:: feeling much better Reason For Visit: COPD EXACERBATION,PNEUMONIA Physical Exam Vital Signs: Temp Pulse Resp BP Pulse Ox 98.2 F 95 19 118/45 L 94 09/24/18 11:53 09/24/18 11:53 09/24/18 11:53 09/24/18 11:53 09/24/18 11:53 Intake & Output 09/23/18 09/24/18 09/25/18 06:59 06:59 06:59 Intake Total 750 1030 250 Balance 750 1030 250 Weight 52.6 kg 53.9 kg General appearance: PRESENT: no acute distress, cooperative, disheveled, thin Head exam: PRESENT: atraumatic, normocephalic Eye exam: PRESENT: conjunctiva pale, EOMI. ABSENT: nystagmus, periorbital swelling Mouth exam: PRESENT: dry mucosa, neck supple, tongue midline Neck exam: ABSENT: carotid bruit, JVD, lymphadenopathy, thyromegaly, tracheal deviation, tracheostomy Respiratory exam: PRESENT: decreased breath sounds, prolonged expiratory phas, rhonchi, unlabored, wheezes. ABSENT: rales, retraction, stridor Cardiovascular exam: PRESENT: irregular rhythm Pulses: PRESENT: normal radial pulses GI/Abdominal exam: PRESENT: soft. ABSENT: tenderness Extremities exam: PRESENT: pedal edema. ABSENT: calf tenderness, clubbing, joint swelling Musculoskeletal exam: ABSENT: deformity, dislocation Neurological exam: PRESENT: alert, awake Skin exam: PRESENT: dry, warm Results Laboratory Results: 09/24/18 03:48 09/23/18 05:45 09/23/18 09/24/18 12:35 03:48 WBC 9.3 RBC 3.62 L Hgb 10.5 L Hct 30.9 L MCV 85 MCH 28.9 MCHC 33.9 RDW 15.0 H Plt Count 223 Urine Color COLORLESS Urine Appearance CLEAR Urine pH 6.0 Ur Specific [place] 1.005 Urine Protein NEGATIVE Urine Glucose (UA) NEGATIVE Urine Ketones NEGATIVE Urine Blood NEGATIVE Urine Nitrite NEGATIVE Ur Leukocyte Esterase NEGATIVE Urine WBC (Auto) 0 Urine RBC (Auto) 0 09/21/18 18:35 Sputum Gram Stain - Final 09/21/18 18:35 Sputum Sputum Culture - Final Pseudomonas Aeruginosa Normal Monica Absent Impressions: Chest X-Ray 09/21/18 00:19 IMPRESSION: No significant change. Assessment & Plan - Diagnosis (1) Acute on chronic respiratory failure with hypoxia and hypercapnia Is this a current diagnosis for this admission?: Yes Plan: improving (2) Dysphagia Qualifiers: Dysphagia type: oropharyngeal phase Qualified Code(s): R13.12 - Dysphagia, oropharyngeal phase Is this a current diagnosis for this admission?: Yes Plan: Modified barium swallow (3) History of lung cancer Is this a current diagnosis for this admission?: Yes Plan: Continues to smoke (4) Tobacco abuse Is this a current diagnosis for this admission?: Yes Plan: continue to abstain from tobacco use (5) Tobacco use disorder Is this a current diagnosis for this admission?: Yes Plan: Spoke at length risk and dangers associated with continued tobacco use
== END 2018-09-25 15:48 | DRG 189 ==
LOC: ER 00:09 → EH 02:49 → OBSVTOIN 02:49 → 4W 07:13
PROVIDERS: ADMIT Internal Medicine; ATTEND Internal Medicine
PROC: 5A09357 Assistance with Respiratory Ventilation, Less than 24 Consecutive Hours, Continuous Positive Airway Pressure (ICD-10-PCS; principal; 2018-09-21)
PROC: 3E0F73Z Introduction of Anti-inflammatory into Respiratory Tract, Via Natural or Artificial Opening (ICD-10-PCS; 2018-09-21)
DX: J96.21 Acute and chronic respiratory failure with hypoxia (principal); J18.1 Lobar pneumonia, unspecified organism; J44.1 Chronic obstructive pulmonary disease with (acute) exacerbation; J44.0 Chronic obstructive pulmonary disease with (acute) lower respiratory infection; J96.22 Acute and chronic respiratory failure with hypercapnia; B96.5 Pseudomonas (aeruginosa) (mallei) (pseudomallei) as the cause of diseases classified elsewhere; E78.00 Pure hypercholesterolemia, unspecified; M19.90 Unspecified osteoarthritis, unspecified site; D51.9 Vitamin B12 deficiency anemia, unspecified; Z60.2 Problems related to living alone; F17.210 Nicotine dependence, cigarettes, uncomplicated; R13.12 Dysphagia, oropharyngeal phase; I25.2 Old myocardial infarction; Z71.6 Tobacco abuse counseling; Z85.118 Personal history of other malignant neoplasm of bronchus and lung; Z79.899 Other long term (current) drug therapy; Z90.2 Acquired absence of lung [part of]; Z99.81 Dependence on supplemental oxygen; Z92.21 Personal history of antineoplastic chemotherapy; Z90.710 Acquired absence of both cervix and uterus; Z88.4 Allergy status to anesthetic agent; Z88.3 Allergy status to other anti-infective agents; Z88.7 Allergy status to serum and vaccine; Z80.1 Family history of malignant neoplasm of trachea, bronchus and lung; Z83.6 Family history of other diseases of the respiratory system
CPT/HCPCS: 36415; 71045; 80048; 80053; 80202; 81001; 82565; 82803; 85025; 85027; 87040; 87070; 87077; 87186; 87205; 93005; 93010; 94667; 94668; 94799; 96365; 99285; G8978-GP; G8979-GP; J0692; J1644; J2543; J3370; J3490; J7030; J7060; J7512; J7620; J7685